=== PATIENT | male | born 1935 | race Caucasian/White ===

== ENCOUNTER 2016-05-04 14:35 | Inpatient (IN) ==
[2016-05-04] MEDS ORDERED: 0.9 % Sodium Chloride 1,000 ML IVC ONE ×2 (15:24→15:27)
[2016-05-04] MEDS ORDERED: Ipratropium/Albuterol Neb 3 ML IH ONE (15:27)
--- NOTE | 2016-05-04 15:31 | Emergency Department Note ---
Disposition Clinical Impression: Elevated troponin, Bronchospasm Dyspnea Qualifiers: Dyspnea type: shortness of breath Qualified Code(s): R06.02 - Shortness of breath Acute renal failure Qualifiers: Acute renal failure type: unspecified Qualified Code(s): N17.9 - Acute kidney failure, unspecified Hypotension Qualifiers: Hypotension type: unspecified hypotension type Qualified Code(s): I95.9 - Hypotension, unspecified Disposition: Admitted As Inpatient Condition: Fair Referrals: Cecelia Hernandez MD [Primary Care Provider] - Forms: ED Satisfaction Letter Time of Disposition: 16:51 SOB HPI - General Chief Complaint: ED Shortness of Breath/Dyspnea Stated Complaint: RAMYA, low BP, Sent by Dr. Collazo Time Seen by Provider: 05/04/16 15:04 Source: patient Limitations: no limitations Nursing Notes Reviewed: Yes Vital Signs Reviewed: Yes - History of Present Illness Patient is an 80-year-old male who presents to [facility] ED with a chief complaint of difficulty breathing and low blood pressure. 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 Collazo with concern for this. Patient states he was not feeling well yesterday and thought he may have spiked a fever. This was not measured. He then also felt difficulty breathing, and last night. Mom states he was a little wheezy at dinner. Denies any history of COPD or asthma. 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 Denies any nausea, vomiting, fever or chills. No cough or runny nose. Patient does not have any chest pain at this time. He has an AICD pacemaker from cardiomyopathy but denies any history of heart problems otherwise. Pt Subjective Complaint: shortness of breath Onset (ago): day(s) Severity: moderate Consistency/Duration: gradually worsening Improves with: nothing Worsens with: lying flat Associated symptoms: Reports: fever, wheezing. Denies: chest pain Treatment prior to arrival: none Cough present: No Sputum production: No - Related Data Home oxygen amount: none Home Medications Medication Instructions Recorded Confirmed Aspirin 81 mg PO DAILY 01/03/16 01/03/16 Gabapentin 600 mg PO TID 01/03/16 01/03/16 Lisinopril [Zestril] 10 mg PO DAILY 01/03/16 01/03/16 Niacin [Niacor] 500 mg PO DAILY 01/03/16 01/03/16 Paroxetine [Paxil] 20 mg PO DAILY 01/03/16 01/03/16 PredniSONE 5 mg PO BID 01/03/16 01/03/16 Simvastatin [Zocor] 20 mg PO DAILY 01/03/16 01/03/16 Tamsulosin [Flomax] 0.4 mg PO DAILY 01/03/16 01/03/16 Triamterene/HCTZ 37.5/25mg 1 cap PO DAILY 01/03/16 01/03/16 [Dyazide] Allergies Allergy/AdvReac Type Severity Reaction Status Date / Time No Known Allergies Allergy Verified 01/03/16 06:55 All systems ED: reviewed and negative except as stated. Past Medical History - Past Medical History Attestation: Yes The following information was validated with the patient. Source: patient Medical history: Reports: hyperlipidemia, hypertension Surgical history: Reports: appendectomy Psychiatric history: Reports: depression - Social History Smoking Status: Former smoker Smokeless Tobacco Status: No Alcohol use: Reports: none Drug use: Reports: none Physical Exam - General Limitations: no limitations General appearance: alert, in no apparent distress - Head Head exam: atraumatic, normocephalic, normal inspection - Eye Eye exam: Present: normal appearance - ENT ENT exam: normal exam, normal oropharynx, mucous membranes moist - Neck Neck exam: Present: normal inspection, full ROM, trachea midline - Chest Chest inspection: Present: normal inspection, symmetric chest wall rise - Respiratory Respiratory exam: Present: wheezes (diffusely) - Cardiovascular Cardiovascular exam: Present: regular rate, normal rhythm - Abdominal Exam Abdominal exam: Present: soft, Non-Tender. Absent: tenderness, distention, guarding, rebound, rigidity - Extremities Exam Extremities exam: Present: normal inspection, full ROM. Absent: tenderness, pedal edema - Back Exam Back exam: Present: normal inspection, full ROM. Absent: tenderness - Neurological Exam Neurological exam: Present: alert, oriented X3 - Psychiatric Psychiatric exam: Present: normal affect, normal mood - Skin Skin exam: Present: warm, dry, intact, normal color Course Course Narrative: Patient seen and examined. Dyspnea and hypotension. He does have diffuse wheezing throughout. No history of lung disease. Cardiopulmonary workup initiated. Concern for possible pneumonia and sepsis. He is very hypotensive at 60/40. We will give 2 L fluid bolus and reevaluate. - Reevaluation(s) Reevaluation #1: Patient feeling better after a triple DuoNeb treatment. Patient's blood pressure is improved at 112/80. Lab work shows worsening renal function as well as elevated troponin of 0.04. I spoke with hospitalist Uma Gonzáles who has accepted patient for admission. Time: 16:39 Vital Signs Temperature 98.7 F 05/04/16 14:53 Pulse Rate 88 05/04/16 14:53 Respiratory Rate 16 05/04/16 14:53 Blood Pressure 64/42 05/04/16 14:53 O2 Sat by Pulse Oximetry 98 05/04/16 14:53 Temperature 98.7 F 05/04/16 14:53 Pulse Rate 88 05/04/16 14:53 Respiratory Rate 20 05/04/16 16:07 Blood Pressure 64/42 05/04/16 14:53 O2 Sat by Pulse Oximetry 95 05/04/16 16:07 Oxygen Delivery Oxygen Delivery Room Air Shortness of Breath/Dyspnea - Medical Records Medical records reviewed: Yes I reviewed the patient's medical records. - Lab Data Lab results reviewed: Yes I reviewed the patient's lab results. Result diagrams: 05/04/16 15:50 05/04/16 15:50 Lab Results 05/04/16 05/04/16 05/04/16 Range/Units 15:49 15:50 15:50 WBC 10.9 (4.3-11.1) K/mcL RBC 3.80 L (4.19-5.50) M/mcL Hgb 11.6 L (12.9-16.9) g/dL Hct 36.4 L (37.5-50.1) % MCV 95.8 (83.0-100.0) fL MCH 30.5 (28.0-33.3) pg MCHC 31.9 (31.6-35.5) g/dL RDW 14.3 (11.5-14.5) % Plt Count 200 (140-400) K/mcL MPV 9.9 (9.4-12.4) fL Immature Gran % 1.0 (0-4) % Seg Neutrophils % 79.6 % Lymphocytes % 10.4 % Monocytes % 8.9 % Eosinophils % 0.0 % Basophils % 0.1 % Neutrophils # 8.7 (1.6-8.9) K/mcL Lymphocytes # 1.1 (0.6-4.6) K/mcL Monocytes # 1.0 (0.0-1.3) K/mcL Eosinophils # 0.0 (0.0-0.6) K/mcL Basophils # 0.0 (0.0-0.2) K/mcL Immature Plt Fraction 2.9 (1.1-6.1) % Sodium 140 (136-145) mEq/L Potassium 3.8 (3.5-4.5) mEq/L Chloride 98 (98-109) mEq/L Carbon Dioxide 28 (19-29) mEq/L BUN 35 H (8-26) mg/dL Creatinine 3.40 H (0.72-1.25) mg/dL Est GFR ( Amer) 21 L (> 60) Est GFR (Non-Af Amer) 17 L (> 60) BUN/Creatinine Ratio 10 (6-26) Glucose 73 (70-99) mg/dL Calculated Osmolality 297 (280-300) Lactic Acid 1.7 (0.5-2.2) mmol/L Calcium 9.2 (8.6-10.8) mg/dL Troponin I (0-0.03) ng/mL B-Natriuretic Peptide (0-100) pg/mL 05/04/16 05/04/16 Range/Units 15:50 15:50 WBC (4.3-11.1) K/mcL RBC (4.19-5.50) M/mcL Hgb (12.9-16.9) g/dL Hct (37.5-50.1) % MCV (83.0-100.0) fL MCH (28.0-33.3) pg MCHC (31.6-35.5) g/dL RDW (11.5-14.5) % Plt Count (140-400) K/mcL MPV (9.4-12.4) fL Immature Gran % (0-4) % Seg Neutrophils % % Lymphocytes % % Monocytes % % Eosinophils % % Basophils % % Neutrophils # (1.6-8.9) K/mcL Lymphocytes # (0.6-4.6) K/mcL Monocytes # (0.0-1.3) K/mcL Eosinophils # (0.0-0.6) K/mcL Basophils # (0.0-0.2) K/mcL Immature Plt Fraction (1.1-6.1) % Sodium (136-145) mEq/L Potassium (3.5-4.5) mEq/L Chloride (98-109) mEq/L Carbon Dioxide (19-29) mEq/L BUN (8-26) mg/dL Creatinine (0.72-1.25) mg/dL Est GFR ( Amer) (> 60) Est GFR (Non-Af Amer) (> 60) BUN/Creatinine Ratio (6-26) Glucose (70-99) mg/dL Calculated Osmolality (280-300) Lactic Acid (0.5-2.2) mmol/L Calcium (8.6-10.8) mg/dL Troponin I 0.04 H* (0-0.03) ng/mL B-Natriuretic Peptide 117 H (0-100) pg/mL - Radiology Data Radiology results reviewed: Yes I reviewed the patient's radiology results. Chest X-Ray 05/04/16 14:58 IMPRESSION: Low lung volumes with mild dependent bibasilar atelectasis. D/ / Eyad Cee MD / Eyad Cee MD Interpreting Provider: Eyad Cee MD - EKG Data EKG attestation: Yes I reviewed and interpreted this EKG. EKG results narrative: EKG done at 1502 shows normal sinus rhythm with a rate of [address] elevation or depression. Right bundle-branch block present. Inverted T-wave in leads V1 through V3, lead III. And inverted T waves in the precordial leads do appear new compared to prior EKG done 01/03/2016 Attestation Statement - Attestation Attestation: I examined this patient and my medical decision-making was reviewed with the TMD TEACHER/PA/Advanced Practice Nurse/Resident Physician. I agree with the documented findings, disposition and treatment plan as described except to the extent set forth below. This is an 80-year-old male who presents with cough, congestion, and increased shortness of air. Patient does follow-up with nephrology and is not currently on dialysis at this point. Patient does have wheezing and rhonchi on exam. Patient's blood pressure was low on initial evaluation. Patient did have a full septic workup initiated. Patient on chest x-ray did not show any obvious acute infiltrate so we will cover patient on Levaquin for possible early pneumonia. Patient is getting fluids and will be admitted.
[2016-05-04 15:59] LABS: Basophils % 0.1 %; Hematocrit 36.4 % (37.5-50.1); Hemoglobin 11.6 g/dL (12.9-16.9); Immature Platelets 2.9 % (1.1-6.1); Lymphocytes # 1.1 K/mcL (0.6-4.6); Lymphocytes % 10.4 %; Mean Corpuscular HGB Conc 31.9 g/dL (31.6-35.5); Mean Corpuscular Hemoglobin 30.5 pg (28.0-33.3); Mean Corpuscular Volume 95.8 fL (83.0-100.0); Mean Platelet Volume 9.9 fL (9.4-12.4); Monocytes % 8.9 %; Neutrophils # 8.7 K/mcL (1.6-8.9); Platelet Count 200 K/mcL (140-400); Red Cell Distribution Width 14.3 % (11.5-14.5); Segmented Neutrophils % 79.6 %
[2016-05-04 16:12] LABS: Calcium 9.2 mg/dL (8.6-10.8); Potassium 3.8 mEq/L (3.5-4.5)
[2016-05-04] MEDS ORDERED: Levofloxacin 500 MG/100 ML 500 MG/100 ML BAG IVPB ONE (16:20)
[2016-05-04 16:51] LABS: Albumin 3.7 g/dL (3.5-5.0); Bilirubin,Direct 0.1 mg/dL (0.0-0.5); Bilirubin,Indirect 0.3 mg/dL (0.0-1.2); Bilirubin,Total 0.4 mg/dL (0.2-1.2); Globulin 3.6 g/dL (2.4-3.5); Magnesium 1.9 mg/dL (1.6-2.6); Phosphorous 3.5 mg/dL (2.3-4.7); Total Protein 7.3 g/dL (6.0-8.3)
[2016-05-04 19:06] LABS: Bilirubin,Urine Small (Negative); Blood,Urine Negative (Negative); Clarity,Urine Cloudy (Clear); Color,Urine Yellow (Yellow); Glucose,Urine (UA) Normal (Normal); Ketones,Urine Trace mg/dL (Negative); Leukocyte Esterase,Urine Negative (Negative); Nitrite,Urine Negative (Negative); PH,Urine 5.5 pH Units (5.0-8.0); Protein,Urine 30 mg/dL (Neg-Trace); Specific Gravity,Urine 1.023 (1.010-1.025); Urobilinogen,Urine Normal (Normal)
[2016-05-04 19:08] LABS: Bacteria,Urine None Seen per hpf (None-Few); RBC,Urine 0-3 per hpf (0-3); Squamous Epithelial Cell,Urine Many per lpf (None-Few)
[2016-05-04 19:16] LABS: Hyaline Casts,Urine Few per lpf (None-Few)
[2016-05-04] MEDS ORDERED: Naloxone 0.4 MG/ML INJ IVP PRN (21:31)
--- NOTE | 2016-05-04 22:08 | Internal Med History&Physical ---
Date of Encounter: 05/04/16 Time of Encounter: 21:00 Assessment and Plan (1) Influenza A Current visit: Yes Status: Acute Treat with tamiflu and isolation precautions (2) Bronchitis Current visit: Yes Status: Acute Possibly exacerbated by influenza infection. Treat with levofloxacin, bronchodilators and Mucinex. (3) Elevated troponin Current visit: Yes Status: Acute (4) Acute on chronic renal failure Current visit: Yes Status: Acute Possibly secondary to poor oral intake/infection. Patient is on IV fluids. Monitor renal function. (5) Hypotension Current visit: Yes Status: Acute Possibly secondary to poor oral intake/infection. Treat with IV fluids. Monitor BP. Hold antihypertensives Qualifiers: Hypotension type: unspecified hypotension type Qualified Code(s): I95.9 - Hypotension, unspecified Internal Medicine - H&P: HPI Chief complaint: Hypotension Admitted From: Emergency Dept Plans for Post Hospital Care: Home History of present illness: Mr. Odell is a 80 year old male with Past medical history significant for hypertension, CKD and hyperlipidemia was evaluated in the travel agency manager Dr Collazo s office and was noted to be hypotensive with SBP in the 60s. He was sent to the emergency department for further evaluation. Patient reported that shortness of breath with cough and no significant sputum production. He had test fever at home yesterday. He was some muscle pains. He denies chest pain. He denies abdominal pain, dysuria, hematuria, diarrhea. He was evaluated in the emergency department - was noted to be hypotensive. He was given intravenous fluid bolus with improvement of the BP. He is admitted to the hospitalist service for further management. His influenza screen was positive Past Med Surg Social Fam HX - Past Medical History Medical history: hyperlipidemia, hypertension, renal disease Psychiatric history: depression - Past Surgical History Surgical History: appendectomy - Social History Smoking Status: Former smoker Smokeless Tobacco Status: No Alcohol use: none Drug use: none - Family History Father Living Status: Hx Family Cardiac Disorders: Yes Mother Living Status: Cause of : [place] Hx Family Cardiac Disorders: Yes Hx Family Endocrine Disorder: Yes (DM II) Internal Medicine - H&P: Meds Aspirin 81 mg PO DAILY 01/03/16 [History] Gabapentin 600 mg PO TID 01/03/16 [History] Lisinopril [Zestril] 10 mg PO DAILY 01/03/16 [History] Niacin [Niacor] 500 mg PO HS 01/03/16 [History] Paroxetine [Paxil] 20 mg PO DAILY 01/03/16 [History] Simvastatin [Zocor] 20 mg PO HS 01/03/16 [History] Tamsulosin [Flomax] 0.4 mg PO DAILY 01/03/16 [History] Triamterene/HCTZ 37.5/25mg [Dyazide] 1 cap PO DAILY 01/03/16 [History] Allergies No Known Allergies Allergy (Verified 01/03/16 06:55) All Systems PM: A 10-system review of systems was performed and is negative for pertinent findings except as documented above in the HPI. - Constitutional Vitals: Temp Pulse Resp BP Pulse Ox 98.7 F 97 18 101/56 96 05/04/16 19:18 05/04/16 19:18 05/04/16 19:18 05/04/16 19:18 05/04/16 19:18 Exam: General: Not in acute distress at the time of my evaluation HEENT: Oral mucosa is moist. No conjunctival palor or scleral icterus Neck: No obvious neck swellings Lungs: B/L wheeze present Cardiac: Regular rate and rhythm. No significant murmurs Abdomen: Soft, non tender. Bowel sounds present Genitourinary: No mckeon catheter Neurological: Alert and oriented. No gross localizing deficits Psych: Not aggressive or agitated Extremities: no gross deformities Skin: No generalized rash Internal Med - H&P Results - Labs CBC & Chem 7: 05/05/16 06:57 05/05/16 06:57 Labs: Urine 05/04/16 Range/Units 18:53 Urine Color Yellow (Yellow) Urine Clarity Cloudy A (Clear) Urine pH 5.5 (5.0-8.0) pH Units Ur Specific Stewart 1.023 (1.010-1.025) Urine Protein 30 H (Neg-Trace) mg/dL Urine Glucose (UA) Normal (Normal) mg/dL - EKG Data -: EKG Interpreted by Myself EKG shows normal: sinus rhythm - EKG Data EKG comments: RBBB 05/05/16 08:19 - Impressions ITS Impressions Chest X-Ray 05/04/16 14:58 IMPRESSION: Low lung volumes with mild dependent bibasilar atelectasis. D/ / Eyad Cee MD / Eyad Cee MD Interpreting Provider: yEad Cee MD
[2016-05-04] MEDS: 0.9 % Sodium Chloride 1,000 ML IVC SCH (22:19)
[2016-05-04] MEDS: *HR* Heparin 5,000 UNIT/ML VIAL SQ SCH (22:19)
[2016-05-04] MEDS: Oseltamivir Phosphate 30 MG CAPSULE PO SCH (22:19)
[2016-05-04] MEDS ORDERED: Ipratropium/Albuterol Neb 3 ML IH PRN (22:40)
[2016-05-04] MEDS: Ipratropium/Albuterol Neb 3 ML IH SCH (23:19)
[2016-05-05] MEDS ORDERED: 0.9 % Sodium Chloride 250 ML IVC ONE (00:10)
[2016-05-05] MEDS: Ipratropium/Albuterol Neb 3 ML IH SCH ×4 (04:23→23:01)
[2016-05-05] MEDS: *HR* Heparin 5,000 UNIT/ML VIAL SQ SCH ×3 (05:57→22:29)
[2016-05-05 07:30] LABS: Eosinophils % 0.2 %; Hematocrit 31.9 % (37.5-50.1); Immature Granulocytes % 0.5 % (0-4); Lymphocytes # 1.5 K/mcL (0.6-4.6); Lymphocytes % 23.1 %; Mean Corpuscular Hemoglobin 30.1 pg (28.0-33.3); Mean Platelet Volume 9.8 fL (9.4-12.4); Monocytes # 0.6 K/mcL (0.0-1.3); Monocytes % 8.8 %; Neutrophils # 4.4 K/mcL (1.6-8.9); Platelet Count 152 K/mcL (140-400); Red Blood Count 3.29 M/mcL (4.19-5.50); Red Cell Distribution Width 14.6 % (11.5-14.5); Segmented Neutrophils % 67.4 %
[2016-05-05 07:37] LABS: Hemoglobin 9.9 g/dL (12.9-16.9)
[2016-05-05 07:41] LABS: Calcium 7.9 mg/dL (8.6-10.8); Potassium 4.4 mEq/L (3.5-4.5)
[2016-05-05] MEDS ORDERED: Levofloxacin 500 MG/100 ML 500 MG/100 ML BAG IVPB ONE (09:00)
[2016-05-05] MEDS: Aspirin 81 MG TAB.CHEW PO SCH (09:21)
[2016-05-05] MEDS: Lactobacillus 1 EACH CAP.SPRINK PO SCH ×2 (09:21→22:29)
[2016-05-05] MEDS: Oseltamivir Phosphate 30 MG CAPSULE PO SCH (09:21)
[2016-05-05] MEDS: Gabapentin 300 MG CAPSULE PO SCH ×3 (09:27→22:29)
[2016-05-05] MEDS: 0.9 % Sodium Chloride 1,000 ML IVC SCH ×2 (11:56→23:12)
--- NOTE | 2016-05-05 12:07 | Nephrology Consult Note ---
<Jennifer Peter - Last Filed: 05/05/16 12:10> Date of Encounter: 05/05/16 Time of Encounter: 12:01 Assessment and Plan (1) Acute renal failure Status: Acute Kidney function improving with hydration. Continue IV fluids and encourage po fluids Strict I/Os Qualifiers: Acute renal failure type: unspecified Qualified Code(s): N17.9 - Acute kidney failure, unspecified (2) Influenza A Status: Acute per primary team (3) Chronic kidney disease, stage 3 Status: Chronic Avoid nephrotoxins if possible History of Present Illness - Reason for Consult Acute Kidney Injury, Chronic Kidney Disease - Chief Complaint influenza, MAURILIO on CKD stage 3 - History of Present Illness Mr. Odell is an 80 year old male with past medical history significant for hypertension, CKD stage 3 and hyperlipidemia who had an appointment with Dr Irwin in the office yesterday and was noted to be hypotensive with SBP in the 60s. He was sent to the emergency department for further evaluation. Patient reported shortness of breath with cough and no significant sputum production. His influenza screen was positive. His baseline GFR is 30-33 and Scr baseline is 2. On admission Scr increased to 3.4 and GFR dropped to 17. Today Scr and GFR are 2.88 and 21. Nephrology has been consulted to mangage patient's MAURILIO on CKD. Past Med Surg Social Fam HX - Past Medical History Medical history: hyperlipidemia, hypertension, renal disease Psychiatric history: depression - Past Surgical History Surgical History: appendectomy - Social History Smoking Status: Former smoker Smokeless Tobacco Status: No Alcohol use: none Drug use: none - Family History Father Living Status: Hx Family Cardiac Disorders: Yes Mother Living Status: Cause of : [place] Hx Family Cardiac Disorders: Yes Hx Family Endocrine Disorder: Yes (DM II) Medications and Allergies Aspirin 81 mg PO DAILY 01/03/16 [History] Gabapentin 600 mg PO TID 01/03/16 [History] Lisinopril [Zestril] 10 mg PO DAILY 01/03/16 [History] Niacin [Niacor] 500 mg PO HS 01/03/16 [History] Paroxetine [Paxil] 20 mg PO DAILY 01/03/16 [History] Simvastatin [Zocor] 20 mg PO HS 01/03/16 [History] Tamsulosin [Flomax] 0.4 mg PO DAILY 01/03/16 [History] Triamterene/HCTZ 37.5/25mg [Dyazide] 1 cap PO DAILY 01/03/16 [History] Albuterol Sulfate [Albuterol Inhaler] 1 puff IH Q4HR PRN #1 inhaler 05/06/16 [Rx ] Oseltamivir Phosphate [Tamiflu] 30 mg PO DAILY #2 capsule 05/06/16 [Rx] Allergies No Known Allergies Allergy (Verified 01/03/16 06:55) Review of Systems All Systems: reviewed and no additional remarkable complaints except as stated Constitutional: chills, fatigue, fever(s), malaise Cardiovascular: dyspnea, dyspnea on exertion, no chest pain, no edema Respiratory: cough, dyspnea, wheezing Gastrointestinal: no nausea, no vomiting Neurological: no behavioral changes, no confusion Psychiatric: no anxiety Exam - Vital Signs Vital signs: Initial Vital Signs Temp Pulse Resp BP Pulse Ox 98.7 F 88 16 64/42 98 05/04/16 14:53 05/04/16 14:53 05/04/16 14:53 05/04/16 14:53 05/04/16 14:53 Vital Signs - Last 8 Hours Temp Pulse Resp BP Pulse Ox 05/05/16 11:25 98.0 F 86 20 144/69 97 05/05/16 08:00 98.4 F 86 17 130/59 98 05/05/16 04:23 98.4 F 83 17 100/59 96 Intake and Output 05/04/16 05/05/16 05/05/16 23:59 07:59 15:59 Intake Total 1100 / 2100 250 / 250 1000 / 1000 Output Total 0 / 0 Balance 1100 / 2100 250 / 250 1000 / 1000 Intake: IV Fluids 1100 / 1100 250 / 250 1000 / 1000 0.9 % Sodium Chloride 1, 1000 / 1000 1000 / 1000 000 ML @ 75 mls/hr IVC . [id number] TALIB Rx#: [id number] 0.9 % Sodium Chloride 250 250 / 250 ML @ 937.5 mls/hr IVC . Q16M ONE Rx#:[id number] Levaquin 500mg/100mL 500 100 / 100 mg In 100 ml @ 100 mls/hr IVPB ONCE ONE Rx#: [id number] Oral 0 / 0 Output: Urine 0 / 0 - General Appearance General appearance: well-developed, well-nourished EENT: ATNC, mucous membranes moist, hearing intact, vision intact Neck: supple Respiratory: wheezing (improved from yesterday) Cardiology: no edema, normal S1, normal S2 Gastrointestinal: no tenderness, no guarding Integumentary: warm and dry Neurologic: alert and oriented x3 Psychiatric: mood/affect appropriate, cooperative Results - Lab Results 05/05/16 06:57 05/05/16 06:57 Most recent lab results Calcium 7.9 mg/dL (8.6-10.8) L 05/05/16 06:57 Phosphorus 3.5 mg/dL (2.3-4.7) 05/04/16 15:50 Magnesium 1.9 mg/dL (1.6-2.6) 05/04/16 15:50 Consult Discharge Plan - Plan Instructions: Albuterol (By breathing), Oseltamivir (By mouth), Chronic Kidney Disease (DC), Chronic Hypertension (DC) Referrals: Cecelia Hernandez MD [Primary Care Provider] - 05/12/16 1:30 pm () Prescriptions: Albuterol Sulfate [Albuterol Inhaler] 1 puff IH Q4HR PRN #1 inhaler PRN Reason: Shortness Of Breath Oseltamivir Phosphate [Tamiflu] 30 mg PO DAILY #2 capsule <Blank Irwin - Last Filed: 05/11/16 21:13> Date of Encounter: 05/05/16 Exam - Vital Signs Vital signs: Initial Vital Signs Temp Pulse Resp BP Pulse Ox 98.7 F 88 16 64/42 98 05/04/16 14:53 05/04/16 14:53 05/04/16 14:53 05/04/16 14:53 05/04/16 14:53 Results - Lab Results 05/06/16 06:20 05/06/16 06:20 Most recent lab results Calcium 8.7 mg/dL (8.6-10.8) 05/06/16 06:20 Phosphorus 3.5 mg/dL (2.3-4.7) 05/04/16 15:50 Magnesium 1.9 mg/dL (1.6-2.6) 05/04/16 15:50 - Attending Attestation I examined this patient and my medical decision-making was reviewed with the SENIOR APPLICATIONS DEVELOPER/PA/Advanced Practice Nurse/Resident Physician. I agree with the documented findings, disposition and treatment plan as described except to the extent set forth below. 80 y o male patient who was sent from my office yesterday to the ED for evaluation after he was noted very weak and hypotensive reportsing "sickness" for several days. SCr noted worse than baseline but already improving as of this morning with IVF, will continue.
--- NOTE | 2016-05-05 15:48 | Internal Med Progress Note ---
Date of Encounter: 05/05/16 Time of Encounter: 15:46 - Assessment and plan (1) Elevated troponin Current Visit: Yes Status: Acute Assessment and plan: possible demand ischemia from hypotension and flu. (2) Influenza A Current Visit: Yes Status: Acute Assessment and plan: started tamiflu yesterday. much improvement today. will continue IVF today, BP has improved. no pneumonia on the CXR, no indication for the antibiotics, will stop. possible DC tomm (3) Chronic kidney disease, stage 3 Current Visit: No Status: Chronic Assessment and plan: Improvement in the kidney function today. Mild worsening of the kidney function initially probably secondary to hypotension. Renal has been consulted, appreciate recommendations, continue IV fluids for now. Repeat Chem-7 tomorrow. - Time Spent With Patient 25 - 35 minutes - Subjective Interval history: Patient seen at the bedside, admitted for dehydration, generalized weakness, tested positive for influenza. Started on IV fluids and Tamiflu yesterday. He reports that he feels clinically much better. Denies any nausea vomiting diarrhea. Denies any chest pain or cough. - Constitutional Vitals: Temp Pulse Resp BP Pulse Ox 98.0 F 86 20 144/69 97 05/05/16 11:25 05/05/16 11:25 05/05/16 11:25 05/05/16 11:25 05/05/16 11:25 General appearance: Present: A&O X 3, no acute distress Exam: General: Not in acute distress at the time of my evaluation HEENT: Oral mucosa is moist. No conjunctival palor or scleral icterus Neck: No obvious neck swellings Lungs: B/L MILD WHEEZING, no creptns Cardiac: Regular rate and rhythm. No significant murmurs Abdomen: Soft, non tender. Bowel sounds present Genitourinary: No mckeon catheter Neurological: Alert and oriented. No gross localizing deficits Psych: Not aggressive or agitated Extremities: no gross deformities Skin: No generalized rash Internal Medicine: Result - Labs CBC & Chem 7: 05/05/16 06:57 05/05/16 06:57 Labs: Short CBC 05/05/16 Range/Units 06:57 WBC 6.6 (4.3-11.1) K/mcL Hgb 9.9 L D (12.9-16.9) g/dL Hct 31.9 L (37.5-50.1) % Plt Count 152 (140-400) K/mcL Neutrophils # 4.4 (1.6-8.9) K/mcL BMP 05/05/16 06:57 Sodium 139 Potassium 4.4 Chloride 105 Carbon Dioxide 24 BUN 36 H Creatinine 2.88 H Glucose 92 Calcium 7.9 L Cardiac Enzymes 05/05/16 Range/Units 06:57 Troponin I 0.03 (0-0.03) ng/mL Consult Discharge Plan - Plan Referrals: Cecelia Hernandez MD [Primary Care Provider] - 05/12/16 1:30 pm ()
[2016-05-06] MEDS: Ipratropium/Albuterol Neb 3 ML IH SCH ×2 (04:33→10:50)
[2016-05-06 06:45] LABS: Basophils % 0.2 %; Eosinophils # 0.1 K/mcL (0.0-0.6); Eosinophils % 1.1 %; Hemoglobin 10.5 g/dL (12.9-16.9); Immature Granulocytes % 0.2 % (0-4); Lymphocytes # 1.9 K/mcL (0.6-4.6); Mean Corpuscular HGB Conc 31.8 g/dL (31.6-35.5); Mean Corpuscular Hemoglobin 30.6 pg (28.0-33.3); Mean Corpuscular Volume 96.2 fL (83.0-100.0); Mean Platelet Volume 9.9 fL (9.4-12.4); Monocytes # 0.6 K/mcL (0.0-1.3); Monocytes % 9.8 %; Neutrophils # 3.1 K/mcL (1.6-8.9); Platelet Count 166 K/mcL (140-400); Red Blood Count 3.43 M/mcL (4.19-5.50); Red Cell Distribution Width 14.4 % (11.5-14.5); Segmented Neutrophils % 54.7 %
[2016-05-06 06:56] LABS: Calcium 8.7 mg/dL (8.6-10.8); Potassium 4.2 mEq/L (3.5-4.5)
[2016-05-06] MEDS: *HR* Heparin 5,000 UNIT/ML VIAL SQ SCH (07:41)
--- NOTE | 2016-05-06 07:55 | Electrocardiograph Report ---
[address] [place], [place] [address] Test Date: 2016-05-04 Pat Name: Randal Odell Department: 102 Room: 2A Gender: M Customer Success Representative: Alyce : 1935 Requested By: Tod Hackett Order Number: [id number] Reading MD: Jhon Carrillo MD Measurements Intervals [place] Rate: 87 P: 2 CO: 135 QRS: 31 QRSD: 132 T: 6 QT: 342 QTc: 387 Interpretive Statements SINUS RHYTHM RIGHT BUNDLE BRANCH BLOCK Electronically Signed On 05-06-2016 7:53:06 EDT by Jhon Carrillo MD
[2016-05-06 08:11] VITALS: BP 163/77
[2016-05-06 08:22] LABS: Platelet Estimate Normal (Normal)
[2016-05-06] MEDS: Oseltamivir Phosphate 30 MG CAPSULE PO SCH (09:30)
[2016-05-06] MEDS: Aspirin 81 MG TAB.CHEW PO SCH (09:30)
[2016-05-06] MEDS: Lactobacillus 1 EACH CAP.SPRINK PO SCH (09:30)
[2016-05-06] MEDS: Gabapentin 300 MG CAPSULE PO SCH (09:31)
--- NOTE | 2016-05-06 09:59 | Discharge Summary ---
Date of Encounter: 05/06/16 Time of Encounter: 09:57 - Discharge Diagnosis (1) Elevated troponin Priority: Primary Status: Acute (2) Influenza A Priority: Primary Status: Acute (3) Chronic kidney disease, stage 3 Priority: Secondary Status: Chronic - Discharge Medications Prescriptions: Albuterol Sulfate [Albuterol Inhaler] 1 puff IH Q4HR PRN #1 inhaler PRN Reason: Shortness Of Breath Oseltamivir Phosphate [Tamiflu] 30 mg PO DAILY #2 capsule Home Medications: Aspirin 81 mg PO DAILY 01/03/16 [History] Gabapentin 600 mg PO TID 01/03/16 [History] Lisinopril [Zestril] 10 mg PO DAILY 01/03/16 [History] Niacin [Niacor] 500 mg PO HS 01/03/16 [History] Paroxetine [Paxil] 20 mg PO DAILY 01/03/16 [History] Simvastatin [Zocor] 20 mg PO HS 01/03/16 [History] Tamsulosin [Flomax] 0.4 mg PO DAILY 01/03/16 [History] Triamterene/HCTZ 37.5/25mg [Dyazide] 1 cap PO DAILY 01/03/16 [History] Albuterol Sulfate [Albuterol Inhaler] 1 puff IH Q4HR PRN #1 inhaler 05/06/16 [Rx ] Oseltamivir Phosphate [Tamiflu] 30 mg PO DAILY #2 capsule 05/06/16 [Rx] Allergies/Adverse Reactions: Allergies No Known Allergies Allergy (Verified 01/03/16 06:55) Date of admission: 05/04/16 23:02 Primary care physician: Cecelia Galvez Consults: 05/05/16 08:23 Consult to Nephrology [CONS] Routine Consulting Provider: Kidney Jeniffer/MICHELLE/MELLO/MAYA Reason for Consult: Acute on chronic renal failure Call Completed: No Discharging clinician: Omayra Wallace Anticipated date of discharge: 05/06/16 - Patient Status Disposition: Home, Self-Care Condition: Fair Functional capacity at discharge: independent ambulation Overall status at discharge: patient is back to baseline - Discharge Instructions Instructions: Albuterol (By breathing), Oseltamivir (By mouth), Chronic Kidney Disease (DC), Chronic Hypertension (DC) Follow Up With: Cecelia Hernandez MD [Primary Care Provider] - 05/12/16 1:30 pm () - Diet and Activity Activity: resume usual activities as tolerated Diet: advance to your usual diet Interval History: Mr. Odell is a 80 year old male with Past medical history significant for hypertension, CKD and hyperlipidemia was evaluated in the presales engineer Dr Collazo s office and was noted to be hypotensive with SBP in the 60s. He was sent to the emergency department for further evaluation. Patient reported that shortness of breath with cough and no significant sputum production. He was evaluated in the emergency department - was noted to be hypotensive. He was given intravenous fluid bolus with improvement of the BP. His influenza screen was positive. Mild elevation of troponin was noted with no EKG changes, possible demand ischemia from hypotension and flu. He was treated with Tamiflu adn IVF with supportive treatment with much improvement clinically, no pneumonia in the chest x-ray with no indication for antibiotics. He had mild MAURILIO probably from the hypotension as well which improved with IV fluids. HE is being dc today in stable condition, he is hemodynamiclaly stable at the time of dc. Hospital course: Mr. Odell is a 80 year old male Time spent discussing smoking cessation with patient: more than 10 minutes - Time Spent with Patient Total time spent providing and/or coordinating discharge services: Greater than 30 minutes - Constitutional Vitals: Temp Pulse Resp BP Pulse Ox 98.7 F 81 20 163/77 98 05/06/16 08:09 05/06/16 08:09 05/06/16 08:09 05/06/16 08:09 05/06/16 08:09 General appearance: Present: A&O X 3, no acute distress Exam: HEENT: Oral mucosa is moist. No conjunctival palor or scleral icterus Neck: No obvious neck swellings Lungs: B/Lclear Cardiac: Regular rate and rhythm. No significant murmurs Abdomen: Soft, non tender. Bowel sounds present Genitourinary: No mckeon catheter Neurological: Alert and oriented. No gross localizing deficits Psych: Not aggressive or agitated Extremities: no gross deformities Skin: No generalized rash
[2016-05-07] MEDS ORDERED: Levofloxacin 500 MG/100 ML 500 MG/100 ML BAG IVPB SCH (09:00)
[2016-05-07] MEDS ORDERED: Levofloxacin 250 MG/50 ML 250 MG/50 ML BAG IVPB SCH (09:00)
== END 2016-05-06 12:04 | disposition home or self-care (01) | DRG 194 ==
LOC: 2ANU 14:35 → EMEROO 14:35 → 2ANU 18:31 → SUATTDRO 23:02
PROVIDERS: ADMIT Nurse Practitioner Family; ATTEND Internal Medicine Endocrinology, Diabetes & Metabolism

== ENCOUNTER 2016-06-23 09:15 | Inpatient (IN) ==
[2016-06-23] MEDS ORDERED: Famotidine 20 MG/2 ML VIAL IVP ONE (09:36)
[2016-06-23] MEDS ORDERED: Acetaminophen IV 1,000 MG/100 ML INFUS..BTL IVPB ONE (09:37)
[2016-06-23] MEDS ORDERED: Gabapentin 300 MG CAPSULE PO ONE (09:37)
[2016-06-23] MEDS ORDERED: Lidocaine -MPF 1% 2 ML VIAL ID ONE (09:43)
[2016-06-23] MEDS ORDERED: CeFAZolin Pre 2,000 MG/100 ML 2,000 MG/100 ML BAG IVPB ONE (09:43)
--- NOTE | 2016-06-23 09:46 | History & Physical Report ---
Date of Encounter: 06/23/16 Time of Encounter: 09:45 24 Hour HP Update - Instructions Instructions: If the History and Physical is less than 30 days old and was completed prior to A.M. admission and or procedure and has NOT been updated on calendar day of procedure please complete this update prior to performing procedure. - Update Patient reports changes in Medical Condition: No Changes in examination, assessment, or condition: No Changes in Medication: No Preop tests/diagnostics Reviewed: Yes Pre-Op MRSA Screen: Negative Surgery Remains Indicated: Yes Consent for Planned Operative Procedure(s) Verified: Yes - Pre-Operative Checklist Preoperative Checklist Indicated: No Prophylactic Antibiotic Ordered: Yes Home Medications Include Beta Cory: No Beta Cory Taken Today (Day of Surgery): No Beta Cory Taken Yesterday (Day Prior to Surgery): No Is VTE Prophylaxis Indicated?: Yes
--- NOTE | 2016-06-23 09:49 | Anesthesia Evaluation PreOp ---
Date of Encounter: 06/23/16 Time of Encounter: 09:45 - Past History Planned Operation: PLIF L5-S1 Cardiac History: HTN, Hyperlipidemia Pulmonary History: Denies Any Significant HX CLINICAL TRIALS SPECIALIST History: Other (Radiculopathy Rt LE, Spondylolisthesis L5-S1) Other Medical History: Denies Any Significant HX Anesthesia History: No Prior Anesthetic Complications Alcohol Use: none Drug use: none Medications and Allergies Aspirin 81 mg PO DAILY 01/03/16 [History] Gabapentin 600 mg PO TID 01/03/16 [History] Lisinopril [Zestril] 10 mg PO DAILY 01/03/16 [History] Niacin [Niacor] 500 mg PO HS 01/03/16 [History] Paroxetine [Paxil] 20 mg PO DAILY 01/03/16 [History] Simvastatin [Zocor] 20 mg PO HS 01/03/16 [History] Tamsulosin [Flomax] 0.4 mg PO DAILY 01/03/16 [History] Triamterene/HCTZ 37.5/25mg [Dyazide] 1 cap PO DAILY 01/03/16 [History] Albuterol Sulfate [Albuterol Inhaler] 1 puff IH Q4HR PRN #1 inhaler 05/06/16 [Rx ] Oseltamivir Phosphate [Tamiflu] 30 mg PO DAILY #2 capsule 05/06/16 [Rx] Allergies No Known Allergies Allergy (Verified 01/03/16 06:55) - Meds/Allergy Pre-op Review Medications Reviewed: Yes Allergies Reviewed: Yes Beta Blockers on Current Med List: No Anesthesia Results - Labs Laboratory Tests 06/18/16 06/18/16 06/18/16 14:34 14:34 14:34 Hgb 10.8 L Hct 33.7 L Plt Count 275 PT 10.9 INR 1.0 APTT 26.9 Sodium 137 Potassium 4.4 BUN 32 H Creatinine 2.02 H - Imaging EKG: report reviewed (SR Rt BBB) Additional studies: ECHO 2016 LVEF 65%, mild diastolic dysfunction Anesthesia Exam O2 Sat Height 1.73 m Height 1.73 m Weight 87.543 kg Weight 87.543 kg O2 Sat by Pulse Oximetry 99 Vital Signs Temp Pulse Resp BP Pulse Ox 98.0 F 75 18 135/65 99 06/23/16 09:49 06/23/16 09:49 06/23/16 09:49 06/23/16 09:49 06/23/16 09:49 Height: 5'8 Weight: 193 lbs NPO (# of Hours): MN Pain Scale: 0 - HEENT Pupil (Motor): Pupils equal, EOMI Mallampati: III Teeth: Normal Oral Opening: Less than or equal to 3 - CLINICAL TRIALS SPECIALIST LOC: Oriented CLINICAL TRIALS SPECIALIST Motor: Normal RUE, Normal LUE, Normal LLE, Normal Face, Deficit RLE CLINICAL TRIALS SPECIALIST Sensory: Normal: RUE, LUE, LLE, Face, Deficit: RLE (paresthesia) - Cardiac Rhythm: Regular Murmur: None JVD: No Carotid Bruit: No - Pulmonary Breath Sounds: bilateral Clear Respiratory Effort: Symmetrical Anesthesia Assess/Plan ASA Score: 3 (HTN Hypercholesterolemia) Modified Maxine Scale for Level of Consciousness: Cooperative, oriented, and tranquil Anesthetic Plan: General Monitoring Plan: Standard Monitors Recovery Plan: PACU (Discussed GA, agrees to proceed)
[2016-06-23] MEDS: Ringers Solution, Lactated 1,000 ML IVC SCH ×2 (10:09→13:16)
[2016-06-23] MEDS ORDERED: *HR* Promethazine 25 MG/ML VIAL IVP PRN (10:43)
[2016-06-23] MEDS ORDERED: *HR* HYDROmorphone (PF) 1 MG/ML SYRINGE IVP PRN (10:43)
[2016-06-23] MEDS ORDERED: Ondansetron 4 MG/2 ML VIAL IVP ONE (10:43)
[2016-06-23] MEDS ORDERED: *HR* Remifentanil 1 MG VIAL IVP ONE ×2 (13:01)
[2016-06-23] MEDS ORDERED: EPHEDrine 50 MG/ML VIAL ONE (13:01)
--- NOTE | 2016-06-23 13:06 | Orthopedic Operative Note ---
Date of procedure: 06/23/16 Pre-op diagnosis: Spondylolisthesis, lumbar stenosis, lumbar radiculopathy Post-op diagnosis: same Operation/Findings: Posterior lumbar interbody fusion L5-S1: The patient successfully underwent general endotracheal anesthesia. The patient was given antibiotics prior to the start of the procedure. Compression boots and stockings were used for deep vein thrombosis prophylaxis. A Hubbard catheter was placed. Leads for neuro monitoring were placed on the upper and lower extremities. This included the cranium. The neuro monitoring personnel confirmed there were satisfactory readings prior to the start of the procedure. The patient was turned prone on the Vipul table. The back was prepped and draped in the usual sterile fashion. An incision was was marked and centered over the involved L5-S1 levels in the mid line. The incision was deepened through the lumbar fascia. Bovie cautery and Zuleta elevators were used to reflect the paraspinal musculature at the lateral extent of the transverse processes of the involved L4 -5 and S1 levels. Gris clamps were placed over the L5 spinous process. An intraoperative lateral fluoroscopy graft was obtained. A conversation was held between the surgeon and radiologist and both confirmed we had the correct L5-S1 operative level. We then placed pedicle screws in standard fashion with the aid of fluoroscopy and anatomic landmarks. Briefly a starter awl was used. A gearshift was subsequently used to enter the commercial helicopter pilot hole via a transpedicular route into the vertebral body. The commercial helicopter pilot hole was tapped with an undersized instrument, and subsequently four 6.5 x 40 mm pedicle screws were placed bilaterally at the indicated L5 and S1 levels. The screws were tested with the aid of the neurologic monitoring staff via pedicle screw stimulation. All reading suggested there was no significant cortical wall breech. The screws were also evaluated fluoro- graphically and appeared to be in satisfactory position. We then turned our attention to the decompression portion of the procedure. We removed the supraspinous and interspinous ligaments and subsequently the insertion of the ligamentum flavum on the undersurface of the proximal L5 lamina was dislodged with a curette. We then removed the ligamentum flavum as well as undercut the L5-S1 facets at this level to decompress the lateral recesses. We also performed a L5 laminectomy. After the decompression, which was over and above that which was required to place the interbody graft, the foramen and traversing roots at this level were found to be free and patent. We also took part of the medial facet in order to aid in the decompression. We then protected the neural elements including the thecal sac and traversing nerve root on the right with a dural retractor. We made an annulotomy into the L5-S1 disc space and then removed disc material using Pituitary instruments. We trialed various size grafts after the endplates were prepared for graft insertion. A 8 x 26 enter body graft fit well within the L5-S1 disc space. We obtained some bone from the right posterior superior iliac spine through us a separate incision and combined with this with the bone which we had saved from the L5 laminectomy portion of the procedure. This autograft bone was first placed in the anterior portion of the L5-S1 disc space and additional bone was placed within the interbody graft spacer. We then placed the interbody graft spacer obliquely across the L5-S1 disc space towards the midline while protecting the neural elements with a root retractor. When the graft was found to be in satisfactory position the warehouse coordinator was removed. We then copiously irrigated the wound. We then decorticated the transverse processes as well as the facet joints of the involved levels to aid in the posterolateral fusion. We placed autograft bone in the lateral gutters over these regions. We then placed rods within the screw heads of the involved levels and first locked the distal screws and then subsequently locked the proximal screws so as to improve and reduce the spondylolisthesis previously seen. We then closed the wound in layers with 1 Vicryl for the fascia, 2-0 Vicryl. Subcutaneous tissue, and Dermabond was used for skin closure. Sterile dressings were placed over the wound. The patient was turned supine on a hospital bed and extubated. All sponge instruments and needle counts were correct at the end of the procedure. The patient tolerated the procedure well without complications. Anesthesia: GETA Surgeon: Gerry Benavidez Jr Estimated blood loss (cc): 200 Condition: stable Disposition: PACU
[2016-06-23] MEDS ORDERED: *HR* HYDROmorphone 2 MG/ML SYRINGE ONE (13:34)
[2016-06-23] MEDS ORDERED: Ringers Solution, Lactated 1,000 ML IVC SCH (14:12)
[2016-06-23] MEDS ORDERED: Ondansetron 4 MG/2 ML VIAL IVP PRN (14:12)
[2016-06-23] MEDS ORDERED: Naloxone 0.4 MG/ML INJ IVP PRN (14:12)
[2016-06-23] MEDS ORDERED: hydrOXYzine pamoate 25 MG CAPSULE PO PRN (14:12)
[2016-06-23] MEDS ORDERED: *HR* Morphine 2 MG/ML SYRINGE IVP PRN (14:12)
--- NOTE | 2016-06-23 14:16 | Anesthesia Evaluation Post Op ---
Date of Encounter: 06/23/16 Time of Encounter: 14:15 - Vital Signs Vital Signs: Vital Signs/O2 Sat/Glucose, Most Current Temp Pulse Resp BP Pulse Ox 06/23/16 13:56 89 16 106/63 97 06/23/16 13:46 97.9 F 84 16 108/59 99 06/23/16 13:36 87 16 104/61 95 06/23/16 13:26 91 16 128/63 100 06/23/16 13:16 97.9 F 100 16 151/69 100 - Lungs Lungs: Clear Ascult./Percussion - Airway Airway: Non-obstructed - Cardiovascular Regular Rate - Mental Status Mental Status: Alert & Oriented, Answers Appropriately - Pain Pain Scale: 0 - Nausea Vomiting Nausea Vomiting: Not Present - Hydration Hydration: Ice chips - Discharge PostOp Status: Transfer Patient to floor
[2016-06-23] MEDS: ceFAZolin 2,000 MG in D5% in Water 100 ML IVPB SCH ×2 (16:36→23:40)
[2016-06-23] MEDS: Niacin (24 HR) 500 MG TAB.ER.24H PO SCH (20:28)
[2016-06-24 06:40] LABS: Potassium 5.2 mEq/L (3.5-4.5)
[2016-06-24] MEDS: Aspirin 81 MG TAB.CHEW PO SCH (08:38)
[2016-06-24] MEDS: hydroCHLOROthiazide 25 MG TABLET PO SCH (08:39)
[2016-06-24] MEDS: *HR* OxyCODONE Immed Rel 5 MG TABLET PO PRN ×2 (15:05→21:02)
[2016-06-24] MEDS: Niacin (24 HR) 500 MG TAB.ER.24H PO SCH (21:02)
[2016-06-25] MEDS: *HR* OxyCODONE Immed Rel 5 MG TABLET PO PRN ×4 (03:02→18:39)
--- NOTE | 2016-06-25 05:10 | Spine Progress Note ---
Date of Encounter: 06/24/16 Time of Encounter: 13:35 Subjective Principal diagnosis: spondylolisthesis, lumbar stenosis Interval history: The patient complains of some back pain. Afebrile, vital signs stable. Dressing clean, dry, and intract. Neurovascularly intact withregard to his bilateral lower extremities. Stable. Mobilize, analgesics. discharge planning. Objective Vital signs: Vital Signs Temp Pulse Resp BP Pulse Ox 06/24/16 17:36 98.5 F 96 20 146/74 96 06/24/16 15:00 97.9 F 91 20 110/59 93 06/24/16 11:45 78 18 111/66 96 06/24/16 10:46 98.2 F 78 18 111/66 96 06/24/16 08:41 94 06/24/16 06:28 97.9 F 79 20 137/78 94 Intake and Output 06/24/16 06/24/16 06/25/16 15:59 23:59 07:59 Intake Total 820 / 820 240 / 240 Balance 820 / 820 240 / 240 Intake: IV Fluids 100 / 100 Oral 720 / 720 240 / 240 Other: Meal Lunch Dinner Percent of Meal Consumed 100% 25% # Voids 3 1 - Labs CBC & BMP: 06/24/16 05:57 Labs: Abnormal lab results Potassium 5.2 mEq/L (3.5-4.5) H 06/24/16 05:57 BUN 29 mg/dL (8-26) H 06/24/16 05:57 Creatinine 1.85 mg/dL (0.72-1.25) H 06/24/16 05:57 Est GFR ( Amer) 43 (> 60) L 06/24/16 05:57 Est GFR (Non-Af Amer) 35 (> 60) L 06/24/16 05:57 Glucose 115 mg/dL (70-99) H 06/24/16 05:57 Consult Discharge Plan - Plan Referrals: Cecelia Hernandez MD [Primary Care Provider] -
[2016-06-25] MEDS: hydroCHLOROthiazide 25 MG TABLET PO SCH (08:24)
[2016-06-25] MEDS: Aspirin 81 MG TAB.CHEW PO SCH (08:24)
[2016-06-25 15:44] LABS: ABG Base Excess 3.7 mEq/L (-2.0 to 3.0); ABG HCO3 28.5 mEQ/L (21-27); ABG Oxygen Saturation 95 % (95-98); ABG PCO2 43 mmHg (35-45); ABG PH 7.43 pH Units (7.32-7.45); ABG PO2 74 mmHg (85-104); ABG TCO2 29.8 mEq/L (20-26)
[2016-06-25 15:48] LABS: Basophils % 0.1 %; Eosinophils % 0.4 %; Hemoglobin 9.9 g/dL (12.9-16.9); Immature Granulocytes % 0.3 % (0-4); Lymphocytes # 1.4 K/mcL (0.6-4.6); Lymphocytes % 15.7 %; Mean Corpuscular HGB Conc 31.9 g/dL (31.6-35.5); Mean Corpuscular Hemoglobin 29.9 pg (28.0-33.3); Mean Corpuscular Volume 93.7 fL (83.0-100.0); Mean Platelet Volume 9.6 fL (9.4-12.4); Monocytes # 1.5 K/mcL (0.0-1.3); Monocytes % 15.8 %; Neutrophils # 6.2 K/mcL (1.6-8.9); Platelet Count 216 K/mcL (140-400); Red Blood Count 3.31 M/mcL (4.19-5.50); Red Cell Distribution Width 14.3 % (11.5-14.5); Segmented Neutrophils % 67.7 %
[2016-06-25 15:50] LABS: Blood Gas Liter Flow 3 L/MIN
[2016-06-25 16:08] LABS: Magnesium 2.1 mg/dL (1.6-2.6); Potassium 4.2 mEq/L (3.5-4.5)
[2016-06-25] MEDS: Niacin (24 HR) 500 MG TAB.ER.24H PO SCH (21:02)
[2016-06-26] MEDS: hydroCHLOROthiazide 25 MG TABLET PO SCH (08:19)
[2016-06-26] MEDS: *HR* OxyCODONE Immed Rel 5 MG TABLET PO PRN (08:19)
[2016-06-26] MEDS: Aspirin 81 MG TAB.CHEW PO SCH (08:19)
[2016-06-26 10:46] VITALS: BP 134/75
--- NOTE | 2016-06-26 11:30 | Orthopedics Progress Note ---
Date of Encounter: 06/26/16 Time of Encounter: 11:28 Subjective Principal diagnosis: spondylolisthesis, lumbar stenosis Interval history: S: Doing well. No complaints O: Afeb, [employer] ankles and feet well. Feet are grossly senate and well perfused Able to ambulate Dressing is clean and dry. A: Post op PLIF P: Resume post op care. Discharge today. Follow up with Dr. Benavidez. Objective Vital signs: Vital Signs Temp Pulse Resp BP Pulse Ox 06/26/16 10:43 98.2 F 85 21 134/75 95 06/26/16 06:54 98.2 F 92 18 154/75 98 06/25/16 23:28 98.2 F 88 19 120/75 99 06/25/16 20:20 98.3 F 90 19 115/67 100 06/25/16 15:36 98.5 F 93 18 111/67 99 06/25/16 15:23 100 06/25/16 14:26 16 91 Intake and Output 06/25/16 06/26/16 06/26/16 23:59 07:59 15:59 Intake Total 360 / 360 Output Total 200 / 200 Balance -200 / -200 360 / 360 Intake: Oral 360 / 360 Output: Urine 200 / 200 Other: Meal Breakfast Stool Size Small # Voids 1 1 # Bowel Movements 1 - Labs CBC & BMP: 06/25/16 15:34 06/25/16 15:34 Labs: Abnormal lab results RBC 3.31 M/mcL (4.19-5.50) L 06/25/16 15:34 Hgb 9.9 g/dL (12.9-16.9) L 06/25/16 15:34 Hct 31.0 % (37.5-50.1) L 06/25/16 15:34 Monocytes # 1.5 K/mcL (0.0-1.3) H 06/25/16 15:34 ABG pO2 74 mmHg (85-104) L 06/25/16 15:35 ABG HCO3 28.5 mEQ/L (21-27) H 06/25/16 15:35 ABG Total CO2 29.8 mEq/L (20-26) H 06/25/16 15:35 ABG Base Excess 3.7 mEq/L (-2.0 to 3.0) H 06/25/16 15:35 Sodium 135 mEq/L (136-145) L 06/25/16 15:34 BUN 29 mg/dL (8-26) H 06/25/16 15:34 Creatinine 1.89 mg/dL (0.72-1.25) H 06/25/16 15:34 Est GFR ( Amer) 42 (> 60) L 06/25/16 15:34 Est GFR (Non-Af Amer) 34 (> 60) L 06/25/16 15:34 Glucose 120 mg/dL (70-99) H 06/25/16 15:34 - VTE Documentation of Mechanical Device: Intermittent pneumatic compression device Consult Discharge Plan - Plan Referrals: Cecelia Hernandez MD [Primary Care Provider] -
== END 2016-06-26 12:30 | DRG 460 ==
LOC: SAMDAY 09:15 → 3NENU 14:16
PROVIDERS: ADMIT Orthopaedic Surgery Orthopaedic Surgery of the Spine; ATTEND Orthopaedic Surgery Orthopaedic Surgery of the Spine

== ENCOUNTER 2017-03-01 13:31 | Inpatient (IN) ==
[2017-03-01 14:30] LABS: Bilirubin,Urine Negative (Negative); Blood,Urine Negative (Negative); Clarity,Urine Clear (Clear); Color,Urine Yellow (Yellow); Glucose,Urine (UA) Normal (Normal); Ketones,Urine Negative (Negative); Leukocyte Esterase,Urine Negative (Negative); Nitrite,Urine Negative (Negative); Protein,Urine Trace mg/dL (Neg-Trace); Urobilinogen,Urine Normal (Normal)
[2017-03-01 14:33] LABS: Bacteria,Urine None Seen per hpf (None-Few); Hyaline Casts,Urine None Seen per lpf (None-Few); RBC,Urine 0-3 per hpf (0-3); Squamous Epithelial Cell,Urine Many per lpf (None-Few); WBC,Urine 0-3 per hpf (0-3)
[2017-03-01 14:55] LABS: Basophils % 0.5 %; Eosinophils # 0.3 K/mcL (0.0-0.6); Eosinophils % 4.8 %; Hematocrit 36.6 % (37.5-50.1); Hemoglobin 11.8 g/dL (12.9-16.9); Immature Granulocytes % 0.2 % (0-4); Lymphocytes # 1.4 K/mcL (0.6-4.6); Lymphocytes % 24.5 %; Mean Corpuscular HGB Conc 32.2 g/dL (31.6-35.5); Mean Corpuscular Hemoglobin 30.3 pg (28.0-33.3); Mean Corpuscular Volume 93.8 fL (83.0-100.0); Mean Platelet Volume 9.5 fL (9.4-12.4); Monocytes # 0.7 K/mcL (0.0-1.3); Monocytes % 11.8 %; Neutrophils # 3.3 K/mcL (1.6-8.9); Platelet Count 230 K/mcL (140-400); Red Cell Distribution Width 19.7 % (11.5-14.5); Segmented Neutrophils % 58.2 %
[2017-03-01 15:12] LABS: Albumin 4.2 g/dL (3.5-5.7); Bilirubin,Direct 0.1 mg/dL (0.0-0.2); Bilirubin,Indirect 0.2 mg/dL (0.0-1.2); Bilirubin,Total 0.3 mg/dL (0.3-1.0); Calcium 9.1 mg/dL (8.6-10.3); Potassium 4.7 mEq/L (3.5-5.1)
[2017-03-01 15:18] LABS: Albumin/Globulin Ratio 1.4 (1.1-2.2); Globulin 2.9 g/dL (2.4-3.5); Total Protein 7.1 g/dL (6.4-8.9)
--- NOTE | 2017-03-01 18:14 | Emergency Department Note ---
START Narrative - START START: I examined this patient and my medical decision-making was reviewed with the Resident Physician. I agree with the documented findings, disposition and treatment plan as described except to the extent set forth below. 81-year-old male presents emergency room for abdominal pain. Patient was diagnosed with diverticulitis 4 days ago. He has failed outpatient treatment with Augmentin. Still having increasing pain. Labs are stable. Patient will be admitted for IV antibiotics with Levaquin and Flagyl. We will hold on repeat imaging at this time. Plan to admit to the hospitalist. Patient states is been compliant with his medications. Pain is under control at this time.
[2017-03-01] MEDS ORDERED: MetroNIDAZOLE 500 MG/100 ML 500 MG/100 ML BAG IVPB ONE (18:19)
[2017-03-01] MEDS ORDERED: *HR* Morphine 2 MG/ML SYRINGE IVP ONE (18:45)
[2017-03-01] MEDS ORDERED: Ondansetron 4 MG/2 ML VIAL IVP ONE (18:45)
--- NOTE | 2017-03-01 18:49 | Emergency Department Note ---
Disposition Clinical Impression: Diverticulitis Disposition: Admitted As Inpatient Condition: Good Referrals: Cecelia Hernandez MD [Primary Care Provider] - Abdominal Pain HPI - General Chief Complaint: ED Abdominal Pain Stated Complaint: abdominal pain Time Seen by Provider: 03/01/17 17:04 Source: patient Mode of arrival: ambulatory Limitations: no limitations Nursing Notes Reviewed: Yes Vital Signs Reviewed: Yes - History of Present Illness HPI Narrative: Patient presents for evaluation of left lower quadrant abdominal pain. The patient's pain has been persistent despite outpatient workup. Patient had blood work as well as CT scan performed on February 25. CT scan shows lesion concerning for diverticulitis. Patient was placed on Augmentin. Patient's been taking antibiotics without significant relief. Patient has had what he describes as several loose bowel movements despite antibiotics. Continued worsening pain over the last 2 days. Patient has a scheduled colonoscopy for later this week however will be postponed secondary to his findings. Patient's last colonoscopy was they believe a proximally 7-8 years ago and had no significant abnormalities. Pain Scale: 6 - Related Data Home Medications Medication Instructions Recorded Confirmed Aspirin 81 mg PO DAILY 01/03/16 01/13/17 Gabapentin 600 mg PO TID 01/03/16 01/13/17 Lisinopril [Zestril] 10 mg PO DAILY 01/03/16 01/13/17 Niacin [Niacor] 500 mg PO HS 01/03/16 01/13/17 Paroxetine [Paxil] 20 mg PO DAILY 01/03/16 01/13/17 Simvastatin [Zocor] 20 mg PO HS 01/03/16 01/13/17 Tamsulosin [Flomax] 0.4 mg PO DAILY 01/03/16 01/13/17 hydroCHLOROthiazide 25 mg PO DAILY 06/23/16 01/13/17 [Hydrochlorothiazide] Budesonide/Formoterol 80/4.5 2 puff IH BIDR 01/05/17 01/13/17 [Symbicort 80/4.5] Cholecalciferol (Vitamin D3) 2,000 unit PO DAILY 01/05/17 01/13/17 [Vitamin D] Primidone [Mysoline] 50 mg PO BID 01/05/17 01/13/17 Previous Rx's Medication Instructions Recorded Albuterol Sulfate [Albuterol 1 puff IH Q4HR PRN #1 inhaler 05/06/16 Inhaler] Ferrous Sulfate [Iron] 325 mg PO DAILY #10 tablet 12/29/16 Allergies Allergy/AdvReac Type Severity Reaction Status Date / Time No Known Allergies Allergy Verified 01/13/17 13:44 Review of Systems: CONSTITUTIONAL: No weight loss, fever, chills, weakness or fatigue. HEENT: Eyes: No visual changes. Ears, Nose, Throat: No hearing loss, difficulty talking or unable to swallow. SKIN: No rash or itching. CARDIOVASCULAR: No chest pain, chest pressure or chest discomfort. No palpitations or edema. RESPIRATORY: No shortness of breath, cough or sputum. GASTROINTESTINAL: Abdominal pain and Loose stools -no bright red blood or melena GENITOURINARY: No burning on urination or hematuria. NEUROLOGICAL: No headache, dizziness, syncope, paralysis, ataxia, numbness or tingling in the extremities. No change in bowel or bladder control. MUSCULOSKELETAL: No muscle pain, back pain, joint pain or stiffness. Abdominal Pain PMH - Past Medical History Medical history: Reports: COPD, hyperlipidemia, hypertension, renal disease Male Surgical History: Reports: orthopedic, other, other Psychiatric history: Reports: depression - Social History Smoking status: Never smoker Alcohol use: Reports: none Drug use: Reports: none Physical Exam General: Well appearing, nontoxic, no acute distress Head: Normocephalic Atraumatic Eyes: PERRL, EOMI ENT: Airway patent, no stridor Neck: supple, no meningismus Chest: Lungs clear to auscultation bilateral Cardiac: Regular rate and rhythm, no murmurs, rubs or gallops Abdomen: Mild tenderness over the suprapubic and left lower quadrant region. No rebound or guarding or CVA tenderness. Musculoskeletal: Calves symmetric, nontender, no palpable cord Skin: No rash, normal skin tone Neuro: Alert and Oriented to person, place, and time; No focal deficit, CN 2-12 symmetric and intact - General Limitations: no limitations General appearance: alert, in no apparent distress Course - Reevaluation(s) Reevaluation #1: Patient CT scan has been evaluated. The patient's lesion that is marked is consistent with being more midline within the sigmoid colon. The lesion Corresponds with the pain. Patient has been placed on antibiotics with continued worsening pain. Patient's antibiotics will be changed to Cipro and Flagyl IV. The patient has had worsening pain but does not have an acute abdomen or abdomen that needs repeat imaging at this time. Patient will be treated with IV antibiotics and further monitored. - Consultations Consultation #1: Discussed with hospitalist. Patient accepted for admission. Vital Signs Temperature 97.4 F L 03/01/17 13:44 Pulse Rate 80 03/01/17 13:44 Respiratory Rate 18 03/01/17 13:44 Blood Pressure 126/71 03/01/17 13:44 O2 Sat by Pulse Oximetry 99 03/01/17 13:44 Temperature 97.4 F L 03/01/17 13:44 Pulse Rate 80 03/01/17 13:44 Respiratory Rate 18 03/01/17 13:44 Blood Pressure 126/71 03/01/17 13:44 O2 Sat by Pulse Oximetry 99 03/01/17 13:44 Oxygen Delivery Oxygen Delivery Room Air Abdominal Pain - Lab Data Result diagrams: 03/01/17 14:44 03/01/17 14:44 Lab Results 03/01/17 03/01/17 03/01/17 Range/Units 14:15 14:44 14:44 WBC 5.7 (4.3-11.1) K/mcL RBC 3.90 L (4.19-5.50) M/mcL Hgb 11.8 L (12.9-16.9) g/dL Hct 36.6 L (37.5-50.1) % MCV 93.8 (83.0-100.0) fL MCH 30.3 (28.0-33.3) pg MCHC 32.2 (31.6-35.5) g/dL RDW 19.7 H (11.5-14.5) % Plt Count 230 (140-400) K/mcL MPV 9.5 (9.4-12.4) fL Immature Gran % 0.2 (0-4) % Seg Neutrophils % 58.2 % Lymphocytes % 24.5 % Monocytes % 11.8 % Eosinophils % 4.8 % Basophils % 0.5 % Neutrophils # 3.3 (1.6-8.9) K/mcL Lymphocytes # 1.4 (0.6-4.6) K/mcL Monocytes # 0.7 (0.0-1.3) K/mcL Eosinophils # 0.3 (0.0-0.6) K/mcL Basophils # 0.0 (0.0-0.2) K/mcL Sodium 137 (136-145) mEq/L Potassium 4.7 (3.5-5.1) mEq/L Chloride 102 (98-107) mEq/L Carbon Dioxide 28 (23-29) mEq/L BUN 21 (8-23) mg/dL Creatinine 1.75 H (0.70-1.30) mg/dL Est GFR ( Amer) 45 L (> 60) Est GFR (Non-Af Amer) 37 L (> 60) BUN/Creatinine Ratio 12 (6-26) Glucose 97 (70-105) mg/dL Calculated Osmolality 287 (280-300) Calcium 9.1 (8.6-10.3) mg/dL Total Bilirubin 0.3 (0.3-1.0) mg/dL Direct Bilirubin 0.1 (0.0-0.2) mg/dL Indirect Bilirubin 0.2 (0.0-1.2) mg/dL AST 16 (13-39) Units/L ALT 16 (7-52) Units/L Alkaline Phosphatase 56 (34-104) Units/L Serum Total Protein 7.1 (6.4-8.9) g/dL Albumin 4.2 (3.5-5.7) g/dL Globulin 2.9 (2.4-3.5) g/dL Albumin/Globulin Ratio 1.4 (1.1-2.2) Amylase 22 L (29-103) Units/L Lipase 12 (11-82) Units/L Urine Color Yellow (Yellow) Urine Clarity Clear (Clear) Urine pH 6.0 (5.0-8.0) pH Units Ur Specific Cutler 1.020 (1.010-1.025) Urine Protein Trace (Neg-Trace) mg/dL Urine Glucose (UA) Normal (Normal) mg/dL Urine Ketones Negative (Negative) mg/dL Urine Blood Negative (Negative) Urine Nitrite Negative (Negative) Urine Bilirubin Negative (Negative) Urine Urobilinogen Normal (Normal) mg/dL Ur Leukocyte Esterase Negative (Negative) Urine Microscopic RBC 0-3 (0-3) per hpf Urine Microscopic WBC 0-3 (0-3) per hpf Ur Squamous Epith Cells Many H (None-Few) per lpf Urine Bacteria None Seen (None-Few) per hpf Hyaline Casts None Seen (None-Few) per lpf Ur Culture Indicated? NO (NO)
[2017-03-02] MEDS ORDERED: D5% in 0.45% NACL 1,000 ML IVC SCH (01:30)
[2017-03-02] MEDS ORDERED: *HR* Morphine 2 MG/ML SYRINGE IVP PRN (01:30)
[2017-03-02] MEDS ORDERED: Ondansetron 4 MG/2 ML VIAL IVP PRN (01:30)
[2017-03-02] MEDS ORDERED: Naloxone 0.4 MG/ML INJ IVP PRN (01:30)
--- NOTE | 2017-03-02 02:21 | Internal Med History&Physical ---
Date of Encounter: 03/02/17 Time of Encounter: 00:45 Assessment and Plan (1) Diverticulitis Current visit: Yes Status: Acute 1. Patient failed outpatient treatment. 2. Will keep npo. 3. IVF hydration. 4. Will treat with IV Flagyl and IV Cipro. 5. Pain control with IV Morphine as needed. 6. Anti-emetics as needed. 7. Consult surgery if fails to improve and/or worsens. (2) Essential hypertension Current visit: No Status: Chronic 1. Monitor BP and continue home meds as appropriate. 2. Adjust meds per BP readings. May need IV meds if unable to tolerate PO route. (3) Chronic kidney disease, stage 3 Current visit: No Status: Chronic 1. Monitor renal function and consult nephrology if necessary. 2. Patient at baseline renal function presently. 3. Avoid nephrotoxic drugs if possible. (4) DVT prophylaxis Current visit: Yes Status: Acute 1. Heparin SQ. Internal Medicine - H&P: HPI Chief complaint: abdominal pain Admitted From: Emergency Dept Plans for Post Hospital Care: Home History of present illness: Mr. Odell is a 81 year old male who presents to the ER with a two-week history of abdominal pain and cramping. An outpatient CT scan was performed recently and he was treated with oral antibiotics for diverticulitis. However, after several days of antibiotics, he failed to improve and continued to worsen. He was doubling over in pain and came to the ER. Workup in the ER confirmed diverticulitis and clinical exam. He was not rescanned as he had a CT scan a few days ago. Upon my admission of the patient, he complains of bilateral lower quadrant pain -- worse on the left. He has had subjective fevers and chills, but no night sweats. He's had nausea, vomiting, and some loose stool. He denies any bloody stools. He denies any recent ill contacts. He denies any undercooked meats or raw fish in his diet. Past Med Surg Social Fam HX - Past Medical History Attestation: Yes The following information was validated with the patient. Source: patient, old records reviewed Medical history: COPD, hyperlipidemia, hypertension, renal disease Psychiatric history: depression - Past Surgical History Surgical History: appendectomy - Social History Smoking Status: Never smoker Smokeless Tobacco Status: No Alcohol use: none Drug use: none Current living situation: Home Activity Level: Independent ambulation - Family History Father Living Status: Hx Family Cardiac Disorders: Yes Mother Living Status: Hx Family Cardiac Disorders: Yes Hx Family Endocrine Disorder: Yes (DM II) Internal Medicine - H&P: Meds Aspirin 81 mg PO DAILY 01/03/16 [History] Gabapentin 600 mg PO TID 01/03/16 [History] Lisinopril [Zestril] 10 mg PO DAILY 01/03/16 [History] Niacin [Niacor] 500 mg PO HS 01/03/16 [History] Paroxetine [Paxil] 20 mg PO DAILY 01/03/16 [History] Simvastatin [Zocor] 20 mg PO HS 01/03/16 [History] Tamsulosin [Flomax] 0.4 mg PO DAILY 01/03/16 [History] hydroCHLOROthiazide [Hydrochlorothiazide] 25 mg PO DAILY 06/23/16 [History] Ferrous Sulfate [Iron] 325 mg PO DAILY #10 tablet 12/29/16 [Rx] Budesonide/Formoterol 80/4.5 [Symbicort 80/4.5] 2 puff IH BIDR 01/05/17 [ History] Cholecalciferol (Vitamin D3) [Vitamin D] 2,000 unit PO DAILY 01/05/17 [History] Primidone [Mysoline] 50 mg PO BID 01/05/17 [History] Albuterol Sulfate [Albuterol Inhaler] 2 puff IH Q4HR PRN 03/01/17 [History] Amoxicillin/Clavulanate [Augmentin] 875 mg PO TID 03/01/17 [History] 3 Allergy/AdvReac Type Severity Reaction Status Date / Time No Known Allergies Allergy Verified 01/13/17 13:44 - Constitutional Constitutional: chills, fever(s), no night sweats - EENT Eyes: no blurry vision, no change in vision Ears: no ear pain, no tinnitus Nose, mouth and throat: no nasal congestion, no sinus pressure, no sore throat - Cardiovascular Cardiovascular ROS IM: no chest pain, no dyspnea, no dyspnea on exertion, no palpitations - Respiratory Respiratory: no cough, no dyspnea, no chest congestion, no excessive phlegm production, no change in phlegm color - Gastrointestinal Gastrointestinal: abdominal pain, diarrhea, loose stools, nausea, vomiting, no hematemesis, no hematochezia, no melena - Genitourinary Genitourinary ROS male: no dysuria, no flank pain, no hematuria - Musculoskeletal Musculoskeletal ROS IM: no muscle cramps, no muscle weakness - Integumentary Integumentary IM: no rash, no jaundice - Neurological Neurological ROS: no dizziness, no focal weakness, no frequent falls, no headache(s) - Psychiatric Psychiatric: no anxiety, no depression - Endocrine Endocrine IM: no polydipsia, no polyuria - Allergic/Immunologic Allergic/Immunologic: no wheezing, no GI upset with certain foods - Constitutional Vitals: Temp Pulse Resp BP Pulse Ox 97.5 F L 66 17 118/69 93 03/01/17 23:15 03/01/17 23:15 03/01/17 23:15 03/01/17 23:15 03/01/17 23:15 General appearance: Present: cooperative, mild distress, A&O X 3, pleasant, answers questions appropriately - Head Head exam: Present: normal inspection - Eye Eye exam: Present: EOMI, PERRL. Absent: scleral icterus Pupils: Present: normal accommodation - ENT ENT exam: Present: mucous membranes dry, normal exam - Neck Neck exam general surgery: Present: full ROM, supple. Absent: tenderness, nuchal rigidity - Respiratory Respiratory exam: Present: CTAB. Absent: rales, rhonchi, wheezes - Cardiovascular Cardiovascular exam: Present: RRR, +S1, +S2. Absent: systolic murmur - GI/Abdominal GI/Abdominal exam: Present: tenderness (both lower quadrants, left > right). Absent: guarding, hepatomegaly, mass, rebound, splenomegaly - Extremities Exam Extremities exam: Present: normal capillary refill, warm, radial pulses palpable and symmetrical. Absent: calf tenderness, tenderness - Back Exam Back exam: Absent: CVA tenderness (L), CVA tenderness (R) - Neurological Exam Neurological exam: Present: alert, oriented X3, no focal deficits, strengths equal and symetr throughout - Psychiatric Psychiatric exam: Present: normal affect, normal mood - Skin Skin exam: Present: dry, warm. Absent: rash Internal Med - H&P Results - Labs CBC & Chem 7: 03/01/17 14:44 03/01/17 14:44 - Diagnostic Studies CT scan - abdomen Status: image reviewed by me (CT scan dated 02-25-17: sigmoid diverticulitis)
[2017-03-02 05:25] LABS: Basophils % 0.6 %; Eosinophils # 0.4 K/mcL (0.0-0.6); Eosinophils % 8.4 %; Hematocrit 31.8 % (37.5-50.1); Immature Granulocytes % 0.2 % (0-4); Lymphocytes # 1.7 K/mcL (0.6-4.6); Lymphocytes % 34.2 %; Mean Corpuscular HGB Conc 31.4 g/dL (31.6-35.5); Mean Corpuscular Hemoglobin 29.9 pg (28.0-33.3); Mean Corpuscular Volume 95.2 fL (83.0-100.0); Mean Platelet Volume 10.5 fL (9.4-12.4); Monocytes # 0.5 K/mcL (0.0-1.3); Monocytes % 9.8 %; Neutrophils # 2.3 K/mcL (1.6-8.9); Platelet Count 220 K/mcL (140-400); Red Blood Count 3.34 M/mcL (4.19-5.50); Red Cell Distribution Width 19.8 % (11.5-14.5); Segmented Neutrophils % 46.8 %
[2017-03-02 05:29] LABS: INR 1.1; Prothrombin Time 12.2 Seconds (9.4-12.1)
[2017-03-02 05:31] LABS: Activated Partial Thrombo Time 25.8 Seconds (26.0-36.0)
[2017-03-02 05:49] LABS: Albumin 3.5 g/dL (3.5-5.7); Albumin/Globulin Ratio 1.5 (1.1-2.2); Bilirubin,Total 0.2 mg/dL (0.3-1.0); Calcium 8.6 mg/dL (8.6-10.3); Globulin 2.4 g/dL (2.4-3.5); Potassium 4.4 mEq/L (3.5-5.1); Total Protein 5.9 g/dL (6.4-8.9)
[2017-03-02] MEDS: *HR* Heparin 5,000 UNIT/ML VIAL SQ SCH ×2 (05:49→18:35)
[2017-03-02] MEDS: MetroNIDAZOLE 500 MG/100 ML 500 MG/100 ML BAG IVPB SCH ×2 (08:17→15:50)
[2017-03-02] MEDS: Gabapentin 300 MG CAPSULE PO SCH ×3 (08:18→21:17)
[2017-03-02] MEDS: Aspirin 81 MG TAB.CHEW PO SCH (08:18)
[2017-03-02] MEDS: Budesonide/Formoterol 80/4.5 MDI IH SCH ×2 (10:52→20:11)
--- NOTE | 2017-03-02 12:10 | Internal Med Progress Note ---
Date of Encounter: 03/02/17 Time of Encounter: 12:03 - Assessment and plan (1) Diverticulitis Current Visit: Yes Status: Acute Assessment and plan: Reviewed CT of abd from 02/25/17 Does show diverticulitis, as well some inflammation in the rectum too cont IV abx for now repeat CT of Abd and Pelvis in AM will start him on clear liquid diet today IV hydration IV analgesic PRN (2) Iron deficiency anemia Current Visit: No Status: Chronic Assessment and plan: stable Hb cont close monitoring Qualifiers: Qualified Code(s): D50.9 - Iron deficiency anemia, unspecified (3) Essential hypertension Current Visit: No Status: Chronic Assessment and plan: resumed home meds (4) Chronic kidney disease, stage 3 Current Visit: No Status: Chronic Assessment and plan: stable Cr renally dose abx and other home meds - Subjective Interval history: Mr. Odell is a 81 year old male who presents to the ER with a two-week history of abdominal pain and cramping. An outpatient CT scan was performed recently and he was treated with oral antibiotics for diverticulitis. However, after several days of antibiotics, he failed to improve and continued to worsen. He was doubling over in pain and came to the ER. Pt was admitted in the hospital and started him on IV empirical abx. His abd pain little better today. No more diarrhea. - Constitutional Vitals: Temp Pulse Resp BP Pulse Ox 97.2 F L 59 16 156/92 99 03/02/17 10:40 03/02/17 10:40 03/02/17 10:53 03/02/17 10:40 03/02/17 10:53 General appearance: Present: cooperative, A&O X 3, pleasant, answers questions appropriately - Head Head exam: Present: atraumatic, normal inspection - Neck Neck exam general surgery: Present: supple - Respiratory Respiratory exam: Present: decreased breath sounds. Absent: rales, respiratory distress, rhonchi, wheezes - Cardiovascular Cardiovascular exam: Present: RRR, +S1, +S2. Absent: tachycardia - GI/Abdominal GI/Abdominal exam: Present: normal bowel sounds, soft, tenderness (mild discomfort in Lower abdomen). Absent: rebound, rigid - Extremities Exam Extremities exam: Absent: calf tenderness, pedal edema, tenderness - Back Exam Back exam: Absent: CVA tenderness (L), CVA tenderness (R) - Neurological Exam Neurological exam: Present: alert, oriented X3 - Psychiatric Psychiatric exam: Present: normal affect, normal mood Internal Medicine: Result - Labs CBC & Chem 7: 03/02/17 03:53 03/02/17 03:53 Labs: Short CBC 03/02/17 Range/Units 03:53 WBC 4.9 (4.3-11.1) K/mcL Hgb 10.0 L D (12.9-16.9) g/dL Hct 31.8 L (37.5-50.1) % Plt Count 220 (140-400) K/mcL Neutrophils # 2.3 (1.6-8.9) K/mcL BMP 03/02/17 03:53 Sodium 136 Potassium 4.4 Chloride 103 Carbon Dioxide 28 BUN 19 Creatinine 1.73 H Glucose 126 H Calcium 8.6 Liver Function 03/02/17 Range/Units 03:53 Total Bilirubin 0.2 L (0.3-1.0) mg/dL AST 13 (13-39) Units/L ALT 13 (7-52) Units/L Alkaline Phosphatase 46 (34-104) Units/L Albumin 3.5 (3.5-5.7) g/dL - ABG Interpretation ABG results: PT/INR, D-dimer PT 12.2 Seconds (9.4-12.1) H 03/02/17 03:53 Consult Discharge Plan - Plan Referrals: Cecelia Hernandez MD [Primary Care Provider] -
[2017-03-02] MEDS: D5% in 0.45% NACL 1,000 ML IVC SCH (12:34)
[2017-03-02] MEDS: Primidone 50 MG TABLET PO SCH (21:17)
[2017-03-02] MEDS: Niacin (24 HR) 500 MG TAB.ER.24H PO SCH (22:11)
[2017-03-03] MEDS: MetroNIDAZOLE 500 MG/100 ML 500 MG/100 ML BAG IVPB SCH ×4 (01:17→23:57)
[2017-03-03] MEDS: *HR* Heparin 5,000 UNIT/ML VIAL SQ SCH ×2 (06:48→18:12)
[2017-03-03] MEDS: D5% in 0.45% NACL 1,000 ML IVC SCH (06:48)
[2017-03-03] MEDS: Budesonide/Formoterol 80/4.5 MDI IH SCH ×2 (07:34→22:01)
[2017-03-03] MEDS: Primidone 50 MG TABLET PO SCH ×2 (08:32→20:32)
[2017-03-03] MEDS: Aspirin 81 MG TAB.CHEW PO SCH (08:33)
[2017-03-03] MEDS: Cholecalciferol (D-3) 1,000 UNIT TABLET PO SCH (08:33)
[2017-03-03] MEDS: Gabapentin 300 MG CAPSULE PO SCH ×3 (08:33→20:32)
[2017-03-03] MEDS ORDERED: hydroCHLOROthiazide 25 MG TABLET PO SCH (09:00)
--- NOTE | 2017-03-03 14:18 | Internal Med Progress Note ---
Date of Encounter: 03/03/17 Time of Encounter: 11:00 - Assessment and plan (1) Diverticulitis Current Visit: Yes Status: Acute Assessment and plan: Reviewed CT of abd from 02/25/17 Does show diverticulitis, as well some inflammation in the rectum too Repeated CT of Abd today showed sigmoid diverticulitis Consulted surgery Dr. Gambino for further eval.. However clinically he looks better, normal WBC, Afebrile and tolerating PO intake cont IV abx for now d/c IVF IV analgesic PRN (2) Iron deficiency anemia Current Visit: No Status: Chronic Assessment and plan: stable Hb cont close monitoring Qualifiers: Qualified Code(s): D50.9 - Iron deficiency anemia, unspecified (3) Essential hypertension Current Visit: No Status: Chronic Assessment and plan: resumed home meds (4) Chronic kidney disease, stage 3 Current Visit: No Status: Chronic Assessment and plan: stable Cr renally dose abx and other home meds - Subjective Interval history: Mr. Odell is a 81 year old male who presents to the ER with a two-week history of abdominal pain and cramping. An outpatient CT scan was performed recently and he was treated with oral antibiotics for diverticulitis. However, after several days of antibiotics, he failed to improve and continued to worsen. He was doubling over in pain and came to the ER. Pt was admitted in the hospital and started him on IV empirical abx. His abd pain much better today. No more diarrhea. Tolerating full liquid diet well. - Constitutional Vitals: Temp Pulse Resp BP Pulse Ox 97.6 F 57 14 139/77 97 03/03/17 11:17 03/03/17 11:17 03/03/17 11:17 03/03/17 11:17 03/03/17 11:17 General appearance: Present: cooperative, A&O X 3, pleasant, answers questions appropriately - Head Head exam: Present: atraumatic, normal inspection - Neck Neck exam general surgery: Present: supple - Respiratory Respiratory exam: Present: decreased breath sounds. Absent: rales, respiratory distress, rhonchi, wheezes - Cardiovascular Cardiovascular exam: Present: RRR, +S1, +S2. Absent: tachycardia - GI/Abdominal GI/Abdominal exam: Present: normal bowel sounds, soft. Absent: rebound, rigid, tenderness - Extremities Exam Extremities exam: Absent: calf tenderness, pedal edema, tenderness - Back Exam Back exam: Absent: CVA tenderness (L), CVA tenderness (R) - Neurological Exam Neurological exam: Present: alert, oriented X3 - Psychiatric Psychiatric exam: Present: normal affect, normal mood Internal Medicine: Result - Labs CBC & Chem 7: 03/02/17 03:53 03/02/17 03:53 - ABG Interpretation ABG results: PT/INR, D-dimer PT 12.2 Seconds (9.4-12.1) H 03/02/17 03:53 - Impressions Impressions Abdomen/Pelvis CT 03/03/17 09:00 IMPRESSION: 1. Redemonstration of focal area of changes most compatible with diverticulitis in the proximal sigmoid colon. 2. Bilateral fat containing inguinal hernias right greater than left. D/ / Quinn Contreras MD / Quinn Contreras MD Interpreting Provider: Quinn Contreras MD Consult Discharge Plan - Plan Referrals: Cecelia Hernandez MD [Primary Care Provider] -
[2017-03-03] MEDS: Niacin (24 HR) 500 MG TAB.ER.24H PO SCH (20:32)
[2017-03-04] MEDS: *HR* Heparin 5,000 UNIT/ML VIAL SQ SCH (06:16)
[2017-03-04] MEDS: Budesonide/Formoterol 80/4.5 MDI IH SCH (07:47)
[2017-03-04] MEDS: MetroNIDAZOLE 500 MG/100 ML 500 MG/100 ML BAG IVPB SCH (08:02)
[2017-03-04] MEDS: Primidone 50 MG TABLET PO SCH (08:06)
[2017-03-04] MEDS: Gabapentin 300 MG CAPSULE PO SCH (08:06)
[2017-03-04] MEDS: Aspirin 81 MG TAB.CHEW PO SCH (08:07)
[2017-03-04] MEDS: Cholecalciferol (D-3) 1,000 UNIT TABLET PO SCH (08:07)
--- NOTE | 2017-03-04 09:53 | Discharge Summary ---
Date of Encounter: 03/04/17 Time of Encounter: 09:50 - Discharge Diagnosis (1) Diverticulitis Priority: Primary Status: Acute (2) Iron deficiency anemia Priority: Secondary Status: Chronic Qualifiers: Qualified Code(s): D50.9 - Iron deficiency anemia, unspecified (3) Essential hypertension Priority: Secondary Status: Chronic (4) Chronic kidney disease, stage 3 Priority: Secondary Status: Chronic - Discharge Medications Prescriptions: Ciprofloxacin HCl [Cipro] 250 mg PO BID #20 tab metroNIDAZOLE [Flagyl] 500 mg PO TID #30 tablet Home Medications: Aspirin 81 mg PO DAILY 01/03/16 [History] Gabapentin 600 mg PO TID 01/03/16 [History] Lisinopril [Zestril] 10 mg PO DAILY 01/03/16 [History] Niacin [Niacor] 500 mg PO HS 01/03/16 [History] Paroxetine [Paxil] 20 mg PO DAILY 01/03/16 [History] Simvastatin [Zocor] 20 mg PO HS 01/03/16 [History] Tamsulosin [Flomax] 0.4 mg PO DAILY 01/03/16 [History] Ferrous Sulfate [Iron] 325 mg PO DAILY #10 tablet 12/29/16 [Rx] Budesonide/Formoterol 80/4.5 [Symbicort 80/4.5] 2 puff IH BIDR 01/05/17 [ History] Cholecalciferol (Vitamin D3) [Vitamin D3] 2,000 unit PO DAILY 01/05/17 [History] Primidone [Mysoline] 50 mg PO BID 01/05/17 [History] Albuterol Sulfate [Albuterol Inhaler] 2 puff IH Q4HR PRN 03/01/17 [History] Ciprofloxacin HCl [Cipro] 250 mg PO BID #20 tab 03/04/17 [Rx] metroNIDAZOLE [Flagyl] 500 mg PO TID #30 tablet 03/04/17 [Rx] Allergies/Adverse Reactions: 3 Allergy/AdvReac Type Severity Reaction Status Date / Time No Known Allergies Allergy Verified 01/13/17 13:44 Procedures/tests Complete & Pending: Procedures Performed prior 72 hours Category Date Time Status CT abd pelvis wo no iv no oral [CT] Routine Cat Scan 03/03/17 09:00 Completed Date of admission: 03/02/17 01:30 Primary care physician: Cecelia Galvez Consults: 03/04/17 09:32 Consult to Surgery [CONS] Routine Consulting Provider: Archie Gambino Reason for Consult: Acute diverticulitis Call Completed: Yes - Patient Status Disposition: Home, Self-Care Condition: Good Overall status at discharge: patient is back to baseline - Discharge Instructions Follow Up With: Archie Gambino MD [Non-Partnered Physician] - 03/12/17 2:20 pm Cecelia Hernandez MD [Primary Care Provider] - 03/12/17 11:30 am - Diet and Activity Activity: increase activity as tolerated Diet: low salt diet Hospital course: Mr. Odell is a 81 year old male who presents to the ER with a two-week history of abdominal pain and cramping. An outpatient CT scan was performed recently and he was treated with oral antibiotics for diverticulitis. However, after several days of antibiotics, he failed to improve and continued to worsen. He was doubling over in pain and came to the ER. Pt was admitted in the hospital and started him on IV empirical abx Cipro and Flagyl. He was placed NPO initially and continued symptomatic and supportive care. His abdominal pain improved on the follwoing day and he started tolerating PO intake well. His f/u CT of A/P Showed sigmoid diverticulitis. So decided to continued total 14 days of abx course. If he develops recurrent abdominal pain need to f/u with surgeon. So talked to Dr. Gambino who is going to follow up on him. - Time Spent with Patient Total time spent providing and/or coordinating discharge services: - Constitutional Vitals: Temp Pulse Resp BP Pulse Ox 97.3 F L 63 16 129/66 97 03/04/17 07:00 03/04/17 07:00 03/04/17 07:47 03/04/17 07:00 03/04/17 07:47 General appearance: Present: cooperative, A&O X 3, pleasant, answers questions appropriately - Head Head exam: Present: atraumatic, normal inspection - Respiratory Respiratory exam: Present: decreased breath sounds. Absent: rales, respiratory distress, rhonchi, wheezes - Cardiovascular Cardiovascular exam: Present: RRR, +S1, +S2. Absent: tachycardia - GI/Abdominal GI/Abdominal exam: Present: normal bowel sounds, soft. Absent: rebound, rigid, tenderness - Extremities Exam Extremities exam: Absent: calf tenderness, pedal edema, tenderness - Back Exam Back exam: Absent: CVA tenderness (L), CVA tenderness (R)
[2017-03-04 10:59] VITALS: BP 132/76
== END 2017-03-04 14:28 | disposition home or self-care (01) | DRG 392 ==
LOC: EMEROO 13:31 → 3ANU 13:31 → SUATTDRO 03-02 01:30
PROVIDERS: ADMIT Internal Medicine; ATTEND Family Medicine

== ENCOUNTER 2017-04-02 14:18 | Observation (INO) ==
[2017-04-02] MEDS ORDERED: Nitroglycerin 0.4 MG TAB.SUBL SL ONE (14:29)
--- NOTE | 2017-04-02 14:29 | Emergency Department Note ---
Disposition Clinical Impression: Chest pain Qualifiers: Chest pain type: unspecified Qualified Code(s): R07.9 - Chest pain, unspecified Disposition: Admitted As Inpatient Condition: Good Chest Pain HPI - General Chief Complaint: ED Chest Pain Stated Complaint: chest pain Time Seen by Provider: 04/02/17 14:19 Source: EMS Limitations: no limitations Vital Signs Reviewed: Yes Nursing Notes Reviewed: Yes - History of Present Illness HPI Narrative: Patient presents for evaluation of chest pain. Patient's chest pain started earlier in the day. Patient buried his brother yesterday. . The patient states that he feels a pressure and a fullness in his chest but she is concerned with similar to previous pneumonia. The patient describes exertional component. Severity scale (1-10): 0 - Related Data Home Medications Medication Instructions Recorded Confirmed Aspirin 81 mg PO DAILY 01/03/16 03/10/17 Gabapentin 600 mg PO TID 01/03/16 03/10/17 Lisinopril [Zestril] 10 mg PO DAILY 01/03/16 03/10/17 Niacin [Niacor] 500 mg PO HS 01/03/16 03/10/17 Paroxetine [Paxil] 20 mg PO DAILY 01/03/16 03/10/17 Simvastatin [Zocor] 20 mg PO HS 01/03/16 03/10/17 Tamsulosin [Flomax] 0.4 mg PO DAILY 01/03/16 03/10/17 Budesonide/Formoterol 80/4.5 2 puff IH BIDR 01/05/17 03/10/17 [Symbicort 80/4.5] Cholecalciferol (Vitamin D3) 2,000 unit PO DAILY 01/05/17 03/10/17 [Vitamin D3] Primidone [Mysoline] 50 mg PO BID 01/05/17 03/10/17 Albuterol Sulfate [Albuterol 2 puff IH Q4HR PRN 03/01/17 03/10/17 Inhaler] hydroCHLOROthiazide 25 mg PO DAILY 04/02/17 04/02/17 [Hydrochlorothiazide] Previous Rx's Medication Instructions Recorded Ferrous Sulfate [Iron] 325 mg PO DAILY #10 tablet 12/29/16 Allergies Allergy/AdvReac Type Severity Reaction Status Date / Time No Known Allergies Allergy Verified 04/02/17 14:27 Review of Systems: CONSTITUTIONAL: No weight loss, fever, chills, weakness or fatigue. HEENT: Eyes: No visual changes. Ears, Nose, Throat: No hearing loss, difficulty talking or unable to swallow. SKIN: No rash or itching. CARDIOVASCULAR: Chest pain. RESPIRATORY: No shortness of breath, cough or sputum. GASTROINTESTINAL: No anorexia, nausea, vomiting or diarrhea. No abdominal pain or blood. GENITOURINARY: No burning on urination or hematuria. NEUROLOGICAL: No headache, dizziness, syncope, paralysis, ataxia, numbness or tingling in the extremities. No change in bowel or bladder control. MUSCULOSKELETAL: No muscle pain, back pain, joint pain or stiffness. Chest Pain PMH - Past Medical History Medical history: Reports: COPD, hyperlipidemia, hypertension, renal disease Surgical history: Reports: appendectomy Psychiatric history: Reports: depression - Social History Smoking Status: Never smoker Alcohol use: Reports: none Drug use: Reports: none Physical Exam General: Well appearing, nontoxic, no acute distress Head: Normocephalic Atraumatic Eyes: PERRL, EOMI ENT: Airway patent, no stridor Neck: supple, no meningismus Chest: Lungs clear to auscultation bilateral Cardiac: Regular rate and rhythm, no murmurs, rubs or gallops Abdomen: soft, nontender, nondistended; no guarding, rebound, or tenderness to percussion Musculoskeletal: Calves symmetric, nontender, no palpable cord Skin: No rash, normal skin tone Neuro: Alert and Oriented to person, place, and time; No focal deficit, CN 2-12 symmetric and intact - General General appearance: alert, in no apparent distress Course - Reevaluation(s) Reevaluation #1: Symptoms not relieved with nitroglycerin. Patient describes heaviness in his chest. Patient has not had recent cardiac workup. Patient will be brought in for further evaluation. - Consultations Consultation #1: Discussed with the hospitalist. Patient accepted for admission. Vital Signs Temperature 97.7 F 04/02/17 14:19 Pulse Rate 76 04/02/17 14:19 Respiratory Rate 16 04/02/17 14:19 Blood Pressure 177/79 04/02/17 14:19 O2 Sat by Pulse Oximetry 93 04/02/17 14:19 Temperature 97.7 F 04/02/17 14:19 Pulse Rate 67 04/02/17 16:00 Respiratory Rate 14 04/02/17 16:23 Blood Pressure 120/68 04/02/17 16:23 O2 Sat by Pulse Oximetry 98 04/02/17 16:00 Oxygen Delivery Oxygen Delivery Room Air Chest Pain - Lab Data Result diagrams: 04/02/17 14:53 04/02/17 14:53 Lab Results 04/02/17 04/02/17 04/02/17 Range/Units 14:53 14:53 14:53 WBC 6.3 (4.3-11.1) K/mcL RBC 3.67 L (4.19-5.50) M/mcL Hgb 11.3 L (12.9-16.9) g/dL Hct 34.7 L (37.5-50.1) % MCV 94.6 (83.0-100.0) fL MCH 30.8 (28.0-33.3) pg MCHC 32.6 (31.6-35.5) g/dL RDW 16.5 H (11.5-14.5) % Plt Count 208 (140-400) K/mcL MPV 9.6 (9.4-12.4) fL Immature Gran % 0.2 (0-4) % Seg Neutrophils % 62.8 % Lymphocytes % 25.6 % Monocytes % 8.8 % Eosinophils % 2.1 % Basophils % 0.5 % Neutrophils # 4.0 (1.6-8.9) K/mcL Lymphocytes # 1.6 (0.6-4.6) K/mcL Monocytes # 0.6 (0.0-1.3) K/mcL Eosinophils # 0.1 (0.0-0.6) K/mcL Basophils # 0.0 (0.0-0.2) K/mcL Nucleated RBCs/100 WBC 0.3 H (0) /100 WBC PT 10.8 (9.4-12.1) Seconds INR 1.0 Sodium 136 (136-145) mEq/L Potassium 4.8 (3.5-5.1) mEq/L Chloride 101 (98-107) mEq/L Carbon Dioxide 29 (23-29) mEq/L BUN 26 H (8-23) mg/dL Creatinine 1.58 H (0.70-1.30) mg/dL Est GFR ( Amer) 51 L (> 60) Est GFR (Non-Af Amer) 42 L (> 60) BUN/Creatinine Ratio 16 (6-26) Glucose 93 (70-105) mg/dL Calculated Osmolality 286 (280-300) Calcium 9.3 (8.6-10.3) mg/dL Troponin I (< 0.04) ng/mL 04/02/17 Range/Units 14:53 WBC (4.3-11.1) K/mcL RBC (4.19-5.50) M/mcL Hgb (12.9-16.9) g/dL Hct (37.5-50.1) % MCV (83.0-100.0) fL MCH (28.0-33.3) pg MCHC (31.6-35.5) g/dL RDW (11.5-14.5) % Plt Count (140-400) K/mcL MPV (9.4-12.4) fL Immature Gran % (0-4) % Seg Neutrophils % % Lymphocytes % % Monocytes % % Eosinophils % % Basophils % % Neutrophils # (1.6-8.9) K/mcL Lymphocytes # (0.6-4.6) K/mcL Monocytes # (0.0-1.3) K/mcL Eosinophils # (0.0-0.6) K/mcL Basophils # (0.0-0.2) K/mcL Nucleated RBCs/100 WBC (0) /100 WBC PT (9.4-12.1) Seconds INR Sodium (136-145) mEq/L Potassium (3.5-5.1) mEq/L Chloride (98-107) mEq/L Carbon Dioxide (23-29) mEq/L BUN (8-23) mg/dL Creatinine (0.70-1.30) mg/dL Est GFR ( Amer) (> 60) Est GFR (Non-Af Amer) (> 60) BUN/Creatinine Ratio (6-26) Glucose (70-105) mg/dL Calculated Osmolality (280-300) Calcium (8.6-10.3) mg/dL Troponin I < 0.03 (< 0.04) ng/mL - EKG Data EKG attestation: Yes I reviewed and interpreted this EKG. EKG results narrative: EKG shows sinus rhythm with right bundle branch block and no ST elevations or depressions. Heart Score - Score History: Moderately Suspicious EKG: Normal Age: Greater than 65 Risk Factors: 1-2 risk factors Troponin: Less than normal limit HEART Score Total: 4
[2017-04-02] MEDS: Nitroglycerin 0.4 MG TAB.SUBL SL PRN ×2 (14:30→14:48)
[2017-04-02 15:07] LABS: Basophils % 0.5 %; Eosinophils # 0.1 K/mcL (0.0-0.6); Eosinophils % 2.1 %; Hematocrit 34.7 % (37.5-50.1); Hemoglobin 11.3 g/dL (12.9-16.9); Immature Granulocytes % 0.2 % (0-4); Lymphocytes # 1.6 K/mcL (0.6-4.6); Lymphocytes % 25.6 %; Mean Corpuscular HGB Conc 32.6 g/dL (31.6-35.5); Mean Corpuscular Hemoglobin 30.8 pg (28.0-33.3); Mean Corpuscular Volume 94.6 fL (83.0-100.0); Mean Platelet Volume 9.6 fL (9.4-12.4); Monocytes # 0.6 K/mcL (0.0-1.3); Monocytes % 8.8 %; Nucleated Red Blood Cells 0.3 /100 WBC (0); Platelet Count 208 K/mcL (140-400); Red Blood Count 3.67 M/mcL (4.19-5.50); Red Cell Distribution Width 16.5 % (11.5-14.5); Segmented Neutrophils % 62.8 %
[2017-04-02 15:12] LABS: Prothrombin Time 10.8 Seconds (9.4-12.1)
[2017-04-02 15:13] LABS: Calcium 9.3 mg/dL (8.6-10.3); Potassium 4.8 mEq/L (3.5-5.1)
--- NOTE | 2017-04-02 16:22 | Internal Med History&Physical ---
Date of Encounter: 04/03/17 Time of Encounter: 16:19 Assessment and Plan (1) Chest pain Current visit: Yes Status: Acute Admit to hospitalist. Continue aspirin. Sublingual nitroglycerin when necessary. Trend cardiac enzymes. Check hemoglobin A1c and lipid panel. Stress test in the morning. Place on telemetry. Qualifiers: Chest pain type: unspecified Qualified Code(s): R07.9 - Chest pain, unspecified (2) Chronic kidney disease, stage 3 Current visit: No Status: Chronic Stable around baseline. We will continue to monitor. (3) Essential hypertension Current visit: No Status: Chronic Pressure elevated on admission but with sublingual nitroglycerin. Resume oral antihypertensives (4) Hyperlipidemia Current visit: No Status: Chronic Patient is on statin and niacin Qualifiers: Hyperlipidemia type: unspecified Qualified Code(s): E78.5 - Hyperlipidemia , unspecified (5) Iron deficiency anemia Current visit: No Status: Chronic Resume iron supplement.. Qualifiers: Iron deficiency anemia type: unspecified iron deficiency Qualified Code(s) : D50.9 - Iron deficiency anemia, unspecified (6) DVT prophylaxis Current visit: No Status: Acute Heparin subcutaneous Internal Medicine - H&P: HPI Chief complaint: chest pain Admitted From: Emergency Dept Plans for Post Hospital Care: Home History of present illness: Mr. Odell is a 81 year old male with history of CKD3, HLD, HTN, COPD, iron deficiency anemia, presents with chest pain since the morning. EKG with no ST- T wave chances. Showed RBBB which is old. First set of trops negative. On initial presentation blood pressure was elevated systolically in the 170s which improved with nitroglycerin. Patient's chest pain started this morning. He has been going through stressors including his brother's who was buried yesterday. He feels pressure and fullness in the chest with no radiation. He does describe exertional dyspnea. No diaphoresis. Denies headache, blurry vision, fever, chills, nausea, vomiting, abdominal pain, urinary symptoms, neurological symptoms, or leg swelling. Past Med Surg Social Fam HX - Past Medical History Medical history: COPD, hyperlipidemia, hypertension, renal disease Psychiatric history: depression - Past Surgical History Surgical History: appendectomy - Social History Smoking Status: Never smoker Smokeless Tobacco Status: No Alcohol use: none Drug use: none - Family History Father Living Status: Hx Family Cardiac Disorders: Yes Mother Living Status: Hx Family Cardiac Disorders: Yes Hx Family Endocrine Disorder: Yes (DM II) Internal Medicine - H&P: Meds Aspirin 81 mg PO DAILY 01/03/16 [History] Gabapentin 600 mg PO TID 01/03/16 [History] Lisinopril [Zestril] 10 mg PO DAILY 01/03/16 [History] Niacin [Niacor] 500 mg PO HS 01/03/16 [History] Paroxetine [Paxil] 20 mg PO DAILY 01/03/16 [History] Simvastatin [Zocor] 20 mg PO HS 01/03/16 [History] Tamsulosin [Flomax] 0.4 mg PO DAILY 01/03/16 [History] Ferrous Sulfate [Iron] 325 mg PO DAILY #10 tablet 12/29/16 [Rx] Budesonide/Formoterol 80/4.5 [Symbicort 80/4.5] 2 puff IH BIDR 01/05/17 [ History] Cholecalciferol (Vitamin D3) [Vitamin D3] 2,000 unit PO DAILY 01/05/17 [History] Primidone [Mysoline] 50 mg PO BID 01/05/17 [History] Albuterol Sulfate [Albuterol Inhaler] 2 puff IH Q4HR PRN 03/01/17 [History] hydroCHLOROthiazide [Hydrochlorothiazide] 25 mg PO DAILY 04/02/17 [History] 3 Allergy/AdvReac Type Severity Reaction Status Date / Time No Known Allergies Allergy Verified 04/02/17 14:27 All Systems PM: A 10-system review of systems was performed and is negative for pertinent findings except as documented above in the HPI. Review of systems: All systems reviewed are negative except for as mentioned above - Constitutional Vitals: Temp Pulse Resp BP Pulse Ox 97.7 F 67 14 119/102 98 04/02/17 14:19 04/02/17 16:00 04/02/17 16:00 04/02/17 16:00 04/02/17 16:00 Exam: GEN: NAD HEENT: AT, NC, No cyanosis, oral mucosa is moist, No JVD Lymphatics: No lymphadenoapthy Eyes: Extrocular muscles intact, anicteric CVS:RRR. S1, S2, No m/r/g RESP: CTAB ABD: Soft, NT, ND, +BS EXT: No edema, No rashes, 2+ DP NEURO: Nonfocal, CN II-XII intact, No focal motor or sensory deficits Psych: Cooperative, Not anxious or depressed Internal Med - H&P Results - Labs CBC & Chem 7: 04/03/17 03:43 04/03/17 03:43 Labs: Short CBC 04/02/17 Range/Units 14:53 WBC 6.3 (4.3-11.1) K/mcL Hgb 11.3 L (12.9-16.9) g/dL Hct 34.7 L (37.5-50.1) % Plt Count 208 (140-400) K/mcL Neutrophils # 4.0 (1.6-8.9) K/mcL BMP 04/02/17 14:53 Sodium 136 Potassium 4.8 Chloride 101 Carbon Dioxide 29 BUN 26 H Creatinine 1.58 H Glucose 93 Calcium 9.3 Cardiac Enzymes 04/02/17 Range/Units 14:53 Troponin I < 0.03 (< 0.04) ng/mL - Impressions ITS Impressions Chest X-Ray 04/02/17 14:19 IMPRESSION: Cardiomegaly. Calcific atherosclerotic disease aorta. Focal scar versus nodule lateral lower right lung. CT chest correlation may be useful. D/ / Mykel Montes / Mykel Montes Interpreting Provider: Mykel Montes
[2017-04-02] MEDS ORDERED: Naloxone 0.4 MG/ML INJ IVP PRN (16:33)
[2017-04-02] MEDS ORDERED: Acetaminophen 325 MG TABLET PO PRN (16:33)
[2017-04-02] MEDS ORDERED: Nitroglycerin 0.4 MG TAB.SUBL SL PRN (16:33)
[2017-04-02] MEDS: Budesonide/Formoterol 80/4.5 MDI IH SCH (20:21)
[2017-04-02] MEDS: Gabapentin 300 MG CAPSULE PO SCH (20:59)
[2017-04-02] MEDS: Primidone 50 MG TABLET PO SCH (21:00)
[2017-04-02] MEDS: Niacin (24 HR) 500 MG TAB.ER.24H PO SCH (21:00)
[2017-04-02] MEDS: *HR* Heparin 5,000 UNIT/ML VIAL SQ SCH (21:01)
[2017-04-03 05:00] LABS: Basophils % 0.6 %; Eosinophils # 0.3 K/mcL (0.0-0.6); Eosinophils % 5.7 %; Hematocrit 32.8 % (37.5-50.1); Hemoglobin 10.5 g/dL (12.9-16.9); Immature Granulocytes % 0.2 % (0-4); Lymphocytes # 1.5 K/mcL (0.6-4.6); Lymphocytes % 31.7 %; Mean Corpuscular Hemoglobin 30.8 pg (28.0-33.3); Mean Corpuscular Volume 96.2 fL (83.0-100.0); Mean Platelet Volume 10.2 fL (9.4-12.4); Monocytes # 0.5 K/mcL (0.0-1.3); Monocytes % 10.3 %; Neutrophils # 2.5 K/mcL (1.6-8.9); Nucleated Red Blood Cells 1.5 /100 WBC (0); Platelet Count 192 K/mcL (140-400); Red Blood Count 3.41 M/mcL (4.19-5.50); Red Cell Distribution Width 16.7 % (11.5-14.5); Segmented Neutrophils % 51.5 %
[2017-04-03 05:16] LABS: Hemoglobin A1C 5.6 %
[2017-04-03 05:25] LABS: Calcium 8.9 mg/dL (8.6-10.3); Chol/HDL Ratio 4.1 (0-4.9); Magnesium 2.2 mg/dL (1.6-2.6); Potassium 4.6 mEq/L (3.5-5.1)
[2017-04-03] MEDS: *HR* Heparin 5,000 UNIT/ML VIAL SQ SCH ×3 (05:29→21:17)
[2017-04-03] MEDS ORDERED: Regadenoson 0.4 MG/5 ML SYRINGE IVP ONE (07:08)
[2017-04-03] MEDS: Budesonide/Formoterol 80/4.5 MDI IH SCH ×2 (08:12→21:40)
[2017-04-03] MEDS: Gabapentin 300 MG CAPSULE PO SCH ×3 (12:24→19:53)
[2017-04-03] MEDS: Aspirin 81 MG TAB.CHEW PO SCH (12:24)
[2017-04-03] MEDS: hydroCHLOROthiazide 25 MG TABLET PO SCH (12:25)
[2017-04-03] MEDS: Primidone 50 MG TABLET PO SCH ×2 (12:25→19:53)
[2017-04-03] MEDS: Cholecalciferol (D-3) 1,000 UNIT TABLET PO SCH (12:26)
--- NOTE | 2017-04-03 14:34 | Internal Med Progress Note ---
Date of Encounter: 04/03/17 Time of Encounter: 14:29 - Assessment and plan (1) Chest pain Current Visit: Yes Status: Acute Assessment and plan: presented with chest pressure that occurred after brothers . No known CAD. CXR with cardiomegaly. Serial troponins negative. EKG without acute ST changes. Stress test negative for ischemia. Echo pending. Cont ASA, statin Qualifiers: Chest pain type: unspecified Qualified Code(s): R07.9 - Chest pain, unspecified (2) Chronic kidney disease, stage 3 Current Visit: No Status: Chronic Assessment and plan: per hx. Renal function appears to be at baseline. Avoid nephrotoxic agents. Intermittently monitor renal function. (3) Essential hypertension Current Visit: No Status: Chronic Assessment and plan: per hx. BP uncontrolled; possibly contributing to chest pressure. Continue home ADRIAN, HCTZ. Add low-dose amlodipine. Monitor BP and titrate PRN (4) Iron deficiency anemia Current Visit: No Status: Chronic Assessment and plan: per hx. Hgb 10.5 which appears at baseline. Intermittently monitor CBC. Resume home settlements Qualifiers: Iron deficiency anemia type: unspecified iron deficiency Qualified Code(s) : D50.9 - Iron deficiency anemia, unspecified (5) DVT prophylaxis Current Visit: No Status: Acute Assessment and plan: heparin - Subjective Interval history: Seen and examined at bedside. Patient is new to me. Information obtained from chart review and patient report. Says he feels better now, back to baseline. No chest pain or shortness of breath. He tells me he had chest pressure yesterday after leaving the home and he suspects stress/anxiety was contributing. He also thinks that was concerning to his high blood pressure as well. - Constitutional Vitals: Temp Pulse Resp BP Pulse Ox 97.5 F L 62 18 162/80 97 04/03/17 12:04/03/17 12:09 04/03/17 12:04/03/17 12:04/03/17 12:09 General appearance: Present: A&O X 3, no acute distress - Head Head exam: Present: atraumatic, normocephalic - Eye Eye exam: Present: PERRL, conjuntiva pink, sclera anicteric Pupils: Present: PERRL - Neck Neck exam general surgery: Present: supple, trachea midline. Absent: lymphadenopathy - Respiratory Respiratory exam: Present: CTAB. Absent: accessory muscle use, rales, rhonchi, wheezes - Cardiovascular Cardiovascular exam: Present: RRR, +S1, +S2. Absent: diastolic murmur, gallop, rubs, systolic murmur - GI/Abdominal GI/Abdominal exam: Present: normal bowel sounds, soft, no peritoneal signs. Absent: distended, tenderness - Extremities Exam Extremities exam: Present: warm, radial pulses palpable and symmetrical. Absent : calf tenderness, cyanotic, pedal edema - Neurological Exam Neurological exam: Present: CN II-XII intact, oriented X3, no focal deficits. Absent: pronater drift, facial droop, speech deficit - Skin Skin exam: Present: dry, intact Internal Medicine: Result - Labs CBC & Chem 7: 04/03/17 03:43 04/03/17 03:43 Labs: Short CBC 04/03/17 Range/Units 03:43 WBC 4.8 (4.3-11.1) K/mcL Hgb 10.5 L (12.9-16.9) g/dL Hct 32.8 L (37.5-50.1) % Plt Count 192 (140-400) K/mcL Neutrophils # 2.5 (1.6-8.9) K/mcL BMP 04/03/17 03:43 Sodium 136 Potassium 4.6 Chloride 103 Carbon Dioxide 27 BUN 26 H Creatinine 1.82 H Glucose 107 H Calcium 8.9 Cardiac Enzymes 04/02/17 04/03/17 Range/Units 20:45 03:43 Troponin I < 0.03 < 0.03 (< 0.04) ng/mL - ABG Interpretation ABG results: PT/INR, D-dimer PT 10.8 Seconds (9.4-12.1) 04/02/17 14:53 Consult Discharge Plan - Plan Referrals: Cecelia Hernandez MD [Primary Care Provider] -
[2017-04-03] MEDS: Niacin (24 HR) 500 MG TAB.ER.24H PO SCH (19:53)
[2017-04-04] MEDS: *HR* Heparin 5,000 UNIT/ML VIAL SQ SCH (05:08)
[2017-04-04] MEDS: Gabapentin 300 MG CAPSULE PO SCH (08:02)
[2017-04-04] MEDS: Primidone 50 MG TABLET PO SCH (08:02)
[2017-04-04] MEDS: Aspirin 81 MG TAB.CHEW PO SCH (08:02)
[2017-04-04] MEDS: Cholecalciferol (D-3) 1,000 UNIT TABLET PO SCH (08:02)
[2017-04-04] MEDS: hydroCHLOROthiazide 25 MG TABLET PO SCH (08:02)
[2017-04-04] MEDS: Budesonide/Formoterol 80/4.5 MDI IH SCH (08:29)
[2017-04-04 12:02] VITALS: BP 133/70
--- NOTE | 2017-04-04 12:56 | Discharge Summary ---
- NOTES TO OUTPATIENT PROVIDER Notes to Outpatient Provider: Recommend follow-up within 1-2 weeks for BP recheck Orders not resulted at time of discharge: Pending orders 04/03/17 08:00 NM [facility] perf SPECT multi [NM] Routine Date of Encounter: 04/04/17 Time of Encounter: 12:54 - Discharge Diagnosis (1) Chest pain Priority: Primary Status: Resolved Comments: presented with chest pressure that occurred after brothers . No known CAD. CXR with cardiomegaly. Serial troponins negative. EKG without acute ST changes. TTE with EF 65%, mild diastolic dysfunction. Stress test negative for ischemia. Chest pain resolved without intervention. Cont ASA, statin Qualifiers: Chest pain type: unspecified Qualified Code(s): R07.9 - Chest pain, unspecified (2) Chronic kidney disease, stage 3 Priority: Secondary Status: Chronic Comments: per hx. Renal function appears to be at baseline. Cont home ADRIAN as renal function stable while taking. Avoid nephrotoxic agents as possible. Recommend repeat CMP with PCP within 1-2 weeks (3) Essential hypertension Priority: Primary Status: Acute Comments: per hx. BP uncontrolled on arrival; suspect secondary to anxiety and stress. Uncontrolled BP possibly contributing to chest pressure. BP controlled once home medications resumed. Continue home ADRIAN, HCTZ, amlodipine. Recommend follow-up with PCP within one week for BP recheck. (4) Iron deficiency anemia Priority: Primary Status: Chronic Comments: per hx. evaluated by hematology 02/2017 noted possible occult GI bleed. Has received IV iron in the past. Hgb stable at 10.2. No active bleeding. Continue home iron supplement. Has C-scope scheduled 04/08/2017. Qualifiers: Iron deficiency anemia type: unspecified iron deficiency Qualified Code(s) : D50.9 - Iron deficiency anemia, unspecified (5) COPD (chronic obstructive pulmonary disease) Priority: Secondary Status: Chronic Comments: per hx. CXR without infiltrate/consolidation. Evidence of exacerbation. Continue home inhalers. Qualifiers: COPD type: emphysema Emphysema type: centrilobular Qualified Code(s): J43.2 - Centrilobular emphysema Hospital course: Mr. Odell is a 81 year old male with past medical history hypertension and COPD who presented to [facility] on 04/02/2017 with complaints of chest pressure. ACS was ruled out with negative serial troponins , EKG without acute ST changes, unremarkable echo and negative stress test. Suspect chest pressure secondary to anxiety stress as episode occurred after leaving brother's . Additionally uncontrolled BP could have been contributing as well. He was discharged home in stable condition with outpatient follow-up. Discharge discussed with: patient - Time Spent with Patient Total time spent providing and/or coordinating discharge services: Less than 30 minutes - Discharge Medications Home Medications: Aspirin 81 mg PO DAILY 01/03/16 [History] Gabapentin 600 mg PO TID 01/03/16 [History] Lisinopril [Zestril] 10 mg PO DAILY 01/03/16 [History] Niacin [Niacor] 500 mg PO HS 01/03/16 [History] Paroxetine [Paxil] 20 mg PO DAILY 01/03/16 [History] Simvastatin [Zocor] 20 mg PO HS 01/03/16 [History] Tamsulosin [Flomax] 0.4 mg PO DAILY 01/03/16 [History] Ferrous Sulfate [Iron] 325 mg PO DAILY #10 tablet 12/29/16 [Rx] Budesonide/Formoterol 80/4.5 [Symbicort 80/4.5] 2 puff IH BIDR 01/05/17 [ History] Cholecalciferol (Vitamin D3) [Vitamin D3] 2,000 unit PO DAILY 01/05/17 [History] Primidone [Mysoline] 50 mg PO BID 01/05/17 [History] Albuterol Sulfate [Albuterol Inhaler] 2 puff IH Q4HR PRN 03/01/17 [History] hydroCHLOROthiazide [Hydrochlorothiazide] 25 mg PO DAILY 04/02/17 [History] Allergies/Adverse Reactions: 3 Allergy/AdvReac Type Severity Reaction Status Date / Time No Known Allergies Allergy Verified 04/02/17 14:27 Date of admission: 04/02/17 16:21 Primary care physician: Cecelia [facility] Discharging clinician: Jennifer Martinez Anticipated date of discharge: 04/04/17 - Constitutional Vitals: Temp Pulse Resp BP Pulse Ox 97.4 F L 73 16 133/70 98 04/04/17 12:01 04/04/17 12:01 04/04/17 12:01 04/04/17 12:01 04/04/17 12:01 General appearance: Present: A&O X 3, no acute distress - Head Head exam: Present: atraumatic, normocephalic - Eye Eye exam: Present: PERRL, conjuntiva pink, sclera anicteric Pupils: Present: PERRL - Neck Neck exam general surgery: Present: supple, trachea midline. Absent: lymphadenopathy - Respiratory Respiratory exam: Present: CTAB. Absent: accessory muscle use, rales, rhonchi, wheezes - Cardiovascular Cardiovascular exam: Present: RRR, +S1, +S2. Absent: diastolic murmur, gallop, rubs, systolic murmur - GI/Abdominal GI/Abdominal exam: Present: normal bowel sounds, soft, no peritoneal signs. Absent: distended, tenderness - Extremities Exam Extremities exam: Present: warm, radial pulses palpable and symmetrical. Absent : calf tenderness, cyanotic, pedal edema - Neurological Exam Neurological exam: Present: CN II-XII intact, oriented X3, no focal deficits. Absent: pronater drift, facial droop, speech deficit - Skin Skin exam: Present: dry, intact - Patient Status Disposition: Home, Self-Care Condition: Good Functional capacity at discharge: independent ambulation Overall status at discharge: patient is back to baseline - Discharge Instructions Instructions: Chest Pain (DC), Chronic Hypertension (DC) Follow Up With: Cecelia Hernandez MD [Primary Care Provider] - (Please follow-up with PCP in 7-10 days.) - Diet and Activity Activity: increase activity as tolerated Diet: advance to your usual diet
--- NOTE | 2017-04-05 06:29 | Electrocardiograph Report ---
[employer] Test Date: 2017-04-02 Pat Name: Randal Odell Department: 103 Room: 3B43 Gender: M Director Of Online Education: [facility] : 1935 Requested By: Mehrdad [place] Order Number: [id number] Reading MD: Rodrigo Galo DO Measurements Intervals [place] Rate: 68 P: 58 MO: 174 QRS: 35 QRSD: 142 T: 18 QT: 400 QTc: 417 Interpretive Statements SINUS RHYTHM RIGHT BUNDLE BRANCH BLOCK [120+ ms QRS DURATION, UPRIGHT V1, 40+ ms S IN I/aVL/V4/V5/V6] Electronically Signed On 04-05-2017 6:28:04 EST by Rodrigo Galo DO
== END 2017-04-04 15:05 | disposition home or self-care (01) ==
LOC: 3BNU 14:18 → EMEROO 14:18 → 3BNU 16:38
PROVIDERS: ADMIT Internal Medicine; ATTEND Registered Nurse

== ENCOUNTER 2018-01-16 09:25 | Observation (INO) ==
--- NOTE | 2018-01-16 09:45 | Emergency Department Note ---
Disposition Clinical Impression: Shortness of breath Chest pain Qualifiers: Chest pain type: unspecified Qualified Code(s): R07.9 - Chest pain, unspecified Disposition: Admitted As Inpatient Condition: Good Referrals: Cecelia Hernandez MD [Primary Care Provider] - Forms: ED Satisfaction Letter Chest Pain HPI - General Chief Complaint: ED Chest Pain Stated Complaint: RAMYA Time Seen by Provider: 01/16/18 09:32 Source: patient Mode of arrival: EMS Limitations: no limitations Vital Signs Reviewed: Yes Nursing Notes Reviewed: Yes - History of Present Illness HPI Narrative: 82-year-old male history of hyperlipidemia, non-oxygen dependent COPD who presents to the ER via EMS with a complaint of chest pain. Patient states he was awoken by symptoms that began this morning at 6:30 AM. Reports a heaviness in the center of his chest without radiation. He has also experienced shortness of breath. Denies any nausea or vomiting, diaphoresis. No history of CAD, DVT or PE. The patient was given 4 81 mg aspirins by EMS in route. No recent illnesses. No other complaints. Pt complaint: chest pain Onset (ago): hour(s) Time: 06:30 Duration: constant Onset: during rest Pain Location: substernal Severity: moderate Severity scale (1-10): 6 Quality: heaviness Pain Radiation: none Improves with: nothing Worsens with: nothing Associated symptoms: Reports: dyspnea Treatments prior to arrival chest pain: aspirin - Related Data Home Medications Medication Instructions Recorded Confirmed Paroxetine [Paxil] 20 mg PO DAILY 01/03/16 01/16/18 Simvastatin [Zocor] 20 mg PO HS 01/03/16 01/16/18 Budesonide/Formoterol 80/4.5 2 puff IH BIDR 01/05/17 01/16/18 [Symbicort 80/4.5] Cholecalciferol (Vitamin D3) 2,000 unit PO DAILY 01/05/17 01/16/18 [Vitamin D3] Primidone [Mysoline] 50 mg PO BID 01/05/17 01/16/18 Albuterol Sulfate [Albuterol 2 puff IH Q4HR PRN 03/01/17 01/16/18 Inhaler] Omeprazole [PriLOSEC] 40 mg PO DAILY 12/14/17 01/16/18 Gabapentin [Neurontin] 600 mg PO HS 01/16/18 01/16/18 Lisinopril [Zestril] 10 mg PO DAILY 01/16/18 01/16/18 Niacin [Plain Niacin] 500 mg PO HS 01/16/18 01/16/18 Tamsulosin [Flomax] 0.4 mg PO DAILY 01/16/18 01/16/18 hydroCHLOROthiazide 25 mg PO DAILY 01/16/18 01/16/18 [Hydrochlorothiazide] Allergies Allergy/AdvReac Type Severity Reaction Status Date / Time No Known Allergies Allergy Verified 01/16/18 10:13 All systems ED: reviewed and negative except as stated. Constitutional: Denies: fever Cardiovascular: Reports: chest pain Respiratory: Reports: dyspnea. Denies: cough Gastrointestinal: Denies: abdominal pain, nausea, vomiting Chest Pain PMH - Past Medical History Medical history: Reports: cancer, COPD, hyperlipidemia, hypertension, renal disease Surgical history: Reports: appendectomy Psychiatric history: Reports: depression - Social History Smoking Status: Never smoker Alcohol use: Reports: none Drug use: Reports: none Physical Exam - General Limitations: no limitations General appearance: alert, in no apparent distress - Head Head exam: atraumatic, normocephalic, normal inspection - Eye Eye exam: Present: normal appearance - ENT ENT exam: normal exam - Neck Neck exam: Present: normal inspection - Chest Chest inspection: Present: normal inspection, symmetric chest wall rise - Respiratory Respiratory exam: Present: normal lung sounds bilaterally - Cardiovascular Cardiovascular exam: Present: regular rate, normal rhythm, normal heart sounds - Abdominal Exam Abdominal exam: Present: soft, Non-Tender. Absent: tenderness, distention, rigidity - Extremities Exam Extremities exam: Present: normal inspection, full ROM - Expanded Upper Extremity Exam Shoulder exam: Present: normal inspection, full ROM Arm exam: Present: normal inspection, full ROM Elbow exam: Present: normal inspection, full ROM Forearm/Wrist exam: Present: normal inspection, full ROM Hand exam: Present: normal inspection, full ROM - Expanded Lower Extremity Exam Hip/Pelvis exam: Present: normal inspection, full ROM Upper leg exam: Present: normal inspection, full ROM Knee exam: Present: normal inspection, full ROM Lower leg exam: Present: normal inspection, full ROM Ankle exam: Present: normal inspection, full ROM Foot/toe exam: Present: normal inspection, full ROM - Skin Skin exam: Present: warm, dry Course Course Narrative: Patient seen and examined. Vital signs reviewed. Plan for EKG, chest x-ray, labs, nitroglycerin trial here. He received aspirin prior to arrival. - Reevaluation(s) Reevaluation #1: Patient became briefly hypotensive with a systolic blood pressure of a pproximately 80 after nitroglycerin. This quickly resolved and he was given a 500 mL boluses of normal saline. His pain did improve significantly with nitroglycerin so we will trial again with IV fluids in progress. Vital Signs Temperature 98 F 01/16/18 09:31 Pulse Rate 71 01/16/18 09:31 Respiratory Rate 15 01/16/18 09:31 Blood Pressure 136/84 01/16/18 09:31 O2 Sat by Pulse Oximetry 100 01/16/18 09:31 Temperature 98 F 01/16/18 09:31 Pulse Rate 60 01/16/18 11:21 Respiratory Rate 15 01/16/18 11:06 Blood Pressure 101/65 01/16/18 11:21 O2 Sat by Pulse Oximetry 100 01/16/18 11:06 Oxygen Delivery Oxygen Delivery Room Air Chest Pain - MDM Narrative Medical decision making narrative: 82-year-old male presents to the ER with a complaint of chest pain and shortness of breath. No history of CAD. Pain improvement nitroglycerin. His EKG is a r ight bundle-branch block without changes from prior, chest x-ray is unremarkable as well as a normal first troponin. The patient is admitted to the hospitalist service for chest pain rule out. - Lab Data Lab results reviewed: Yes I reviewed the patient's lab results. Result diagrams: 01/16/18 09:43 01/16/18 09:43 Lab Results 01/16/18 01/16/18 01/16/18 Range/Units 09:43 09:43 09:43 WBC 4.3 (4.3-11.1) K/mcL RBC 4.39 (4.19-5.50) M/mcL Hgb 13.7 (12.9-16.9) g/dL Hct 40.8 (37.5-50.1) % MCV 92.9 (83.0-100.0) fL MCH 31.2 (28.0-33.3) pg MCHC 33.6 (31.6-35.5) g/dL RDW 12.9 (11.5-14.5) % Plt Count 220 (140-400) K/mcL MPV 10.2 (9.4-12.4) fL Immature Gran % 0.2 (0-4) % Seg Neutrophils % 56.5 % Lymphocytes % 29.9 % Monocytes % 9.5 % Eosinophils % 3.2 % Basophils % 0.7 % Neutrophils # 2.4 (1.6-8.9) K/mcL Lymphocytes # 1.3 (0.6-4.6) K/mcL Monocytes # 0.4 (0.0-1.3) K/mcL Eosinophils # 0.1 (0.0-0.6) K/mcL Basophils # 0.0 (0.0-0.2) K/mcL PT 11.2 (9.4-12.1) Seconds INR 1.0 APTT 30.1 (26.0-36.0) Seconds Sodium (136-145) mEq/L Potassium (3.5-5.1) mEq/L Chloride (98-107) mEq/L Carbon Dioxide (23-29) mEq/L BUN (8-23) mg/dL Creatinine (0.70-1.30) mg/dL Est GFR ( Amer) (> 60) Est GFR (Non-Af Amer) (> 60) BUN/Creatinine Ratio (6-26) Glucose (70-105) mg/dL Calculated Osmolality (280-300) Calcium (8.6-10.3) mg/dL Troponin I (< 0.04) ng/mL B-Natriuretic Peptide 26 (Less than 100) pg/mL 01/16/18 Range/Units 09:43 WBC (4.3-11.1) K/mcL RBC (4.19-5.50) M/mcL Hgb (12.9-16.9) g/dL Hct (37.5-50.1) % MCV (83.0-100.0) fL MCH (28.0-33.3) pg MCHC (31.6-35.5) g/dL RDW (11.5-14.5) % Plt Count (140-400) K/mcL MPV (9.4-12.4) fL Immature Gran % (0-4) % Seg Neutrophils % % Lymphocytes % % Monocytes % % Eosinophils % % Basophils % % Neutrophils # (1.6-8.9) K/mcL Lymphocytes # (0.6-4.6) K/mcL Monocytes # (0.0-1.3) K/mcL Eosinophils # (0.0-0.6) K/mcL Basophils # (0.0-0.2) K/mcL PT (9.4-12.1) Seconds INR APTT (26.0-36.0) Seconds Sodium 136 (136-145) mEq/L Potassium 4.9 (3.5-5.1) mEq/L Chloride 102 (98-107) mEq/L Carbon Dioxide 26 (23-29) mEq/L BUN 29 H (8-23) mg/dL Creatinine 1.70 H (0.70-1.30) mg/dL Est GFR ( Amer) 47 L (> 60) Est GFR (Non-Af Amer) 39 L (> 60) BUN/Creatinine Ratio 17 (6-26) Glucose 112 H (70-105) mg/dL Calculated Osmolality 289 (280-300) Calcium 9.4 (8.6-10.3) mg/dL Troponin I < 0.03 (< 0.04) ng/mL B-Natriuretic Peptide (Less than 100) pg/mL - Radiology Data Radiology results reviewed: Yes I reviewed the patient's radiology results. Chest X-Ray 01/16/18 09:34 IMPRESSION: Stable chest. No acute cardiopulmonary abnormality. D/ / Greg Slater MD / Greg Slater MD Interpreting Provider: Greg Slater MD - EKG Data EKG attestation: Yes I reviewed and interpreted this EKG. EKG results narrative: EKG demonstrates sinus rhythm with a right bundle branch block with rate of 70 bpm. Normal axis. Prolonged QRS ration of 138. He has nonspecific ST-T wave changes with depressions in leads 1 and aVL. These are unchanged from his prior EKG on 04/06/17. No gross ST elevations. Heart Score - Score History: Moderately Suspicious EKG: Normal Age: Greater than 65 Risk Factors: 1-2 risk factors Troponin: Less than normal limit HEART Score Total: 4 S.Maite - Moe Situation: Demographics, MOA Background: Presenting Complaint, Relevant PMH, Meds, & Allergies Assessment: Course and respsone to treatment, Exam Concerns, Patient/Family Expectation, Pertinant Lab Results Recommendation: Barrier(s) to disposition, Recommendation based on pending studies, treatments, or consults [email or web address] Report Given to: Dr. Harry Rosa Repor Time: 11:39
[2018-01-16] MEDS: Nitroglycerin 0.4 MG TAB.SUBL SL PRN ×2 (09:50→11:06)
[2018-01-16 09:53] LABS: Basophils % 0.7 %; Eosinophils # 0.1 K/mcL (0.0-0.6); Eosinophils % 3.2 %; Hematocrit 40.8 % (37.5-50.1); Hemoglobin 13.7 g/dL (12.9-16.9); Immature Granulocytes % 0.2 % (0-4); Lymphocytes # 1.3 K/mcL (0.6-4.6); Lymphocytes % 29.9 %; Mean Corpuscular HGB Conc 33.6 g/dL (31.6-35.5); Mean Corpuscular Hemoglobin 31.2 pg (28.0-33.3); Mean Corpuscular Volume 92.9 fL (83.0-100.0); Mean Platelet Volume 10.2 fL (9.4-12.4); Monocytes # 0.4 K/mcL (0.0-1.3); Monocytes % 9.5 %; Neutrophils # 2.4 K/mcL (1.6-8.9); Platelet Count 220 K/mcL (140-400); Red Blood Count 4.39 M/mcL (4.19-5.50); Red Cell Distribution Width 12.9 % (11.5-14.5); Segmented Neutrophils % 56.5 %
[2018-01-16 10:01] LABS: Prothrombin Time 11.2 Seconds (9.4-12.1)
[2018-01-16 10:03] LABS: Activated Partial Thrombo Time 30.1 Seconds (26.0-36.0)
[2018-01-16 10:18] LABS: Troponin I < 0.03 ng/mL (< 0.04)
[2018-01-16] MEDS ORDERED: 0.9 % Sodium Chloride 500 ML IVC ONE (10:19)
[2018-01-16 11:08] LABS: BUN/Creatinine Ratio 17 (6-26); Blood Urea Nitrogen 29 mg/dL (8-23); Calcium 9.4 mg/dL (8.6-10.3); Carbon Dioxide 26 mEq/L (23-29); Chloride 102 mEq/L (98-107); Glucose 112 mg/dL (70-105); Osmolality,Calculated 289 (280-300); Potassium 4.9 mEq/L (3.5-5.1); Sodium 136 mEq/L (136-145); eGFR For Non-African Americans 39 (> 60)
--- NOTE | 2018-01-16 11:13 | Emergency Department Note ---
Disposition Clinical Impression: Shortness of breath Chest pain Qualifiers: Chest pain type: unspecified Qualified Code(s): R07.9 - Chest pain, unspecified Disposition: Admitted As Inpatient Condition: Good Referrals: Cecelia Hernandez MD [Primary Care Provider] - Forms: ED Satisfaction Letter General Adult HPI - General Chief complaint: ED Chest Pain Stated complaint: RAMYA Time Seen by Provider: 01/16/18 09:32 Source: patient Mode of arrival: EMS Limitations: no limitations - History of Present Illness Pain Scale: 4 - Related Data Home Medications Medication Instructions Recorded Confirmed Paroxetine [Paxil] 20 mg PO DAILY 01/03/16 01/16/18 Simvastatin [Zocor] 20 mg PO HS 01/03/16 01/16/18 Budesonide/Formoterol 80/4.5 2 puff IH BIDR 01/05/17 01/16/18 [Symbicort 80/4.5] Cholecalciferol (Vitamin D3) 2,000 unit PO DAILY 01/05/17 01/16/18 [Vitamin D3] Primidone [Mysoline] 50 mg PO BID 01/05/17 01/16/18 Albuterol Sulfate [Albuterol 2 puff IH Q4HR PRN 03/01/17 01/16/18 Inhaler] Omeprazole [PriLOSEC] 40 mg PO DAILY 12/14/17 01/16/18 Gabapentin [Neurontin] 600 mg PO HS 01/16/18 01/16/18 Lisinopril [Zestril] 10 mg PO DAILY 01/16/18 01/16/18 Niacin [Plain Niacin] 500 mg PO HS 01/16/18 01/16/18 Tamsulosin [Flomax] 0.4 mg PO DAILY 01/16/18 01/16/18 hydroCHLOROthiazide 25 mg PO DAILY 01/16/18 01/16/18 [Hydrochlorothiazide] Allergies Allergy/AdvReac Type Severity Reaction Status Date / Time No Known Allergies Allergy Verified 01/16/18 10:13 Constitutional: Denies: fever Cardiovascular: Reports: chest pain Respiratory: Reports: dyspnea. Denies: cough Gastrointestinal: Denies: abdominal pain, nausea, vomiting Past Medical History - Past Medical History Medical history: Reports: cancer, COPD, hyperlipidemia, hypertension, renal disease Surgical history: Reports: appendectomy Psychiatric history: Reports: depression - Social History Smoking Status: Never smoker Smokeless Tobacco Status: No Alcohol use: Reports: none Drug use: Reports: none Physical Exam - General Limitations: no limitations General appearance: alert, in no apparent distress Course Vital Signs Temperature 98 F 01/16/18 09:31 Pulse Rate 71 01/16/18 09:31 Respiratory Rate 15 01/16/18 09:31 Blood Pressure 136/84 01/16/18 09:31 O2 Sat by Pulse Oximetry 100 01/16/18 09:31 Temperature 98 F 01/16/18 09:31 Pulse Rate 61 01/16/18 11:06 Respiratory Rate 15 01/16/18 11:06 Blood Pressure 132/66 01/16/18 11:06 O2 Sat by Pulse Oximetry 100 01/16/18 11:06 Oxygen Delivery Oxygen Delivery Room Air Medical Decision Making - Lab Data Result diagrams: 01/16/18 09:43 01/16/18 09:43 Lab Results 01/16/18 01/16/18 01/16/18 Range/Units 09:43 09:43 09:43 WBC 4.3 (4.3-11.1) K/mcL RBC 4.39 (4.19-5.50) M/mcL Hgb 13.7 (12.9-16.9) g/dL Hct 40.8 (37.5-50.1) % MCV 92.9 (83.0-100.0) fL MCH 31.2 (28.0-33.3) pg MCHC 33.6 (31.6-35.5) g/dL RDW 12.9 (11.5-14.5) % Plt Count 220 (140-400) K/mcL MPV 10.2 (9.4-12.4) fL Immature Gran % 0.2 (0-4) % Seg Neutrophils % 56.5 % Lymphocytes % 29.9 % Monocytes % 9.5 % Eosinophils % 3.2 % Basophils % 0.7 % Neutrophils # 2.4 (1.6-8.9) K/mcL Lymphocytes # 1.3 (0.6-4.6) K/mcL Monocytes # 0.4 (0.0-1.3) K/mcL Eosinophils # 0.1 (0.0-0.6) K/mcL Basophils # 0.0 (0.0-0.2) K/mcL PT 11.2 (9.4-12.1) Seconds INR 1.0 APTT 30.1 (26.0-36.0) Seconds Sodium (136-145) mEq/L Potassium (3.5-5.1) mEq/L Chloride (98-107) mEq/L Carbon Dioxide (23-29) mEq/L BUN (8-23) mg/dL Creatinine (0.70-1.30) mg/dL Est GFR ( Amer) (> 60) Est GFR (Non-Af Amer) (> 60) BUN/Creatinine Ratio (6-26) Glucose (70-105) mg/dL Calculated Osmolality (280-300) Calcium (8.6-10.3) mg/dL Troponin I (< 0.04) ng/mL B-Natriuretic Peptide 26 (Less than 100) pg/mL 01/16/18 Range/Units 09:43 WBC (4.3-11.1) K/mcL RBC (4.19-5.50) M/mcL Hgb (12.9-16.9) g/dL Hct (37.5-50.1) % MCV (83.0-100.0) fL MCH (28.0-33.3) pg MCHC (31.6-35.5) g/dL RDW (11.5-14.5) % Plt Count (140-400) K/mcL MPV (9.4-12.4) fL Immature Gran % (0-4) % Seg Neutrophils % % Lymphocytes % % Monocytes % % Eosinophils % % Basophils % % Neutrophils # (1.6-8.9) K/mcL Lymphocytes # (0.6-4.6) K/mcL Monocytes # (0.0-1.3) K/mcL Eosinophils # (0.0-0.6) K/mcL Basophils # (0.0-0.2) K/mcL PT (9.4-12.1) Seconds INR APTT (26.0-36.0) Seconds Sodium 136 (136-145) mEq/L Potassium 4.9 (3.5-5.1) mEq/L Chloride 102 (98-107) mEq/L Carbon Dioxide 26 (23-29) mEq/L BUN 29 H (8-23) mg/dL Creatinine 1.70 H (0.70-1.30) mg/dL Est GFR ( Amer) 47 L (> 60) Est GFR (Non-Af Amer) 39 L (> 60) BUN/Creatinine Ratio 17 (6-26) Glucose 112 H (70-105) mg/dL Calculated Osmolality 289 (280-300) Calcium 9.4 (8.6-10.3) mg/dL Troponin I < 0.03 (< 0.04) ng/mL B-Natriuretic Peptide (Less than 100) pg/mL Attestation Statement - Attestation Attestation: I examined this patient and my medical decision-making was reviewed with the Resident Physician. I agree with the documented findings, disposition and treatment plan as described except to the extent set forth below. 82-year-old male presents emergency room for chest pain shortness of breath. Patient received 1 nitroglycerin here which blotted his blood pressure into the 80 systolic but did believe a lot of this chest pressure and discomfort. He went from a 7 out of 10 down to a 3. He is currently rating a 4 out of 10. He is smiling and in no distress. First troponin is negative. Chest x-ray was stable. EKG did not show any significant changes as compared to his previous EKG. Patient will be admitted for ACS evaluation and observation due to his age and risk factors.
[2018-01-16] MEDS ORDERED: *HR* OxyCODONE/APAP 5/325 TABLET PO ONE (11:21)
[2018-01-16] MEDS ORDERED: Ipratropium/Albuterol Neb 3 ML IH ONE (11:23)
[2018-01-16] MEDS ORDERED: Acetaminophen 325 MG TABLET PO PRN (13:06)
[2018-01-16] MEDS ORDERED: Naloxone 0.4 MG/ML INJ IVP PRN (13:06)
[2018-01-16] MEDS ORDERED: Ipratropium/Albuterol Neb 3 ML IH PRN (13:08)
[2018-01-16] MEDS: predniSONE 20 MG TABLET PO SCH (14:37)
--- NOTE | 2018-01-16 14:51 | Internal Med History&Physical ---
Date of Encounter: 01/16/18 Time of Encounter: 12:00 Internal Medicine - H&P: HPI Chief complaint: Chest heaviness Admitted From: Home Plans for Post Hospital Care: Home History of present illness: Mr. Odell is a 82 year old male presented to ER for chest heaviness and shortness of breath. Past medical history is significant for COPD, hypertension, CKD Patient has shortness of breath started from this morning about 6:30 AM, with chest heaviness. The chest heaviness located on mid chest, no radiation. Patient denies nausea, vomiting, or diaphoresis. Patient denies cough or fever. Patient has similar problem before which respond to albuterol inhaler. Patient was admitted last time in March for the similar reason. On last admission, echo and stress test has been done, all negative. In the emergency room, chest x-ray and EKG unremarkable. Patient was given sublingual nitroglycerin, which caused significant BP drop. He was also treated with DuoNeb nebulizer. Patient feels better after treatment. Patient was admitted to rule out ACS. Past Med Surg Social Fam HX - Past Medical History Medical history: cancer, COPD, hyperlipidemia, hypertension, renal disease Additional medical history: Diverticulitis. PROSTATE CA Psychiatric history: depression - Past Surgical History Surgical History: appendectomy Additional surgical history: back surgery - Social History Smoking Status: Never smoker Smokeless Tobacco Status: No Alcohol use: none Drug use: none - Family History Father Living Status: Hx Family Cardiac Disorders: Yes Mother Living Status: Hx Family Cardiac Disorders: Yes Hx Family Endocrine Disorder: Yes (DM II) Internal Medicine - H&P: Meds RX: Paroxetine [Paxil] 20 mg PO DAILY 01/03/16 [History] RX: Simvastatin [Zocor] 20 mg PO HS 01/03/16 [History] RX: Budesonide/Formoterol 80/4.5 [Symbicort 80/4.5] 2 puff IH BIDR 01/05/17 [History] RX: Cholecalciferol (Vitamin D3) [Vitamin D3] 2,000 unit PO DAILY 01/05/17 [History] RX: Primidone [Mysoline] 50 mg PO BID 01/05/17 [History] RX: Albuterol Sulfate [Albuterol Inhaler] 2 puff IH Q4HR PRN 03/01/17 [History] Omeprazole [PriLOSEC] 40 mg PO DAILY 12/14/17 [History] Gabapentin [Neurontin] 600 mg PO HS 01/16/18 [History] Niacin [Plain Niacin] 500 mg PO HS 01/16/18 [History] RX: Lisinopril [Zestril] 10 mg PO DAILY 01/16/18 [History] RX: Tamsulosin [Flomax] 0.4 mg PO DAILY 01/16/18 [History] hydroCHLOROthiazide [Hydrochlorothiazide] 25 mg PO DAILY 01/16/18 [History] Allergy/AdvReac Type Severity Reaction Status Date / Time No Known Allergies Allergy Verified 01/16/18 10:13 All Systems PM: A 10-system review of systems was performed and is negative for pertinent findings except as documented above in the HPI. - Constitutional Vitals: Temp Pulse Resp BP Pulse Ox 97.5 F L 74 18 137/75 93 01/16/18 13:29 01/16/18 13:29 01/16/18 13:29 01/16/18 13:29 01/16/18 13:29 Exam: Pt is AAO x 3, in NAD HEENT: NC/AT, PERRL Neck: Supple, no JVD, no LAD Lungs: Coarse breath sound b/l. Heart: S1S2, RRR Abd: Soft, nontender, BS present Ext: ROM wnl, no pedal edema Neuro: No focal deficit Internal Med - H&P Results - Labs CBC & Chem 7: 01/16/18 09:43 01/16/18 09:43 Labs: Short CBC 01/16/18 Range/Units 09:43 WBC 4.3 (4.3-11.1) K/mcL Hgb 13.7 (12.9-16.9) g/dL Hct 40.8 (37.5-50.1) % Plt Count 220 (140-400) K/mcL Neutrophils # 2.4 (1.6-8.9) K/mcL BMP 01/16/18 09:43 Sodium 136 Potassium 4.9 Chloride 102 Carbon Dioxide 26 BUN 29 H Creatinine 1.70 H Glucose 112 H Calcium 9.4 Cardiac Enzymes 01/16/18 Range/Units 09:43 Troponin I < 0.03 (< 0.04) ng/mL - Impressions ITS Impressions Chest X-Ray 12/09/18 09:34 IMPRESSION: Stable chest. No acute cardiopulmonary abnormality. D/ / Greg Slater MD / Greg Slater MD Interpreting Provider: Greg Slater MD - Assessment and plan (1) Chest heaviness Current Visit: Yes Status: Acute Assessment and plan: Patient has chest heaviness without radiation/nausea/diaphoresis. Respond to DuoNeb. Possibly due to COPD exacerbation. However, need to rule out ACS. - Place patient on continuous cardiac monitoring - Track 3 sets of troponin - Avoid the nitroglycerin as patient developed hypotension on nitroglycerin - Patient has recent stress test and echo done in March, unremarkable result. May consider repeat echo if symptoms persist after treatment. (2) Acute exacerbation of chronic obstructive pulmonary disease (COPD) Current Visit: No Status: Acute Assessment and plan: Patient has a history of COPD. Worsen shortness of breath and chest heaviness, respond to DuoNeb treatment. When I saw patient in ER, he has no wheezing but coarse sounds. - Place patient on po steroid, DuoNeb scheduled and when necessary. - Symptomatic and supportive treatment. (3) DVT prophylaxis Current Visit: No Status: Acute Assessment and plan: Subcutaneous heparin (4) Chronic kidney disease, stage 3 Current Visit: No Status: Chronic Assessment and plan: Creatinine 1.7, which is about at patient's baseline. Continue monitor renal function closely. Avoid nephrotoxic medications (5) Hypertension Current Visit: No Status: Chronic Assessment and plan: Continue home medications. Patient is very sensitive to nitroglycerin, careful if nitroglycerin is needed. Qualifiers: Hypertension type: essential hypertension Qualified Code(s): I10 - Adalberto sanchez (primary) hypertension - Time Spent With Patient Total time spent is greater than 50% in coordination of care (as documented) at patient's floor/unit and/or counseling patient: 40 minutes Greater than 35 minutes
[2018-01-16] MEDS: Ipratropium/Albuterol Neb 3 ML IH SCH ×3 (15:40→23:34)
[2018-01-16] MEDS: *HR* Heparin 5,000 UNIT/ML VIAL SQ SCH (17:47)
[2018-01-16] MEDS: Budesonide/Formoterol 80/4.5 MDI IH SCH (20:33)
[2018-01-16] MEDS ORDERED: Gabapentin 300 MG CAPSULE PO SCH (21:00)
[2018-01-16] MEDS ORDERED: Niacin (24 HR) 500 MG TAB.ER.24H PO SCH (21:00)
[2018-01-17] MEDS: Ipratropium/Albuterol Neb 3 ML IH SCH ×3 (04:02→11:29)
[2018-01-17 04:06] LABS: Calcium 8.9 mg/dL (8.6-10.3); Hematocrit 36.6 % (37.5-50.1); Hemoglobin 12.2 g/dL (12.9-16.9); Immature Platelets 4.6 % (1.1-6.1); Lymphocytes # 0.5 K/mcL (0.6-4.6); Lymphocytes % 10.5 %; Magnesium 2.2 mg/dL (1.6-2.6); Mean Corpuscular HGB Conc 33.3 g/dL (31.6-35.5); Mean Corpuscular Hemoglobin 31.3 pg (28.0-33.3); Mean Corpuscular Volume 93.8 fL (83.0-100.0); Monocytes # 0.3 K/mcL (0.0-1.3); Monocytes % 6.7 %; Neutrophils # 4.1 K/mcL (1.6-8.9); Platelet Count 205 K/mcL (140-400); Potassium 4.7 mEq/L (3.5-5.1); Red Cell Distribution Width 13.1 % (11.5-14.5); Segmented Neutrophils % 81.8 %
[2018-01-17] MEDS: *HR* Heparin 5,000 UNIT/ML VIAL SQ SCH (06:01)
[2018-01-17] MEDS: Budesonide/Formoterol 80/4.5 MDI IH SCH (07:36)
[2018-01-17] MEDS ORDERED: hydroCHLOROthiazide 25 MG TABLET PO SCH (09:00)
[2018-01-17] MEDS ORDERED: Cholecalciferol (D-3) 1,000 UNIT TABLET PO SCH (09:00)
[2018-01-17 10:45] VITALS: BP 149/70
[2018-01-17] MEDS: predniSONE 20 MG TABLET PO SCH (10:56)
--- NOTE | 2018-01-17 10:58 | Discharge Summary ---
- NOTES TO OUTPATIENT PROVIDER Notes to Outpatient Provider: Please follow up with PCP in one week. Please stop taking hydrochlorothiazide ( HCTZ ), since it may not working for you due to your CKD -3. Insted of HCTZ please start taking Lasix 20mg every other day. Date of Encounter: 01/17/18 Time of Encounter: 10:56 - Discharge Diagnosis (1) Acute exacerbation of chronic obstructive pulmonary disease (COPD) Priority: Primary Status: Acute (2) Chest heaviness Priority: Primary Status: Acute (3) Chronic kidney disease, stage 3 Priority: Secondary Status: Chronic (4) Hypertension Priority: Secondary Status: Chronic Qualifiers: Hypertension type: essential hypertension Qualified Code(s): I10 - Essential (primary) hypertension (5) DVT prophylaxis Priority: Secondary Status: Acute Hospital course: Mr. Odell is a 82 year old male Past medical history is significant for COPD, hypertension, CKD -stage 3 and HLD pt presented to ER for chest heaviness and shortness of breath. Patient stated he did increase his heating at home which contributed to worsening shortness of breath and some chest heaviness. Patient was admitted in the hospital and placed him on lunchroom monitor. His serial troponin x 3 are negative. Reviewed his EKG showed normal sinus rhythm and chronic right bundle branch block He had a negative stress test done in March 2017. His current chest heaviness and shortness of breath seems to be secondary to mild COPD exacerbation. Patient was started on oral steroids and frequent bronchodilator therapy. Patient stated he is feeling a lot better today so will discharge him home in a stable condition today. - Time Spent with Patient Total time spent providing and/or coordinating discharge services: - Discharge Medications Prescriptions: Aspirin Enteric Coated [Aspirin EC] 81 mg PO DAILY #30 tablet. Furosemide [Lasix] 20 mg PO 3XW #10 tablet predniSONE [PredniSONE] 40 mg PO DAILY #3 tablet Home Medications: Paroxetine [Paxil] 20 mg PO DAILY 01/03/16 [History] Simvastatin [Zocor] 20 mg PO HS 01/03/16 [History] Budesonide/Formoterol 80/4.5 [Symbicort 80/4.5] 2 puff IH BIDR 01/05/17 [History] Cholecalciferol (Vitamin D3) [Vitamin D3] 2,000 unit PO DAILY 01/05/17 [History] Primidone [Mysoline] 50 mg PO BID 01/05/17 [History] Albuterol Sulfate [Albuterol Inhaler] 2 puff IH Q4HR PRN 03/01/17 [History] Omeprazole [PriLOSEC] 40 mg PO DAILY 12/14/17 [History] Gabapentin [Neurontin] 600 mg PO HS 01/16/18 [History] Lisinopril [Zestril] 10 mg PO DAILY 01/16/18 [History] Niacin [Plain Niacin] 500 mg PO HS 01/16/18 [History] Tamsulosin [Flomax] 0.4 mg PO DAILY 01/16/18 [History] Aspirin Enteric Coated [Aspirin EC] 81 mg PO DAILY #30 tablet. 01/17/18 [Rx] Furosemide [Lasix] 20 mg PO 3XW #10 tablet 01/17/18 [Rx] predniSONE [PredniSONE] 40 mg PO DAILY #3 tablet 01/17/18 [Rx] Allergies/Adverse Reactions: Allergy/AdvReac Type Severity Reaction Status Date / Time No Known Allergies Allergy Verified 01/16/18 10:13 Date of admission: 01/16/18 11:54 Primary care physician: Cecelia Hernandez MD Consults: 01/17/18 09:03 Consult to Nurse Navigator [CONS] Routine Comment: COPD - Constitutional Vitals: Temp Pulse Resp BP Pulse Ox 97.7 F 88 16 149/70 97 01/17/18 10:44 01/17/18 10:44 01/17/18 10:44 01/17/18 10:44 01/17/18 10:44 General appearance: Present: cooperative, A&O X 3, answers questions appropriately Exam: Gen: Alert, awake, Oriented to time,place and person Chest: Diminished breath sounds B/L, Mild wheezing, No crackles, No rales Heart: S1S2+ RRR No murmurs Abd: Soft, NT, BS +, No organomegaly Ext: No edema, pulses are palpable, No calf tenderness Neuro : Benign findings Skin: No rash. - Patient Status Disposition: Home, Self-Care Condition: Good Overall status at discharge: patient is back to baseline - Discharge Instructions Follow Up With: Cecelia Hernandez MD [Primary Care Provider] - 01/21/18 11:45 am - Diet and Activity Activity: increase activity as tolerated Diet: low salt diet
--- NOTE | 2018-01-18 16:58 | Electrocardiograph Report ---
[address] [place], [place] [address] Test Date: 2018-01-16 Pat Name: Randal Odell Department: EXAM3 Room: 3B54 Gender: M Icu Staff Nurse: : [id number] Requested By: Fran Menchaca Order Number: [id number] Reading MD: Daphne Louie Measurements Intervals [place] Rate: 70 P: 45 [place]: 145 QRS: 45 QRSD: 138 T: 53 QT: 395 QTc: 427 Interpretive Statements Sinus rhythm Right bundle branch block Electronically Signed On 01-18-2018 16:56:44 EST by Daphne Louie
== END 2018-01-17 15:38 | disposition home or self-care (01) ==
LOC: 3BNU 09:25 → EMEROOARM 09:25 → SUATTDRO 11:54 → 3BNU 12:40
PROVIDERS: ADMIT Internal Medicine; ATTEND Family Medicine

== ENCOUNTER 2018-02-28 14:28 | Inpatient (IN) ==
[2018-02-28] MEDS ORDERED: Ipratropium/Albuterol Neb 3 ML IH ONE (14:41)
[2018-02-28] MEDS ORDERED: methylPREDNISolone 125 MG/2 ML VIAL IVP ONE (14:41)
[2018-02-28] MEDS ORDERED: 0.9 % Sodium Chloride 1,000 ML IVC ONE (14:54)
--- NOTE | 2018-02-28 14:54 | Emergency Department Note ---
Addendum entered and electronically signed by Dinora Cano 02/28/18 19:40: 1942 Notified of positive DVT study for R leg in inpatient test while patient still in ED. Patient is currently being treated with heparin . I requested prelim note and also notify admitting physician. Addendum entered and electronically signed by Dinora Cano 02/28/18 18:04: Case discussed with Dr Ramos of Hospitalist team approximately 1700 and accepted for admission to level of care Original Note: Disposition Clinical Impression: Pulmonary emboli Qualifiers: Pulmonary embolism type: other Chronicity: acute Acute cor pulmonale presence: without acute cor pulmonale Qualified Code(s): I26.99 - Other pulmonary embolism without acute cor pulmonale Disposition: Admitted As Inpatient Condition: Fair General Adult HPI - General Chief complaint: ED Shortness of Breath/Dyspnea Stated complaint: RAMYA Time Seen by Provider: 02/28/18 14:37 Source: patient Mode of arrival: EMS Limitations: no limitations Nursing Notes Reviewed: Yes Vital Signs Reviewed: Yes - History of Present Illness HPI Narrative: 82 y/o male hx COPD presents for shortness of breath with pulse oxygen of 86% at home. He was seated at rest when sudden onset shortness of breath atroun 11 am that did not improve with douneb treatment. He denies increase cough or wheezing but had similar episode last night that resolved on its own. Shortly after this morning episode he received bad new but states symptoms started before. He denies chest pain or palpations. He was recently admitted to [facility] on 01-08-18 for COPD exacerbation and also discharged on lasix which his PCP continued with 20mg three times weekly. He denies pedal edema. Last stress test was negative and echo with EF 65 with mild diastolic dysfunction in March 2017 Family history of PR in mother with first at age 80. Onset (ago): hour(s) Pain Scale: 0 - Related Data Home Medications Medication Instructions Recorded Confirmed RX: Paroxetine [Paxil] 20 mg PO DAILY 01/03/16 01/16/18 RX: Simvastatin [Zocor] 20 mg PO HS 01/03/16 01/16/18 RX: Budesonide/Formoterol 80/4.5 2 puff IH BIDR 01/05/17 01/16/18 [Symbicort 80/4.5] RX: Cholecalciferol (Vitamin D3) 2,000 unit PO DAILY 01/05/17 01/16/18 [Vitamin D3] RX: Primidone [Mysoline] 50 mg PO BID 01/05/17 01/16/18 RX: Albuterol Sulfate [Albuterol 2 puff IH Q4HR PRN 03/01/17 01/16/18 Inhaler] RX: Omeprazole [PriLOSEC] 40 mg PO DAILY 12/14/17 01/16/18 RX: Gabapentin [Neurontin] 600 mg PO HS 01/16/18 01/16/18 RX: Lisinopril [Zestril] 10 mg PO DAILY 01/16/18 01/16/18 RX: Niacin [Plain Niacin] 500 mg PO HS 01/16/18 01/16/18 RX: Tamsulosin [Flomax] 0.4 mg PO DAILY 01/16/18 01/16/18 Previous Rx's Medication Instructions Recorded Aspirin Enteric Coated [Aspirin EC] 81 mg PO DAILY #30 tablet. 01/17/18 Furosemide [Lasix] 20 mg PO 3XW #10 tablet 01/17/18 RX: predniSONE [PredniSONE] 40 mg PO DAILY #3 tablet 01/17/18 Allergies Allergy/AdvReac Type Severity Reaction Status Date / Time No Known Allergies Allergy Verified 01/16/18 10:13 Constitutional: Denies: chills, weakness Eyes: Denies: vision change ENT ED: Denies: congestion Cardiovascular: Denies: chest pain, palpitations Respiratory: Reports: dyspnea. Denies: cough, wheezes, sputum production Gastrointestinal: Denies: abdominal pain, nausea, vomiting, diarrhea Genitourinary: Denies: urgency, dysuria, frequency Musculoskeletal: Denies: back pain, neck pain Neurological: Denies: headache, weakness Psychiatric: Denies: anxiety, depression Endocrine: Denies: fatigue Past Medical History - Past Medical History Medical history: Reports: cancer, COPD, hyperlipidemia, hypertension, renal disease Surgical history: Reports: appendectomy Psychiatric history: Reports: depression - Social History Smoking Status: Never smoker Smokeless Tobacco Status: No Alcohol use: Reports: none Drug use: Reports: none Physical Exam - General General appearance: alert - Head Head exam: atraumatic, normocephalic, normal inspection - Eye Eye exam: Present: normal appearance, EOMI - Neck Neck exam: Present: normal inspection, full ROM - Chest Chest inspection: Present: normal inspection, symmetric chest wall rise. Absent: tenderness - Respiratory Respiratory exam: Present: normal lung sounds bilaterally, respiratory distress (mild) - Cardiovascular Cardiovascular exam: Present: regular rate, normal rhythm, normal heart sounds - Abdominal Exam Abdominal exam: Present: soft, Non-Tender, normal bowel sounds - Extremities Exam Extremities exam: Present: normal inspection, full ROM. Absent: pedal edema - Neurological Exam Neurological exam: Present: alert, oriented X3 - Psychiatric Psychiatric exam: Present: anxious (tearful) - Skin Skin exam: Present: warm, dry, intact Course Course Narrative: 82 y/o male hx COPD & CKD with sudden onset shortness of breath and tachycardia not improved with duo neb at home. History is atypical for COPD and CHF exacerbation. Despite lack of chest pain sudden onset concerning for ACS or PE - EKG sinus tachycardia - we will get rapid flu, troponin, BMP, CBC and CMP. Patient has few risk factors for PE and considering CKD... - Reevaluation(s) Reevaluation #1: Patient now admits to chest pain sharp midsternal worse with deep breath started his morning. But he doesn't believe it is his heart. Influenza swab negative. Time: 15:25 Reevaluation #2: Elevated troponin at 0.07 with out EKG changes. Scr 1.5 with GFR 45% better than his baseline CKD. Thus we will proceed with CTA chest as patient is already receiving IVF Time: 15:59 Reevaluation #3: CTA shows submassive PE with signs of right heart strain - start heparin treatment with bolus. Patient now admits to chest pressure Time: 17:04 - Consultations Consultation #1: Dr Negrete discussed case with Dr Montoya in Critical Care who agreed with plan for treatment with heparin and advise that as he is stable ICU level care is not indicated at this time and patient may be admitted to 2N. Pulm was not officially consulted. Patient vitals stable with 95% on 2L, mild tachypnea at 19. BP 144/80 and tachycardia in 90s. Vital Signs Temperature 98.1 F 02/28/18 14:33 Pulse Rate 97 02/28/18 14:33 Respiratory Rate 19 02/28/18 14:33 Blood Pressure 149/71 02/28/18 14:33 O2 Sat by Pulse Oximetry 100 02/28/18 14:33 Temperature 97.7 F 02/28/18 20:58 Pulse Rate 92 02/28/18 20:58 Respiratory Rate 20 02/28/18 20:58 Blood Pressure 165/79 02/28/18 20:58 O2 Sat by Pulse Oximetry 96 02/28/18 20:58 Oxygen Delivery Oxygen Delivery Nasal Cannula Medical Decision Making - Medical Records Medical records reviewed: Yes I reviewed the patient's medical records. - Lab Data Lab results reviewed: Yes I reviewed the patient's lab results. Result diagrams: 02/28/18 14:55 02/28/18 14:55 Lab Results 02/28/18 02/28/18 02/28/18 Range/Units 14:55 14:55 14:55 WBC 6.7 (4.3-11.1) K/mcL RBC 4.15 L (4.19-5.50) M/mcL Hgb 13.2 (12.9-16.9) g/dL Hct 39.5 (37.5-50.1) % MCV 95.2 (83.0-100.0) fL MCH 31.8 (28.0-33.3) pg MCHC 33.4 (31.6-35.5) g/dL RDW 13.5 (11.5-14.5) % Plt Count 200 (140-400) K/mcL MPV 10.4 (9.4-12.4) fL Immature Gran % 0.3 (0-4) % Seg Neutrophils % 71.4 % Lymphocytes % 17.7 % Monocytes % 9.4 % Eosinophils % 0.9 % Basophils % 0.3 % Neutrophils # 4.8 (1.6-8.9) K/mcL Lymphocytes # 1.2 (0.6-4.6) K/mcL Monocytes # 0.6 (0.0-1.3) K/mcL Eosinophils # 0.1 (0.0-0.6) K/mcL Basophils # 0.0 (0.0-0.2) K/mcL PT (9.4-12.1) Seconds INR Heparin Anti-Xa, Unfract (0.30-0.70) IU/mL Sodium 137 (136-145) mEq/L Potassium 4.1 (3.5-5.1) mEq/L Chloride 103 (98-107) mEq/L Carbon Dioxide 27 (23-29) mEq/L BUN 17 (8-23) mg/dL Creatinine 1.50 H (0.70-1.30) mg/dL Est GFR ( Amer) 54 L (> 60) Est GFR (Non-Af Amer) 45 L (> 60) BUN/Creatinine Ratio 11 (6-26) Glucose 167 H (70-105) mg/dL Calculated Osmolality 289 (280-300) Lactic Acid (0.5-2.2) mmol/L Calcium 9.1 (8.6-10.3) mg/dL Troponin I 0.07 H* (< 0.04) ng/mL B-Natriuretic Peptide 76 (Less than 100) pg/mL 02/28/18 02/28/18 Range/Units 15:11 17:11 WBC (4.3-11.1) K/mcL RBC (4.19-5.50) M/mcL Hgb (12.9-16.9) g/dL Hct (37.5-50.1) % MCV (83.0-100.0) fL MCH (28.0-33.3) pg MCHC (31.6-35.5) g/dL RDW (11.5-14.5) % Plt Count (140-400) K/mcL MPV (9.4-12.4) fL Immature Gran % (0-4) % Seg Neutrophils % % Lymphocytes % % Monocytes % % Eosinophils % % Basophils % % Neutrophils # (1.6-8.9) K/mcL Lymphocytes # (0.6-4.6) K/mcL Monocytes # (0.0-1.3) K/mcL Eosinophils # (0.0-0.6) K/mcL Basophils # (0.0-0.2) K/mcL PT 11.5 (9.4-12.1) Seconds INR 1.0 Heparin Anti-Xa, Unfract 0.00 L (0.30-0.70) IU/mL Sodium (136-145) mEq/L Potassium (3.5-5.1) mEq/L Chloride (98-107) mEq/L Carbon Dioxide (23-29) mEq/L BUN (8-23) mg/dL Creatinine (0.70-1.30) mg/dL Est GFR ( Amer) (> 60) Est GFR (Non-Af Amer) (> 60) BUN/Creatinine Ratio (6-26) Glucose (70-105) mg/dL Calculated Osmolality (280-300) Lactic Acid 1.7 (0.5-2.2) mmol/L Calcium (8.6-10.3) mg/dL Troponin I (< 0.04) ng/mL B-Natriuretic Peptide (Less than 100) pg/mL - Radiology Data Radiology results reviewed: Yes I reviewed the patient's radiology results. Chest X-Ray 02/28/18 14:41 IMPRESSION: No acute abnormality. D/ / Sam Madsen MD / Sam Madsen MD Interpreting Provider: Sam Madsen MD Chest CTA 02/28/18 15:48 IMPRESSION: 1. Bilateral segmental and subsegmental pulmonary artery emboli with features concerning for developing right heart strain. 2. Hiatal hernia. Findings were discussed with Dr. Simba Roberts at 4:50 p.m. on 02/28/2018. D/ /28/2018 16:52:36 Ganesh Stock MD / margie Interpreting Provider: Ganesh Stock MD - EKG Data EKG #1 EKG shows normal: sinus rhythm, ST-T waves Rate: tachycardia [place]/QRS: RBBB Q waves: v3 (increased from 129-18) When compared to previous EKG there are: no significant changes Interpretation: nonspecific ST-T wave changes Attestation Statement - Attestation Attestation: Resident Attestation: I examined this patient and my medical decision making was reviewed with the Resident Physician. I agree with the documented findings, disposition and treatment plan as described except to the extent set forth below. We independently had [id number] contact with the patient. Patient presented for evaluation of shortness breath. Patient states shortness breath started today. Patient tried breathing treatment home with mild relief. Patient does have a history of COPD not on home oxygen. Patient will undergo further evaluation for dyspnea. No acute distress, regular rate and rhythm, mild wheezing bilaterally, abdomen soft nontender palpation. Patient without significant improvement in overall symptoms are etiology. EMS did report initial pulse ox of 82%. The patient will undergo CTA for further evaluation. Does have history of CK D but GFR is 45. Risks versus benefits are in favor of scan. Radiology called to discuss the case. Patient has multiple PEs with evidence of right heart strain. Discussed with critical care physician. Patient does not need thrombolytics at this time. Heparin and continue to monitor. Discussed with the hospitalist. Patient accepted for admission. Patient was placed on heparin. Patient admitted for further evaluation and treatment.
[2018-02-28 15:18] LABS: Basophils % 0.3 %; Eosinophils # 0.1 K/mcL (0.0-0.6); Eosinophils % 0.9 %; Hematocrit 39.5 % (37.5-50.1); Hemoglobin 13.2 g/dL (12.9-16.9); Immature Granulocytes % 0.3 % (0-4); Lymphocytes # 1.2 K/mcL (0.6-4.6); Lymphocytes % 17.7 %; Mean Corpuscular HGB Conc 33.4 g/dL (31.6-35.5); Mean Corpuscular Hemoglobin 31.8 pg (28.0-33.3); Mean Corpuscular Volume 95.2 fL (83.0-100.0); Mean Platelet Volume 10.4 fL (9.4-12.4); Monocytes # 0.6 K/mcL (0.0-1.3); Monocytes % 9.4 %; Neutrophils # 4.8 K/mcL (1.6-8.9); Platelet Count 200 K/mcL (140-400); Red Blood Count 4.15 M/mcL (4.19-5.50); Red Cell Distribution Width 13.5 % (11.5-14.5); Segmented Neutrophils % 71.4 %
[2018-02-28 15:36] LABS: Calcium 9.1 mg/dL (8.6-10.3); Potassium 4.1 mEq/L (3.5-5.1)
[2018-02-28 15:42] LABS: Troponin I 0.07 ng/mL (< 0.04)
[2018-02-28] MEDS ORDERED: Isovue-370 500 ML BOTTLE IVP ONE (15:48)
[2018-02-28] MEDS ORDERED: *HR* Heparin 5,000 UNIT/ML VIAL IVP PRN ×2 (16:55)
[2018-02-28] MEDS ORDERED: *HR* Heparin 5,000 UNIT/ML VIAL IVP ONE (16:55)
[2018-02-28 17:30] LABS: Prothrombin Time 11.5 Seconds (9.4-12.1)
[2018-02-28] MEDS: Heparin 25,000 UNIT/500 ML D5W 25,000 UNIT/500 ML BAG IVC SCH (18:05)
--- NOTE | 2018-02-28 18:18 | Internal Med History&Physical ---
Date of Encounter: 02/28/18 Time of Encounter: 18:17 Internal Medicine - H&P: HPI Chief complaint: shortness of breath Admitted From: Home Plans for Post Hospital Care: Home History of present illness: Mr. Odell is a 82 year old male CKD3, HLD, HTN, COPD, came in with complain of progressive shortness of breath or past 2-3 days. He denies associated chest pain. Denies any cough or wheezing or expectoration. Denies any palpitation. Patient was recently admitted for COPD exacerbation and mentioned that his symptoms are similar. Patient has history of prostate cancer for which he received radiation therapy. He had colonoscopy done last year which was unremarkable however had EGD done which showed gastric ulcers. Patient had workup done in ER. Patient received steroid and breathing treatment while workup being done. Lab work showed stable chronic kidney disease, mildly elevated troponin of 0.07. Patient had CT A which showed bilateral segmental and subsegmental pulmonary artery embolus with features concerning for right heart strain. Patient EKG shows sinus rhythm with tachycardia and right bundle branch block. No ischemic changes were noted. He had discussion with Critical care physician and patient was deemed to be stable to be admitted to stepdown unit. On interview above-mentioned history was confirmed. Patient was hemodynamically stable during interview with blood pressure of 147/88 and saturating 95% on 2 L. Past Med Surg Social Fam HX - Past Medical History Medical history: cancer, COPD, hyperlipidemia, hypertension, renal disease Additional medical history: Diverticulitis. PROSTATE CA Psychiatric history: depression - Past Surgical History Surgical History: appendectomy Additional surgical history: back surgery - Social History Smoking Status: Never smoker Smokeless Tobacco Status: No Alcohol use: none Drug use: none - Family History Father Living Status: Hx Family Cardiac Disorders: Yes Mother Living Status: Hx Family Cardiac Disorders: Yes Hx Family Endocrine Disorder: Yes (DM II) Internal Medicine - H&P: Meds Paroxetine [Paxil] 20 mg PO DAILY 01/03/16 [History] Simvastatin [Zocor] 20 mg PO HS 01/03/16 [History] Budesonide/Formoterol 80/4.5 [Symbicort 80/4.5] 2 puff IH BIDR 01/05/17 [History] Cholecalciferol (Vitamin D3) [Vitamin D3] 2,000 unit PO DAILY 01/05/17 [History] Primidone [Mysoline] 50 mg PO BID 01/05/17 [History] Albuterol Sulfate [Albuterol Inhaler] 2 puff IH Q4HR PRN 03/01/17 [History] Omeprazole [PriLOSEC] 40 mg PO DAILY 12/14/17 [History] Gabapentin [Neurontin] 600 mg PO HS 01/16/18 [History] Lisinopril [Zestril] 10 mg PO DAILY 01/16/18 [History] Niacin [Plain Niacin] 500 mg PO HS 01/16/18 [History] Tamsulosin [Flomax] 0.4 mg PO DAILY 01/16/18 [History] Aspirin Enteric Coated [Aspirin EC] 81 mg PO DAILY #30 tablet. 01/17/18 [Rx] Furosemide [Lasix] 20 mg PO 3XW #10 tablet 01/17/18 [Rx] predniSONE [PredniSONE] 40 mg PO DAILY #3 tablet 01/17/18 [Rx] Allergy/AdvReac Type Severity Reaction Status Date / Time No Known Allergies Allergy Verified 01/16/18 10:13 All Systems PM: A 10-system review of systems was performed and is negative for pertinent f indings except as documented above in the HPI. - Constitutional Vitals: Temp Pulse Resp BP Pulse Ox 98.1 F 99 17 147/88 95 02/28/18 14:33 02/28/18 16:58 02/28/18 16:58 02/28/18 16:58 02/28/18 16:58 Exam: Constitutional: Vitals as noted. Conversant. No Apparent Distress. No obvious deformities. Eyes : Sclera white, conjunctiva clear, no lid lag, PEARLA. ENT : Slighly decreased hearing. Oropharyngeal exam unremarkable. Moist mucus membranes. No JVD, no cervical lymphadenopathy. no thyromegaly or mass. Respiratory : Clear to auscultation bilaterally. No accessory muscle use, rales, rhonchi or wheezes Cardiovascular : RRR, +S1, +S2. no murmur, gallop, rubs. No chest wall tenderness GI/Abdominal : Soft, Non-tender, Non-distended, normal bowel sounds, soft, no peritoneal signs. no orgenomegaly or mass appreciated. no hernia. Musculoskeletal: no deformity noted. no edema or cyanosis. warm extremities, pulses palpable and symmetrical in UE/LE. no calf tenderness. Neurological: AO X3, CN II-XII grossly intact, grossly normal motor and sensory exam. Skin: No skin rash, lesions or ulcers noted. Pych: Good insight and judgement. Intact memory. AOx3. Internal Med - H&P Results - Labs CBC & Chem 7: 02/28/18 14:55 02/28/18 14:55 Labs: Short CBC 02/28/18 Range/Units 14:55 WBC 6.7 (4.3-11.1) K/mcL Hgb 13.2 (12.9-16.9) g/dL Hct 39.5 (37.5-50.1) % Plt Count 200 (140-400) K/mcL Neutrophils # 4.8 (1.6-8.9) K/mcL BMP 02/28/18 14:55 Sodium 137 Potassium 4.1 Chloride 103 Carbon Dioxide 27 BUN 17 Creatinine 1.50 H Glucose 167 H Calcium 9.1 Cardiac Enzymes 02/28/18 Range/Units 14:55 Troponin I 0.07 H* (< 0.04) ng/mL - EKG Data -: EKG Interpreted by Myself EKG shows normal: sinus rhythm Rate: tachycardia - Impressions ITS Impressions Chest X-Ray 02/28/18 14:41 IMPRESSION: No acute abnormality. D/ / Sam Madsen MD / Sam Madsen MD Interpreting Provider: Sam Madsen MD Chest CTA 02/28/18 15:48 IMPRESSION: 1. Bilateral segmental and subsegmental pulmonary artery emboli with features concerning for developing right heart strain. 2. Hiatal hernia. Findings were discussed with Dr. Simba Roberts at 4:50 p.m. on 02/28/2018. 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 Will continue. - Developed with background history of pancreatic cancer. We will likely need indefinite anticoagulation. We will consider hematology consult. - Hold home Lasix as patient preload dependent. Continue lisinopril for afterload reduction. Qualifiers: Pulmonary embolism type: other Chronicity: acute Acute cor pulmonale presence: without acute cor pulmonale Qualified Code(s): I26.99 - Other pulmonary embolism without acute cor pulmonale (2) Elevated troponin Current Visit: No Status: Acute Assessment and plan: - Currently without chest pain. EKG nonischemic - Likely related to PE - We will trend troponin (3) COPD (chronic obstructive pulmonary disease) Current Visit: No Status: Chronic Assessment and plan: - Does not appear to be in exacerbation -Continue home Symbicort and albuterol when necessary Qualifiers: COPD type: emphysema Emphysema type: centrilobular Qualified Code(s): J43.2 - Centrilobular emphysema (4) Chronic kidney disease, stage 3 Current Visit: No Status: Chronic (5) Acute respiratory failure with hypoxia Current Visit: Yes Status: Acute Assessment and plan: - Related to PE - Treatment as above (6) Ataxia Current Visit: No Status: Acute Assessment and plan: - Continue home primidone (7) Hypertension Current Visit: No Status: Chronic Assessment and plan: - Continue lisinopril. Qualifiers: Hypertension type: essential hypertension Qualified Code(s): I10 - Essential (primary) hypertension - Time Spent With Patient Total time spent is greater than 50% in coordination of care (as documented) at patient's floor/unit and/or counseling patient:
[2018-02-28] MEDS: Gabapentin 300 MG CAPSULE PO SCH (22:00)
[2018-02-28] MEDS: Primidone 50 MG TABLET PO SCH (22:00)
[2018-02-28] MEDS: Budesonide/Formoterol 80/4.5 MDI IH SCH (22:25)
[2018-03-01 06:57] LABS: BUN/Creatinine Ratio 13 (6-26); Blood Urea Nitrogen 17 mg/dL (8-23); Calcium 8.8 mg/dL (8.6-10.3); Carbon Dioxide 24 mEq/L (23-29); Chloride 104 mEq/L (98-107); Glucose 147 mg/dL (70-105); Osmolality,Calculated 286 (280-300); Potassium 4.5 mEq/L (3.5-5.1); Sodium 136 mEq/L (136-145); eGFR For Non-African Americans 54 (> 60)
[2018-03-01 07:00] LABS: Troponin I 0.08 ng/mL (< 0.04)
[2018-03-01] MEDS: Budesonide/Formoterol 80/4.5 MDI IH SCH ×2 (07:38→22:08)
[2018-03-01] MEDS: Aspirin Enteric Coated 81 MG Tablet PO SCH (08:05)
[2018-03-01] MEDS: Cholecalciferol (D-3) 1,000 UNIT TABLET PO SCH (08:05)
[2018-03-01] MEDS: Primidone 50 MG TABLET PO SCH ×2 (08:05→20:30)
--- NOTE | 2018-03-01 09:35 | Internal Med Progress Note ---
Hospitalist Progress Note - Encounter Date of Encounter: 03/01/18 Time of Encounter: 09:23 - Subjective Interval History: Patient seen and examined this morning. No acute overnight events. Breathing improved. Denies any chest pain. Denies any urinary or bladder complains fever or chills. - Exam Vitals: Temp Pulse Resp BP Pulse Ox 97.3 F L 62 16 162/91 100 03/01/18 07:01 03/01/18 07:01 03/01/18 07:38 03/01/18 07:12 03/01/18 07:38 Exam: Constitutional: Vitals as noted. Conversant. No Apparent Distress. Respiratory : Clear to auscultation bilaterally. No accessory muscle use, rales, rhonchi or wheezes Cardiovascular : RRR, +S1, +S2. no murmur, gallop, rubs. No chest wall tenderness GI/Abdominal : Soft, Non-tender, Non-distended, normal bowel sounds, soft, no peritoneal signs. Musculoskeletal: no deformity noted. no edema or cyanosis. warm extremities, pulses palpable and symmetrical in UE/LE. no calf tenderness. Neurological: AO X3, CN II-XII grossly intact, grossly normal motor and sensory exam. - Assessment and Plan (1) Pulmonary emboli Current Visit: Yes Status: Acute (2) Elevated troponin Current Visit: No Status: Acute (3) COPD (chronic obstructive pulmonary disease) Current Visit: No Status: Chronic (4) Chronic kidney disease, stage 3 Current Visit: No Status: Chronic (5) Acute respiratory failure with hypoxia Current Visit: Yes Status: Acute (6) Ataxia Current Visit: No Status: Acute (7) Hypertension Current Visit: No Status: Chronic - Summary of Assessment and Plan Summary of Assessment and Plan: Pulmonary emboli - CTA with bilateral segmental and subsegmental PE with patient concerning of right heart strain - Hemodynamically stable. Clinically better. f/u echocardiogram - Also found to have RT acute DVT - c/w hall monitor. - c/w heparin drip. - history of prostate cancer. We will likely need indefinite anticoagulation. - hematology consulted for anticoagulation recommendation - Hold home Lasix as patient preload dependent. Continue lisinopril for afterload reduction. Start gently hydration. Elevated troponin - without chest pain. EKG nonischemic - Likely related to PE - troponin downtrending - f/u ECHO COPD - Does not appear to be in exacerbation - Continue home Symbicort and albuterol when necessary Chronic kidney disease, stage 3 - improved today with holding lasix Acute respiratory failure with hypoxia - Related to PE - Treatment as above Ataxia - Continue home primidone Hypertension - Continue lisinopril. - Slighly elevated today. Monitor for now. Confirm home medications. - Time Spent with Patient Total time spent is greater than 50% in coordination of care (as documented) at patient's floor/unit and/or counseling patient: Internal Medicine: Result - Labs CBC & Chem 7: 02/28/18 14:55 03/01/18 06:08 Labs: Short CBC 02/28/18 Range/Units 14:55 WBC 6.7 (4.3-11.1) K/mcL Hgb 13.2 (12.9-16.9) g/dL Hct 39.5 (37.5-50.1) % Plt Count 200 (140-400) K/mcL Neutrophils # 4.8 (1.6-8.9) K/mcL BMP 02/28/18 03/01/18 14:55 06:08 Sodium 137 136 Potassium 4.1 4.5 Chloride 103 104 Carbon Dioxide 27 24 BUN 17 17 Creatinine 1.50 H 1.28 Glucose 167 H 147 H Calcium 9.1 8.8 Cardiac Enzymes 02/28/18 02/28/18 03/01/18 Range/Units 14:55 18:32 06:08 Troponin I 0.07 H* 0.12 H* 0.08 H* (< 0.04) ng/mL - ABG Interpretation ABG results: PT/INR, D-dimer PT 11.5 Seconds (9.4-12.1) 02/28/18 17:11 - Impressions Impressions Chest X-Ray 02/28/18 14:41 IMPRESSION: No acute abnormality. D/ / Sam Madsen MD / Sam Madsen MD Interpreting Provider: Sam Madsen MD Chest CTA 02/28/18 15:48 IMPRESSION: 1. Bilateral segmental and subsegmental pulmonary artery emboli with features concerning for developing right heart strain. 2. Hiatal hernia. Findings were discussed with Dr. Simba Roberts at 4:50 p.m. on 02/28/2018. 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
[2018-03-01] MEDS ORDERED: Ringers Solution, Lactated 1,000 ML IVC SCH (09:45)
--- NOTE | 2018-03-01 13:27 | Oncology Inp Consult Note ---
<Gris Riggs L - Last Filed: 03/01/18 17:54> Date of Encounter: 03/01/18 Time of Encounter: 12:30 Assessment and Plan (1) Iron deficiency anemia Status: Chronic Assessment and plan: Follows Dr. Holliday for recurrent iron deficiency anemia secondary to upper gastrointestinal hemorrhage. He is status post colonoscopy July 2017 as well as EGD in September 2017. EGD revealed multiple superficial bleeding gastric ulcers. S/P Injectafer with stabilization of his hgb and improvement in iron levels No iron infusion needed at last appointment He is planned for follow up with Dr. Holliday in March Denies and s/s bleeding, Hgb 13.2 today Now with anticoagulation he is at high risk for bleeding, will need to monitor hgb and s/s bleeding closely, d/w patient today Qualifiers: Iron deficiency anemia type: unspecified iron deficiency Qualified Code(s): D50.9 - Iron deficiency anemia, unspecified (2) Pulmonary emboli Status: Acute Assessment and plan: CT revealed bilateral segmental and subsegmental pulmonary artery embolus with features concerning for right heart strain. EKG shows sinus rhythm with tachycardia and right bundle branch block, no ischemic changes. Bilateral lower extremity venous Doppler reveals acute thrombosis in the right superficial femoral vein and peroneal vein, superficial thrombosis in the right lesser saphenous vein, left lower extremity reveals normal superficial and deep exam Mildly elevated troponin 0.07. Currently on 2L O2 per nasal cannula, this is new for patient Plan: Currently on heparin gtt Patient has a history of CKD and would be a candidate for Eliquis with renal dosing, however, copay is nearly $400/month Recommend Coumadin and referral to coumadin clinic Check PSA Qualifiers: Pulmonary embolism type: other Chronicity: acute Acute cor pulmonale presence: without acute cor pulmonale Qualified Code(s): I26.99 - Other pulmonary embolism without acute cor pulmonale (3) Chronic kidney disease (CKD) Status: Acute Assessment and plan: History of CKD Stage III Renal function has currently improved, however trending labs reveals very labile Creatinine/CrCl Qualifiers: Chronic kidney disease stage: unspecified stage Qualified Code(s): N18.9 - Chronic kidney disease, unspecified - Data of Consult Patient: known to practice within the last 3 years Consult date: 03/01/18 Requesting Physician: Erna Davidson MD Primary Care Provider: Cecelia Hernandez MD - Consult Narrative Reason for consult: PE, DVT, MARIAM History of present illness: Mr. Odell is an 82 year old male with past medical history significant for CKD3, HLD, HTN, COPD. initially presented with report of progressive shortness of breath over the past several days. CT revealed bilateral segmental and subsegmental pulmonary artery embolus with features concerning for right heart strain. EKG shows sinus rhythm with tachycardia and right bundle branch block, no ischemic changes. Mildly elevated troponin 0.07. Bilateral lower extremity venous Doppler reveals acute thrombosis in the right superficial femoral vein and peroneal vein, superficial thrombosis in the right lesser saphenous vein, left lower extremity reveals normal superficial and deep exam. He was placed on heparin drip and transferred to inpatient. Hematology consulted for further anticoagulation recommendations. Patient is known to Dr. Holliday with history of iron deficiency anemia. Iron deficiency anemia probably secondary to upper gastric has a bleeding. He is status post colonoscopy 07/23/2017 and EGD 09/28/2017 with multiple superficial oozing gastric ulcers involving the gastric biopsy. Started on prilosec. 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 He received injectafer for 4 doses. Since that time he has had stabilization of his hemoglobin. Patient lives at home alone despite his age remains quite independent. 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 He still drives and performs all ADLs independently. She reports worsening shortness of breath that he actually noticed in the beginning of January for she presented to the ER for that time. Is felt that his truss of breath was secondary to COPD exacerbation and however only mildly improved despite over the past month despite treatment for COPD exacerbation. She does have a history of prostate cancer that was treated with brachytherapy in 2004, follows Dr. Noel. Recent PSA in October 2017 was normal 0.01. He denies any bone pain, urinary complaint, increased fatigue, appetite changes or weight loss. He denies any recent hospitalizations other than his one night stay in January. Denies any recent long distance travel or travel greater than 2 hours at a time. Nonsmoker. Reports no personal or family history of blood clots. Past Med Surg Social Fam HX - Past Medical History Medical history: cancer, COPD, hyperlipidemia, hypertension, renal disease Additional medical history: Diverticulitis. PROSTATE CA Psychiatric history: depression - Past Surgical History Surgical History: appendectomy Additional surgical history: back surgery - Social History Smoking Status: Never smoker Smokeless Tobacco Status: No Alcohol use: none Drug use: none - Family History Father Living Status: Hx Family Cardiac Disorders: Yes Mother Living Status: Hx Family Cardiac Disorders: Yes Hx Family Endocrine Disorder: Yes (DM II) Medications and Allergies RX: Paroxetine [Paxil] 20 mg PO DAILY 01/03/16 [History] RX: Simvastatin [Zocor] 20 mg PO HS 01/03/16 [History] RX: Budesonide/Formoterol 80/4.5 [Symbicort 80/4.5] 2 puff IH BIDR 01/05/17 [History] RX: Cholecalciferol (Vitamin D3) [Vitamin D3] 2,000 unit PO DAILY 01/05/17 [History] RX: Primidone [Mysoline] 50 mg PO BID 01/05/17 [History] RX: Albuterol Sulfate [Albuterol Inhaler] 2 puff IH Q4HR PRN 03/01/17 [History] RX: Omeprazole [PriLOSEC] 40 mg PO DAILY 12/14/17 [History] RX: Gabapentin [Neurontin] 600 mg PO HS 01/16/18 [History] RX: Lisinopril [Zestril] 10 mg PO DAILY 01/16/18 [History] RX: Niacin [Plain Niacin] 500 mg PO HS 01/16/18 [History] RX: Tamsulosin [Flomax] 0.4 mg PO DAILY 01/16/18 [History] Aspirin Enteric Coated [Aspirin EC] 81 mg PO DAILY #30 tablet.dr 01/17/18 [Rx] Furosemide [Lasix] 20 mg PO 3XW #10 tablet 01/17/18 [Rx] RX: predniSONE [PredniSONE] 40 mg PO DAILY #3 tablet 01/17/18 [Rx] Allergy/AdvReac Type Severity Reaction Status Date / Time No Known Allergies Allergy Verified 01/16/18 10:13 Constitutional: Absent: anorexia, chills, fatigue, fever(s), night sweats, weakness, weight loss Eyes: Absent: change in vision Nose, mouth and throat: Absent: dysphagia, odynophagia Cardiovascular: Absent: chest pain, palpitations Respiratory: Absent: cough, dyspnea, hemoptysis Gastrointestinal: Absent: abdominal pain, hematemesis, hematochezia, melena, nausea, odynophagia, vomiting Genitourinary: Absent: dysuria, hematuria Musculoskeletal: Absent: muscle weakness Integumentary: Absent: rash, wounds Neurological: Absent: focal weakness, frequent falls Endocrine: Absent: fatigue, flushing Hematologic/Lymphatic: Absent: easy bleeding, lymphadenopathy Oncology - Exam - Constitutional General appearance: cooperative, no acute distress, no febrile - Head Head exam: Present: atraumatic - ENT ENT exam: Present: mucous membranes moist, normal oropharynx - Respiratory Respiratory exam: Present: CTAB. Absent: respiratory distress - Cardiovascular Cardiovascular exam: Present: RRR, +S1, +S2 - GI/Abdominal GI/Abdominal exam: Present: normal bowel sounds, soft. Absent: guarding, rebound, tenderness - Extremities Exam Extremities exam: Present: normal inspection. Absent: calf tenderness - Neurological Exam Neurological exam: Present: alert, oriented X3, no focal deficits, strengths equal and symetr throughout - Psychiatric Psychiatric exam: Present: normal affect, normal mood - Skin Skin exam: Present: dry, intact, normal color, warm Consult Discharge Plan - Plan Referrals: Cecelia Hernandez MD [Primary Care Provider] - Inpatient Charges Provider: Dr. Gagan Flaherty <KrystinaDmitry - Last Filed: 03/02/18 08:24> Date of Encounter: 03/02/18 - Data of Consult Requesting Physician: Erna Davidson MD Primary Care Provider: Cecelia Hernandez MD - Attending Attestation Out patient oral anticoagulation with coumadin, follow up in coumadin clinic. A lternatives discussed. Patient is agreeable to taking coumadin, risk of bleeding from ulcers. He is agreeable to monitoring Hgb/Hct closely as outpatient. I examined this patient and my medical decision-making was reviewed with the Advanced Practice Nurse, Gris Riggs. I agree with the documented findings, disposition and treatment plan as described except to the extent set forth below. Inpatient Charges Provider: Dr. Gagan Flaherty Consult - Inpatient: [id number]
[2018-03-01] MEDS ORDERED: 0.9 % Sodium Chloride 1,000 ML IVC SCH (13:45)
--- NOTE | 2018-03-01 17:31 | Electrocardiograph Report ---
[address] [place], [place] [address] Test Date: 2018-02-28 Pat Name: Randal Odell Department: EXAM4 Room: 2NE18 Gender: M Deputy Chief Counsel: : 1935 Requested By: Riley Roberts Order Number: [id number] Reading MD: Cecelia Bobo Measurements Intervals [place] Rate: 91 P: 52 ND: 161 QRS: 47 QRSD: 141 T: 46 QT: 368 QTc: 453 Interpretive Statements Sinus rhythm Right bundle branch block Electronically Signed On 03-01-2018 17:29:35 EST by Cecelia Bobo
[2018-03-01] MEDS ORDERED: *HR* Warfarin 2.5 MG TABLET PO SCH (18:00)
[2018-03-01] MEDS ORDERED: *HR* Warfarin 2.5 MG TABLET PO ONE (18:00)
[2018-03-01] MEDS ORDERED: Warfarin perPT PO PRN (18:00)
[2018-03-01] MEDS: Gabapentin 300 MG CAPSULE PO SCH (20:31)
[2018-03-01] MEDS: Heparin 25,000 UNIT/500 ML D5W 25,000 UNIT/500 ML BAG IVC SCH (20:38)
[2018-03-02 05:22] LABS: Prothrombin Time 10.9 Seconds (9.4-12.1)
[2018-03-02] MEDS: Budesonide/Formoterol 80/4.5 MDI IH SCH ×2 (08:03→21:58)
[2018-03-02] MEDS: Aspirin Enteric Coated 81 MG Tablet PO SCH (09:32)
[2018-03-02] MEDS: Cholecalciferol (D-3) 1,000 UNIT TABLET PO SCH (09:32)
[2018-03-02] MEDS: Primidone 50 MG TABLET PO SCH ×2 (09:32→21:08)
--- NOTE | 2018-03-02 10:55 | Internal Med Progress Note ---
Hospitalist Progress Note - Encounter Date of Encounter: 03/02/18 Time of Encounter: 08:23 - Subjective Interval History: Patient seen and examined this morning. No acute overnight events. No new complaints. Breathing improved. Denies any chest pain, urinary or bladder complains fever or chills. - Exam Vitals: Temp Pulse Resp BP Pulse Ox 97.8 F 67 14 153/81 96 03/02/18 06:56 03/02/18 06:56 03/02/18 06:56 03/02/18 06:56 03/02/18 06:56 Exam: Constitutional: Vitals as noted. Conversant. No Apparent Distress. Respiratory : Clear to auscultation bilaterally. No accessory muscle use, rales, rhonchi or wheezes Cardiovascular : RRR, +S1, +S2. no murmur, gallop, rubs. No chest wall tenderness GI/Abdominal : Soft, Non-tender, Non-distended, normal bowel sounds, soft, no peritoneal signs. Musculoskeletal: no deformity noted. no edema or cyanosis. warm extremities, pulses palpable and symmetrical in UE/LE. no calf tenderness. Neurological: AO X3, CN II-XII grossly intact, grossly normal motor and sensory exam. - Assessment and Plan (1) Pulmonary emboli Current Visit: Yes Status: Acute (2) Elevated troponin Current Visit: No Status: Acute (3) COPD (chronic obstructive pulmonary disease) Current Visit: No Status: Chronic (4) Chronic kidney disease, stage 3 Current Visit: No Status: Chronic (5) Acute respiratory failure with hypoxia Current Visit: No Status: Acute (6) Ataxia Current Visit: No Status: Acute (7) Hypertension Current Visit: No Status: Chronic - Summary of Assessment and Plan Summary of Assessment and Plan: Pulmonary emboli - CTA with bilateral segmental and subsegmental PE with patient concerning of r ight heart strain. - Hemodynamically stable. Clinically better. - echocardiogram with EF of 60%, mild diastolic dysfunction. Mod pulm htn, mod tr - also with RT acute DVT - c/w front desk monitor. - c/w heparin drip while being bridged with coumadin. - history of prostate cancer. f/u PSA - hematology following Elevated troponin - without chest pain. EKG nonischemic - Likely related to PE - troponin downtrending - ECHO as above COPD - Does not appear to be in exacerbation - Continue home Symbicort and albuterol when necessary MAURILIO on Chronic kidney disease, stage 3 - improved today with holding lasix and ivf - hold lasix - resolved - monitor renal function Acute respiratory failure with hypoxia - Related to PE - Treatment as above Ataxia - Continue home primidone Hypertension - Continue lisinopril. - BP better today. - Time Spent with Patient Total time spent is greater than 50% in coordination of care (as documented) at patient's floor/unit and/or counseling patient: Internal Medicine: Result - Labs CBC & Chem 7: 02/28/18 14:55 03/01/18 06:08 - ABG Interpretation ABG results: PT/INR, D-dimer PT 10.9 Seconds (9.4-12.1) 03/02/18 04:55 - Impressions Impressions Chest CTA 02/28/18 15:48 IMPRESSION: 1. Bilateral segmental and subsegmental pulmonary artery emboli with features concerning for developing right heart strain. 2. Hiatal hernia. Findings were discussed with Dr. Simba Roberts at 4:50 p.m. on 02/28/2018. D/ / 02/28/2018 16:52:36 [facility] Stock [facility] Provider: Ganesh Stock MD Echocardiogram 03/01/18 18:19 Impressions: LVEF 60%. Mild left ventricular diastolic dysfunction. Normal right ventricular structure and function. Mild mitral regurgitation. Moderate tricuspid regurgitation. Mild-moderate pulmonic regurgitation. Moderate pulmonary hypertension by TR gradient. IVC not well visualized to estimate RVSP. Left Ventricular Wall Motion: Rest Echo Findings All wall segments showed normal motion. Findings: Study Quality * Technically adequate exam. ECG Findings * Normal sinus rhythm. Left Ventricle * LVEF 60%. * Normal LV chamber size, wall thickness and function. * Mild left ventricular diastolic dysfunction. Right Ventricle * Normal right ventricular structure and function. Left Atrium * Moderately dilated left atrium. Right Atrium * Moderately dilated right atrium. Aortic Valve * No aortic regurgitation. * Trileaflet aortic valve. * No aortic stenosis. Mitral Valve * Normal mitral valve structure. * No mitral stenosis. * Mild mitral regurgitation. Tricuspid Valve * Normal tricuspid valve structure. * Moderate tricuspid regurgitation. Pulmonic Valve * Pulmonic valve is not well visualized. * No pulmonic stenosis. * Mild-moderate pulmonic regurgitation. Pulmonary Artery * Pulmonary artery not well visualized. Aorta * Normally sized aortic root. Pericardium * There is no pericardial effusion present. Interatrial Septum * No evidence of PFO by color Doppler. IVC * The IVC is not well evaluated. 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
--- NOTE | 2018-03-02 15:00 | Oncology Inp Progress Note ---
<Gris Riggs L - Last Filed: 03/02/18 16:52> Date of Encounter: 03/02/18 Time of Encounter: 13:00 (1) Iron deficiency anemia Current Visit: No Status: Chronic Assessment and plan: Follows Dr. Holliday for recurrent iron deficiency anemia secondary to upper gastrointestinal hemorrhage. He is status post colonoscopy July 2017 as well as EGD in September 2017. EGD revealed multiple superficial bleeding gastric ulcers. S/P Injectafer with stabilization of his hgb and improvement in iron levels No iron infusion needed at last appointment Denies any s/s bleeding Plan: He is planned for follow up with Dr. Holliday in March, copy of appointment was given to patient today Labs with follow up including CBC, CMP, Iron Profile and Ferritin Now with anticoagulation he is at high risk for bleeding, will need to monitor hgb and s/s bleeding closely, d/w patient today Qualifiers: Iron deficiency anemia type: unspecified iron deficiency Qualified Code(s): D50.9 - Iron deficiency anemia, unspecified (2) Pulmonary emboli Current Visit: Yes Status: Acute Assessment and plan: CT revealed bilateral segmental and subsegmental pulmonary artery embolus with features concerning for right heart strain. EKG shows sinus rhythm with tachycardia and right bundle branch block, no ischemic changes. Bilateral lower extremity venous Doppler reveals acute thrombosis in the right superficial femoral vein and peroneal vein, superficial thrombosis in the right lesser saphenous vein, left lower extremity reveals normal superficial and deep exam Mildly elevated troponin 0.07. Successfully weaned off oxygen Echo-LVEF 60%, normal right ventricular structure and function Etiology of blood clots unclear but age may be a risk factor. He was admitted in [facility] for about one day in January. He denies any prolonged travel, recent procedures or trauma. No other personal or family history of blood clots. He does have a history of prostate cancer treated in 2008. CTA did not note any concerning findings suggestive of malignancy. PSA 0.01 Plan: Currently on heparin gtt with bridge to coumadin, INR 1.0 today Patient has a history of CKD and would be a candidate for Eliquis with renal do sing, however, copay is over $400/month Appreciate assistance of primary team, hematology will otherwise plan to sign off at this time, he will follow up with Dr. Holliday as scheduled in March, pledick kwong feel free to contact with any other questions or concerns Qualifiers: Pulmonary embolism type: other Chronicity: acute Acute cor pulmonale presence: without acute cor pulmonale Qualified Code(s): I26.99 - Other pulmonary embolism without acute cor pulmonale (3) Chronic kidney disease (CKD) Current Visit: No Status: Acute Assessment and plan: History of CKD Stage III Renal function has currently improved, however trending labs reveals very labile Creatinine/CrCl Qualifiers: Chronic kidney disease stage: unspecified stage Qualified Code(s): N18.9 - Chronic kidney disease, unspecified Oncology: Subj Interval history: Resting comfortably. NO acute events noted overnight. Denies s/s bleeding. SOB is improving although he continues to get SOB with getting OOB. He is weaned off oxygen and on room air. He denies pain, chest pain, SOB at rest or hemoptysis. - Constitutional General appearance: cooperative, no acute distress, no febrile - Head Head exam: Present: atraumatic - ENT ENT exam: Present: mucous membranes moist, normal oropharynx - Respiratory Respiratory exam: Present: CTAB. Absent: respiratory distress - Cardiovascular Cardiovascular exam: Present: RRR, +S1, +S2 - GI/Abdominal GI/Abdominal exam: Present: normal bowel sounds, soft. Absent: guarding, rebound, tenderness - Extremities Exam Extremities exam: Present: normal inspection. Absent: calf tenderness - Neurological Exam Neurological exam: Present: alert, oriented X3, no focal deficits, strengths equal and symetr throughout - Psychiatric Psychiatric exam: Present: normal affect, normal mood - Skin Skin exam: Present: dry, intact, normal color, warm Oncology: Obj Data - Labs CBC & Chem 7: 02/28/18 14:55 03/01/18 06:08 Consult Discharge Plan - Plan Referrals: Josh Holliday MD [Partnered Physician] - 03/14/18 10:15 am Cecelia Hernandez MD [Primary Care Provider] - Inpatient Charges Provider: Dr. Gagan Flaherty <Dmitry Flaherty - Last Filed: 03/03/18 10:16> Date of Encounter: 03/03/18 Oncology: Subj Interval history: I examined this patient and my medical decision-making was reviewed with the Advanced Practice Nurse, Gris Riggs. I agree with the documented findings, disposition and treatment plan as described except to the extent set forth below. Oncology: Obj Data - Labs CBC & Chem 7: 03/03/18 07:47 03/03/18 07:47 Inpatient Charges Provider: Dr. Gagan Flaherty Follow up - Inpatient: [id number]
[2018-03-02] MEDS ORDERED: *HR* Warfarin 5 MG TABLET PO ONE (18:00)
[2018-03-02] MEDS: Gabapentin 300 MG CAPSULE PO SCH (21:08)
[2018-03-03] MEDS: Budesonide/Formoterol 80/4.5 MDI IH SCH (08:05)
[2018-03-03 08:36] LABS: Hematocrit 41.4 % (37.5-50.1); Hemoglobin 13.4 g/dL (12.9-16.9)
[2018-03-03 08:44] LABS: Prothrombin Time 10.7 Seconds (9.4-12.1)
[2018-03-03] MEDS: Primidone 50 MG TABLET PO SCH (08:45)
[2018-03-03] MEDS: Aspirin Enteric Coated 81 MG Tablet PO SCH (08:45)
[2018-03-03] MEDS: Cholecalciferol (D-3) 1,000 UNIT TABLET PO SCH (08:45)
[2018-03-03 08:57] LABS: Calcium 9.3 mg/dL (8.6-10.3); Potassium 4.3 mEq/L (3.5-5.1)
[2018-03-03] MEDS ORDERED: *HR* Enoxaparin 150 MG/ML SYRINGE SQ SCH (15:00)
--- NOTE | 2018-03-03 15:07 | Internal Med Progress Note ---
Hospitalist Progress Note - Encounter Date of Encounter: 03/03/18 Time of Encounter: 11:55 - Subjective Interval History: Patient seen and examined this morning. No new complaints. Breathing improved. Denies any chest pain, urinary or bladder complains fever or chills. - Exam Vitals: Temp Pulse Resp BP Pulse Ox 98.2 F 79 16 148/89 99 03/03/18 11:24 03/03/18 11:24 03/03/18 11:24 03/03/18 11:24 03/03/18 11:24 Exam: Constitutional: Vitals as noted. Conversant. No Apparent Distress. Respiratory : Clear to auscultation bilaterally. No accessory muscle use, rales, rhonchi or wheezes Cardiovascular : RRR, +S1, +S2. no murmur, gallop, rubs. No chest wall tenderness GI/Abdominal : Soft, Non-tender, Non-distended, normal bowel sounds, soft, no peritoneal signs. Musculoskeletal: no deformity noted. no edema or cyanosis. warm extremities, pulses palpable and symmetrical in UE/LE. no calf tenderness. Neurological: AO X3, CN II-XII grossly intact, grossly normal motor and sensory exam. - Assessment and Plan (1) Pulmonary emboli Current Visit: Yes Status: Acute (2) Elevated troponin Current Visit: No Status: Acute (3) COPD (chronic obstructive pulmonary disease) Current Visit: No Status: Chronic (4) Chronic kidney disease, stage 3 Current Visit: No Status: Chronic (5) Acute respiratory failure with hypoxia Current Visit: No Status: Acute (6) Ataxia Current Visit: No Status: Acute (7) Hypertension Current Visit: No Status: Chronic - Summary of Assessment and Plan Summary of Assessment and Plan: Pulmonary emboli - CTA with bilateral segmental and subsegmental PE with patient concerning of right heart strain. - Hemodynamically stable. Clinically better. - echocardiogram with EF of 60%, mild diastolic dysfunction. Mod pulm htn, mod tr - also with RT acute DVT - switch heparin drip to lovenox with coumadin. If patient feels comfortable giving lovenox will discharge with lovenox bridging at home to follow up on at coumadin clinic. - H&H stable - history of prostate cancer. - hematology following. Elevated troponin - without chest pain. EKG nonischemic - Likely related to PE - troponin downtrending - ECHO as above COPD - Does not appear to be in exacerbation - Continue home Symbicort and albuterol when necessary MAURILIO on Chronic kidney disease, stage 3 - back up to his baseline on admission. - resume home lasix as BP elevated - monitor renal function Acute respiratory failure with hypoxia - Related to PE - Treatment as above Ataxia - Continue home primidone Hypertension - Continue lisinopril. - resume home lasix - Time Spent with Patient Total time spent is greater than 50% in coordination of care (as documented) at patient's floor/unit and/or counseling patient: Internal Medicine: Result - Labs CBC & Chem 7: 03/03/18 07:47 03/03/18 07:47 Labs: Short CBC 03/03/18 Range/Units 07:47 Hgb 13.4 (12.9-16.9) g/dL Hct 41.4 (37.5-50.1) % BMP 03/03/18 07:47 Sodium 139 Potassium 4.3 Chloride 103 Carbon Dioxide 27 BUN 21 Creatinine 1.43 H Glucose 116 H Calcium 9.3 - ABG Interpretation ABG results: PT/INR, D-dimer PT 10.7 Seconds (9.4-12.1) 03/03/18 07:47 Consult Discharge Plan - Plan Referrals: Josh Holliday MD [Partnered Physician] - 03/14/18 10:15 am Cecelia Hernandez MD [Primary Care Provider] - Prescriptions: Enoxaparin [Lovenox] 90 mg SQ Q12HR #10 syr Enoxaparin [Lovenox] 130 mg SQ DAILY #5 syr Warfarin [Coumadin] 2.5 mg PO HS #30 tablet (1) Pulmonary emboli Qualifiers: Pulmonary embolism type: other Chronicity: acute Acute cor pulmonale presence: without acute cor pulmonale Qualified Code(s): I26.99 - Other pulmonary embolism without acute cor pulmonale (3) COPD (chronic obstructive pulmonary disease) Qualifiers: COPD type: emphysema Emphysema type: centrilobular Qualified Code(s): J43.2 - Centrilobular emphysema (7) Hypertension Qualifiers: Hypertension type: essential hypertension Qualified Code(s): I10 - Essential (primary) hypertension
[2018-03-03 15:12] VITALS: BP 163/87
[2018-03-03] MEDS ORDERED: Furosemide 20 MG TABLET PO SCH (15:15)
[2018-03-03] MEDS ORDERED: *HR* Warfarin 5 MG TABLET PO ONE (16:00)
--- NOTE | 2018-03-03 16:28 | Discharge Summary ---
- NOTES TO OUTPATIENT PROVIDER Notes to Outpatient Provider: Patient needs follow-up BMP testing to monitor renal function as well as INR check at Coumadin clinic as patient is being bridged with Lovenox. Orders not resulted at time of discharge: Pending orders 03/03/18 07:47 Prostate Specific Antigen Scrn AM 0400 03/03/18 19:00 Heparin anti-factor XA UFH [COAG] Timed 03/04/18 04:00 Prothrombin Time INR [COAG] AM 0400 03/05/18 04:00 Prothrombin Time INR [COAG] AM 0400 03/06/18 04:00 Prothrombin Time INR [COAG] AM 0400 Date of Encounter: 03/03/18 Time of Encounter: 16:18 - Discharge Diagnosis (1) Pulmonary emboli Priority: Primary Status: Acute Qualifiers: Pulmonary embolism type: other Chronicity: acute Acute cor pulmonale presence: without acute cor pulmonale Qualified Code(s): I26.99 - Other pulmonary embolism without acute cor pulmonale (2) Elevated troponin Priority: Primary Status: Acute (3) COPD (chronic obstructive pulmonary disease) Priority: Secondary Status: Chronic Qualifiers: COPD type: emphysema Emphysema type: centrilobular Qualified Code(s): J43.2 - Centrilobular emphysema (4) Chronic kidney disease, stage 3 Priority: Secondary Status: Chronic (5) Acute respiratory failure with hypoxia Priority: Primary Status: Acute (6) Ataxia Priority: Secondary Status: Acute (7) Hypertension Priority: Secondary Status: Chronic Qualifiers: Hypertension type: essential hypertension Qualified Code(s): I10 - Essential (primary) hypertension Hospital course: Mr. Odell is a 82 year old male with past medical history of CKD, HLD HTN COPD came in with progressive shortness of breath for 2-3 days was found to have bilateral segmental and subsegmental pulmonary embolism with some right heart strain and troponin leak. Patient did not have chest pain or ischemic EKG changes and troponin elevation was flat and was likely from PE. Patient was hemodynamically stable and did not require any thrombolysis. He was started on heparin drip and was evaluated by hematology. Patient's echocardiogram showed EF of 60% and mild diastolic dysfunction and moderate pulmonary pulmonary hypertension. Patient found to have acute DVT on right superficial femoral and peroneal veins as well as a right lesser saphenous veins. Patient's hemoglobin remained stable on anticoagulation. Pricing was checked on anticoagulants and patient could not afford Eliquis. Patient agreed to be started on Coumadin with bridging. After discussing with patient anticoagulation was switched to Lovenox and patient felt comfortable giving it himself at home while on Coumadin. Patient does have CKD and his creatinine remained stable more or less. Patient will be continued on Lovenox until INR is therapeutic. On discharge INR is 1. Patient has Coumadin clinic appointment set up on Wednesday and was given a prescription for Lovenox and warfarin. Patient felt comfortable giving himself Lovenox and follow-up with Coumadin clinic. Discharge discussed with: patient, family, nurse - Time Spent with Patient Total time spent providing and/or coordinating discharge services: Greater than 30 minutes - Discharge Medications Prescriptions: Enoxaparin [Lovenox] 130 mg SQ DAILY #5 syr Warfarin [Coumadin] 2.5 mg PO HS #30 tablet Home Medications: Paroxetine [Paxil] 20 mg PO DAILY 01/03/16 [History] Simvastatin [Zocor] 20 mg PO HS 01/03/16 [History] Budesonide/Formoterol 80/4.5 [Symbicort 80/4.5] 2 puff IH BIDR 01/05/17 [History] Cholecalciferol (Vitamin D3) [Vitamin D3] 2,000 unit PO DAILY 01/05/17 [History] Primidone [Mysoline] 50 mg PO BID 01/05/17 [History] Albuterol Sulfate [Albuterol Inhaler] 2 puff IH Q4HR PRN 03/01/17 [History] Omeprazole [PriLOSEC] 40 mg PO DAILY 12/14/17 [History] Lisinopril [Zestril] 10 mg PO DAILY 01/16/18 [History] Tamsulosin [Flomax] 0.4 mg PO DAILY 01/16/18 [History] Furosemide [Lasix] 20 mg PO MOWEFR 03/02/18 [History] Enoxaparin [Lovenox] 130 mg SQ DAILY #5 syr 03/03/18 [Rx] Warfarin [Coumadin] 2.5 mg PO HS #30 tablet 03/03/18 [Rx] Allergies/Adverse Reactions: Allergy/AdvReac Type Severity Reaction Status Date / Time No Known Allergies Allergy Verified 01/16/18 10:13 Date of admission: 02/28/18 18:48 Primary care physician: Cecelia Hernandez MD Consults: 03/01/18 09:21 Consult to Oncology [CONS] Routine Consulting Provider: [facility] [place] Reason for Consult: anticoagulation recommendation Call Completed: Yes Discharging clinician: Erna Davidson - Constitutional Vitals: Temp Pulse Resp BP Pulse Ox 98.2 F 84 16 163/87 95 03/03/18 11:24 03/03/18 15:09 03/03/18 15:09 03/03/18 15:09 03/03/18 15:09 Exam: Constitutional: Vitals as noted. Conversant. No Apparent Distress. Respiratory : Clear to auscultation bilaterally. No accessory muscle use, rales, rhonchi or wheezes Cardiovascular : RRR, +S1, +S2. no murmur, gallop, rubs. No chest wall tenderness GI/Abdominal : Soft, Non-tender, Non-distended, normal bowel sounds, soft, no peritoneal signs. Musculoskeletal: no deformity noted. no edema or cyanosis. warm extremities, pulses palpable and symmetrical in UE/LE. no calf tenderness. Neurological: AO X3, CN II-XII grossly intact, grossly normal motor and sensory exam. - Patient Status Disposition: Home, Self-Care Condition: Fair - Discharge Instructions Instructions: Warfarin (By mouth), Enoxaparin (Injection), Pulmonary Embolism (DC), Pulmonary Embolism (GEN), Deep Venous Thrombosis (DC), Deep Venous Thrombosis (GEN) Follow Up With: Johs Holliday MD [Partnered Physician] - 03/14/18 10:15 am Cecelia Hernandez MD [Primary Care Provider] - 03/11/18 11:45 am Additional Instructions: Appointment at Coumadin Clinic 03/08/18 at 3:00 PM
[2018-03-04] MEDS ORDERED: *HR* Warfarin 2.5 MG TABLET PO SCH (18:00)
== END 2018-03-03 18:13 | disposition home or self-care (01) | DRG 175 ==
LOC: EMEROOARM 14:28 → SUATTDRO 18:48 → 2NENU 18:48
PROVIDERS: ADMIT Hospitalist; ATTEND Internal Medicine

== ENCOUNTER 2018-03-13 18:19 | Observation (INO) ==
[2018-03-13] MEDS ORDERED: Aspirin 81 MG TAB.CHEW PO ONE (18:28)
[2018-03-13 19:10] LABS: Basophils % 0.6 %; Eosinophils # 0.2 K/mcL (0.0-0.6); Eosinophils % 2.4 %; Hematocrit 40.2 % (37.5-50.1); Hemoglobin 13.5 g/dL (12.9-16.9); Immature Granulocytes % 0.3 % (0-4); Lymphocytes # 2.5 K/mcL (0.6-4.6); Lymphocytes % 35.4 %; Mean Corpuscular HGB Conc 33.6 g/dL (31.6-35.5); Mean Corpuscular Hemoglobin 32.2 pg (28.0-33.3); Mean Corpuscular Volume 95.9 fL (83.0-100.0); Mean Platelet Volume 10.2 fL (9.4-12.4); Monocytes # 0.8 K/mcL (0.0-1.3); Monocytes % 11.5 %; Neutrophils # 3.6 K/mcL (1.6-8.9); Platelet Count 293 K/mcL (140-400); Red Blood Count 4.19 M/mcL (4.19-5.50); Red Cell Distribution Width 13.7 % (11.5-14.5); Segmented Neutrophils % 49.8 %
[2018-03-13] MEDS: Nitroglycerin 0.4 MG TAB.SUBL SL ONE ×2 (19:13→19:18)
[2018-03-13 19:19] LABS: INR 1.1; Prothrombin Time 12.1 Seconds (9.4-12.1)
[2018-03-13 19:22] LABS: Activated Partial Thrombo Time 39.9 Seconds (26.0-36.0)
--- NOTE | 2018-03-13 19:24 | Emergency Department Note ---
Disposition Clinical Impression: Shortness of breath, Chest heaviness Disposition: Admitted As Inpatient Condition: Fair Forms: ED Satisfaction Letter Time of Disposition: 22:08 Chest Pain HPI - General Chief Complaint: ED Chest Pain Stated Complaint: Heavy Chest/DVTS Time Seen by Provider: 03/13/18 18:27 Source: patient Mode of arrival: ambulatory Limitations: no limitations Vital Signs Reviewed: Yes Nursing Notes Reviewed: Yes - History of Present Illness HPI Narrative: Patient presents emergency room with complaint of chest heaviness and tightness. Patient had diagnosis of pulmonary emboli 2 weeks ago. He is currently bridging from Lovenox to Coumadin. Patient's INR has not responded to the medication at this point. Patient is continuing the Lovenox shots. Patient denies any other symptoms. He does not have any specific cardiac history. He is also diagnosed with 2 DVTs in the right lower extremity. No other issues or complaints at this time. Is mainly concerned about the chest pain. Pt complaint: chest pain Onset (ago): day(s) Duration: constant Pain Location: substernal Severity: moderate Severity scale (1-10): 8 Quality: tightness Pain Radiation: none Improves with: nothing Worsens with: nothing Treatments prior to arrival chest pain: none - Related Data Home Medications Medication Instructions Recorded Confirmed Paroxetine [Paxil] 20 mg PO DAILY 01/03/16 03/02/18 Simvastatin [Zocor] 20 mg PO HS 01/03/16 03/02/18 Budesonide/Formoterol 80/4.5 2 puff IH BIDR 01/05/17 03/02/18 [Symbicort 80/4.5] Cholecalciferol (Vitamin D3) 2,000 unit PO DAILY 01/05/17 03/02/18 [Vitamin D3] Primidone [Mysoline] 50 mg PO BID 01/05/17 03/02/18 Albuterol Sulfate [Albuterol 2 puff IH Q4HR PRN 03/01/17 03/02/18 Inhaler] Omeprazole [PriLOSEC] 40 mg PO DAILY 12/14/17 03/02/18 Lisinopril [Zestril] 10 mg PO DAILY 01/16/18 03/02/18 Tamsulosin [Flomax] 0.4 mg PO DAILY 01/16/18 03/02/18 Furosemide [Lasix] 20 mg PO MOWEFR 03/02/18 03/02/18 Previous Rx's Medication Instructions Recorded Enoxaparin [Lovenox] 130 mg SQ DAILY #5 syr 03/03/18 Warfarin [Coumadin] 2.5 mg PO HS #30 tablet 03/03/18 Allergies Allergy/AdvReac Type Severity Reaction Status Date / Time No Known Allergies Allergy Verified 01/16/18 10:13 All systems ED: reviewed and negative except as stated. Review of Systems: As Per HPI Constitutional: Denies: fever, chills, weakness Eyes: Denies: eye pain, eye discharge, vision change ENT ED: Denies: ear pain, throat pain, dental pain Cardiovascular: Reports: chest pain. Denies: palpitations, dyspnea on exertion, orthopnea, edema Respiratory: Denies: cough, dyspnea, wheezes Gastrointestinal: Denies: abdominal pain, nausea, vomiting, diarrhea Genitourinary: Denies: urgency, dysuria, frequency Musculoskeletal: Denies: back pain, neck pain Integumentary: Denies: rash Neurological: Denies: headache Psychiatric: Denies: anxiety, depression Chest Pain PMH - Past Medical History Medical history: Reports: cancer, COPD, DVT, hyperlipidemia, hypertension, pulmonary embolus, renal disease Surgical history: Reports: appendectomy Psychiatric history: Reports: depression - Social History Smoking Status: Never smoker Alcohol use: Reports: none Drug use: Reports: none Physical Exam - General Limitations: no limitations General appearance: alert, in no apparent distress - Head Head exam: atraumatic, normocephalic, normal inspection - Eye Eye exam: Present: normal appearance, PERRL, EOMI - ENT ENT exam: normal exam, normal oropharynx, mucous membranes moist - Neck Neck exam: Present: normal inspection, full ROM, trachea midline - Chest Chest inspection: Present: normal inspection, symmetric chest wall rise - Respiratory Respiratory exam: Present: normal lung sounds bilaterally. Absent: respiratory distress, wheezes - Cardiovascular Cardiovascular exam: Present: regular rate, normal rhythm, normal heart sounds - Abdominal Exam Abdominal exam: Present: soft, Non-Tender, normal bowel sounds. Absent: tenderness, distention, guarding, rebound, rigidity, Bennett's sign, Rovsing's sign, tenderness at McBurney's Point - Extremities Exam Extremities exam: Present: normal inspection, full ROM, normal capillary refill. Absent: tenderness - Back Exam Back exam: Present: normal inspection - Neurological Exam Neurological exam: Present: alert, oriented X3, CN II-XII intact, normal gait - Skin Skin exam: Present: warm, dry, intact, normal color Course Course Narrative: Patient seen and examined the time of arrival. See history of present illness. 82-year-old male presents emergency room for evaluation of chest tightness and pain. Patient was diagnosis of bilateral pulmonary emboli 2 weeks ago. He is currently bridging from Lovenox to Coumadin. Denies any new falls or trauma. He is describing the symptoms here today is similar to when he was initially diagnosed with shortness of breath and pulmonary emboli. No other acute issues. Currently denying nausea vomiting or diarrhea. No fevers no chills. Head is atraumatic. Lungs are clear. Heart is regular. Abdomen is soft. Extremities are normal with no redness warmth or asymmetry noted at this time. He was diagnosed with DVT at the same time as a pulmonary emboli. Patient will have labs including CBC chemistry troponin and BNP and coagulation studies ordered at this time. Chest x-ray along with breathing treatments will be given. Disposition pending full workup and evaluation. Patient has known COPD along with coronary artery related disease. Patient will have symptomatic control established at this time a breathing treatments as well as nitroglycerin aspirin and morphine if need be. Suspicion is this is most likely secondary to pulmonary related issue as opposed to cardiac related pathology. Patient is otherwise clinically stable. Family informed of plan no other acute issues - Reevaluation(s) Reevaluation #1: Patient has had several rounds of breathing treatments as well as nitroglycerin or morphine here with the only relief being appreciated with the breathing treatments at this time. Chest x-ray is stable. CT angiography of the chest and CT imaging of the abdomen before this time to rule out any other potential pathology. He does not have any visible signs of redness swelling or irritation to the leg. He has no numbness tingling or paresthesias. Pulses are intact in the lower extremity at this time. He has symmetrical DP and PT pulses. Patient is otherwise comfortable. He is appropriately therapeutically treated with Lovenox at this time. They were bridging to Coumadin. Imaging modalities will be resulted and disposition be determined. Patient is otherwise resting comfortably in the bed. Labs are completely unremarkable with chronic renal insufficiency with no acute elevations in his BNP or troponin. EKG is reviewed and are stable. Imaging modalities to be completed and disposition be determined. Time: 20:35 Reevaluation #2: CT angiography the chest shows was complete resolution of the pulmonary emboli with no new issues at this time. Stable nodules were noted. Patient is otherwise resting comfortably in the bed. After the second breathing treatment the patient physical symptoms are better but still present. They are almost gone. Patient has no acute cardiac findings at this time his had a negative echo within the last several days. Unknown etiology to the presentation here today with a concern is noted that this is ACS versus a symptomatic progression from his pulmonary emboli. Right lower extremity does not show any acute issues with CT the abdomen. No signs of bony abnormality or fracture. Patient has no reproducible paresthesias or tingling. He just has a tingling sensation from his knee down. No other acute issues noted at this time. Again pulses are intact and the patient has symmetrical appearing lower extremities with good sensation and warmth noted. Patient was discussed with the hospitalist Dr. Hays reviewed the case. Recommended starting the patient on maintenance fluids will give a single dose of oral prednisone here in the emergency department. Otherwise patient does not require antibiotics because he does not have any acute signs of pulmonary congestion or infection. Patient will be admitted for symptomatically controlled evaluation of concern for cardiac related etiology. Patient otherwise clinically stable at this time. Will be monitoring in the emergency department to the admission process is completed Time: 22:08 Vital Signs Temperature 97.6 F 03/13/18 18:23 Pulse Rate 77 03/13/18 18:23 Respiratory Rate 15 03/13/18 18:23 Blood Pressure 190/80 03/13/18 18:23 O2 Sat by Pulse Oximetry 97 03/13/18 18:23 Temperature 97.6 F 03/13/18 18:23 Pulse Rate 81 03/13/18 19:21 Respiratory Rate 18 03/13/18 21:09 Blood Pressure 112/76 03/13/18 19:21 O2 Sat by Pulse Oximetry 97 03/13/18 21:09 Oxygen Delivery Oxygen Delivery Room Air Chest Pain - MDM Narrative Medical decision making narrative: Shortness of breath, chest tightness - Medical Records Medical records reviewed: Yes I reviewed the patient's medical records. - Lab Data Lab results reviewed: Yes I reviewed the patient's lab results. Result diagrams: 03/13/18 18:52 03/13/18 18:52 Lab Results 03/13/18 03/13/18 03/13/18 Range/Units 18:52 18:52 18:52 WBC 7.1 (4.3-11.1) K/mcL RBC 4.19 (4.19-5.50) M/mcL Hgb 13.5 (12.9-16.9) g/dL Hct 40.2 (37.5-50.1) % MCV 95.9 (83.0-100.0) fL MCH 32.2 (28.0-33.3) pg MCHC 33.6 (31.6-35.5) g/dL RDW 13.7 (11.5-14.5) % Plt Count 293 (140-400) K/mcL MPV 10.2 (9.4-12.4) fL Immature Gran % 0.3 (0-4) % Seg Neutrophils % 49.8 % Lymphocytes % 35.4 % Monocytes % 11.5 % Eosinophils % 2.4 % Basophils % 0.6 % Neutrophils # 3.6 (1.6-8.9) K/mcL Lymphocytes # 2.5 (0.6-4.6) K/mcL Monocytes # 0.8 (0.0-1.3) K/mcL Eosinophils # 0.2 (0.0-0.6) K/mcL Basophils # 0.0 (0.0-0.2) K/mcL PT 12.1 (9.4-12.1) Seconds INR 1.1 APTT 39.9 H (26.0-36.0) Seconds Sodium (136-145) mEq/L Potassium (3.5-5.1) mEq/L Chloride (98-107) mEq/L Carbon Dioxide (23-29) mEq/L BUN (8-23) mg/dL Creatinine (0.70-1.30) mg/dL Est GFR ( Amer) (> 60) Est GFR (Non-Af Amer) (> 60) BUN/Creatinine Ratio (6-26) Glucose (70-105) mg/dL Calculated Osmolality (280-300) Calcium (8.6-10.3) mg/dL Troponin I (< 0.04) ng/mL B-Natriuretic Peptide 30 (Less than 100) pg/mL 03/13/18 Range/Units 18:52 WBC (4.3-11.1) K/mcL RBC (4.19-5.50) M/mcL Hgb (12.9-16.9) g/dL Hct (37.5-50.1) % MCV (83.0-100.0) fL MCH (28.0-33.3) pg MCHC (31.6-35.5) g/dL RDW (11.5-14.5) % Plt Count (140-400) K/mcL MPV (9.4-12.4) fL Immature Gran % (0-4) % Seg Neutrophils % % Lymphocytes % % Monocytes % % Eosinophils % % Basophils % % Neutrophils # (1.6-8.9) K/mcL Lymphocytes # (0.6-4.6) K/mcL Monocytes # (0.0-1.3) K/mcL Eosinophils # (0.0-0.6) K/mcL Basophils # (0.0-0.2) K/mcL PT (9.4-12.1) Seconds INR APTT (26.0-36.0) Seconds Sodium 136 (136-145) mEq/L Potassium 4.7 (3.5-5.1) mEq/L Chloride 102 (98-107) mEq/L Carbon Dioxide 25 (23-29) mEq/L BUN 18 (8-23) mg/dL Creatinine 1.59 H (0.70-1.30) mg/dL Est GFR ( Amer) 51 L (> 60) Est GFR (Non-Af Amer) 42 L (> 60) BUN/Creatinine Ratio 11 (6-26) Glucose 81 (70-105) mg/dL Calculated Osmolality 283 (280-300) Calcium 9.0 (8.6-10.3) mg/dL Troponin I < 0.03 (< 0.04) ng/mL B-Natriuretic Peptide (Less than 100) pg/mL - Radiology Data Radiology results reviewed: Yes I reviewed the patient's radiology results. - EKG Data EKG attestation: Yes I reviewed and interpreted this EKG. EKG results narrative: EKG shows sinus rhythm. Heart rate is 75. ID interval 156. QRS duration 136. QTC of 465. [place] appears to be normal. No acute signs of ST segment elevation or abnormality. ST segment depression noted and V2 which is chronic from EKG and 02/28/18 Heart Score - Score History: Slightly Suspicious EKG: Non Specific repolarisation Disturbance Age: Greater than 65 Risk Factors: 1-2 risk factors Troponin: Less than normal limit HEART Score Total: 4
[2018-03-13] MEDS ORDERED: *HR* Morphine 2 MG/ML SYRINGE IVP ONE (19:25)
[2018-03-13 19:30] LABS: BUN/Creatinine Ratio 11 (6-26); Blood Urea Nitrogen 18 mg/dL (8-23); Carbon Dioxide 25 mEq/L (23-29); Chloride 102 mEq/L (98-107); Glucose 81 mg/dL (70-105); Osmolality,Calculated 283 (280-300); Potassium 4.7 mEq/L (3.5-5.1); Sodium 136 mEq/L (136-145); eGFR For Non-African Americans 42 (> 60)
[2018-03-13 19:31] LABS: Troponin I < 0.03 ng/mL (< 0.04)
[2018-03-13] MEDS ORDERED: Ipratropium/Albuterol Neb 3 ML IH ONE ×2 (19:34→20:43)
[2018-03-13] MEDS ORDERED: Isovue-370 500 ML BOTTLE IVP ONE (20:43)
[2018-03-13] MEDS ORDERED: predniSONE 20 MG TABLET PO ONE (22:02)
[2018-03-13] MEDS: 0.9 % Sodium Chloride 1,000 ML IVC SCH (22:28)
[2018-03-13] MEDS ORDERED: *HR* Morphine 2 MG/ML SYRINGE IVP PRN (22:41)
[2018-03-13] MEDS ORDERED: Nitroglycerin 0.4 MG TAB.SUBL SL PRN (22:41)
--- NOTE | 2018-03-13 23:20 | Internal Med History&Physical ---
Date of Encounter: 03/13/18 Time of Encounter: 23:20 Internal Medicine - H&P: HPI Chief complaint: Chest Pain History of present illness: Mr. Odell is a 82 year old male with a past medical history of CAD 3, hyperlipidemia, hypertension, COPD and recent hospitalization for bilateral pulmonary embolism and DVT with features concerning for right heart strain currently on Lovenox who presents to the ED with complaints of chest heaviness and tightness. Patient reports he woke this morning and noted heaviness in the chest located midsternum associated with some shortness of breath. Patient got up and went about his day and eventually symptoms subsided. Symptoms returned around 2 PM. Again, described as heaviness, nonradiating, nonpleuritic with no identifiable aggravating or alleviating factors. Patient reports his current presentation is similar to that when he came into the hospital last time. Patient has been on Lovenox with bridging to Coumadin, however his INR has not responded to the medication at this point and is continuing to take his Lovenox shots. He was recently seen at Coumadin clinic where he was instructed to change his dosage regimen, however, he has yet to show any response in his INR. Patient also reports some numbness and tingling on the medial aspect of his right calf. Patient was concerned that his DVT may be expanding. Numbness currently has resolved. Denies any swelling or erythema. No weakness. No previous cardiac history. Patient does have history of COPD not on oxygen but has no significant prior smoking history, stating that he smoked only one year of his life. Patient was seen by pulmonology and given the diagnosis and reportedly his lung disease is attributable to [place]. Family history of heart disease in his mother. Patient had a nuclear stress test in 2018 which was negative for any ischemic changes. His most recent echo on March 01 showed a normal EF with mild left ventricular diastolic dysfunction and moderate pulmonary hypertension. Repeat CTA today showed significant im provement in appearance of the pulmonary arteries compared to the prior exam on the with residual amount of PE in the left lower lobe. Initial troponin was unremarkable. EKG unchanged from prior showing persistent right bundle branch block. Patient was given nitroglycerin and morphine in the ED without much improvement. Symptoms seem to improve after breathing treatment. Patient currently chest pain-free. Past Med Surg Social Fam HX - Past Medical History Medical history: cancer, COPD, DVT, hyperlipidemia, hypertension, pulmonary embolus, renal disease Additional medical history: Diverticulitis. PROSTATE CA Psychiatric history: depression - Past Surgical History Surgical History: appendectomy Additional surgical history: back surgery - Social History Smoking Status: Never smoker Smokeless Tobacco Status: No Alcohol use: none Drug use: none - Family History Father Living Status: Hx Family Cardiac Disorders: Yes Mother Living Status: Hx Family Cardiac Disorders: Yes Hx Family Endocrine Disorder: Yes (DM II) Internal Medicine - H&P: Meds Paroxetine [Paxil] 20 mg PO DAILY 01/03/16 [History] Simvastatin [Zocor] 20 mg PO HS 01/03/16 [History] Budesonide/Formoterol 80/4.5 [Symbicort 80/4.5] 2 puff IH BIDR 01/05/17 [History] Cholecalciferol (Vitamin D3) [Vitamin D3] 2,000 unit PO DAILY 01/05/17 [History] Primidone [Mysoline] 50 mg PO BID 01/05/17 [History] Albuterol Sulfate [Albuterol Inhaler] 2 puff IH Q4HR PRN 03/01/17 [History] Omeprazole [PriLOSEC] 40 mg PO DAILY 12/14/17 [History] Lisinopril [Zestril] 10 mg PO DAILY 01/16/18 [History] Tamsulosin [Flomax] 0.4 mg PO DAILY 01/16/18 [History] Furosemide [Lasix] 20 mg PO MOWEFR 03/02/18 [History] Enoxaparin [Lovenox] 130 mg SQ DAILY #5 syr 03/03/18 [Rx] Warfarin [Coumadin] 2.5 mg PO HS #30 tablet 03/03/18 [Rx] LORazepam [Ativan] 0.5 mg PO BID PRN 5 Days #10 tablet 03/14/18 [Rx] Warfarin [Coumadin] 5 mg PO 1800 03/14/18 [History] Allergy/AdvReac Type Severity Reaction Status Date / Time No Known Allergies Allergy Verified 01/16/18 10:13 All Systems PM: A 10-system review of systems was performed and is negative for pertinent find ings except as documented above in the HPI. - Constitutional Constitutional: no chills, no fever(s), no night sweats - EENT Eyes: no change in vision, no discharge, no pain, no photophobia Ears: no ear discharge, no ear pain, no tinnitus Nose, mouth and throat: no dysphagia, no nasal discharge, no neck pain, no sore throat - Cardiovascular Cardiovascular ROS IM: no chest pain, no diaphoresis, no dyspnea, no lightheadedness, no palpitations, no syncope - Respiratory Respiratory: no cough, no dyspnea, no wheezing, no excessive phlegm production - Gastrointestinal Gastrointestinal: no abdominal pain, no diarrhea, no hematemesis, no hematochezia, no melena, no nausea, no vomiting - Musculoskeletal Musculoskeletal ROS IM: no numbness, no tingling - Integumentary Integumentary IM: no rash, no unusual bruising - Neurological Neurological ROS: no confusion, no convulsions, no focal weakness, no numbness, no tingling, no tremor(s) - Hematologic/Lymphatic Hematologic/Lymphatic: no easy bruising - Constitutional Vitals: Temp Pulse Resp BP Pulse Ox 97.6 F 81 18 151/94 97 03/13/18 18:23 03/13/18 19:21 03/13/18 22:39 03/13/18 22:39 03/13/18 21:09 Exam: General: Alert and oriented 3 sitting up in bed very pleasant Skin:Normal color, no rash, no lesions. HEENT:EOM, pupils equal, round and reactive. Cardiovascular:Normal S1 & S2, no rubs, murmurs or gallops. No JVD. Pulse regular. Lungs:Normal breath sounds, no wheezes or crackles. Abdomen:Soft, non-tender, no rigidity. Extremities:No deformity, no edema or tenderness, no joint swelling or clubbing. Neurological:Normal cognition and motor skills. Pulses:Carotid and radial pulses normal +2. Rest of the physical exam is non contributory Internal Med - H&P Results - Labs CBC & Chem 7: 03/14/18 07:15 03/14/18 07:15 Labs: Short CBC 03/13/18 Range/Units 18:52 WBC 7.1 (4.3-11.1) K/mcL Hgb 13.5 (12.9-16.9) g/dL Hct 40.2 (37.5-50.1) % Plt Count 293 (140-400) K/mcL Neutrophils # 3.6 (1.6-8.9) K/mcL BMP 03/13/18 18:52 Sodium 136 Potassium 4.7 Chloride 102 Carbon Dioxide 25 BUN 18 Creatinine 1.59 H Glucose 81 Calcium 9.0 Cardiac Enzymes 03/13/18 Range/Units 18:52 Troponin I < 0.03 (< 0.04) ng/mL - Impressions ITS Impressions Chest X-Ray 03/13/18 18:28 IMPRESSION: No acute airspace disease identified. D/ / Jarret Park / Jarret Park Interpreting Provider: Jarret Park Abdomen/Pelvis CT 03/13/18 20:19 IMPRESSION: Significantly improved appearance of the pulmonary arteries compared to the prior exam 02/28/2018, with a tiny amount of residual PE in the left lower lobe. Right middle lobe pulmonary micronodule. Moderately large hiatal hernia. Additional incidental findings as detailed above. RECOMMENDATIONS: Fleischner Society guidelines for follow-up and management of incidentally detected pulmonary nodules: Single Solid Nodule: Nodule size less than 6 mm In a low-risk patient, no routine follow-up. In a high-risk patient, optional CT at 12 months. Nodule size equals 6-8 mm In a low-risk patient, CT at 6-12 months, then consider CT at 18-24 months. In a high-risk patient, CT at 6-12 months, then CT at 18-24 months. Nodule size greater than 8 mm In a low-risk patient, consider CT at 3 months, PET/CT, or tissue sampling. In a high-risk patient, consider CT at 3 months, PET/CT, or tissue sampling. Multiple Solid Nodules: Nodule size less than 6 mm In a low-risk patient, no routine follow-up. In a high-risk patient, optional CT at 12 months. Nodule size equals 6-8 mm In a low-risk patient, CT at 3-6 months, then consider CT at 18-24 months. In a high-risk patient, CT at 3-6 months, then CT at 18-24 months. Nodule size greater than 8 mm In a low-risk patient, CT at 3-6 months, then consider CT at 18-24 months. In a high-risk patient, CT at 3-6 months, then CT at 18-24 months. - Low risk patients include individuals with minimal or absent history of smoking and other known risk factors. - High risk patients include individuals with a history or smoking or known risk factors. Radiology 2017 http://pubs.rsna.org/doi/full/10.1148/radiol.[email or web address] D/ / Omer Nova MD / Omer Nova MD Interpreting Provider: Omer Nova MD Chest CTA 03/13/18 20:43 IMPRESSION: Significantly improved appearance of the pulmonary arteries compared to the prior exam 02/28/2018, with a tiny amount of residual PE in the left lower lobe. Right middle lobe pulmonary micronodule. Moderately large hiatal hernia. Additional incidental findings as detailed above. RECOMMENDATIONS: Fleischner Society guidelines for follow-up and management of incidentally detected pulmonary nodules: Single Solid Nodule: Nodule size less than 6 mm In a low-risk patient, no routine follow-up. In a high-risk patient, optional CT at 12 months. Nodule size equals 6-8 mm In a low-risk patient, CT at 6-12 months, then consider CT at 18-24 months. In a high-risk patient, CT at 6-12 months, then CT at 18-24 months. Nodule size greater than 8 mm In a low-risk patient, consider CT at 3 months, PET/CT, or tissue sampling. In a high-risk patient, consider CT at 3 months, PET/CT, or tissue sampling. Multiple Solid Nodules: Nodule size less than 6 mm In a low-risk patient, no routine follow-up. In a high-risk patient, optional CT at 12 months. Nodule size equals 6-8 mm In a low-risk patient, CT at 3-6 months, then consider CT at 18-24 months. In a high-risk patient, CT at 3-6 months, then CT at 18-24 months. Nodule size greater than 8 mm In a low-risk patient, CT at 3-6 months, then consider CT at 18-24 months. In a high-risk patient, CT at 3-6 months, then CT at 18-24 months. - Low risk patients include individuals with minimal or absent history of smoking and other known risk factors. - High risk patients include individuals with a history or smoking or known risk factors. Radiology 2017 http://pubs.rsna.org/doi/full/10.1148/radiol.[email or web address] D/ / Omer Nova MD / Omer Nova MD Interpreting Provider: Omer Nova MD - Assessment and plan (1) Chest heaviness Status: Acute Assessment and plan: Chest heaviness that is midsternal, nonradiating, nonpleuritic, nonreproducible the setting of recent diagnosis of bilateral pulmonary embolism. Currently on Lovenox and Coumadin. On arrival patient was stable from a hemodynamic and respiratory standpoint. Initial troponin was negative. EKG showed persistent right bundle branch block as seen on previous EKG. CTA of the chest shows significant improvement in findings of previous PE. Patient does have risk fa ctors for coronary artery disease including age, hypertension, hyperlipidemia, CKG stage III and family history. Patient currently hemodynamically stable and chest pain-free. Of note, Symptoms did not improve with nitroglycerin or morphine, however responded to breathing treatments. -We will continue to trend troponin -Patient had a echocardiogram performed on 03/01/2018 which showed an EF of 60% with mild left ventricular diastolic dysfunction, normal right ventricular structure and function, moderate tricuspid regurgitation, moderate pulmonary hypertension. Given the patient's CTA shows improvement, we will hold off on obtaining a another echo at this time. Await cardiology recommendations -Would appreciate cardiology input in light of patient's recent pulmonary embolism. - (2) Shortness of breath Status: Acute Assessment and plan: Patient reported mild shortness of breath in association with his chest heaviness. This seems to have resolved after breathing treatment. Patient's lungs sound clear and his O2 sats were never below 90% on arrival. Chest x-ray showed no acute airspace disease. He is currently 96% on room air. Low suspicion for COPD exacerbation -We will continue duo nebs when necessary -Continue with home inhalers (3) Chronic kidney disease (CKD) Status: Acute Assessment and plan: Chronic kidney disease stage III. Patient's creatinine appears to be near baseline. We will give some mild hydration for now. -Recheck metabolic panel in the morning. Qualifiers: Chronic kidney disease stage: unspecified stage Qualified Code(s): N18.9 - Chronic kidney disease, unspecified (4) COPD (chronic obstructive pulmonary disease) Status: Chronic Assessment and plan: No evidence of an acute exacerbation. The patient did respond to breathing treatments in the ED. He is satting 96% on room air currently. -Continue with home inhalers and DuoNeb's as needed. Qualifiers: COPD type: emphysema Emphysema type: centrilobular Qualified Code(s): J43.2 - Centrilobular emphysema (5) Hyperlipidemia Status: Chronic Assessment and plan: Continue with home statin Qualifiers: Hyperlipidemia type: pure hypercholesterolemia Qualified Code(s): E78.00 - Pure hypercholesterolemia, unspecified; E78.0 - Pure hypercholesterolemia (6) Hypertension Status: Chronic Assessment and plan: Blood pressure stable. Continue with home antihypertensives and monitor. Qualifiers: Hypertension type: essential hypertension Qualified Code(s): I10 - Essential (primary) hypertension (7) Subtherapeutic international normalized ratio (INR) Status: Acute Assessment and plan: Subtherapeutic INR despite recent adjustment in dosage. Patient currently on 2.5 mg of warfarin on Wednesday, and Wednesday. He takes 5 mg every other day. INR in the ED found to be 1.1. Patient states that the only foods that he has been avoiding is cranberries. -We will increase patient's dose to 5 mg daily and recheck INR. (8) Numbness and tingling of right lower extremity Status: Acute Assessment and plan: She reports numbness and tingling in the medial aspect of the right lower extremity where he reports a DVT was found. Currently asymptomatic. No evide nce of swelling or erythema. Given improvements on CTA, I do not feel the need to repeat a lower extremity duplex. We will monitor for now. (9) DVT prophylaxis Status: Acute Assessment and plan: Currently on Lovenox. - Time Spent With Patient Total time spent is greater than 50% in coordination of care (as documented) at patient's floor/unit and/or counseling patient:
[2018-03-14] MEDS ORDERED: Furosemide 20 MG TABLET PO SCH (01:00)
[2018-03-14] MEDS: 0.9 % Sodium Chloride 1,000 ML IVC SCH (04:40)
[2018-03-14 07:32] LABS: Basophils % 0.2 %; Hematocrit 37.9 % (37.5-50.1); Hemoglobin 12.5 g/dL (12.9-16.9); Immature Granulocytes % 0.4 % (0-4); Lymphocytes # 0.6 K/mcL (0.6-4.6); Mean Corpuscular Hemoglobin 31.6 pg (28.0-33.3); Mean Corpuscular Volume 95.7 fL (83.0-100.0); Mean Platelet Volume 9.9 fL (9.4-12.4); Monocytes # 0.1 K/mcL (0.0-1.3); Monocytes % 1.5 %; Neutrophils # 4.1 K/mcL (1.6-8.9); Platelet Count 255 K/mcL (140-400); Red Blood Count 3.96 M/mcL (4.19-5.50); Red Cell Distribution Width 13.8 % (11.5-14.5); Segmented Neutrophils % 85.9 %
[2018-03-14 07:54] LABS: Albumin/Globulin Ratio 1.7 (1.1-2.2); Bilirubin,Total 0.3 mg/dL (0.3-1.0); Calcium 8.7 mg/dL (8.6-10.3); Globulin 2.4 g/dL (2.4-3.5); Magnesium 2.1 mg/dL (1.6-2.6); Total Protein 6.4 g/dL (6.4-8.9)
[2018-03-14 08:01] LABS: INR 1.1; Prothrombin Time 12.2 Seconds (9.4-12.1)
[2018-03-14 08:04] LABS: Activated Partial Thrombo Time 34.8 Seconds (26.0-36.0)
[2018-03-14 08:32] LABS: Estimated Average Glucose 128 mg/dl; Hemoglobin A1C 6.1 %
[2018-03-14] MEDS ORDERED: *HR* Enoxaparin 150 MG/ML SYRINGE SQ SCH (09:00)
[2018-03-14] MEDS ORDERED: Primidone 50 MG TABLET PO SCH (09:00)
[2018-03-14] MEDS ORDERED: Cholecalciferol (D-3) 1,000 UNIT TABLET PO SCH (09:00)
[2018-03-14] MEDS ORDERED: Budesonide/Formoterol 80/4.5 MDI IH SCH (10:00)
--- NOTE | 2018-03-14 10:04 | Discharge Summary ---
- NOTES TO OUTPATIENT PROVIDER Notes to Outpatient Provider: Follow up with PCP in one week. Follow up at Coumadin clinic in AM for INR check and Coumadin dosing. Date of Encounter: 03/14/18 Time of Encounter: 09:54 - Discharge Diagnosis (1) Shortness of breath Priority: Primary Status: Acute (2) Chest heaviness Priority: Primary Status: Acute (3) Anxiety Priority: Secondary Status: Acute (4) Hyperlipidemia Priority: Secondary Status: Chronic Qualifiers: Hyperlipidemia type: pure hypercholesterolemia Qualified Code(s): E78.00 - Pure hypercholesterolemia, unspecified; E78.0 - Pure hypercholesterolemia (5) COPD (chronic obstructive pulmonary disease) Priority: Secondary Status: Chronic Qualifiers: COPD type: emphysema Emphysema type: centrilobular Qualified Code(s): J43.2 - Centrilobular emphysema (6) Chronic kidney disease (CKD) Priority: Secondary Status: Acute Qualifiers: Chronic kidney disease stage: unspecified stage Qualified Code(s): N18.9 - Chronic kidney disease, unspecified (7) Hypertension Priority: Secondary Status: Chronic Qualifiers: Hypertension type: essential hypertension Qualified Code(s): I10 - Essential (primary) hypertension (8) DVT prophylaxis Priority: Secondary Status: Acute (9) Subtherapeutic international normalized ratio (INR) Priority: Secondary Status: Acute (10) Numbness and tingling of right lower extremity Priority: Secondary Status: Acute Hospital course: Mr. Odell is a 82 year old male with a past medical history of CAD, CKD-3, hyperlipidemia, hypertension, COPD and recent hospitalization for bilateral pulmonary embolism and DVT with features concerning for right heart strain currently on Coumadin bridging with Lovenox pt presented to ER with complaints of chest heaviness and tightness. Patient reports he woke this morning and noted heaviness in the chest located midsternum associated with some shortness of breath. Patient got up and went about his day and eventually symptoms subsided. Symptoms returned around 2 PM. Again, described as heaviness, nonradiating, nonpleuritic with no identifiable aggravating or alleviating factors. Patient reports his current presentation is similar to that when he came into the hospital last time. He was admitted in the hospital and placed him on air sampling and monitoring. His serial troponin were negative. His EKG is unchange from previous and no acute ischemic changes noticed. His repeat CTA showed significant improvement in his PE. He denied any more CP. His INR is still sub t herapeutic @ 1.1, he follows at Coumadin clinic who changed his dose recently. Recommend to continue Lovenox inj and f/u at Coumadin clinic tomorrow. He does have mild anxiety so started him on Ativan 0.5mg PO BID as needed. - Time Spent with Patient Total time spent providing and/or coordinating discharge services: - Discharge Medications Prescriptions: LORazepam [Ativan] 0.5 mg PO BID PRN 5 Days #10 tablet PRN Reason: Anxiety Home Medications: Paroxetine [Paxil] 20 mg PO DAILY 01/03/16 [History] Simvastatin [Zocor] 20 mg PO HS 01/03/16 [History] Budesonide/Formoterol 80/4.5 [Symbicort 80/4.5] 2 puff IH BIDR 01/05/17 [History] Cholecalciferol (Vitamin D3) [Vitamin D3] 2,000 unit PO DAILY 01/05/17 [History] Primidone [Mysoline] 50 mg PO BID 01/05/17 [History] Albuterol Sulfate [Albuterol Inhaler] 2 puff IH Q4HR PRN 03/01/17 [History] Omeprazole [PriLOSEC] 40 mg PO DAILY 12/14/17 [History] Lisinopril [Zestril] 10 mg PO DAILY 01/16/18 [History] Tamsulosin [Flomax] 0.4 mg PO DAILY 01/16/18 [History] Furosemide [Lasix] 20 mg PO MOWEFR 03/02/18 [History] Enoxaparin [Lovenox] 130 mg SQ DAILY #5 syr 03/03/18 [Rx] Warfarin [Coumadin] 2.5 mg PO HS #30 tablet 03/03/18 [Rx] LORazepam [Ativan] 0.5 mg PO BID PRN 5 Days #10 tablet 03/14/18 [Rx] Warfarin [Coumadin] 5 mg PO 1800 03/14/18 [History] Allergies/Adverse Reactions: Allergy/AdvReac Type Severity Reaction Status Date / Time No Known Allergies Allergy Verified 01/16/18 10:13 Date of admission: 03/13/18 22:11 Primary care physician: PCP NONE Consults: 03/14/18 00:55 Consult to Cardiology [CONS] Routine Comment: Consulting Provider: Cardiology Jeniffer Reason for Consult: Chest heaviness. Recent history of bilateral PE currently on Lovenox and warfarin Call Completed: No - Constitutional Vitals: Temp Pulse Resp BP Pulse Ox 97.7 F 76 18 165/72 99 03/14/18 08:18 03/14/18 08:18 03/14/18 08:18 03/14/18 08:18 03/14/18 08:18 General appearance: Present: cooperative, A&O X 3, no acute distress, answers questions appropriately Exam: Gen: Alert, awake, Oriented to time,place and person Chest: Diminished breath sounds B/L, No wheezing, No crackles, No rales Heart: S1S2+ RRR No murmurs Abd: Soft, NT, BS +, No organomegaly Ext: No edema, pulses are palpable, No calf tenderness Neuro : Benign findings Skin: No rash. - Patient Status Disposition: Home Health Service Condition: Good Overall status at discharge: patient is back to baseline - Discharge Instructions Follow Up With: NONE,PCP [Primary Care Provider] - - Diet and Activity Activity: increase activity as tolerated Diet: low salt diet
--- NOTE | 2018-03-14 10:05 | Physician Discharge Referral ---
Home Health/Hosp Referral Info Transfer to: Home Health Provider in Charge Post Discharge: PCP - Diagnosis (1) Shortness of breath Status: Acute (2) Chest heaviness Status: Acute (3) Anxiety Status: Acute (4) Hyperlipidemia Status: Chronic (5) COPD (chronic obstructive pulmonary disease) Status: Chronic (6) Chronic kidney disease (CKD) Status: Acute (7) Hypertension Status: Chronic (8) DVT prophylaxis Status: Acute (9) Subtherapeutic international normalized ratio (INR) Status: Acute (10) Numbness and tingling of right lower extremity Status: Acute - Respiratory Orders Smoking Cessation: Smoking cessation has been advised. For more information, call the [place] Tobacco Quit Line at 0-589-WLWW-NOW. - Services Needed Following services are medically necessary services: Nursing - Transfer Medications Prescriptions: LORazepam [Ativan] 0.5 mg PO BID PRN 5 Days #10 tablet PRN Reason: Anxiety Home Medications: Paroxetine [Paxil] 20 mg PO DAILY 01/03/16 [History] Simvastatin [Zocor] 20 mg PO HS 01/03/16 [History] Budesonide/Formoterol 80/4.5 [Symbicort 80/4.5] 2 puff IH BIDR 01/05/17 [History] Cholecalciferol (Vitamin D3) [Vitamin D3] 2,000 unit PO DAILY 01/05/17 [History] Primidone [Mysoline] 50 mg PO BID 01/05/17 [History] Albuterol Sulfate [Albuterol Inhaler] 2 puff IH Q4HR PRN 03/01/17 [History] Omeprazole [PriLOSEC] 40 mg PO DAILY 12/14/17 [History] Lisinopril [Zestril] 10 mg PO DAILY 01/16/18 [History] Tamsulosin [Flomax] 0.4 mg PO DAILY 01/16/18 [History] Furosemide [Lasix] 20 mg PO MOWEFR 03/02/18 [History] Enoxaparin [Lovenox] 130 mg SQ DAILY #5 syr 03/03/18 [Rx] Warfarin [Coumadin] 2.5 mg PO HS #30 tablet 03/03/18 [Rx] LORazepam [Ativan] 0.5 mg PO BID PRN 5 Days #10 tablet 03/14/18 [Rx] Warfarin [Coumadin] 5 mg PO 1800 03/14/18 [History] Allergies/Adverse Reactions: Allergy/AdvReac Type Severity Reaction Status Date / Time No Known Allergies Allergy Verified 01/16/18 10:13 Certification: Further, I certify that my clinical findings support that this patient is homebound (i.e. absences from home require considerable and taxing effort and a re for medical reasons or mandaen services or infrequently or short duration when for other reasons) because: Homebound Reason: Patient requires assistance of a person or device to safely leave home Attestation: My signature below is to certify that this patient is under my care and that I, or nurse practitioner, or a physician's senior care assistant working with me, has a [id number] encounter with this patient.
[2018-03-14 11:34] VITALS: BP 169/81
[2018-03-14] MEDS ORDERED: Warfarin perPT PO PRN (18:00)
[2018-03-14] MEDS ORDERED: *HR* Warfarin 5 MG TABLET PO SCH (18:00)
--- NOTE | 2018-03-16 20:41 | Electrocardiograph Report ---
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
== END 2018-03-14 14:08 | disposition home health service (06) ==
LOC: 3BNU 18:19 → EMEROOARM 18:19 → SUATTDRO 22:11 → 3BNU 23:00
PROVIDERS: ADMIT Internal Medicine; ATTEND Family Medicine

== ENCOUNTER 2018-07-31 12:08 | Inpatient (IN) ==
[2018-07-31 12:45] LABS: Basophils % 0.1 %; Eosinophils % 0.6 %; Hematocrit 31.5 % (37.5-50.1); Hemoglobin 10.4 g/dL (12.9-16.9); Immature Granulocytes % 0.4 % (0-4); Lymphocytes # 1.2 K/mcL (0.6-4.6); Lymphocytes % 16.9 %; Mean Corpuscular Hemoglobin 32.5 pg (28.0-33.3); Mean Corpuscular Volume 98.4 fL (83.0-100.0); Mean Platelet Volume 10.2 fL (9.4-12.4); Monocytes # 0.5 K/mcL (0.0-1.3); Monocytes % 6.4 %; Neutrophils # 5.4 K/mcL (1.6-8.9); Platelet Count 336 K/mcL (140-400); Red Cell Distribution Width 14.1 % (11.5-14.5); Segmented Neutrophils % 75.6 %; White Blood Count 7.1 K/mcL (4.3-11.1)
[2018-07-31 12:53] LABS: INR 2.1; Prothrombin Time 24.1 Seconds (9.4-12.1)
[2018-07-31 13:06] LABS: BUN/Creatinine Ratio 15 (6-26); Blood Urea Nitrogen 22 mg/dL (8-23); Calcium 8.5 mg/dL (8.6-10.3); Carbon Dioxide 24 mEq/L (23-29); Chloride 103 mEq/L (98-107); Glucose 177 mg/dL (70-105); Osmolality,Calculated 290 (280-300); Potassium 4.2 mEq/L (3.5-5.1); Sodium 136 mEq/L (136-145); eGFR For African Americans 56 (> 60); eGFR For Non-African Americans 46 (> 60)
[2018-07-31 13:07] LABS: Troponin I < 0.03 ng/mL (< 0.04)
--- NOTE | 2018-07-31 13:08 | Emergency Department Note ---
Disposition Clinical Impression: Pneumonia Qualifiers: Pneumonia type: due to unspecified organism Laterality: left Lung location: lower lobe of lung Qualified Code(s): J18.1 - Lobar pneumonia, unspecified organism Disposition: Admitted As Inpatient Time of Disposition: 17:00 General Adult HPI - General Chief complaint: ED Weakness Stated complaint: weakness, right leg pain, groin swelling Time Seen by Provider: 07/31/18 12:11 Source: patient, EMS Limitations: no limitations - History of Present Illness HPI Narrative: Mr. Odell weight is 82-year-old male presented to the ED complaining of right lower leg pain which is causing weakness. He reports his gait is intact but the pain is limiting his physical activity. He is denying any weakness to his upper extremity. He denies any recent falls or trauma to that leg. He had a right hernia surgery one week ago. He also reports overall fatigue and weakness in his body. Reports he has not been eating and drinking well. Additionally reports not enjoying his usual tasks. He denies any suicidal ideation or homicidal ideation. Denies any calf tenderness or calf swelling. Does report pain in his right leg past 2 days he also had surgery on that leg 1 week ago. Denies fever, chills, shortness of breath, chest pain, nausea or emesis. Pain Scale: 6 - Related Data Home Medications Medication Instructions Recorded Confirmed Paroxetine [Paxil] 20 mg PO QAM PRN 01/03/16 07/31/18 Simvastatin [Zocor] 20 mg PO HS 01/03/16 07/31/18 Budesonide/Formoterol 80/4.5 2 puff IH BIDR 01/05/17 07/31/18 [Symbicort 80/4.5] Cholecalciferol (Vitamin D3) 2,000 unit PO QAM 01/05/17 07/31/18 [Vitamin D3] Primidone [Mysoline] 100 mg PO BID 01/05/17 07/31/18 Lisinopril [Zestril] 10 mg PO DAILY 01/16/18 07/31/18 Tamsulosin [Flomax] 0.4 mg PO QPM 01/16/18 07/31/18 Pantoprazole Sodium [Protonix] 40 mg PO QAM 07/20/18 07/31/18 Warfarin Sodium 10 mg PO SUMOTUTHFRSA 07/20/18 07/31/18 Acetaminophen [Tylenol] 1,000 mg PO Q6HR PRN 07/31/18 07/31/18 Warfarin [Coumadin] 12.5 mg PO WE 07/31/18 07/31/18 Allergies Allergy/AdvReac Type Severity Reaction Status Date / Time No Known Allergies Allergy Verified 07/20/18 08:23 Constitutional: Reports: weakness (Realized). Denies: fever, chills Eyes: Denies: eye pain, eye discharge ENT ED: Denies: ear pain, congestion, dysphagia Cardiovascular: Denies: chest pain, palpitations, dyspnea on exertion Respiratory: Denies: cough, dyspnea, wheezes Gastrointestinal: Reports: diarrhea (2 episodes per day). Denies: abdominal pain, nausea, vomiting Genitourinary: Denies: urgency, dysuria, frequency Musculoskeletal: Denies: back pain Integumentary: Denies: rash, abrasion, lesions Neurological: Reports: weakness (Generalized). Denies: headache, numbness, abnormal gait Psychiatric: Reports: other (Reports feeling depressed as he is unable to perform his usual activities). Denies: suicidal thoughts, homicidal thoughts Endocrine: Reports: fatigue Past Medical History - Past Medical History Medical history: Reports: cancer, COPD, DVT, hyperlipidemia, hypertension, pulmonary embolus, renal disease Surgical history: Reports: appendectomy Psychiatric history: Reports: depression - Social History Smoking Status: Never smoker Smokeless Tobacco Status: No Alcohol use: Reports: none Drug use: Reports: none Physical Exam - General Limitations: no limitations General appearance: alert, in no apparent distress - Head Head exam: atraumatic - Eye Eye exam: Present: normal appearance, EOMI. Absent: scleral icterus, conjunctival injection - ENT ENT exam: normal exam, normal oropharynx, mucous membranes moist - Neck Neck exam: Present: normal inspection, full ROM, trachea midline - Chest Chest inspection: Present: normal inspection, symmetric chest wall rise. Absent: tenderness - Respiratory Respiratory exam: Present: normal lung sounds bilaterally. Absent: respiratory distress, wheezes - Cardiovascular Cardiovascular exam: Present: regular rate, normal rhythm, +S1, +S2 - Abdominal Exam Abdominal exam: Present: soft, Non-Tender. Absent: distention, guarding - Extremities Exam Extremities exam: Present: normal inspection, full ROM. Absent: tenderness, pedal edema, calf tenderness - Neurological Exam Neurological exam: Present: alert, oriented X3 (Oriented to person place and time), CN II-XII intact (Vision intact, hearing intact. Strength 5 out of 5 upper and lower extremity. Facial muscles intact, extraocular movement intact.) - Psychiatric Psychiatric exam: Present: normal affect, normal mood - Skin Skin exam: Present: warm, dry, intact, other (Healing incision site in right inguinal region) Course Vital Signs Temperature 98.6 F 07/31/18 12:18 Pulse Rate 81 07/31/18 12:18 Respiratory Rate 18 07/31/18 12:18 Blood Pressure 142/64 07/31/18 12:18 O2 Sat by Pulse Oximetry 98 07/31/18 12:18 Temperature 98.6 F 07/31/18 12:18 Pulse Rate 76 07/31/18 17:29 Respiratory Rate 16 07/31/18 17:08 Blood Pressure 168/85 07/31/18 17:29 O2 Sat by Pulse Oximetry 99 07/31/18 17:29 Oxygen Delivery Oxygen Delivery Room Air Medical Decision Making - MDM Narrative Medical decision making narrative: Mr. Odell is a 82-year-old male presented to the ED complaining of generalized weakness. He reports right leg pain for the past 2 days denies any weakness in that leg. Does report his gait is intact. The weakness is generalized ongoing for the past couple days. He recently had surgery one week ago. He is also reporting feeling slightly depressed denies suicide ideation or homicidal ideation. 1319 Doppler was negative for any DVTs. Chest xray shows left lung base opacification concerning for pneumonia. One dose of Rocephin given. 1417 Due to concern for overall difficulty performing daily tasks and ADLs. Spoke with hospitalist will patient will be admitted for further treatment of pn eumonia and global weakness. - Lab Data Lab results reviewed: Yes I reviewed the patient's lab results. Result diagrams: 07/31/18 12:14 07/31/18 12:14 Lab Results 07/31/18 07/31/18 07/31/18 Range/Units 12:14 12:14 12:14 WBC 7.1 (4.3-11.1) K/mcL RBC 3.20 L (4.19-5.50) M/mcL Hgb 10.4 L D (12.9-16.9) g/dL Hct 31.5 L (37.5-50.1) % MCV 98.4 (83.0-100.0) fL MCH 32.5 (28.0-33.3) pg MCHC 33.0 (31.6-35.5) g/dL RDW 14.1 (11.5-14.5) % Plt Count 336 (140-400) K/mcL MPV 10.2 (9.4-12.4) fL Immature Gran % 0.4 (0-4) % Seg Neutrophils % 75.6 % Lymphocytes % 16.9 % Monocytes % 6.4 % Eosinophils % 0.6 % Basophils % 0.1 % Neutrophils # 5.4 (1.6-8.9) K/mcL Lymphocytes # 1.2 (0.6-4.6) K/mcL Monocytes # 0.5 (0.0-1.3) K/mcL Eosinophils # 0.0 (0.0-0.6) K/mcL Basophils # 0.0 (0.0-0.2) K/mcL PT 24.1 H (9.4-12.1) Seconds INR 2.1 Sodium 136 (136-145) mEq/L Potassium 4.2 (3.5-5.1) mEq/L Chloride 103 (98-107) mEq/L Carbon Dioxide 24 (23-29) mEq/L BUN 22 (8-23) mg/dL Creatinine 1.45 H (0.70-1.30) mg/dL Est GFR ( Amer) 56 L (> 60) Est GFR (Non-Af Amer) 46 L (> 60) BUN/Creatinine Ratio 15 (6-26) Glucose 177 H (70-105) mg/dL Calculated Osmolality 290 (280-300) Calcium 8.5 L (8.6-10.3) mg/dL Troponin I < 0.03 (< 0.04) ng/mL TSH 2.931 (0.340-5.600) mcIU/mL Urine Color (Yellow) Urine Clarity (Clear) Urine pH (5.0-8.0) pH Units Ur Specific [place] (1.010-1.025) Urine Protein (Neg-Trace) mg/dL Urine Glucose (UA) (Normal) mg/dL Urine Ketones (Negative) mg/dL Urine Blood (Negative) Urine Nitrite (Negative) Urine Bilirubin (Negative) Urine Urobilinogen (Normal) mg/dL Ur Leukocyte Esterase (Negative) Urine Microscopic RBC (0-3) per hpf Urine Microscopic WBC (0-3) per hpf Ur Squamous Epith Cells (None-Few) per lpf Urine Bacteria (None-Few) per hpf Hyaline Casts (None-Few) per lpf Ur Culture Indicated? (NO) 07/31/18 Range/Units 13:20 WBC (4.3-11.1) K/mcL RBC (4.19-5.50) M/mcL Hgb (12.9-16.9) g/dL Hct (37.5-50.1) % MCV (83.0-100.0) fL MCH (28.0-33.3) pg MCHC (31.6-35.5) g/dL RDW (11.5-14.5) % Plt Count (140-400) K/mcL MPV (9.4-12.4) fL Immature Gran % (0-4) % Seg Neutrophils % % Lymphocytes % % Monocytes % % Eosinophils % % Basophils % % Neutrophils # (1.6-8.9) K/mcL Lymphocytes # (0.6-4.6) K/mcL Monocytes # (0.0-1.3) K/mcL Eosinophils # (0.0-0.6) K/mcL Basophils # (0.0-0.2) K/mcL PT (9.4-12.1) Seconds INR Sodium (136-145) mEq/L Potassium (3.5-5.1) mEq/L Chloride (98-107) mEq/L Carbon Dioxide (23-29) mEq/L BUN (8-23) mg/dL Creatinine (0.70-1.30) mg/dL Est GFR ( Amer) (> 60) Est GFR (Non-Af Amer) (> 60) BUN/Creatinine Ratio (6-26) Glucose (70-105) mg/dL Calculated Osmolality (280-300) Calcium (8.6-10.3) mg/dL Troponin I (< 0.04) ng/mL TSH (0.340-5.600) mcIU/mL Urine Color Yellow (Yellow) Urine Clarity Clear (Clear) Urine pH 6.0 (5.0-8.0) pH Units Ur Specific [place] 1.010 (1.010-1.025) Urine Protein 100 H (Neg-Trace) mg/dL Urine Glucose (UA) Normal (Normal) mg/dL Urine Ketones Negative (Negative) mg/dL Urine Blood Negative (Negative) Urine Nitrite Negative (Negative) Urine Bilirubin Negative (Negative) Urine Urobilinogen Normal (Normal) mg/dL Ur Leukocyte Esterase Negative (Negative) Urine Microscopic RBC 0-3 (0-3) per hpf Urine Microscopic WBC 0-3 (0-3) per hpf Ur Squamous Epith Cells Many H (None-Few) per lpf Urine Bacteria None Seen (None-Few) per hpf Hyaline Casts None Seen (None-Few) per lpf Ur Culture Indicated? NO (NO) - Radiology Data Radiology results reviewed: Yes I reviewed the patient's radiology results. Attestation Statement - Attestation Attestation: I, Nakul Martino, examined this patient and my medical decision-making was reviewed with the VINYL DIPPER/PA/Advanced Practice Nurse/Resident Physician. I agree with the documented findings, disposition and treatment plan as described except to the extent set forth below. 82-year-old male presents emergency Department with concerns of weakness and fatigue and right lower extremity pain. Patient had a recent right inguinal hernia repair and has since had mild pain with ambulation however if he is remaining still he does not have pain in his leg. There is no calf tenderness. There is no calf swelling. Pulses are equal in bilateral lower extremity. Surgical site is intact without evidence of dehiscence or purulent discharge. There is some bruising around the surgical site but there is not active bl eeding. There is no palpable thrill within the area of swelling. Patient denies abdominal pain, nausea, vomiting, diarrhea. He is unlikely to happen obstruction. Family does not feel like he is doing well at home and that he is weak and fatigued and is unable to get his food or get to the bathroom without significant help. He is lost his appetite, denies fever, denies recent other trauma. On chest x-ray he has a possible pneumonia however he does not have a fever or leukocytosis. He will be treated as possible early pneumonia. He will be admitted to the hospitalist for further care and evaluation.
[2018-07-31 13:31] LABS: Bilirubin,Urine Negative (Negative); Blood,Urine Negative (Negative); Clarity,Urine Clear (Clear); Color,Urine Yellow (Yellow); Glucose,Urine (UA) Normal (Normal); Ketones,Urine Negative (Negative); Leukocyte Esterase,Urine Negative (Negative); Nitrite,Urine Negative (Negative); Protein,Urine 100 mg/dL (Neg-Trace); Urobilinogen,Urine Normal (Normal)
[2018-07-31 13:34] LABS: Bacteria,Urine None Seen per hpf (None-Few); Hyaline Casts,Urine None Seen per lpf (None-Few); RBC,Urine 0-3 per hpf (0-3); Squamous Epithelial Cell,Urine Many per lpf (None-Few); WBC,Urine 0-3 per hpf (0-3)
[2018-07-31] MEDS ORDERED: cefTRIAXone 1,000 MG in Water for inj. (sterile) 10 ML IVP ONE (14:17)
[2018-07-31 14:31] LABS: Thyroid Stimulating Hormone 2.931 mcIU/mL (0.340-5.600)
--- NOTE | 2018-07-31 17:15 | Internal Med History&Physical ---
Date of Encounter: 07/31/18 Time of Encounter: 17:13 Internal Medicine - H&P: HPI Chief complaint: generalized weakness History of present illness: Mr. Odell with best medical history of recent Repair right direct inguinal hernia with Bard Perfix Plug and Knitted polypropylene onlay mesh, presented to the ER with generalized weakness as well as right lower leg pain. The [id number] is concerned about the patient's ability to ambulate after surgery as well as decreased oral intake, the patient denies any calf tenderness or calf swellingis. the family is interested in starting physical therapy then arrange for rehabilitation placement as an outpatient. The patient denies chest pain, shortness of breath, orthopnea, Mason monofilament dyspnea, progressive worsening in lower extremity edema, nausea, vomiting, that area, abdominal pain or changes of urinary habit or bowel habits. chest x-ray was suggestive of possible pneumonia, the patient was admitted for further evaluation and management Past Med Surg Social Fam HX - Past Medical History Medical history: cancer, COPD, DVT, hyperlipidemia, hypertension, pulmonary embolus, renal disease Additional medical history: Diverticulitis. PROSTATE CA Psychiatric history: depression - Past Surgical History Surgical History: appendectomy Additional surgical history: back surgery - Social History Smoking Status: Never smoker Smokeless Tobacco Status: No Alcohol use: none Drug use: none - Family History Father Living Status: Hx Family Cardiac Disorders: Yes Brother Living Status: Mother Living Status: Hx Family Cardiac Disorders: Yes Hx Family Endocrine Disorder: Yes (DM II) Internal Medicine - H&P: Meds Paroxetine [Paxil] 20 mg PO QAM PRN 01/03/16 [History] Simvastatin [Zocor] 20 mg PO HS 01/03/16 [History] Budesonide/Formoterol 80/4.5 [Symbicort 80/4.5] 2 puff IH BIDR 01/05/17 [History] Cholecalciferol (Vitamin D3) [Vitamin D3] 2,000 unit PO QAM 01/05/17 [History] Primidone [Mysoline] 100 mg PO BID 01/05/17 [History] Lisinopril [Zestril] 10 mg PO DAILY 01/16/18 [History] Tamsulosin [Flomax] 0.4 mg PO QPM 01/16/18 [History] Pantoprazole Sodium [Protonix] 40 mg PO QAM 07/20/18 [History] Warfarin Sodium 10 mg PO SUMOTUTHFRSA 07/20/18 [History] Acetaminophen [Tylenol] 1,000 mg PO Q6HR PRN 07/31/18 [History] Warfarin [Coumadin] 12.5 mg PO WE 07/31/18 [History] Allergy/AdvReac Type Severity Reaction Status Date / Time No Known Allergies Allergy Verified 07/20/18 08:23 All Systems PM: A 10-system review of systems was performed and is negative for pertinent findings except as documented above in the HPI. - Constitutional Vitals: Temp Pulse Resp BP Pulse Ox 98.6 F 80 16 156/93 97 07/31/18 12:18 07/31/18 17:08 07/31/18 17:08 07/31/18 17:08 07/31/18 17:08 General appearance: Present: A&O X 3 - Head Head exam: Present: atraumatic, normocephalic - Neck Neck exam general surgery: Present: supple, trachea midline. Absent: lymphadenopathy - Respiratory Respiratory exam: Present: CTAB. Absent: accessory muscle use, rales, rhonchi, wheezes - Cardiovascular Cardiovascular exam: Present: RRR, +S1, +S2. Absent: diastolic murmur, gallop, rubs, systolic murmur - GI/Abdominal GI/Abdominal exam: Present: normal bowel sounds, soft, no peritoneal signs. Absent: distended, tenderness - Extremities Exam Extremities exam: Present: warm, radial pulses palpable and symmetrical. Absent: calf tenderness, cyanotic, pedal edema - Neurological Exam Neurological exam: Present: CN II-XII intact, oriented X3, no focal deficits. Absent: pronater drift, facial droop, speech deficit Internal Med - H&P Results - Labs CBC & Chem 7: 08/01/18 04:48 08/01/18 04:48 Labs: Short CBC 07/31/18 Range/Units 12:14 WBC 7.1 (4.3-11.1) K/mcL Hgb 10.4 L D (12.9-16.9) g/dL Hct 31.5 L (37.5-50.1) % Plt Count 336 (140-400) K/mcL Neutrophils # 5.4 (1.6-8.9) K/mcL BMP 06/23/19 12:14 Sodium 136 Potassium 4.2 Chloride 103 Carbon Dioxide 24 BUN 22 Creatinine 1.45 H Glucose 177 H Calcium 8.5 L Cardiac Enzymes 07/31/18 Range/Units 12:14 Troponin I < 0.03 (< 0.04) ng/mL Urine 07/31/18 Range/Units 13:20 Urine Color Yellow (Yellow) Urine Clarity Clear (Clear) Urine pH 6.0 (5.0-8.0) pH Units Ur Specific [place] 1.010 (1.010-1.025) Urine Protein 100 H (Neg-Trace) mg/dL Urine Glucose (UA) Normal (Normal) mg/dL - Impressions ITS Impressions Chest X-Ray 07/31/18 12:49 IMPRESSION: Airspace opacification left lung base could represent atelectasis or pneumonia D/ / Janusz Hernandez MD / Janusz Hernandez MD Interpreting Provider: Janusz Hernandez MD - Assessment and Plan (1) Hospital acquired PNA Current Visit: Yes Status: Acute Assessment and plan: Hospital acquired Pneumonia - Blood Cx - Urine Legionella antigen - Antibiotics - CBCD, CMP in AM (2) Hyperlipidemia Current Visit: No Status: Chronic Assessment and plan: we'll obtain fasting lipid profile in a.m. and continue statin. Qualifiers: (3) COPD (chronic obstructive pulmonary disease) Current Visit: No Status: Chronic Assessment and plan: we'll continue home inhalers. Qualifiers: (4) Chronic kidney disease (CKD) Current Visit: No Status: Acute Assessment and plan: Creatinine at baseline, we will continue to monitor renal function, avoid nephrotoxin drugs and doses medication as current EGFR. Qualifiers: (5) Pulmonary emboli Current Visit: No Status: Acute Assessment and plan: the patient and chronic anticoagulation with Coumadin, will continue Coumadin and consult pharmacy to adjust dosing as per PT/INR, Qualifiers: Pulmonary embolism type: other Chronicity: acute Acute cor pulmonale presence: without acute cor pulmonale Qualified Code(s): I26.99 - Other pulmonary embolism without acute cor pulmonale (6) Hypotension Current Visit: No Status: Acute Assessment and plan: we will continue medication and continue Timentin blood pressure white impatient and adjust regimen accordingly. Qualifiers: Hypotension type: unspecified hypotension type Qualified Code(s): I95.9 - Hypotension, unspecified (7) Physical deconditioning Current Visit: Yes Status: Acute Assessment and plan: we will consult physical therapy and occupational therapy for further evaluation and management and arrange for rehabilitation placement as an outpatient. - Time Spent With Patient Total time spent is greater than 50% in coordination of care (as documented) at patient's floor/unit and/or counseling patient:
[2018-07-31] MEDS ORDERED: Naloxone 0.4 MG/ML INJ IVP PRN (17:16)
[2018-07-31] MEDS ORDERED: Ondansetron 4 MG/2 ML VIAL IVP PRN (17:16)
[2018-07-31] MEDS ORDERED: Warfarin perPT PO PRN (19:33)
[2018-07-31] MEDS ORDERED: *HR* Warfarin 10 MG TABLET PO ONE (19:38)
[2018-07-31] MEDS: Primidone 50 MG TABLET PO SCH (19:55)
[2018-07-31 20:20] LABS: Bilirubin,Urine Negative (Negative); Blood,Urine Negative (Negative); Clarity,Urine Clear (Clear); Color,Urine Yellow (Yellow); Glucose,Urine (UA) Normal (Normal); Ketones,Urine Negative (Negative); Leukocyte Esterase,Urine Negative (Negative); Nitrite,Urine Negative (Negative); Protein,Urine 100 mg/dL (Neg-Trace); Urobilinogen,Urine Normal (Normal)
[2018-07-31 20:23] LABS: Bacteria,Urine None Seen per hpf (None-Few); Hyaline Casts,Urine None Seen per lpf (None-Few); RBC,Urine 0-3 per hpf (0-3); Squamous Epithelial Cell,Urine Moderate per lpf (None-Few); WBC,Urine 0-3 per hpf (0-3)
[2018-07-31] MEDS: Budesonide/Formoterol 80/4.5 MDI IH SCH (21:04)
[2018-08-01 05:26] LABS: Basophils % 0.3 %; Eosinophils # 0.2 K/mcL (0.0-0.6); Eosinophils % 2.6 %; Hematocrit 31.6 % (37.5-50.1); Hemoglobin 10.2 g/dL (12.9-16.9); Immature Granulocytes % 0.4 % (0-4); Lymphocytes # 1.8 K/mcL (0.6-4.6); Lymphocytes % 24.4 %; Mean Corpuscular HGB Conc 32.3 g/dL (31.6-35.5); Mean Corpuscular Hemoglobin 31.8 pg (28.0-33.3); Mean Corpuscular Volume 98.4 fL (83.0-100.0); Mean Platelet Volume 10.1 fL (9.4-12.4); Monocytes # 0.8 K/mcL (0.0-1.3); Monocytes % 10.8 %; Neutrophils # 4.5 K/mcL (1.6-8.9); Platelet Count 358 K/mcL (140-400); Red Blood Count 3.21 M/mcL (4.19-5.50); Red Cell Distribution Width 14.2 % (11.5-14.5); Segmented Neutrophils % 61.5 %; White Blood Count 7.2 K/mcL (4.3-11.1)
[2018-08-01 05:34] LABS: INR 2.1; Prothrombin Time 24.1 Seconds (9.4-12.1)
[2018-08-01 05:37] LABS: Activated Partial Thrombo Time 34.3 Seconds (26.0-36.0)
[2018-08-01 05:49] LABS: Albumin 3.7 g/dL (3.5-5.7); Albumin/Globulin Ratio 1.3 (1.1-2.2); Bilirubin,Total 0.5 mg/dL (0.3-1.0); Calcium 8.8 mg/dL (8.6-10.3); Chol/HDL Ratio 4.3 (0-4.9); Globulin 2.8 g/dL (2.4-3.5); Magnesium 2.1 mg/dL (1.6-2.6); Phosphorous 2.6 mg/dL (2.7-4.5); Potassium 4.6 mEq/L (3.5-5.1); Total Protein 6.5 g/dL (6.4-8.9)
[2018-08-01] MEDS: Budesonide/Formoterol 80/4.5 MDI IH SCH ×2 (07:28→20:00)
[2018-08-01] MEDS ORDERED: cefTRIAXone 1,000 MG in Water for inj. (sterile) 10 ML IVP SCH (09:00)
--- NOTE | 2018-08-01 10:16 | Internal Med Progress Note ---
Hospitalist Progress Note - Encounter Date of Encounter: 08/01/18 Time of Encounter: 08:30 - Subjective Interval History: H&P reviewed. Patient with history of recent R direct inguinal hernia repair on 07/20, DVT/PE on Coumadin, was admitted for R LE pain and difficulty in ambulation. His history appears to be consistent with claudication upon ambulation. Currently pain free at rest but does complain of expected post-op discomfort in R groin. No fever/chills, N/V, cough, sputum production, or SOB. - Exam Vitals: Temp Pulse Resp BP Pulse Ox 98.0 F 76 14 119/75 96 08/01/18 06:31 08/01/18 06:31 08/01/18 07:29 08/01/18 06:31 08/01/18 07:29 Exam: General: Alert and oriented, not in acute distress. Cardiovascular:Normal S1 & S2, No JVD. Pulse regular. Lungs: clear to auscultation, no wheezes/rales Abdomen:Soft, R groin incision appears unremarkable without erythema or purulent discharge Neurological:Normal cognition and motor skills. 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 Will discontinue antibiotics and monitor. (3) Physical deconditioning Current Visit: Yes Status: Acute Assessment and Plan: following recent surgery, does not utilize pain meds as much as he should PT/OT (4) COPD (chronic obstructive pulmonary disease) Current Visit: No Status: Chronic Assessment and Plan: not in exacerbation Resume home inhalers When necessary DuoNeb (5) Hyperlipidemia Current Visit: No Status: Chronic Assessment and Plan: Resume home meds (6) Chronic kidney disease (CKD) Current Visit: No Status: Chronic Assessment and Plan: Cr at baseline, avoid nephrotoxins (7) Pulmonary emboli Current Visit: No Status: Chronic Assessment and Plan: 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, INR therapeutic (8) S/P hernia repair Current Visit: Yes Status: Chronic Assessment and Plan: recent R direct inguinal hernia repair pain mx DVT Prophylaxis: Therapeutic INR - Time Spent with Patient Total time spent is greater than 50% in coordination of care (as documented) at patient's floor/unit and/or counseling patient: 25 - 35 minutes Plan of Care Discussed with: patient Internal Medicine: Result - Labs CBC & Chem 7: 08/01/18 04:48 08/01/18 04:48 Labs: Short CBC 07/31/18 08/01/18 Range/Units 12:14 04:48 WBC 7.1 7.2 (4.3-11.1) K/mcL Hgb 10.4 L D 10.2 L (12.9-16.9) g/dL Hct 31.5 L 31.6 L (37.5-50.1) % Plt Count 336 358 (140-400) K/mcL Neutrophils # 5.4 4.5 (1.6-8.9) K/mcL BMP 07/31/18 08/01/18 12:14 04:48 Sodium 136 136 Potassium 4.2 4.6 Chloride 103 100 Carbon Dioxide 24 27 BUN 22 22 Creatinine 1.45 H 1.44 H Glucose 177 H 111 H Calcium 8.5 L 8.8 Cardiac Enzymes 07/31/18 Range/Units 12:14 Troponin I < 0.03 (< 0.04) ng/mL Liver Function 08/01/18 Range/Units 04:48 Total Bilirubin 0.5 (0.3-1.0) mg/dL AST 25 (13-39) Units/L ALT 49 (7-52) Units/L Alkaline Phosphatase 64 (34-104) Units/L Albumin 3.7 (3.5-5.7) g/dL Urine 07/31/18 07/31/18 Range/Units 13:20 20:02 Urine Color Yellow Yellow (Yellow) Urine Clarity Clear Clear (Clear) Urine pH 6.0 6.0 (5.0-8.0) pH Units Ur Specific [place] 1.010 1.010 (1.010-1.025) Urine Protein 100 H 100 H (Neg-Trace) mg/dL Urine Glucose (UA) Normal Normal (Normal) mg/dL - ABG Interpretation ABG results: PT/INR, D-dimer PT 24.1 Seconds (9.4-12.1) H 08/01/18 04:48 - Impressions Impressions Chest X-Ray 07/31/18 12:49 IMPRESSION: Airspace opacification left lung base could represent atelectasis or pneumonia D/ / Janusz Hernandez MD / Janusz Hernandez MD Interpreting Provider: Janusz Hernandez MD Consult Discharge Plan - Plan (2) Pneumonia Qualifiers: Pneumonia type: due to unspecified organism Laterality: left Lung location: lower lobe of lung Qualified Code(s): J18.1 - Lobar pneumonia, unspecified organism (4) COPD (chronic obstructive pulmonary disease) Qualifiers: (5) Hyperlipidemia Qualifiers: (6) Chronic kidney disease (CKD) Qualifiers: Chronic kidney disease stage: stage 3 (moderate) Qualified Code(s): N18.3 - Chronic kidney disease, stage 3 (moderate) (7) Pulmonary emboli Qualifiers: Pulmonary embolism type: other Chronicity: chronic Acute cor pulmonale presence: without acute cor pulmonale Qualified Code(s): I27.82 - Chronic pulmonary embolism
[2018-08-01] MEDS ORDERED: *HR* OxyCODONE/APAP 5/325 TABLET PO PRN (10:19)
[2018-08-01] MEDS ORDERED: Ipratropium/Albuterol Neb 3 ML IH PRN (10:19)
[2018-08-01] MEDS: Cholecalciferol (D-3) 1,000 UNIT TABLET PO SCH (10:31)
[2018-08-01] MEDS: Primidone 50 MG TABLET PO SCH ×2 (10:31→20:32)
--- NOTE | 2018-08-01 10:44 | Electrocardiograph Report ---
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
[2018-08-01 12:45] LABS: Adenovirus Not Detected (Not Detect); Bordetella Pertussis Not Detected (Not Detect); Chlamydophila pneumoniae Not Detected (Not Detect); Coronavirus 229E Not Detected (Not Detect); Coronavirus HKU1 Not Detected (Not Detect); Coronavirus NL63 Not Detected (Not Detect); Coronavirus OC43 Not Detected (Not Detect); Human Metapneumovirus Not Detected (Not Detect); Human Rhinovirus/Enterovirus Not Detected (Not Detect); Influenza A Subtype 2009 H1 Not Detected (Not Detect); Influenza A Untypeable Not Detected (Not Detect); Influenza B Not Detected (Not Detect); Mycoplasma pneumoniae Not Detected (Not Detect); Parainfluenza Virus 1 Not Detected (Not Detect); Parainfluenza Virus 2 Not Detected (Not Detect); Parainfluenza Virus 3 Not Detected (Not Detect); Parainfluenza Virus 4 Not Detected (Not Detect); Respiratory Syncytial Virus Not Detected (Not Detect)
[2018-08-01] MEDS ORDERED: Warfarin perPT PO PRN (18:00)
[2018-08-01] MEDS ORDERED: *HR* Warfarin 10 MG TABLET PO ONE (18:00)
--- NOTE | 2018-08-01 20:26 | General Surgery Consult Note ---
Date of Encounter: 08/01/18 Time of Encounter: 20:14 History of Present Illness Consult date: 08/01/18 Requesting physician: Paul Noel History of present illness: 82 yo, patient of Dr Hernandez, admitted to [facility] after presenting to the ED with complaints generalized weakness and right lower leg pain. The patient is approximately 12 days status post open repair right direct inguinal hernia with mesh. The procedure was completed without difficulty however the patient is chronically anticoagulated and has experienced considerable swelling at the surgical site. The patient was seen in the office on 07/28/18. The hernia repair was intact the swelling was considerable but expected to resolve as the hematoma/seroma resorbed. The patient was instructed to apply heat with caution against thermal injury. Over the next few days patient experienced progressive weakness and anterior right lower leg pain. He denies any fevers, chills, na usea or vomiting but he has been anorexic since surgery. Past medical history is notable for diverticulosis/diverticulitis; iron deficiency anemia requiring and responsive to iron infusions, hypertension, hypercholesterolemia; CKD-3; emphysema; PE in 2018 for which chronic anticoagulation (warfarin) was prescribed. Surgical history: Back surgery in 2016; colonoscopy July 2017; EGD with biopsies September 2017; open repair right direct inguinal hernia with mesh, 07/20/18. Allergies: No known drug allergies Social history: The patient is , denies any tobacco, alcohol or illicit drug use. Physical examination the patient appeared to be in no acute distress. He was afebrile, 97.4, pulse was regular at 79 bpm, respiratory rate 14 and nonlabored, blood pressure 130/70. SPO2 on room air 98% Skin was warm without obvious jaundice Lungs were clear to auscultation. There is no obvious abdominal pain on deep inspiration Cardiac: Regular rate, no appreciable murmurs Abdomen: Soft, nontender with no detected intra-abdominal masses or fullness. No peritoneal signs or rebound. Right groin was markedly enlarged/swollen with ecchymoses evident at the edges of the swelling. Oblique incision right lower anterior abdominal wall was intact with skin edges well approximated. No erythema or cellulitis present. No drainage The penis was deformed and ecchymotic; the foreskin was thickened and ecchymotic as well. The ecchymosis was not evident at the time of his office exam 07/28/2018 though the groin swelling extending into the scrotum was present. The swelling appears stable from exam, 07/28/2018. Extremities: No obvious clubbing, cyanosis, or edema. Anterior thigh sensation appears to be intact. The patient is complaining of pain/soreness proximal anterior tibia. Doppler venogram obtained on presentation to the emergency department was negative for DVT. Labs show a stable white count 7.1 - 7.2. Hemoglobin also stable 10.4 - 10.2. Hematocrit 31.5 - 31.6. Differential is unremarkable PT stable 24.1, INR 2.1 Electrolytes and BUN have remained stable and within normal limits, creatinine elevated but stable at 1.45 -1.44, estimated GFR 46-47 Impression: 82-year-old approximately 12 days status post open repair right direct inguinal hernia with mesh. Postoperative swelling noted but appears stable. Patient chronically anticoagulated and has likely developed a hematoma at the surgical site. Semination demonstrated no significant fluctuance. As the hematoma begins to liquefy, needle aspiration of the fluid may be possible, however, that has yet to occur. Recommendations: No intervention necessary at the surgical site. Patient to continue outpatient surgical follow-up with me as previously directed Past Med Surg Social Fam HX - Past Medical History Medical history: cancer, COPD, DVT, hyperlipidemia, hypertension, pulmonary embolus, renal disease Additional medical history: Diverticulitis. PROSTATE CA Psychiatric history: depression - Past Surgical History Surgical History: appendectomy Additional surgical history: back surgery - Social History Smoking Status: Never smoker Smokeless Tobacco Status: No Alcohol use: none Drug use: none - Family History Father Living Status: Hx Family Cardiac Disorders: Yes Brother Living Status: Mother Living Status: Hx Family Cardiac Disorders: Yes Hx Family Endocrine Disorder: Yes (DM II) Medications and Allergies Paroxetine [Paxil] 20 mg PO QAM PRN 01/03/16 [History] Simvastatin [Zocor] 20 mg PO HS 01/03/16 [History] Budesonide/Formoterol 80/4.5 [Symbicort 80/4.5] 2 puff IH BIDR 01/05/17 [History] Cholecalciferol (Vitamin D3) [Vitamin D3] 2,000 unit PO QAM 01/05/17 [History] Primidone [Mysoline] 100 mg PO BID 01/05/17 [History] Lisinopril [Zestril] 10 mg PO DAILY 01/16/18 [History] Tamsulosin [Flomax] 0.4 mg PO QPM 01/16/18 [History] Pantoprazole Sodium [Protonix] 40 mg PO QAM 07/20/18 [History] Warfarin Sodium 10 mg PO SUMOTUTHFRSA 07/20/18 [History] Acetaminophen [Tylenol] 1,000 mg PO Q6HR PRN 07/31/18 [History] Warfarin [Coumadin] 12.5 mg PO WE 07/31/18 [History] Allergy/AdvReac Type Severity Reaction Status Date / Time No Known Allergies Allergy Verified 07/20/18 08:23 Review of Systems All systems PM: The remainder of the systems were reviewed and are negative General Surgery Exam Initial Vital Signs Temp Pulse Resp BP Pulse Ox 98.6 F 81 18 142/64 98 07/31/18 12:18 07/31/18 12:18 07/31/18 12:18 07/31/18 12:18 07/31/18 12:18 Exam Initial Vital Signs Temp Pulse Resp BP Pulse Ox 98.6 F 81 18 142/64 98 07/31/18 12:18 07/31/18 12:18 07/31/18 12:18 07/31/18 12:18 07/31/18 12:18 Results - Labs 08/01/18 04:48 08/01/18 04:48 Abnormal lab results RBC 3.21 M/mcL (4.19-5.50) L 08/01/18 04:48 Hgb 10.2 g/dL (12.9-16.9) L 08/01/18 04:48 Hct 31.6 % (37.5-50.1) L 08/01/18 04:48 PT 24.1 Seconds (9.4-12.1) H 08/01/18 04:48 1.44 mg/dL (0.70-1.30) H 08/01/18 04:48 Est GFR ( Amer) 57 (> 60) L 08/01/18 04:48 Est GFR (Non-Af Amer) 47 (> 60) L 08/01/18 04:48 Glucose 111 mg/dL (70-105) H 08/01/18 04:48 Calcium 8.5 mg/dL (8.6-10.3) L 07/31/18 12:14 Phosphorus 2.6 mg/dL (2.7-4.5) L 08/01/18 04:48 Triglycerides 188 mg/dL (< 150) H 08/01/18 04:48 VLDL Cholesterol, Calc 38 mg/dL (< 31) H 08/01/18 04:48 100 mg/dL (Neg-Trace) H 07/31/18 20:02 Ur Squamous Epith Cells Moderate per lpf (None-Few) H 07/31/18 20:02 Diabetes panel 08/01/18 Range/Units 04:48 Sodium 136 (136-145) mEq/L Potassium 4.6 (3.5-5.1) mEq/L Chloride 100 (98-107) mEq/L Carbon Dioxide 27 (23-29) mEq/L BUN 22 (8-23) mg/dL Creatinine 1.44 H (0.70-1.30) mg/dL Glucose 111 H (70-105) mg/dL Calcium 8.8 (8.6-10.3) mg/dL AST 25 (13-39) Units/L ALT 49 (7-52) Units/L Alkaline Phosphatase 64 (34-104) Units/L Albumin 3.7 (3.5-5.7) g/dL Triglycerides 188 H (< 150) mg/dL HDL Cholesterol 40 (40-59) mg/dL Calcium panel 08/01/18 Range/Units 04:48 Calcium 8.8 (8.6-10.3) mg/dL Phosphorus 2.6 L (2.7-4.5) mg/dL Albumin 3.7 (3.5-5.7) g/dL Pituitary panel 08/01/18 Range/Units 04:48 Sodium 136 (136-145) mEq/L Potassium 4.6 (3.5-5.1) mEq/L Chloride 100 (98-107) mEq/L Carbon Dioxide 27 (23-29) mEq/L BUN 22 (8-23) mg/dL Creatinine 1.44 H (0.70-1.30) mg/dL Glucose 111 H (70-105) mg/dL Calcium 8.8 (8.6-10.3) mg/dL Adrenal panel 08/01/18 Range/Units 04:48 Sodium 136 (136-145) mEq/L Potassium 4.6 (3.5-5.1) mEq/L Chloride 100 (98-107) mEq/L Carbon Dioxide 27 (23-29) mEq/L BUN 22 (8-23) mg/dL Creatinine 1.44 H (0.70-1.30) mg/dL Glucose 111 H (70-105) mg/dL Calcium 8.8 (8.6-10.3) mg/dL Total Bilirubin 0.5 (0.3-1.0) mg/dL AST 25 (13-39) Units/L ALT 49 (7-52) Units/L Alkaline Phosphatase 64 (34-104) Units/L Albumin 3.7 (3.5-5.7) g/dL All other labs normal. Consult Discharge Plan - Plan Referrals: Cecelia Hernandez MD [Primary Care Provider] -
[2018-08-02 07:13] LABS: Hemoglobin 10.1 g/dL (12.9-16.9); Mean Corpuscular HGB Conc 32.6 g/dL (31.6-35.5); Mean Corpuscular Hemoglobin 31.8 pg (28.0-33.3); Mean Corpuscular Volume 97.5 fL (83.0-100.0); Platelet Count 372 K/mcL (140-400); Red Blood Count 3.18 M/mcL (4.19-5.50); Red Cell Distribution Width 14.2 % (11.5-14.5); White Blood Count 6.6 K/mcL (4.3-11.1)
[2018-08-02 07:25] LABS: INR 2.3; Prothrombin Time 26.3 Seconds (9.4-12.1)
[2018-08-02 07:33] LABS: BUN/Creatinine Ratio 18 (6-26); Blood Urea Nitrogen 24 mg/dL (8-23); Carbon Dioxide 29 mEq/L (23-29); Chloride 101 mEq/L (98-107); Glucose 117 mg/dL (70-105); Osmolality,Calculated 291 (280-300); Potassium 4.5 mEq/L (3.5-5.1); Sodium 138 mEq/L (136-145); eGFR For African Americans > 60 (> 60); eGFR For Non-African Americans 50 (> 60)
[2018-08-02] MEDS: Budesonide/Formoterol 80/4.5 MDI IH SCH (08:22)
[2018-08-02] MEDS: Primidone 50 MG TABLET PO SCH (09:06)
[2018-08-02] MEDS: Cholecalciferol (D-3) 1,000 UNIT TABLET PO SCH (09:06)
--- NOTE | 2018-08-02 09:06 | Discharge Summary ---
- NOTES TO OUTPATIENT PROVIDER Notes to Outpatient Provider: Follow up with PCP and surgery. May need exercise testing as MIRELLA demonstrated non-compressible arteries. Final report pending. Follow up in anti-coagulation clinic with PT/INR in 5 days Orders not resulted at time of discharge: Pending orders 07/31/18 18:48 Culture,Sputum with Gram Stain [RM] Routine 08/03/18 04:00 PT/INR [Prothrombin Time INR] [COAG] AM 0400 08/04/18 04:00 PT/INR [Prothrombin Time INR] [COAG] AM 0400 08/05/18 04:00 PT/INR [Prothrombin Time INR] [COAG] AM 0400 08/06/18 04:00 PT/INR [Prothrombin Time INR] [COAG] AM 0400 Date of Encounter: 08/02/18 Time of Encounter: 07:45 - Discharge Diagnosis (1) Right leg pain Priority: Primary Status: Acute (2) Pneumonia Priority: Secondary Status: Inactive Qualifiers: Pneumonia type: due to unspecified organism Laterality: left Lung location: lower lobe of lung Qualified Code(s): J18.1 - Lobar pneumonia, unspecified organism (3) Physical deconditioning Priority: Secondary Status: Acute (4) COPD (chronic obstructive pulmonary disease) Priority: Secondary Status: Chronic Qualifiers: COPD type: unspecified COPD Qualified Code(s): J44.9 - Chronic obstructive pulmonary disease, unspecified (5) Hyperlipidemia Priority: Secondary Status: Chronic Qualifiers: Hyperlipidemia type: unspecified Qualified Code(s): E78.5 - Hyperlipidemia, unspecified (6) Chronic kidney disease (CKD) Priority: Secondary Status: Chronic Qualifiers: Chronic kidney disease stage: stage 3 (moderate) Qualified Code(s): N18.3 - Chronic kidney disease, stage 3 (moderate) (7) Pulmonary emboli Priority: Secondary Status: Chronic Qualifiers: Pulmonary embolism type: other Chronicity: chronic Acute cor pulmonale presence: without acute cor pulmonale Qualified Code(s): I27.82 - Chronic pulmonary embolism (8) S/P hernia repair Priority: Secondary Status: Chronic Hospital course: Mr. Odell is a 82 year old male with history of recent R direct inguinal hernia repair on 07/20, DVT/PE on Coumadin, was admitted for R LE pain on ambulation and mild R groin swelling. Doppler -ve for DVT, MIRELLA (final report pending) showed non-compressible arteries. Seen in consultation with surgery who did not feel that any intervention was necessary at this point. Patient was encouraged to use Tylenol for pain and use Percocet only for pain that is not relieved by Tylenol. He was also evaluated by PT/OT who recommended home health service. There was a question on left sided PNA but pt did not have any pulmonary symptoms, fever, or leukocytosis hence abx was discontinued. Discharge discussed with: patient, nurse, environmental consultant - Time Spent with Patient Total time spent providing and/or coordinating discharge services: 26 mins - Discharge Medications Prescriptions: Continued Paroxetine [Paxil] 20 mg PO QAM PRN PRN Reason: Anxiety Simvastatin [Zocor] 20 mg PO HS Budesonide/Formoterol 80/4.5 [Symbicort 80/4.5] 2 puff IH BIDR Cholecalciferol (Vitamin D3) [Vitamin D3] 2,000 unit PO QAM Primidone [Mysoline] 100 mg PO BID Tamsulosin [Flomax] 0.4 mg PO QPM Lisinopril [Zestril] 10 mg PO DAILY Warfarin Sodium 10 mg PO [facility] Pantoprazole Sodium [Protonix] 40 mg PO QAM Acetaminophen [Tylenol] 1,000 mg PO Q6HR PRN PRN Reason: Pain Warfarin [Coumadin] 12.5 mg PO WE Home Medications: Paroxetine [Paxil] 20 mg PO QAM PRN 01/03/16 [History] Simvastatin [Zocor] 20 mg PO HS 01/03/16 [History] Budesonide/Formoterol 80/4.5 [Symbicort 80/4.5] 2 puff IH BIDR 01/05/17 [History] Cholecalciferol (Vitamin D3) [Vitamin D3] 2,000 unit PO QAM 01/05/17 [History] Primidone [Mysoline] 100 mg PO BID 01/05/17 [History] Lisinopril [Zestril] 10 mg PO DAILY 01/16/18 [History] Tamsulosin [Flomax] 0.4 mg PO QPM 01/16/18 [History] Pantoprazole Sodium [Protonix] 40 mg PO QAM 07/20/18 [History] Warfarin Sodium 10 mg PO SUMOTUTHFRSA 07/20/18 [History] Acetaminophen [Tylenol] 1,000 mg PO Q6HR PRN 07/31/18 [History] Warfarin [Coumadin] 12.5 mg PO WE 07/31/18 [History] Allergies/Adverse Reactions: Allergy/AdvReac Type Severity Reaction Status Date / Time No Known Allergies Allergy Verified 07/20/18 08:23 Date of admission: 07/31/18 17:56 Primary care physician: Cecelia Hernandez MD Consults: 07/31/18 18:48 Consult to Nurse Navigator [CONS] Routine Comment: 07/31/18 19:30 Consult to Physical Therapy [CONS] Routine Comment: Evaluate, develop and implement POC Reason for Consult: Weekness Does patient have active BEDREST order?: No Is patient medically & hemodynamically stable?: Yes Patient assessed for mobility or mobilized this visit?: No 07/31/18 19:33 Consult to Occupational Therapy [CONS] Routine Comment: Evaluate, develop and implement POC Reason for Consult: weekness Does patient have active BEDREST order?: No Is patient medically & hemodynamically stable?: Yes Patient assessed for mobility or mobilized this visit?: No 08/01/18 16:52 Consult to Surgery [CONS] Routine Consulting Provider: Surgery Mirlande Gambino Reason for Consult: recent R direct hernia repair Call Completed: Yes - Constitutional Vitals: Temp Pulse Resp BP Pulse Ox 98.0 F 70 16 143/76 97 08/02/18 07:23 08/02/18 07:23 08/02/18 08:26 08/02/18 07:23 08/02/18 08:26 General appearance: Present: A&O X 3 Exam: General: Alert and oriented, not in acute distress. Cardiovascular:Normal S1 & S2, No JVD. Pulse regular. Lungs: clear to auscultation, no wheezes/rales Abdomen:Soft, R groin incision appears unremarkable without erythema or purulent discharge. Mild swelling with bruising noted Neurological:Normal cognition and motor skills. Non-focal Psych: Appropriate Pulses: Faint DP felt bilaterally but unable to appreciate PT - Patient Status Disposition: Home Health Service Condition: Fair - Discharge Instructions Instructions: Chronic Hypertension (DC), Chronic Obstructive Pulmonary Disease (DC) Follow Up With: Cecelia Hernandez MD [Primary Care Provider] - Archie Gambino MD [Non-Partnered Physician] - Forms: ED Satisfaction Letter - Diet and Activity Activity: as per physical therapy, resume usual activities as tolerated Diet: low salt diet
--- NOTE | 2018-08-02 09:16 | Physician Discharge Referral ---
Home Health/Hosp Referral Info Transfer to: Home Health Provider in Charge Post Discharge: PCP - Diagnosis (1) Right leg pain Priority: Primary Status: Acute (2) Pneumonia Priority: Secondary Status: Inactive (3) Physical deconditioning Priority: Secondary Status: Acute (4) COPD (chronic obstructive pulmonary disease) Priority: Secondary Status: Chronic (5) Hyperlipidemia Priority: Secondary Status: Chronic (6) Chronic kidney disease (CKD) Priority: Secondary Status: Chronic (7) Pulmonary emboli Priority: Secondary Status: Chronic (8) S/P hernia repair Priority: Secondary Status: Chronic - Respiratory Orders Smoking Cessation: Smoking cessation has been advised. For more information, call the [place] Tobacco Quit Line at 4-384-RTNV-NOW. - Services Needed Following services are medically necessary services: Nursing, Physical Therapy, Occupational Therapy - Transfer Medications Home Medications: Paroxetine [Paxil] 20 mg PO QAM PRN 01/03/16 [History] Simvastatin [Zocor] 20 mg PO HS 01/03/16 [History] Budesonide/Formoterol 80/4.5 [Symbicort 80/4.5] 2 puff IH BIDR 01/05/17 [History] Cholecalciferol (Vitamin D3) [Vitamin D3] 2,000 unit PO QAM 01/05/17 [History] Primidone [Mysoline] 100 mg PO BID 01/05/17 [History] Lisinopril [Zestril] 10 mg PO DAILY 01/16/18 [History] Tamsulosin [Flomax] 0.4 mg PO QPM 01/16/18 [History] Pantoprazole Sodium [Protonix] 40 mg PO QAM 07/20/18 [History] Warfarin Sodium 10 mg PO SUMOTUTHFRSA 07/20/18 [History] Acetaminophen [Tylenol] 1,000 mg PO Q6HR PRN 07/31/18 [History] Warfarin [Coumadin] 12.5 mg PO WE 07/31/18 [History] Allergies/Adverse Reactions: Allergy/AdvReac Type Severity Reaction Status Date / Time No Known Allergies Allergy Verified 07/20/18 08:23 Certification: Further, I certify that my clinical findings support that this patient is homebound (i.e. absences from home require considerable and taxing effort and are for medical reasons or scientologist services or infrequently or short duration when for other reasons) because: Homebound Reason: Patient requires assistance of a person or device to safely leave home Attestation: My signature below is to certify that this patient is under my care and that I, or nurse practitioner, or a physician's assistant operator working with me, has a [id number] encounter with this patient.
[2018-08-02 11:12] VITALS: BP 124/68
[2018-08-02] MEDS ORDERED: *HR* Warfarin 10 MG TABLET PO ONE (18:00)
== END 2018-08-02 13:56 | disposition home health service (06) | DRG 556 ==
LOC: 3ANU 12:08 → EMEROOARM 12:08 → 3ANU 17:36 → SUATTDRO 17:56
PROVIDERS: ADMIT Internal Medicine Nephrology; ATTEND Internal Medicine

== ENCOUNTER 2018-11-01 19:44 | Observation (INO) ==
--- NOTE | 2018-11-01 19:51 | Emergency Department Note ---
Disposition Clinical Impression: Chest pain Qualifiers: Chest pain type: unspecified Qualified Code(s): R07.9 - Chest pain, unspecified Disposition: Admitted As Inpatient Time of Disposition: 12:55 General Adult HPI - General Stated complaint: heaviness in chest/weakness Time Seen by Provider: 11/01/18 19:47 - Related Data Home Medications Medication Instructions Recorded Confirmed Paroxetine [Paxil] 20 mg PO QAM PRN 01/03/16 11/01/18 Simvastatin [Zocor] 20 mg PO HS 01/03/16 11/01/18 Budesonide/Formoterol 80/4.5 2 puff IH BIDR 01/05/17 11/01/18 [Symbicort 80/4.5] Cholecalciferol (Vitamin D3) 2,000 unit PO QAM 01/05/17 11/01/18 [Vitamin D3] Primidone [Mysoline] 100 mg PO BID 01/05/17 11/01/18 Lisinopril [Zestril] 10 mg PO DAILY 01/16/18 11/01/18 Tamsulosin [Flomax] 0.4 mg PO QPM 01/16/18 11/01/18 Pantoprazole Sodium [Protonix] 40 mg PO QAM 07/20/18 11/01/18 Warfarin Sodium 12.5 mg PO WESA 07/20/18 11/02/18 Warfarin [Coumadin] 10 mg PO SUMOTUTHFR 07/31/18 11/02/18 Allergies Allergy/AdvReac Type Severity Reaction Status Date / Time No Known Allergies Allergy Verified 07/20/18 08:23 Past Medical History - Past Medical History Medical history: Reports: cancer, COPD, DVT, hyperlipidemia, hypertension, pulmonary embolus, renal disease Surgical history: Reports: appendectomy Psychiatric history: Reports: depression - Social History Smoking Status: Never smoker Smokeless Tobacco Status: No Alcohol use: Reports: none Drug use: Reports: none Course Vital Signs Temperature 97.0 F L 11/01/18 19:50 Pulse Rate 77 11/01/18 19:50 Respiratory Rate 16 11/01/18 19:50 Blood Pressure 161/80 11/01/18 19:50 O2 Sat by Pulse Oximetry 100 11/01/18 19:50 Temperature 97.5 F L 11/02/18 12:15 Pulse Rate 67 11/02/18 12:15 Respiratory Rate 16 11/02/18 12:15 Blood Pressure 182/78 11/02/18 12:15 O2 Sat by Pulse Oximetry 99 11/02/18 12:15 Oxygen Delivery Oxygen Delivery Room Air Medical Decision Making - Lab Data Result diagrams: 11/02/18 01:48 11/02/18 01:48 Lab Results 11/01/18 11/01/18 11/01/18 Range/Units 19:55 19:55 19:55 WBC 6.0 (4.3-11.1) K/mcL RBC 4.11 L (4.19-5.50) M/mcL Hgb 13.2 (12.9-16.9) g/dL Hct 39.5 (37.5-50.1) % MCV 96.1 (83.0-100.0) fL MCH 32.1 (28.0-33.3) pg MCHC 33.4 (31.6-35.5) g/dL RDW 13.2 (11.5-14.5) % Plt Count 218 (140-400) K/mcL MPV 10.5 (9.4-12.4) fL Immature Gran % 0.2 (0-4) % Seg Neutrophils % 55.9 % Lymphocytes % 31.8 % Monocytes % 9.8 % Eosinophils % 2.0 % Basophils % 0.3 % Neutrophils # 3.4 (1.6-8.9) K/mcL Lymphocytes # 1.9 (0.6-4.6) K/mcL Monocytes # 0.6 (0.0-1.3) K/mcL Eosinophils # 0.1 (0.0-0.6) K/mcL Basophils # 0.0 (0.0-0.2) K/mcL PT 29.0 H (9.4-12.1) Seconds INR 2.5 Sodium 135 L (136-145) mEq/L Potassium 4.2 (3.5-5.1) mEq/L Chloride 102 (98-107) mEq/L Carbon Dioxide 22 L (23-29) mEq/L BUN 25 H (8-23) mg/dL Creatinine 1.53 H (0.70-1.30) mg/dL Est GFR ( Amer) 53 L (> 60) Est GFR (Non-Af Amer) 43 L (> 60) BUN/Creatinine Ratio 16 (6-26) Glucose 140 H (70-105) mg/dL Calculated Osmolality 287 (280-300) Calcium 8.9 (8.6-10.3) mg/dL Total Bilirubin 0.3 (0.3-1.0) mg/dL AST 20 (13-39) Units/L ALT 26 (7-52) Units/L Alkaline Phosphatase 60 (34-104) Units/L Troponin I < 0.03 (< 0.04) ng/mL B-Natriuretic Peptide (Less than 100) pg/mL Serum Total Protein 6.5 (6.4-8.9) g/dL Albumin 4.0 (3.5-5.7) g/dL Globulin 2.5 (2.4-3.5) g/dL Albumin/Globulin Ratio 1.6 (1.1-2.2) 11/01/18 Range/Units 19:55 WBC (4.3-11.1) K/mcL RBC (4.19-5.50) M/mcL Hgb (12.9-16.9) g/dL Hct (37.5-50.1) % MCV (83.0-100.0) fL MCH (28.0-33.3) pg MCHC (31.6-35.5) g/dL RDW (11.5-14.5) % Plt Count (140-400) K/mcL MPV (9.4-12.4) fL Immature Gran % (0-4) % Seg Neutrophils % % Lymphocytes % % Monocytes % % Eosinophils % % Basophils % % Neutrophils # (1.6-8.9) K/mcL Lymphocytes # (0.6-4.6) K/mcL Monocytes # (0.0-1.3) K/mcL Eosinophils # (0.0-0.6) K/mcL Basophils # (0.0-0.2) K/mcL PT (9.4-12.1) Seconds INR Sodium (136-145) mEq/L Potassium (3.5-5.1) mEq/L Chloride (98-107) mEq/L Carbon Dioxide (23-29) mEq/L BUN (8-23) mg/dL Creatinine (0.70-1.30) mg/dL Est GFR ( Amer) (> 60) Est GFR (Non-Af Amer) (> 60) BUN/Creatinine Ratio (6-26) Glucose (70-105) mg/dL Calculated Osmolality (280-300) Calcium (8.6-10.3) mg/dL Total Bilirubin (0.3-1.0) mg/dL AST (13-39) Units/L ALT (7-52) Units/L Alkaline Phosphatase (34-104) Units/L Troponin I (< 0.04) ng/mL B-Natriuretic Peptide 37 (Less than 100) pg/mL Serum Total Protein (6.4-8.9) g/dL Albumin (3.5-5.7) g/dL Globulin (2.4-3.5) g/dL Albumin/Globulin Ratio (1.1-2.2) Attestation Statement - Attestation Attestation: I reviewed the residents documentation and agree with the residents assessment and plan of care. I have personally had face to face time with the patient. (Brief History, Brief Exam, and MDM) I personally supervised and was present for the goodson/critical portions of the following procedures completed by the resident: (add procedures performed here). [id number] time provided Patient arrives by EMS complaining of chest discomfort and generalized weakness. He takes Coumadin for a PE diagnosed in February of this year but states his symptoms are subjectively different. He does not appear in any acute distress upon arrival. I tested supervising the resident physician's interpretation of the ECG.
[2018-11-01 20:10] LABS: Basophils % 0.3 %; Eosinophils # 0.1 K/mcL (0.0-0.6); Hematocrit 39.5 % (37.5-50.1); Hemoglobin 13.2 g/dL (12.9-16.9); Immature Granulocytes % 0.2 % (0-4); Lymphocytes # 1.9 K/mcL (0.6-4.6); Lymphocytes % 31.8 %; Mean Corpuscular HGB Conc 33.4 g/dL (31.6-35.5); Mean Corpuscular Hemoglobin 32.1 pg (28.0-33.3); Mean Corpuscular Volume 96.1 fL (83.0-100.0); Mean Platelet Volume 10.5 fL (9.4-12.4); Monocytes # 0.6 K/mcL (0.0-1.3); Monocytes % 9.8 %; Neutrophils # 3.4 K/mcL (1.6-8.9); Platelet Count 218 K/mcL (140-400); Red Blood Count 4.11 M/mcL (4.19-5.50); Red Cell Distribution Width 13.2 % (11.5-14.5); Segmented Neutrophils % 55.9 %
[2018-11-01 20:17] LABS: INR 2.5
--- NOTE | 2018-11-01 20:22 | Emergency Department Note ---
Disposition Clinical Impression: Chest pain Qualifiers: Chest pain type: unspecified Qualified Code(s): R07.9 - Chest pain, unspecified Disposition: Admitted As Inpatient Referrals: Cecelia Hernandez MD [Primary Care Provider] - Forms: ED Satisfaction Letter Time of Disposition: 21:18 Chest Pain HPI - General Chief Complaint: ED Chest Pain Stated Complaint: heaviness in chest/weakness Time Seen by Provider: 11/01/18 19:47 Source: EMS Vital Signs Reviewed: Yes Nursing Notes Reviewed: Yes - History of Present Illness HPI Narrative: 83-year-old male with history of COPD, CHF, pulmonary embolism on Coumadin who presents the emergency department with complaints of chest heaviness over the last 2 hours. 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 He has otherwise felt severely weak over the last 8 hours. He notes the symptoms are different from previously diagnosed PE. He denies any dyspnea on deep inhalation, peripheral edema, nausea, vomiting, diarrhea, abdominal pain or back pain. Severity scale (1-10): 8 - Related Data Home Medications Medication Instructions Recorded Confirmed Paroxetine [Paxil] 20 mg PO QAM PRN 01/03/16 07/31/18 Simvastatin [Zocor] 20 mg PO HS 01/03/16 07/31/18 Budesonide/Formoterol 80/4.5 2 puff IH BIDR 01/05/17 07/31/18 [Symbicort 80/4.5] Cholecalciferol (Vitamin D3) 2,000 unit PO QAM 01/05/17 07/31/18 [Vitamin D3] Primidone [Mysoline] 100 mg PO BID 01/05/17 07/31/18 Lisinopril [Zestril] 10 mg PO DAILY 01/16/18 07/31/18 Tamsulosin [Flomax] 0.4 mg PO QPM 01/16/18 07/31/18 Pantoprazole Sodium [Protonix] 40 mg PO QAM 07/20/18 07/31/18 Warfarin Sodium 10 mg PO SUMOTUTHFRSA 07/20/18 07/31/18 Warfarin [Coumadin] 12.5 mg PO WE 07/31/18 07/31/18 Allergies Allergy/AdvReac Type Severity Reaction Status Date / Time No Known Allergies Allergy Verified 07/20/18 08:23 Review of Systems: ROS per history of present illness, all other systems reviewed and negative or normal. All systems ED: reviewed and negative except as stated. Review of Systems: As Per HPI Chest Pain PMH - Past Medical History Medical history: Reports: cancer, COPD, DVT, hyperlipidemia, hypertension, pulmonary embolus, renal disease Surgical history: Reports: appendectomy Psychiatric history: Reports: depression - Social History Smoking Status: Never smoker Alcohol use: Reports: none Drug use: Reports: none Physical Exam General: Conversant. No apparent distress. Follow commands. Appears stated age. Neck: No JVD. Trachea midline. Neck supple. Eyes: PERRL. No scleral icterus. HENT: Normocephalic and atraumatic. Moist mucus membranes. Cardiovascular: Regular rate and rhythm. Normal S1 and S2. No murmurs appreciated. Normal capillary refill. Extremities well perfused with 2+ distal pulses bilaterally. No edema. Pulmonary: Normal and equal breath sounds bilaterally, anteriorly and posteriorly. No wheezes, rales, or rhonchi. Not in respiratory distress. Speaks in full sentences. Abdomen: Soft, nondistended, and tontender. No bruits or masses. No guarding. Neuro: Alert and oriented x3. No slurred speech. No focal deficits noted. Skin: No rashes noted on visualized skin. Musculoskeletal: No bony abnormalities visualized. Moves all extremities. Psych: Normal mood. Pleasant. Makes appropriate eye contact. - General General appearance: alert Course Vital Signs Temperature 97.0 F L 11/01/18 19:50 Pulse Rate 77 11/01/18 19:50 Respiratory Rate 16 11/01/18 19:50 Blood Pressure 161/80 11/01/18 19:50 O2 Sat by Pulse Oximetry 100 11/01/18 19:50 Temperature 97.0 F L 11/01/18 19:50 Pulse Rate 69 11/01/18 20:57 Respiratory Rate 16 11/01/18 20:57 Blood Pressure 134/74 11/01/18 20:57 O2 Sat by Pulse Oximetry 97 11/01/18 20:57 Oxygen Delivery Oxygen Delivery Room Air Chest Pain - MDM Narrative Medical decision making narrative: 83-year-old male with history of COPD and PE who presents the emergency department with complaints of heaviness in his chest and profound weakness. This all started 2 hours prior to arrival. The patient denies symptoms similar in the past with his pulmonary embolism. He has no audible wheezing or crackles. Laboratory evaluation shows CKD without acute kidney injury. No left or lab normality. Patient has troponin 1 less than 0.03. INR therapeutic. EKG shows no acute ST or T-wave abnormalities concerning for ischemia. The patient was given 325 mg aspirin and nitroglycerin with slight improvement in his symptoms. Given elevated heart score of 7 and chronicity of his symptoms do believe he warrants admission for further cardiac evaluation. Discussed case with on-call hospitalist Dr. Hays who agrees with plan for admission and accepts the patient to the inpatient service. Patient agrees with and understands course of treatment plan including plan for admission. All q uestions answered. - Medical Records Medical records reviewed: Yes I reviewed the patient's medical records. - Lab Data Lab results reviewed: Yes I reviewed the patient's lab results. Result diagrams: 11/01/18 19:55 11/01/18 19:55 Lab Results 11/01/18 11/01/18 11/01/18 Range/Units 19:55 19:55 19:55 WBC 6.0 (4.3-11.1) K/mcL RBC 4.11 L (4.19-5.50) M/mcL Hgb 13.2 (12.9-16.9) g/dL Hct 39.5 (37.5-50.1) % MCV 96.1 (83.0-100.0) fL MCH 32.1 (28.0-33.3) pg MCHC 33.4 (31.6-35.5) g/dL RDW 13.2 (11.5-14.5) % Plt Count 218 (140-400) K/mcL MPV 10.5 (9.4-12.4) fL Immature Gran % 0.2 (0-4) % Seg Neutrophils % 55.9 % Lymphocytes % 31.8 % Monocytes % 9.8 % Eosinophils % 2.0 % Basophils % 0.3 % Neutrophils # 3.4 (1.6-8.9) K/mcL Lymphocytes # 1.9 (0.6-4.6) K/mcL Monocytes # 0.6 (0.0-1.3) K/mcL Eosinophils # 0.1 (0.0-0.6) K/mcL Basophils # 0.0 (0.0-0.2) K/mcL PT 29.0 H (9.4-12.1) Seconds INR 2.5 Sodium 135 L (136-145) mEq/L Potassium 4.2 (3.5-5.1) mEq/L Chloride 102 (98-107) mEq/L Carbon Dioxide 22 L (23-29) mEq/L BUN 25 H (8-23) mg/dL Creatinine 1.53 H (0.70-1.30) mg/dL Est GFR ( Amer) 53 L (> 60) Est GFR (Non-Af Amer) 43 L (> 60) BUN/Creatinine Ratio 16 (6-26) Glucose 140 H (70-105) mg/dL Calculated Osmolality 287 (280-300) Calcium 8.9 (8.6-10.3) mg/dL Total Bilirubin 0.3 (0.3-1.0) mg/dL AST 20 (13-39) Units/L ALT 26 (7-52) Units/L Alkaline Phosphatase 60 (34-104) Units/L Troponin I < 0.03 (< 0.04) ng/mL B-Natriuretic Peptide (Less than 100) pg/mL Serum Total Protein 6.5 (6.4-8.9) g/dL Albumin 4.0 (3.5-5.7) g/dL Globulin 2.5 (2.4-3.5) g/dL Albumin/Globulin Ratio 1.6 (1.1-2.2) 11/01/18 Range/Units 19:55 WBC (4.3-11.1) K/mcL RBC (4.19-5.50) M/mcL Hgb (12.9-16.9) g/dL Hct (37.5-50.1) % MCV (83.0-100.0) fL MCH (28.0-33.3) pg MCHC (31.6-35.5) g/dL RDW (11.5-14.5) % Plt Count (140-400) K/mcL MPV (9.4-12.4) fL Immature Gran % (0-4) % Seg Neutrophils % % Lymphocytes % % Monocytes % % Eosinophils % % Basophils % % Neutrophils # (1.6-8.9) K/mcL Lymphocytes # (0.6-4.6) K/mcL Monocytes # (0.0-1.3) K/mcL Eosinophils # (0.0-0.6) K/mcL Basophils # (0.0-0.2) K/mcL PT (9.4-12.1) Seconds INR Sodium (136-145) mEq/L Potassium (3.5-5.1) mEq/L Chloride (98-107) mEq/L Carbon Dioxide (23-29) mEq/L BUN (8-23) mg/dL Creatinine (0.70-1.30) mg/dL Est GFR ( Amer) (> 60) Est GFR (Non-Af Amer) (> 60) BUN/Creatinine Ratio (6-26) Glucose (70-105) mg/dL Calculated Osmolality (280-300) Calcium (8.6-10.3) mg/dL Total Bilirubin (0.3-1.0) mg/dL AST (13-39) Units/L ALT (7-52) Units/L Alkaline Phosphatase (34-104) Units/L Troponin I (< 0.04) ng/mL B-Natriuretic Peptide 37 (Less than 100) pg/mL Serum Total Protein (6.4-8.9) g/dL Albumin (3.5-5.7) g/dL Globulin (2.4-3.5) g/dL Albumin/Globulin Ratio (1.1-2.2) - Radiology Data Radiology results reviewed: Yes I reviewed the patient's radiology results. - EKG Data EKG attestation: Yes I reviewed and interpreted this EKG. EKG results narrative: NSR rate of 77. RBBB. No acute ST or T wave abnormalities. When compared with prior from 09/18/18 there are no significant changes. Heart Score - Score History: Highly Suspicious EKG: Non Specific repolarisation Disturbance Age: Greater than 65 Risk Factors: Equal/Greater than 3 risk factor or history of atherosclerotic disease Troponin: Less than normal limit HEART Score Total: 7
[2018-11-01 20:46] LABS: Alanine Aminotransferase 26 Units/L (7-52); Albumin/Globulin Ratio 1.6 (1.1-2.2); Alkaline Phosphatase 60 Units/L (34-104); Aspartate Amino Transferase 20 Units/L (13-39); BUN/Creatinine Ratio 16 (6-26); Bilirubin,Total 0.3 mg/dL (0.3-1.0); Blood Urea Nitrogen 25 mg/dL (8-23); Calcium 8.9 mg/dL (8.6-10.3); Carbon Dioxide 22 mEq/L (23-29); Chloride 102 mEq/L (98-107); Globulin 2.5 g/dL (2.4-3.5); Glucose 140 mg/dL (70-105); Osmolality,Calculated 287 (280-300); Potassium 4.2 mEq/L (3.5-5.1); Sodium 135 mEq/L (136-145); Total Protein 6.5 g/dL (6.4-8.9); Troponin I < 0.03 ng/mL (< 0.04); eGFR For African Americans 53 (> 60); eGFR For Non-African Americans 43 (> 60)
[2018-11-01] MEDS ORDERED: Aspirin 81 MG TAB.CHEW PO STA (20:47)
[2018-11-01] MEDS ORDERED: Nitroglycerin 0.4 MG TAB.SUBL SL PRN (20:47)
[2018-11-01] MEDS ORDERED: Naloxone 0.4 MG/ML INJ IVP PRN (23:17)
[2018-11-01] MEDS ORDERED: Ondansetron 4 MG/2 ML VIAL IVP PRN (23:17)
[2018-11-01] MEDS ORDERED: Morphine Sulfate 2 MG/ML SYRINGE IVP PRN (23:21)
[2018-11-02 02:00] LABS: Hematocrit 38.7 % (37.5-50.1); Hemoglobin 12.8 g/dL (12.9-16.9); Mean Corpuscular HGB Conc 33.1 g/dL (31.6-35.5); Mean Corpuscular Hemoglobin 31.8 pg (28.0-33.3); Mean Platelet Volume 10.3 fL (9.4-12.4); Platelet Count 205 K/mcL (140-400); Red Blood Count 4.03 M/mcL (4.19-5.50); Red Cell Distribution Width 13.2 % (11.5-14.5); White Blood Count 5.1 K/mcL (4.3-11.1)
[2018-11-02 02:19] LABS: Chol/HDL Ratio 6.4 (0-4.9)
[2018-11-02 02:42] LABS: BUN/Creatinine Ratio 18 (6-26); Blood Urea Nitrogen 26 mg/dL (8-23); Calcium 8.6 mg/dL (8.6-10.3); Carbon Dioxide 23 mEq/L (23-29); Chloride 104 mEq/L (98-107); Glucose 117 mg/dL (70-105); Osmolality,Calculated 286 (280-300); Potassium 4.1 mEq/L (3.5-5.1); Sodium 135 mEq/L (136-145); Troponin I < 0.03 ng/mL (< 0.04); eGFR For African Americans 57 (> 60); eGFR For Non-African Americans 47 (> 60)
--- NOTE | 2018-11-02 04:12 | Internal Med History&Physical ---
Date of Encounter: 11/02/18 Time of Encounter: 03:54 Internal Medicine - H&P: HPI Chief complaint: Weakness/chest heaviness History of present illness: Mr. Odell is a 83 year old male with a past medical history of CKD3, COPD, hypertension, hyperlipidemia and history of bilateral PE/DVT on anticoagulation who presented to the ED with complaints of chest heaviness and weakness. Patient states symptoms began around noon today with reported heaviness across the chest that was nonradiating, nonpleuritic with no identifiable aggravating or alleviating factors. Patient is also reporting feeling weak at the time which progressively worsened throughout the day. He notes the symptoms are different from previously diagnosed PE. He denies any dyspnea on deep inhalation, peripheral edema, nausea, vomiting, diarrhea, abdominal pain or back pain. Patient called squad around 6 PM due to lack of improvement in symptoms. On arrival, patient was afebrile, hemodynamically stable. Laboratory evaluation aside from CKD without acute kidney injury was unremarkable. Patient has troponin 1 less than 0.03. INR therapeutic. EKG shows no acute ST or T-wave abnormalities concerning for ischemia. The patient was given 325 mg aspirin and nitroglycerin with slight improvement in his symptoms. Patient admitted for further cardiac evaluation. Past Med Surg Social Fam HX - Past Medical History Medical history: cancer, COPD, DVT, hyperlipidemia, hypertension, pulmonary embolus, renal disease Additional medical history: Diverticulitis, prostate cancer, PE in February Psychiatric history: depression - Past Surgical History Surgical History: appendectomy, herniorrhaphy Additional surgical history: back surgery (2017) - Social History Smoking Status: Never smoker Smokeless Tobacco Status: No Alcohol use: none Drug use: none - Family History Father Living Status: Hx Family Cardiac Disorders: Yes (IA) Hx Family Autoimmune Disorders: Yes (Arthritis) Brother Living Status: Mother Living Status: Cause of : [place] Hx Family Cardiac Disorders: Yes (IA) Hx Family Endocrine Disorder: Yes (DM II) Internal Medicine - H&P: Meds Paroxetine [Paxil] 20 mg PO QAM PRN 01/03/16 [History] Simvastatin [Zocor] 20 mg PO HS 01/03/16 [History] Budesonide/Formoterol 80/4.5 [Symbicort 80/4.5] 2 puff IH BIDR 01/05/17 [History] Cholecalciferol (Vitamin D3) [Vitamin D3] 2,000 unit PO QAM 01/05/17 [History] Primidone [Mysoline] 100 mg PO BID 01/05/17 [History] Lisinopril [Zestril] 10 mg PO DAILY 01/16/18 [History] Tamsulosin [Flomax] 0.4 mg PO QPM 01/16/18 [History] Pantoprazole Sodium [Protonix] 40 mg PO QAM 07/20/18 [History] Warfarin Sodium 12.5 mg PO WESA 07/20/18 [History] Warfarin [Coumadin] 10 mg PO SUMOTUTHFR 07/31/18 [History] Allergy/AdvReac Type Severity Reaction Status Date / Time No Known Allergies Allergy Verified 07/20/18 08:23 All Systems PM: A 10-system review of systems was performed and is negative for pertinent findings except as documented above in the HPI. - Constitutional Constitutional: no chills, no fever(s), no night sweats - EENT Eyes: no change in vision, no discharge, no pain, no photophobia Ears: no ear discharge, no ear pain, no tinnitus Nose, mouth and throat: no dysphagia, no nasal discharge, no neck pain, no sore throat - Cardiovascular Cardiovascular ROS IM: no chest pain, no diaphoresis, no dyspnea, no lightheadedness, no palpitations, no syncope - Respiratory Respiratory: no cough, no dyspnea, no wheezing, no excessive phlegm production - Gastrointestinal Gastrointestinal: no abdominal pain, no diarrhea, no hematemesis, no hematochezia, no melena, no nausea, no vomiting - Musculoskeletal Musculoskeletal ROS IM: no numbness, no tingling - Integumentary Integumentary IM: no rash, no unusual bruising - Neurological Neurological ROS: no confusion, no convulsions, no focal weakness, no numbness, no tingling, no tremor(s) - Hematologic/Lymphatic Hematologic/Lymphatic: no easy bruising - Constitutional Vitals: Temp Pulse Resp BP Pulse Ox 97.6 F 68 16 144/74 97 11/02/18 03:16 11/02/18 03:16 11/02/18 03:16 11/02/18 03:16 11/02/18 03:16 Exam: General: Alert and oriented Skin:Normal color, no rash, no lesions. HEENT:EOM, pupils equal, round and reactive. Cardiovascular:Normal S1 & S2, no rubs, murmurs or gallops. No JVD. Pulse regular. Lungs:Normal breath sounds, no wheezes or crackles. Abdomen:Soft, non-tender, no rigidity. Extremities:No deformity, no edema or tenderness, no joint swelling or clubbing. Neurological:Normal cognition and motor skills. Pulses:Carotid and radial pulses normal +2. Rest of the physical exam is non contributory Internal Med - H&P Results - Labs CBC & Chem 7: 11/02/18 01:48 11/02/18 01:48 Labs: Short CBC 11/01/18 11/02/18 Range/Units 19:55 01:48 WBC 6.0 5.1 (4.3-11.1) K/mcL Hgb 13.2 12.8 L (12.9-16.9) g/dL Hct 39.5 38.7 (37.5-50.1) % Plt Count 218 205 (140-400) K/mcL Neutrophils # 3.4 (1.6-8.9) K/mcL BMP 11/01/18 11/02/18 19:55 01:48 Sodium 135 L 135 L Potassium 4.2 4.1 Chloride 102 104 Carbon Dioxide 22 L 23 BUN 25 H 26 H Creatinine 1.53 H 1.43 H Glucose 140 H 117 H Calcium 8.9 8.6 Cardiac Enzymes 11/01/18 11/02/18 Range/Units 19:55 01:48 Troponin I < 0.03 < 0.03 (< 0.04) ng/mL Liver Function 11/01/18 Range/Units 19:55 Total Bilirubin 0.3 (0.3-1.0) mg/dL AST 20 (13-39) Units/L ALT 26 (7-52) Units/L Alkaline Phosphatase 60 (34-104) Units/L Albumin 4.0 (3.5-5.7) g/dL - Impressions ITS Impressions Chest X-Ray 11/01/18 20:40 IMPRESSION: No acute process. Hiatal hernia again noted. D/ / Janusz Hernandez MD / Janusz Hernandez MD Interpreting Provider: Janusz Hernandez MD - Assessment and Plan (1) Chest pain Current Visit: Yes Status: Acute Assessment and plan: 83-year-old male with no prior past medical history of CAD presenting with chest heaviness that is midsternal, nonradiating, nonpleuritic, nonreproducible resolving after receiving nitroglycerin here in the ED. Currently on Coumadin for history of bilateral PE diagnosed in February of this year. On arrival patient was stable from a hemodynamic and respiratory standpoint. Initial troponin was negative. EKG showed persistent right bundle branch block as seen on previous EKG. INR within therapeutic range. Nuclear stress testing in March of this year which was negative for ischemia or infarct. Patient reports having heart catheter performed here in the past which he states was unremarkable, however, no findings of LHC in our records. Currently chest pain- free. -Telemetry -Trend troponin -Sublingual nitroglycerin as needed -Echocardiogram -Stress testing if troponins remain negative Qualifiers: Chest pain type: unspecified Qualified Code(s): R07.9 - Chest pain, unspecified (2) COPD (chronic obstructive pulmonary disease) Current Visit: No Status: Chronic Assessment and plan: No evidence of an acute exacerbation. 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 -Continue home inhalers Qualifiers: COPD type: unspecified COPD Qualified Code(s): J44.9 - Chronic obstructive pulmonary disease, unspecified (3) Chronic kidney disease, stage 3 Current Visit: No Status: Chronic Assessment and plan: Chronic and at baseline. -We will monitor (4) Hyperlipidemia Current Visit: No Status: Chronic Assessment and plan: Continue home statin -We will check lipid panel Qualifiers: Hyperlipidemia type: unspecified Qualified Code(s): E78.5 - Hyperlipidemia, unspecified (5) Hypertension Current Visit: No Status: Chronic Assessment and plan: Blood pressure stable. -Resume home antihypertensives Qualifiers: Hypertension type: essential hypertension Qualified Code(s): I10 - Essential (primary) hypertension (6) History of pulmonary embolism Current Visit: Yes Status: Acute Assessment and plan: History of bilateral subsegmental PE diagnosed in February of this year. Currently on warfarin. INR within therapeutic range. -Continue warfarin - Time Spent With Patient Total time spent is greater than 50% in coordination of care (as documented) at patient's floor/unit and/or counseling patient:
[2018-11-02] MEDS ORDERED: Regadenoson 0.4 MG/5 ML SYRINGE IVP ONE (06:30)
[2018-11-02] MEDS: Budesonide/Formoterol 80/4.5 1 PUFF INH IH SCH ×2 (07:13→19:55)
[2018-11-02] MEDS: Cholecalciferol (D-3) 1,000 UNIT (25MCG) TABLET PO SCH (07:48)
[2018-11-02] MEDS: Primidone 50 MG TABLET PO SCH ×2 (07:48→20:43)
--- NOTE | 2018-11-02 09:47 | Event Note ---
Date of Encounter: 11/02/18 Time of Encounter: 09:47 Patient was seen and examined earlier this morning by hospitalist services after presenting with complaints of chest heaviness. Currently patient is chest [id number] are negative 3 awaiting cardiac echo as well as cardiac stress test.
[2018-11-02] MEDS ORDERED: *HR* Warfarin 5 MG TABLET PO SCH (18:00)
--- NOTE | 2018-11-02 21:35 | Electrocardiograph Report ---
[address] [place], [place] [address] Test Date: 2018-11-01 Pat Name: Randal Odell Department: [id number] Room: 3B45 Gender: M Chief Medical Director: : 1935 Requested By: Anthony Prado Order Number: [id number] Reading MD: Shani Solorzano Measurements Intervals [place] Rate: 77 P: 38 NE: 153 QRS: 38 QRSD: 146 T: 54 QT: 400 QTc: 453 Interpretive Statements Sinus rhythm Right bundle branch block Electronically Signed On 11-02-2018 21:34:28 EDT by Shani Solorzano
[2018-11-03] MEDS: Budesonide/Formoterol 80/4.5 1 PUFF INH IH SCH (07:34)
[2018-11-03] MEDS: Cholecalciferol (D-3) 1,000 UNIT (25MCG) TABLET PO SCH (08:39)
[2018-11-03] MEDS: Primidone 50 MG TABLET PO SCH (08:39)
[2018-11-03 09:42] LABS: Calcium 9.3 mg/dL (8.6-10.3); Potassium 4.3 mEq/L (3.5-5.1)
[2018-11-03 10:57] VITALS: BP 146/76
--- NOTE | 2018-11-03 11:59 | Discharge Summary ---
- NOTES TO OUTPATIENT PROVIDER Notes to Outpatient Provider: Patient underwent cardiac stress test was negative for any ischemia or infarct. monitor BP he did have some elevation during admission as well as anxiety Date of Encounter: 11/03/18 Time of Encounter: 11:52 - Discharge Diagnosis (1) Chest pain Priority: Primary Status: Acute Qualifiers: Chest pain type: unspecified Qualified Code(s): R07.9 - Chest pain, unspecified (2) COPD (chronic obstructive pulmonary disease) Priority: Secondary Status: Chronic Qualifiers: COPD type: unspecified COPD Qualified Code(s): J44.9 - Chronic obstructive pulmonary disease, unspecified (3) Chronic kidney disease, stage 3 Priority: Secondary Status: Chronic (4) Hyperlipidemia Priority: Secondary Status: Chronic Qualifiers: Hyperlipidemia type: unspecified Qualified Code(s): E78.5 - Hyperlipidemia, unspecified (5) Hypertension Priority: Secondary Status: Chronic Qualifiers: Hypertension type: essential hypertension Qualified Code(s): I10 - Essential (primary) hypertension (6) History of pulmonary embolism Priority: Secondary Status: Acute Hospital course: Mr. Odell is a 83 year old male past medical history of CK D3 COPD hypertension hyperlipidemia history of bilateral PE/DVT on anticoagulation presented to [facility] ED with complaints of chest heaviness and weakness. Patient states symptoms began around noon prior to presentation chest heaviness was radiating across chest wall pleuritic with no aggravating or relieving factors. It did not feeling weak throughout the day. She felt the symptoms were different from previously diagnosed PE he did not have any dyspnea on deep and elation or peripheral edema and nausea vomiting diarrhea or back pain. Lab work was unremarkable troponins were negative 3 INR was therapeutic EKG with no acute ST-T wave abnormalities. He did undergo a cardiac stress test which was negative for any ischemia or infarct. Cardiac echo with EF of 6065% normal LV chamber size wall thickness and function atypical septal motion consistent with bundle branch block mild left ventricular diastolic dysfunction normal right ventricular structure and function mild tricuspid regurgitation. During admiss ion patient did have episode of anxiety with an elevated blood pressure and some mild chest pressure which did improve after blood pressure controlled. Advised patient to monitor blood pressure and to follow-up with primary care provider. Currently he is hemodynamically stable at this time and does not have any chest pain is ready for discharge. - Time Spent with Patient Total time spent providing and/or coordinating discharge services: - Discharge Medications Prescriptions: Continued Paroxetine [Paxil] 20 mg PO QAM PRN PRN Reason: Anxiety Simvastatin [Zocor] 20 mg PO HS Budesonide/Formoterol 80/4.5 [Symbicort 80/4.5] 2 puff IH BIDR Cholecalciferol (Vitamin D3) [Vitamin D3] 2,000 unit PO QAM Primidone [Mysoline] 100 mg PO BID Tamsulosin [Flomax] 0.4 mg PO QPM Lisinopril [Zestril] 10 mg PO DAILY Warfarin Sodium 12.5 mg PO WESA Pantoprazole Sodium [Protonix] 40 mg PO QAM Warfarin [Coumadin] 10 mg PO SUMOTUTH Home Medications: Paroxetine [Paxil] 20 mg PO QAM PRN 01/03/16 [History] Simvastatin [Zocor] 20 mg PO HS 01/03/16 [History] Budesonide/Formoterol 80/4.5 [Symbicort 80/4.5] 2 puff IH BIDR 01/05/17 [History] Cholecalciferol (Vitamin D3) [Vitamin D3] 2,000 unit PO QAM 01/05/17 [History] Primidone [Mysoline] 100 mg PO BID 01/05/17 [History] Lisinopril [Zestril] 10 mg PO DAILY 01/16/18 [History] Tamsulosin [Flomax] 0.4 mg PO QPM 01/16/18 [History] Pantoprazole Sodium [Protonix] 40 mg PO QAM 07/20/18 [History] Warfarin Sodium 12.5 mg PO WESA 07/20/18 [History] Warfarin [Coumadin] 10 mg PO SUMOTUTHFR 07/31/18 [History] Allergies/Adverse Reactions: Allergy/AdvReac Type Severity Reaction Status Date / Time No Known Allergies Allergy Verified 07/20/18 08:23 Date of admission: 11/01/18 22:09 Primary care physician: Cecelia Hernandez MD Consults: 11/01/18 23:22 Consult to Nurse Navigator [CONS] Routine Comment: Discharging clinician: Joelle Maya Anticipated date of discharge: 11/03/18 - Constitutional Vitals: Temp Pulse Resp BP Pulse Ox 97.4 F L 69 16 146/76 99 11/03/18 10:56 11/03/18 10:56 11/03/18 10:56 11/03/18 10:56 11/03/18 10:56 Exam: General: Alert and oriented Skin:Normal color, no rash, no lesions. HEENT:EOM, pupils equal, round and reactive. Cardiovascular:Normal S1 & S2, no rubs, murmurs or gallops. No JVD. Pulse regular. Lungs:Normal breath sounds, no wheezes or crackles. Abdomen:Soft, non-tender, no rigidity. Extremities:No deformity, no edema or tenderness, no joint swelling or clubbing. Neurological:Normal cognition and motor skills. Pulses:Carotid and radial pulses normal +2. Rest of the physical exam is non contributory - Patient Status Disposition: Home, Self-Care Condition: Good Functional capacity at discharge: independent ambulation Overall status at discharge: patient is back to baseline - Discharge Instructions Follow Up With: Cecelia Hernandez MD [Primary Care Provider] - 11/08/18 11:45 am
[2018-11-03] MEDS ORDERED: FLU Vac QV 19-20 (6Month+)/PF 0.5 ML SYRINGE IM ONE (12:29)
[2018-11-03 12:52] LABS: INR 2.6; Prothrombin Time 29.4 Seconds (9.4-12.1)
[2018-11-03] MEDS ORDERED: *HR* Warfarin 5 MG TABLET PO SCH (18:00)
== END 2018-11-03 13:37 | disposition home or self-care (01) ==
LOC: 3BNU 19:44 → EMEROOARM 19:44 → 3BNU 22:21
PROVIDERS: ADMIT Internal Medicine; ATTEND Internal Medicine

== ENCOUNTER 2019-07-13 10:40 | Observation (INO) ==
[2019-07-13 11:15] LABS: INR 2.3; Prothrombin Time 25.6 Seconds (9.4-12.1)
[2019-07-13 11:17] LABS: Activated Partial Thrombo Time 38.9 Seconds (26.0-36.0)
[2019-07-13 11:22] LABS: Basophils % 0.7 %; Eosinophils # 0.1 K/mcL (0.0-0.6); Eosinophils % 1.9 %; Hematocrit 40.6 % (37.5-50.1); Hemoglobin 13.3 g/dL (12.9-16.9); Lymphocytes # 1.5 K/mcL (0.6-4.6); Lymphocytes % 34.8 %; Mean Corpuscular HGB Conc 32.8 g/dL (31.6-35.5); Mean Corpuscular Hemoglobin 32.2 pg (28.0-33.3); Mean Corpuscular Volume 98.3 fL (83.0-100.0); Mean Platelet Volume 10.3 fL (9.4-12.4); Monocytes # 0.3 K/mcL (0.0-1.3); Monocytes % 7.3 %; Neutrophils # 2.4 K/mcL (1.6-8.9); Platelet Count 198 K/mcL (140-400); Red Blood Count 4.13 M/mcL (4.19-5.50); Segmented Neutrophils % 55.3 %; White Blood Count 4.3 K/mcL (4.3-11.1)
[2019-07-13 11:31] LABS: BUN/Creatinine Ratio 13 (6-26); Blood Urea Nitrogen 19 mg/dL (8-23); Calcium 9.1 mg/dL (8.6-10.3); Carbon Dioxide 26 mEq/L (23-29); Chloride 101 mEq/L (98-107); Glucose 124 mg/dL (70-105); Osmolality,Calculated 284 (280-300); Potassium 4.7 mEq/L (3.5-5.1); Sodium 135 mEq/L (136-145); Troponin I < 0.03 ng/mL (< 0.04); eGFR For African Americans 56 (> 60); eGFR For Non-African Americans 46 (> 60)
[2019-07-13] MEDS ORDERED: Doxycycline 100 MG CAPSULE PO STA (11:32)
[2019-07-13 11:38] LABS: D-Dimer < 215 ng/mLFEU (0-500)
[2019-07-13] MEDS ORDERED: Aspirin 81 MG TAB.CHEW PO STA (11:40)
[2019-07-13] MEDS ORDERED: *HR* HYDROcodone/Acet 5/325 mg TABLET PO PRN (13:10)
[2019-07-13] MEDS ORDERED: Naloxone 0.4 MG/ML INJ IVP PRN (13:12)
[2019-07-13] MEDS ORDERED: lisinopriL 20 MG TABLET PO ONE (13:16)
[2019-07-13] MEDS ORDERED: Ipratropium/Albuterol Neb 3 ML IH PRN (13:57)
[2019-07-13] MEDS ORDERED: Ipratropium/Albuterol Neb 3 ML IH ONE (13:58)
[2019-07-13] MEDS ORDERED: predniSONE 20 MG TABLET PO ONE (17:16)
[2019-07-13 17:24] LABS: Magnesium 2.2 mg/dL (1.6-2.6); Phosphorous 2.1 mg/dL (2.7-4.5); Troponin I < 0.03 ng/mL (< 0.04)
[2019-07-13] MEDS ORDERED: *HR* Warfarin 1 MG TABLET PO SCH (18:00)
[2019-07-13] MEDS ORDERED: Warfarin perPT PO PRN (18:00)
[2019-07-13] MEDS ORDERED: *HR* Warfarin 10 MG TABLET PO ONE (18:00)
[2019-07-13] MEDS ORDERED: Gabapentin 300 MG CAPSULE PO SCH (21:00)
[2019-07-13] MEDS: Primidone 50 MG TABLET PO SCH (21:16)
[2019-07-13] MEDS: Budesonide/Formoterol 160/4.5 1 PUFF INH IH SCH (21:47)
[2019-07-14 02:43] LABS: Basophils % 0.2 %; Eosinophils % 0.2 %; Hemoglobin 13.6 g/dL (12.9-16.9); Immature Granulocytes % 0.4 % (0-4); Lymphocytes # 0.7 K/mcL (0.6-4.6); Lymphocytes % 12.8 %; Mean Corpuscular HGB Conc 33.2 g/dL (31.6-35.5); Mean Corpuscular Hemoglobin 32.6 pg (28.0-33.3); Mean Corpuscular Volume 98.3 fL (83.0-100.0); Mean Platelet Volume 10.6 fL (9.4-12.4); Monocytes # 0.1 K/mcL (0.0-1.3); Monocytes % 0.9 %; Neutrophils # 4.8 K/mcL (1.6-8.9); Platelet Count 207 K/mcL (140-400); Red Blood Count 4.17 M/mcL (4.19-5.50); Red Cell Distribution Width 12.8 % (11.5-14.5); Segmented Neutrophils % 85.5 %; White Blood Count 5.6 K/mcL (4.3-11.1)
[2019-07-14 02:49] LABS: INR 2.1; Prothrombin Time 23.9 Seconds (9.4-12.1)
[2019-07-14 03:04] LABS: Calcium 9.1 mg/dL (8.6-10.3); Chol/HDL Ratio 5.7 (0-4.9); Potassium 5.8 mEq/L (3.5-5.1)
[2019-07-14] MEDS ORDERED: Albuterol 2.5 MG/3 ML NEBULIZER IH ONE (07:45)
[2019-07-14] MEDS ORDERED: *HR* Dextrose 50 % in Water (Syg) 50 ML SYRINGE IVP ONE (07:46)
[2019-07-14] MEDS ORDERED: Insulin Human Regular 10 UNIT in 0.9 % Sodium Chloride 10 ML IV ONE (07:46)
[2019-07-14] MEDS: Budesonide/Formoterol 160/4.5 1 PUFF INH IH SCH (08:03)
[2019-07-14] MEDS: Primidone 50 MG TABLET PO SCH (08:34)
[2019-07-14] MEDS ORDERED: PARoxetine 20 MG TABLET PO SCH (09:00)
[2019-07-14] MEDS ORDERED: lisinopriL 10 MG TABLET PO SCH (09:00)
[2019-07-14] MEDS ORDERED: Cholecalciferol (D-3) 1,000 UNIT (25MCG) TABLET PO SCH (09:00)
[2019-07-14 11:09] VITALS: BP 127/70
[2019-07-14] MEDS ORDERED: *HR* Warfarin 10 MG TABLET PO ONE (18:00)
== END 2019-07-14 16:08 | disposition home or self-care (01) ==
LOC: 3BNU 10:40 → EMEROOARM 10:40 → 3BNU 13:56
PROVIDERS: ADMIT Student in an Organized Health Care Education/Training Program; ATTEND Student in an Organized Health Care Education/Training Program

== ENCOUNTER 2019-11-30 13:11 | Inpatient (IN) ==
[2019-11-30 13:52] LABS: Basophils % 0.6 %; Eosinophils # 0.1 K/mcL (0.0-0.6); Eosinophils % 1.4 %; Hematocrit 42.5 % (37.5-50.1); Hemoglobin 13.9 g/dL (12.9-16.9); Immature Granulocytes % 0.2 % (0-4); Lymphocytes # 1.7 K/mcL (0.6-4.6); Lymphocytes % 34.8 %; Mean Corpuscular HGB Conc 32.7 g/dL (31.6-35.5); Mean Corpuscular Hemoglobin 31.7 pg (28.0-33.3); Mean Corpuscular Volume 96.8 fL (83.0-100.0); Mean Platelet Volume 10.4 fL (9.4-12.4); Monocytes # 0.5 K/mcL (0.0-1.3); Monocytes % 9.2 %; Neutrophils # 2.7 K/mcL (1.6-8.9); Platelet Count 213 K/mcL (140-400); Red Blood Count 4.39 M/mcL (4.19-5.50); Red Cell Distribution Width 12.8 % (11.5-14.5); Segmented Neutrophils % 53.8 %
[2019-11-30 14:01] LABS: INR 2.5; Prothrombin Time 28.5 Seconds (9.4-12.1)
[2019-11-30 14:03] LABS: Activated Partial Thrombo Time 38.1 Seconds (26.0-36.0)
[2019-11-30 14:13] LABS: BUN/Creatinine Ratio 20 (6-26); Blood Urea Nitrogen 29 mg/dL (8-23); Calcium 9.5 mg/dL (8.6-10.3); Carbon Dioxide 26 mEq/L (23-29); Chloride 100 mEq/L (98-107); Glucose 128 mg/dL (70-105); Osmolality,Calculated 289 (280-300); Potassium 4.7 mEq/L (3.5-5.1); Sodium 136 mEq/L (136-145); Troponin I < 0.03 ng/mL (< 0.04); eGFR For African Americans 55 (> 60); eGFR For Non-African Americans 45 (> 60)
[2019-11-30] MEDS ORDERED: Aspirin 325 MG TABLET PO ONE (16:06)
[2019-11-30] MEDS ORDERED: Naloxone 0.4 MG/ML INJ IVP PRN (17:24)
[2019-11-30] MEDS ORDERED: Perflutren Lipid Microsphere 1.3 ML in 0.9 % Sodium Chloride 8.7 ML IVP PRN (17:26)
[2019-11-30] MEDS ORDERED: 0.9 % Sodium Chloride 500 ML IVC SCH ×2 (17:45→18:00)
[2019-11-30] MEDS ORDERED: Warfarin perPT PO PRN (18:00)
[2019-11-30] MEDS: Primidone 50 MG TABLET PO SCH (20:18)
[2019-11-30] MEDS ORDERED: *HR* Warfarin 10 MG TABLET PO ONE (21:00)
[2019-11-30] MEDS: Budesonide/Formoterol 80/4.5 1 PUFF INH IH SCH (22:10)
[2019-12-01 02:48] LABS: Hematocrit 38.5 % (37.5-50.1); Hemoglobin 12.9 g/dL (12.9-16.9); Mean Corpuscular HGB Conc 33.5 g/dL (31.6-35.5); Mean Corpuscular Hemoglobin 32.5 pg (28.0-33.3); Mean Platelet Volume 10.9 fL (9.4-12.4); Platelet Count 217 K/mcL (140-400); Red Blood Count 3.97 M/mcL (4.19-5.50); Red Cell Distribution Width 12.9 % (11.5-14.5); White Blood Count 5.4 K/mcL (4.3-11.1)
[2019-12-01 02:59] LABS: INR 2.1; Prothrombin Time 24.3 Seconds (9.4-12.1)
[2019-12-01 03:04] LABS: Calcium 8.9 mg/dL (8.6-10.3); Potassium 4.4 mEq/L (3.5-5.1)
[2019-12-01] MEDS ORDERED: Regadenoson 0.4 MG/5 ML SYRINGE IVP ONE (06:15)
[2019-12-01] MEDS ORDERED: lisinopriL 10 MG TABLET PO SCH (09:00)
[2019-12-01] MEDS: Primidone 50 MG TABLET PO SCH ×2 (09:48→21:30)
[2019-12-01] MEDS: PARoxetine 20 MG TABLET PO SCH (09:48)
[2019-12-01] MEDS: Budesonide/Formoterol 80/4.5 1 PUFF INH IH SCH ×2 (10:04→22:17)
[2019-12-01] MEDS ORDERED: *HR* Warfarin 10 MG TABLET PO SCH (18:00)
[2019-12-01] MEDS ORDERED: lisinopriL 5 MG TABLET PO ONE (20:46)
[2019-12-02 06:00] LABS: Hematocrit 40.3 % (37.5-50.1); Hemoglobin 13.2 g/dL (12.9-16.9); Mean Corpuscular HGB Conc 32.8 g/dL (31.6-35.5); Mean Corpuscular Hemoglobin 31.7 pg (28.0-33.3); Mean Corpuscular Volume 96.6 fL (83.0-100.0); Mean Platelet Volume 10.7 fL (9.4-12.4); Platelet Count 214 K/mcL (140-400); Red Blood Count 4.17 M/mcL (4.19-5.50)
[2019-12-02 06:11] LABS: Calcium 9.3 mg/dL (8.6-10.3); Potassium 4.4 mEq/L (3.5-5.1)
[2019-12-02 06:17] LABS: Prothrombin Time 23.1 Seconds (9.4-12.1)
[2019-12-02] MEDS: Budesonide/Formoterol 80/4.5 1 PUFF INH IH SCH ×2 (07:41→20:06)
[2019-12-02] MEDS ORDERED: 0.9 % Sodium Chloride 1,000 ML IVC SCH (07:45)
[2019-12-02] MEDS ORDERED: lisinopriL 20 MG TABLET PO SCH (09:00)
[2019-12-02] MEDS: Primidone 50 MG TABLET PO SCH ×2 (09:57→20:46)
[2019-12-02] MEDS: PARoxetine 20 MG TABLET PO SCH (09:57)
[2019-12-02] MEDS ORDERED: Acetaminophen 325 MG TABLET PO PRN (14:34)
[2019-12-02] MEDS: hydrALAZINE 25 MG TABLET PO SCH ×2 (15:33→20:46)
[2019-12-02] MEDS ORDERED: Warfarin 10 MG, Warfarin 2.5 MG PO ONE (18:00)
[2019-12-03 01:22] LABS: Basophils % 0.5 %; Eosinophils # 0.2 K/mcL (0.0-0.6); Eosinophils % 2.1 %; Hemoglobin 13.6 g/dL (12.9-16.9); Immature Granulocytes % 0.3 % (0-4); Lymphocytes # 2.5 K/mcL (0.6-4.6); Lymphocytes % 32.1 %; Mean Corpuscular HGB Conc 33.2 g/dL (31.6-35.5); Mean Corpuscular Hemoglobin 32.4 pg (28.0-33.3); Mean Corpuscular Volume 97.6 fL (83.0-100.0); Mean Platelet Volume 10.7 fL (9.4-12.4); Monocytes # 0.8 K/mcL (0.0-1.3); Monocytes % 10.1 %; Neutrophils # 4.2 K/mcL (1.6-8.9); Platelet Count 225 K/mcL (140-400); Red Cell Distribution Width 13.2 % (11.5-14.5); Segmented Neutrophils % 54.9 %; White Blood Count 7.7 K/mcL (4.3-11.1)
[2019-12-03 01:23] LABS: Prothrombin Time 22.4 Seconds (9.4-12.1)
[2019-12-03 01:37] LABS: Calcium 8.7 mg/dL (8.6-10.3); Potassium 4.3 mEq/L (3.5-5.1)
[2019-12-03] MEDS: Budesonide/Formoterol 80/4.5 1 PUFF INH IH SCH (07:58)
[2019-12-03] MEDS ORDERED: lisinopriL 10 MG TABLET PO SCH (09:00)
[2019-12-03] MEDS: Primidone 50 MG TABLET PO SCH (09:11)
[2019-12-03] MEDS: PARoxetine 20 MG TABLET PO SCH (09:11)
[2019-12-03] MEDS: hydrALAZINE 25 MG TABLET PO SCH (09:12)
[2019-12-03 11:21] VITALS: BP 128/64
[2019-12-03] MEDS ORDERED: Warfarin 10 MG, Warfarin 2.5 MG PO ONE (18:00)
== END 2019-12-03 15:06 | disposition home or self-care (01) | DRG 313 ==
LOC: EMEROOARM 13:11 → 3BNU 13:11
PROVIDERS: ADMIT Internal Medicine; ATTEND Internal Medicine

== ENCOUNTER 2020-03-27 12:22 | Inpatient (IN) ==
[2020-03-27] MEDS ORDERED: Aspirin 81 MG TAB.CHEW PO ONE (12:48)
[2020-03-27 13:02] LABS: Basophils # 0.1 K/mcL (0.0-0.2); Basophils % 1.1 %; Eosinophils # 0.1 K/mcL (0.0-0.6); Eosinophils % 2.2 %; Hematocrit 38.3 % (37.5-50.1); Hemoglobin 12.5 g/dL (12.9-16.9); Immature Granulocytes % 0.2 % (0-4); Lymphocytes # 1.5 K/mcL (0.6-4.6); Lymphocytes % 31.9 %; Mean Corpuscular HGB Conc 32.6 g/dL (31.6-35.5); Mean Corpuscular Hemoglobin 31.7 pg (28.0-33.3); Mean Corpuscular Volume 97.2 fL (83.0-100.0); Mean Platelet Volume 10.5 fL (9.4-12.4); Monocytes # 0.4 K/mcL (0.0-1.3); Monocytes % 7.9 %; Neutrophils # 2.6 K/mcL (1.6-8.9); Platelet Count 227 K/mcL (140-400); Red Blood Count 3.94 M/mcL (4.19-5.50); Segmented Neutrophils % 56.7 %; White Blood Count 4.6 K/mcL (4.3-11.1)
[2020-03-27] MEDS ORDERED: Ipratropium/Albuterol Neb 3 ML IH ONE (13:09)
[2020-03-27] MEDS: Nitroglycerin 0.4 MG TAB.SUBL SL SCH ×3 (13:16→13:34)
[2020-03-27 13:26] LABS: BUN/Creatinine Ratio 17 (6-26); Blood Urea Nitrogen 25 mg/dL (8-23); Calcium 8.8 mg/dL (8.6-10.3); Carbon Dioxide 26 mEq/L (23-29); Chloride 102 mEq/L (98-107); Glucose 174 mg/dL (70-105); Osmolality,Calculated 289 (280-300); Potassium 4.1 mEq/L (3.5-5.1); Sodium 135 mEq/L (136-145); Troponin I < 0.03 ng/mL (< 0.04); eGFR For African Americans 53 (> 60); eGFR For Non-African Americans 44 (> 60)
[2020-03-27] MEDS ORDERED: Ondansetron ODT 4 MG TAB.RAPDIS SL PRN (15:00)
[2020-03-27] MEDS ORDERED: Naloxone 0.4 MG/ML INJ IVP PRN (15:00)
[2020-03-27] MEDS ORDERED: Warfarin perPT PO PRN (18:00)
[2020-03-27 18:19] LABS: INR 1.6; Prothrombin Time 18.3 Seconds (9.4-12.1)
[2020-03-27] MEDS ORDERED: *HR* Warfarin 10 MG TABLET PO ONE (18:31)
[2020-03-27] MEDS: Primidone 50 MG TABLET PO SCH (19:50)
[2020-03-27] MEDS: Gabapentin 300 MG CAPSULE PO SCH (19:50)
[2020-03-27] MEDS: Carbidopa/Levodopa 25/100 TABLET PO SCH (19:50)
[2020-03-28 02:06] LABS: Hematocrit 34.2 % (37.5-50.1); Hemoglobin 11.2 g/dL (12.9-16.9); Mean Corpuscular HGB Conc 32.7 g/dL (31.6-35.5); Mean Corpuscular Hemoglobin 32.2 pg (28.0-33.3); Mean Corpuscular Volume 98.3 fL (83.0-100.0); Platelet Count 222 K/mcL (140-400); Red Blood Count 3.48 M/mcL (4.19-5.50); Red Cell Distribution Width 13.1 % (11.5-14.5); White Blood Count 4.8 K/mcL (4.3-11.1)
[2020-03-28 02:13] LABS: Albumin 3.5 g/dL (3.5-5.7); Albumin/Globulin Ratio 1.5 (1.1-2.2); Bilirubin,Total 0.3 mg/dL (0.3-1.0); Calcium 8.6 mg/dL (8.6-10.3); Globulin 2.4 g/dL (2.4-3.5); Potassium 4.4 mEq/L (3.5-5.1); Total Protein 5.9 g/dL (6.4-8.9)
[2020-03-28 02:52] LABS: INR 1.7; Prothrombin Time 18.9 Seconds (9.4-12.1)
[2020-03-28] MEDS ORDERED: hydrALAZINE 25 MG TABLET PO SCH (09:00)
[2020-03-28] MEDS: PARoxetine 20 MG TABLET PO SCH (09:05)
[2020-03-28] MEDS: Primidone 50 MG TABLET PO SCH ×2 (09:05→20:35)
[2020-03-28] MEDS: Carbidopa/Levodopa 25/100 TABLET PO SCH ×2 (09:05→20:35)
[2020-03-28] MEDS: lisinopriL 10 MG TABLET PO SCH (09:05)
[2020-03-28] MEDS ORDERED: *HR* Heparin 5,000 UNIT/ML VIAL IVP PRN ×2 (09:50)
[2020-03-28] MEDS ORDERED: *HR* Heparin 5,000 UNIT/ML VIAL IVP ONE (09:50)
[2020-03-28] MEDS: Heparin 25,000UNIT/250ML 1/2NS 25,000 UNIT/250 ML IV.SOLN IVC SCH (11:08)
[2020-03-28 11:11] LABS: Heparin anti-factor XA UFH < 0.04 IU/mL (0.30-0.70); INR 1.6; Prothrombin Time 17.9 Seconds (9.4-12.1)
[2020-03-28] MEDS: hydrALAZINE 25 MG TABLET PO SCH (16:41)
[2020-03-28] MEDS: hydrOXYzine pamoate 25 MG CAPSULE PO PRN (16:45)
[2020-03-28] MEDS ORDERED: Warfarin 10 MG, Warfarin 2.5 MG PO ONE (18:00)
[2020-03-28] MEDS: Gabapentin 300 MG CAPSULE PO SCH (20:35)
[2020-03-29 00:58] LABS: INR 1.7; Prothrombin Time 19.4 Seconds (9.4-12.1)
[2020-03-29 01:02] LABS: Hematocrit 34.3 % (37.5-50.1); Hemoglobin 11.3 g/dL (12.9-16.9); Mean Corpuscular HGB Conc 32.9 g/dL (31.6-35.5); Mean Corpuscular Hemoglobin 31.4 pg (28.0-33.3); Mean Corpuscular Volume 95.3 fL (83.0-100.0); Mean Platelet Volume 10.5 fL (9.4-12.4); Platelet Count 223 K/mcL (140-400); Red Cell Distribution Width 12.9 % (11.5-14.5); White Blood Count 5.1 K/mcL (4.3-11.1)
[2020-03-29 01:12] LABS: Albumin 3.6 g/dL (3.5-5.7); Albumin/Globulin Ratio 1.4 (1.1-2.2); Bilirubin,Total 0.3 mg/dL (0.3-1.0); Calcium 8.9 mg/dL (8.6-10.3); Globulin 2.5 g/dL (2.4-3.5); Potassium 4.2 mEq/L (3.5-5.1); Total Protein 6.1 g/dL (6.4-8.9)
[2020-03-29] MEDS: Primidone 50 MG TABLET PO SCH ×2 (08:18→20:57)
[2020-03-29] MEDS: Carbidopa/Levodopa 25/100 TABLET PO SCH ×2 (08:18→20:55)
[2020-03-29] MEDS: hydrALAZINE 25 MG TABLET PO SCH ×3 (08:18→17:37)
[2020-03-29] MEDS: lisinopriL 10 MG TABLET PO SCH (08:18)
[2020-03-29] MEDS: PARoxetine 20 MG TABLET PO SCH (08:19)
[2020-03-29] MEDS: Heparin 25,000UNIT/250ML 1/2NS 25,000 UNIT/250 ML IV.SOLN IVC SCH (13:37)
[2020-03-29] MEDS ORDERED: *HR* Warfarin 5 MG TABLET PO ONE (18:00)
[2020-03-29] MEDS: Gabapentin 300 MG CAPSULE PO SCH (20:55)
[2020-03-30 05:46] LABS: INR 1.8; Prothrombin Time 20.4 Seconds (9.4-12.1)
[2020-03-30 06:04] LABS: Albumin 3.9 g/dL (3.5-5.7); Albumin/Globulin Ratio 1.5 (1.1-2.2); Bilirubin,Total 0.3 mg/dL (0.3-1.0); Globulin 2.6 g/dL (2.4-3.5); Potassium 4.6 mEq/L (3.5-5.1); Total Protein 6.5 g/dL (6.4-8.9)
[2020-03-30 06:09] LABS: Mean Corpuscular HGB Conc 31.6 g/dL (31.6-35.5); Mean Corpuscular Volume 98.2 fL (83.0-100.0); Mean Platelet Volume 11.2 fL (9.4-12.4); Platelet Count 244 K/mcL (140-400); Red Blood Count 3.87 M/mcL (4.19-5.50); Red Cell Distribution Width 13.2 % (11.5-14.5); White Blood Count 5.4 K/mcL (4.3-11.1)
[2020-03-30] MEDS: lisinopriL 10 MG TABLET PO SCH (08:13)
[2020-03-30] MEDS: Carbidopa/Levodopa 25/100 TABLET PO SCH ×2 (08:13→21:45)
[2020-03-30] MEDS: hydrALAZINE 25 MG TABLET PO SCH ×3 (08:13→17:59)
[2020-03-30] MEDS: PARoxetine 20 MG TABLET PO SCH (08:13)
[2020-03-30] MEDS: Primidone 50 MG TABLET PO SCH ×2 (08:14→21:45)
[2020-03-30] MEDS: MOM Conc 10 ML UD.LIQ PO PRN (11:47)
[2020-03-30] MEDS: Heparin 25,000UNIT/250ML 1/2NS 25,000 UNIT/250 ML IV.SOLN IVC SCH (17:09)
[2020-03-30] MEDS ORDERED: *HR* Warfarin 10 MG TABLET PO ONE (18:00)
[2020-03-30] MEDS ORDERED: *HR* Warfarin 2.5 MG TABLET PO ONE (18:00)
[2020-03-30] MEDS: hydrOXYzine pamoate 25 MG CAPSULE PO PRN (18:09)
[2020-03-30] MEDS: Gabapentin 300 MG CAPSULE PO SCH (21:45)
[2020-03-31 02:05] LABS: Hematocrit 34.3 % (37.5-50.1); Hemoglobin 11.3 g/dL (12.9-16.9); Mean Corpuscular HGB Conc 32.9 g/dL (31.6-35.5); Mean Corpuscular Hemoglobin 31.7 pg (28.0-33.3); Mean Corpuscular Volume 96.3 fL (83.0-100.0); Mean Platelet Volume 10.6 fL (9.4-12.4); Platelet Count 218 K/mcL (140-400); Red Blood Count 3.56 M/mcL (4.19-5.50); Red Cell Distribution Width 13.1 % (11.5-14.5); White Blood Count 4.4 K/mcL (4.3-11.1)
[2020-03-31 02:09] LABS: INR 1.9; Prothrombin Time 21.4 Seconds (9.4-12.1)
[2020-03-31 02:25] LABS: Albumin 3.6 g/dL (3.5-5.7); Albumin/Globulin Ratio 1.5 (1.1-2.2); Bilirubin,Total 0.3 mg/dL (0.3-1.0); Calcium 8.6 mg/dL (8.6-10.3); Globulin 2.4 g/dL (2.4-3.5); Potassium 4.2 mEq/L (3.5-5.1)
[2020-03-31] MEDS: Primidone 50 MG TABLET PO SCH ×2 (09:13→21:49)
[2020-03-31] MEDS: hydrALAZINE 25 MG TABLET PO SCH ×3 (09:13→17:33)
[2020-03-31] MEDS: lisinopriL 10 MG TABLET PO SCH (09:13)
[2020-03-31] MEDS: Carbidopa/Levodopa 25/100 TABLET PO SCH ×2 (09:13→21:49)
[2020-03-31] MEDS: PARoxetine 20 MG TABLET PO SCH (09:14)
[2020-03-31 15:56] LABS: INR 1.8; Prothrombin Time 20.7 Seconds (9.4-12.1)
[2020-03-31] MEDS ORDERED: *HR* Warfarin 10 MG TABLET PO ONE (18:00)
[2020-03-31] MEDS: Heparin 25,000UNIT/250ML 1/2NS 25,000 UNIT/250 ML IV.SOLN IVC SCH (21:43)
[2020-03-31] MEDS: Gabapentin 300 MG CAPSULE PO SCH (21:49)
[2020-04-01 06:58] LABS: Hematocrit 37.8 % (37.5-50.1); Hemoglobin 12.1 g/dL (12.9-16.9); Mean Corpuscular Hemoglobin 31.3 pg (28.0-33.3); Mean Corpuscular Volume 97.9 fL (83.0-100.0); Mean Platelet Volume 10.8 fL (9.4-12.4); Platelet Count 220 K/mcL (140-400); Red Blood Count 3.86 M/mcL (4.19-5.50); Red Cell Distribution Width 13.2 % (11.5-14.5); White Blood Count 4.3 K/mcL (4.3-11.1)
[2020-04-01 07:03] LABS: INR 1.8; Prothrombin Time 20.9 Seconds (9.4-12.1)
[2020-04-01 07:26] LABS: Albumin 3.8 g/dL (3.5-5.7); Albumin/Globulin Ratio 1.5 (1.1-2.2); Bilirubin,Total 0.3 mg/dL (0.3-1.0); Calcium 8.7 mg/dL (8.6-10.3); Globulin 2.5 g/dL (2.4-3.5); Potassium 4.4 mEq/L (3.5-5.1); Total Protein 6.3 g/dL (6.4-8.9)
[2020-04-01] MEDS: Primidone 50 MG TABLET PO SCH ×2 (10:49→20:18)
[2020-04-01] MEDS: Carbidopa/Levodopa 25/100 TABLET PO SCH ×2 (10:50→20:18)
[2020-04-01] MEDS: lisinopriL 10 MG TABLET PO SCH (10:50)
[2020-04-01] MEDS: PARoxetine 20 MG TABLET PO SCH (10:50)
[2020-04-01] MEDS: hydrALAZINE 25 MG TABLET PO SCH ×3 (10:51→18:42)
[2020-04-01] MEDS ORDERED: *HR* Warfarin 5 MG TABLET PO ONE (18:00)
[2020-04-01] MEDS: Gabapentin 300 MG CAPSULE PO SCH (20:18)
[2020-04-02] MEDS: Heparin 25,000UNIT/250ML 1/2NS 25,000 UNIT/250 ML IV.SOLN IVC SCH (02:20)
[2020-04-02 02:21] LABS: INR 1.8; Prothrombin Time 20.9 Seconds (9.4-12.1)
[2020-04-02] MEDS: Carbidopa/Levodopa 25/100 TABLET PO SCH (09:51)
[2020-04-02] MEDS: lisinopriL 10 MG TABLET PO SCH (09:51)
[2020-04-02] MEDS: hydrALAZINE 25 MG TABLET PO SCH ×2 (09:52→11:30)
[2020-04-02] MEDS: Primidone 50 MG TABLET PO SCH (09:52)
[2020-04-02] MEDS: PARoxetine 20 MG TABLET PO SCH (09:53)
[2020-04-02] MEDS ORDERED: polyethylene glycoL 3350 17 GM POWD.PACK PO SCH (10:00)
[2020-04-02] MEDS: MOM Conc 10 ML UD.LIQ PO PRN (10:01)
[2020-04-02 11:31] VITALS: BP 118/57
[2020-04-02] MEDS ORDERED: *HR* Enoxaparin 80 MG/0.8 ML SYRINGE SQ ONE (14:00)
[2020-04-02] MEDS ORDERED: *HR* Warfarin 5 MG TABLET PO ONE (18:00)
== END 2020-04-02 16:45 | disposition home health service (06) | DRG 313 ==
LOC: EMEROOARM 12:22 → 3BNU 12:22 → SUATTDRO 03-28 15:48
PROVIDERS: ADMIT Internal Medicine; ATTEND Registered Nurse

== ENCOUNTER 2020-05-30 14:04 | Inpatient (IN) ==
[2020-05-30 15:08] LABS: Basophils % 0.7 %; Eosinophils # 0.1 K/mcL (0.0-0.6); Eosinophils % 1.1 %; Hematocrit 40.1 % (37.5-50.1); Immature Granulocytes % 0.4 % (0-4); Lymphocytes # 1.1 K/mcL (0.6-4.6); Lymphocytes % 19.1 %; Mean Corpuscular HGB Conc 32.4 g/dL (31.6-35.5); Mean Corpuscular Hemoglobin 31.8 pg (28.0-33.3); Mean Platelet Volume 10.2 fL (9.4-12.4); Monocytes # 0.5 K/mcL (0.0-1.3); Monocytes % 8.5 %; Neutrophils # 3.9 K/mcL (1.6-8.9); Platelet Count 244 K/mcL (140-400); Red Blood Count 4.09 M/mcL (4.19-5.50); Red Cell Distribution Width 13.3 % (11.5-14.5); Segmented Neutrophils % 70.2 %; White Blood Count 5.5 K/mcL (4.3-11.1)
[2020-05-30 15:22] LABS: INR 2.4; Prothrombin Time 27.4 Seconds (9.4-12.1)
[2020-05-30 15:23] LABS: Bilirubin,Urine Negative (Negative); Blood,Urine Negative (Negative); Clarity,Urine Clear (Clear); Color,Urine Yellow (Yellow); Glucose,Urine (UA) Normal (Normal); Hyaline Casts,Urine Few per lpf (None Seen); Ketones,Urine Negative (Negative); Leukocyte Esterase,Urine Negative (Negative); Mucus,Urine Few per lpf (None-Few); Nitrite,Urine Negative (Negative); PH,Urine 6.5 pH Units (5.0-8.0); Protein,Urine 50 mg/dL (Neg-Trace); RBC,Urine 0-3 per hpf (0-3); Specific Gravity,Urine 1.023 (1.010-1.025); Urobilinogen,Urine Normal (Normal); WBC,Urine 0-3 per hpf (0-3)
[2020-05-30 15:28] LABS: BUN/Creatinine Ratio 17 (6-26); Blood Urea Nitrogen 30 mg/dL (8-23); Carbon Dioxide 27 mEq/L (23-29); Chloride 104 mEq/L (98-107); Glucose 113 mg/dL (70-105); Osmolality,Calculated 289 (280-300); Potassium 5.3 mEq/L (3.5-5.1); Sodium 136 mEq/L (136-145); eGFR For African Americans 45 (> 60); eGFR For Non-African Americans 37 (> 60)
[2020-05-30 15:35] LABS: Troponin I < 0.03 ng/mL (< 0.04)
[2020-05-30] MEDS ORDERED: Ondansetron ODT 4 MG TAB.RAPDIS SL PRN (17:06)
[2020-05-30] MEDS ORDERED: Acetaminophen 325 MG TABLET PO PRN (17:06)
[2020-05-30 17:10] LABS: Adenovirus Not Detected (Not Detect); Bordetella Pertussis Not Detected (Not Detect); Chlamydophila pneumoniae Not Detected (Not Detect); Coronavirus 229E Not Detected (Not Detect); Coronavirus HKU1 Not Detected (Not Detect); Coronavirus NL63 Not Detected (Not Detect); Coronavirus OC43 Not Detected (Not Detect); Human Metapneumovirus Not Detected (Not Detect); Human Rhinovirus/Enterovirus Not Detected (Not Detect); Influenza A Subtype 2009 H1 Not Detected (Not Detect); Influenza B Not Detected (Not Detect); Mycoplasma pneumoniae Not Detected (Not Detect); Parainfluenza Virus 1 Not Detected (Not Detect); Parainfluenza Virus 2 Not Detected (Not Detect); Parainfluenza Virus 3 Not Detected (Not Detect); Parainfluenza Virus 4 Not Detected (Not Detect); Respiratory Syncytial Virus Not Detected (Not Detect); SARS-CoV-2 Not Detected (Not Detect)
[2020-05-30] MEDS ORDERED: 0.9 % Sodium Chloride 1,000 ML IVC SCH (17:15)
[2020-05-30 19:47] LABS: VBG HCO3 26 mEq/L (21-27); VBG PCO2 41 mmHg (41-51); VBG PO2 31 mmHg (25-50)
[2020-05-30] MEDS ORDERED: *HR* Warfarin 10 MG TABLET PO ONE (19:48)
[2020-05-31 03:53] LABS: Hemoglobin 12.1 g/dL (12.9-16.9); Mean Corpuscular HGB Conc 31.8 g/dL (31.6-35.5); Mean Corpuscular Hemoglobin 32.1 pg (28.0-33.3); Mean Corpuscular Volume 100.8 fL (83.0-100.0); Mean Platelet Volume 10.5 fL (9.4-12.4); Platelet Count 213 K/mcL (140-400); Red Blood Count 3.77 M/mcL (4.19-5.50); Red Cell Distribution Width 13.2 % (11.5-14.5); White Blood Count 4.6 K/mcL (4.3-11.1)
[2020-05-31 04:00] LABS: INR 2.7; Prothrombin Time 30.3 Seconds (9.4-12.1)
[2020-05-31 04:17] LABS: Calcium 8.5 mg/dL (8.6-10.3); Potassium 4.9 mEq/L (3.5-5.1)
[2020-05-31] MEDS: Carbidopa/Levodopa 25/100 TABLET PO SCH ×2 (08:35→15:27)
[2020-05-31] MEDS: PARoxetine 20 MG TABLET PO SCH (08:35)
[2020-05-31] MEDS: Gabapentin 300 MG CAPSULE PO SCH (08:36)
[2020-05-31] MEDS: hydrALAZINE 25 MG TABLET PO SCH ×3 (08:36→15:27)
[2020-05-31] MEDS: lisinopriL 10 MG TABLET PO SCH (08:36)
[2020-05-31] MEDS ORDERED: Primidone 50 MG TABLET PO SCH (09:00)
[2020-05-31] MEDS ORDERED: Topiramate 25 MG TABLET PO SCH (09:00)
[2020-05-31] MEDS ORDERED: *HR* Warfarin 10 MG TABLET PO SCH (18:00)
[2020-05-31] MEDS ORDERED: Warfarin 10 MG, Warfarin 2.5 MG PO ONE (18:00)
[2020-05-31] MEDS ORDERED: Warfarin perPT PO PRN (18:00)
[2020-05-31] MEDS ORDERED: *HR* Warfarin 10 MG TABLET PO ONE (18:00)
[2020-06-01 07:11] LABS: Hematocrit 38.7 % (37.5-50.1); Hemoglobin 12.7 g/dL (12.9-16.9); Mean Corpuscular HGB Conc 32.8 g/dL (31.6-35.5); Mean Corpuscular Hemoglobin 31.8 pg (28.0-33.3); Mean Corpuscular Volume 96.8 fL (83.0-100.0); Mean Platelet Volume 10.4 fL (9.4-12.4); Platelet Count 242 K/mcL (140-400); Red Cell Distribution Width 13.1 % (11.5-14.5); White Blood Count 4.5 K/mcL (4.3-11.1)
[2020-06-01 07:22] LABS: Calcium 9.2 mg/dL (8.6-10.3); Potassium 4.7 mEq/L (3.5-5.1)
[2020-06-01 07:23] LABS: INR 2.1; Prothrombin Time 23.3 Seconds (9.4-12.1)
[2020-06-01] MEDS: lisinopriL 10 MG TABLET PO SCH (07:57)
[2020-06-01] MEDS: Gabapentin 300 MG CAPSULE PO SCH (07:57)
[2020-06-01] MEDS: hydrALAZINE 25 MG TABLET PO SCH ×3 (07:57→16:07)
[2020-06-01] MEDS: PARoxetine 20 MG TABLET PO SCH (07:57)
[2020-06-01 11:53] LABS: Procalcitonin < 0.02 ng/mL (0.00-0.15)
[2020-06-01] MEDS ORDERED: *HR* LORazepam 2 MG/ML VIAL IM STA (14:31)
[2020-06-01] MEDS ORDERED: WARFARIN PO ONE (18:00)
[2020-06-02 05:09] LABS: INR 2.4; Prothrombin Time 26.8 Seconds (9.4-12.1)
[2020-06-02] MEDS: Gabapentin 300 MG CAPSULE PO SCH (09:57)
[2020-06-02] MEDS: lisinopriL 10 MG TABLET PO SCH (09:58)
[2020-06-02] MEDS: hydrALAZINE 25 MG TABLET PO SCH ×3 (09:58→18:04)
[2020-06-02] MEDS ORDERED: Carbidopa/Levodopa 25/100 TABLET PO ONE (11:08)
[2020-06-02] MEDS ORDERED: Carbidopa/Levodopa 25/100 TABLET PO SCH (15:00)
[2020-06-02] MEDS ORDERED: Isovue-370 500 ML BOTTLE IVP ONE (16:11)
[2020-06-02] MEDS ORDERED: MethylPREDNISolone 40 MG/ML VIAL IVP ONE (16:45)
[2020-06-02] MEDS ORDERED: 0.9 % Sodium Chloride 1,000 ML IVC SCH (17:45)
[2020-06-02] MEDS ORDERED: *HR* Warfarin 5 MG TABLET PO ONE (18:00)
[2020-06-02] MEDS: Carbidopa/Levodopa 25/100 TABLET PO SCH (18:15)
[2020-06-02] MEDS: QUEtiapine Fumarate 25 MG TABLET PO SCH (19:34)
[2020-06-03 05:16] LABS: INR 2.6; Prothrombin Time 29.2 Seconds (9.4-12.1)
[2020-06-03 05:25] LABS: Calcium 8.8 mg/dL (8.6-10.3); Magnesium 2.1 mg/dL (1.6-2.6); Potassium 4.7 mEq/L (3.5-5.1)
[2020-06-03] MEDS ORDERED: Isovue-370 500 ML BOTTLE IVP ONE (08:09)
[2020-06-03] MEDS: lisinopriL 10 MG TABLET PO SCH (09:17)
[2020-06-03] MEDS: Gabapentin 300 MG CAPSULE PO SCH (09:17)
[2020-06-03] MEDS: Carbidopa/Levodopa 25/100 TABLET PO SCH ×3 (09:18→19:58)
[2020-06-03] MEDS: hydrALAZINE 25 MG TABLET PO SCH ×3 (09:18→18:00)
[2020-06-03] MEDS ORDERED: Warfarin 10 MG, Warfarin 2.5 MG PO ONE (18:00)
[2020-06-03] MEDS: QUEtiapine Fumarate 25 MG TABLET PO SCH (19:58)
[2020-06-04 05:03] LABS: INR 2.8
[2020-06-04] MEDS: lisinopriL 10 MG TABLET PO SCH (07:38)
[2020-06-04] MEDS: Gabapentin 300 MG CAPSULE PO SCH (07:38)
[2020-06-04] MEDS: Carbidopa/Levodopa 25/100 TABLET PO SCH (07:38)
[2020-06-04] MEDS: hydrALAZINE 25 MG TABLET PO SCH ×2 (07:38→10:46)
[2020-06-04 10:43] VITALS: BP 102/64
[2020-06-04] MEDS ORDERED: Warfarin 10 MG, Warfarin 2.5 MG PO ONE (18:00)
== END 2020-06-04 11:48 | DRG 56 ==
LOC: EMEROOARM 14:04 → 2ANU 14:04 → SUATTDRO 17:19 → 2ANU 19:15
PROVIDERS: ADMIT Family Medicine; ATTEND Internal Medicine

== ENCOUNTER 2020-09-22 11:10 | Inpatient (IN) ==
[2020-09-22] MEDS ORDERED: Aspirin 81 MG TAB.CHEW PO ONE (11:21)
[2020-09-22] MEDS: Nitroglycerin 0.4 MG TAB.SUBL SL PRN ×2 (11:29→11:44)
[2020-09-22] MEDS ORDERED: Ipratropium/Albuterol Neb 3 ML IH ONE (11:33)
[2020-09-22] MEDS ORDERED: 0.9 % Sodium Chloride 1,000 ML ONE (11:35)
[2020-09-22] MEDS: 0.9 % Sodium Chloride 1,000 ML IVC SCH ×2 (11:42→17:30)
[2020-09-22 11:57] LABS: Basophils # 0.1 K/mcL (0.0-0.2); Basophils % 0.9 %; Eosinophils # 0.2 K/mcL (0.0-0.6); Eosinophils % 3.8 %; Hematocrit 37.1 % (37.5-50.1); Hemoglobin 12.2 g/dL (12.9-16.9); Immature Granulocytes % 0.4 % (0-4); Lymphocytes # 1.7 K/mcL (0.6-4.6); Lymphocytes % 31.3 %; Mean Corpuscular HGB Conc 32.9 g/dL (31.6-35.5); Mean Corpuscular Hemoglobin 31.9 pg (28.0-33.3); Mean Corpuscular Volume 97.1 fL (83.0-100.0); Mean Platelet Volume 10.2 fL (9.4-12.4); Monocytes # 0.7 K/mcL (0.0-1.3); Monocytes % 12.4 %; Neutrophils # 2.9 K/mcL (1.6-8.9); Platelet Count 246 K/mcL (140-400); Red Blood Count 3.82 M/mcL (4.19-5.50); Red Cell Distribution Width 13.5 % (11.5-14.5); Segmented Neutrophils % 51.2 %; White Blood Count 5.6 K/mcL (4.3-11.1)
[2020-09-22 12:09] LABS: Bilirubin,Urine Negative (Negative); Blood,Urine Negative (Negative); Clarity,Urine Clear (Clear); Color,Urine Light-Yellow (Yellow); Glucose,Urine (UA) Normal (Normal); Ketones,Urine Negative (Negative); Leukocyte Esterase,Urine Negative (Negative); Nitrite,Urine Negative (Negative); Protein,Urine Negative (Neg-Trace); Specific Gravity,Urine 1.008 (1.010-1.025); Urobilinogen,Urine Normal (Normal)
[2020-09-22 12:13] LABS: INR 2.7; Prothrombin Time 30.1 Seconds (9.4-12.1)
[2020-09-22 12:16] LABS: Activated Partial Thrombo Time 39.8 Seconds (26.0-36.0)
[2020-09-22] MEDS ORDERED: Azithromycin 500 MG in 0.9 % Sodium Chloride 250 ML IVPB ONE (12:21)
[2020-09-22] MEDS ORDERED: cefTRIAXone 1,000 MG in 0.9 % Sodium Chloride Mini Bag 100 ML IVPB ONE (12:21)
[2020-09-22] MEDS ORDERED: cefTRIAXone 1,000 MG in Water for inj. (sterile) 10 ML IVP ONE (13:22)
[2020-09-22 13:27] LABS: Alanine Aminotransferase 12 Units/L (7-52); Albumin 3.6 g/dL (3.5-5.7); Albumin/Globulin Ratio 1.5 (1.1-2.2); Alkaline Phosphatase 49 Units/L (34-104); Aspartate Amino Transferase 13 Units/L (13-39); BUN/Creatinine Ratio 19 (6-26); Bilirubin,Direct 0.1 mg/dL (0.0-0.2); Bilirubin,Indirect 0.2 mg/dL (0.0-1.0); Bilirubin,Total 0.3 mg/dL (0.3-1.0); Blood Urea Nitrogen 30 mg/dL (8-23); Calcium 8.2 mg/dL (8.6-10.3); Carbon Dioxide 23 mEq/L (23-29); Chloride 108 mEq/L (98-107); Globulin 2.4 g/dL (2.4-3.5); Glucose 110 mg/dL (70-105); Lipase 19 Units/L (11-82); Osmolality,Calculated 291 (280-300); Sodium 137 mEq/L (136-145); eGFR For African Americans 51 (> 60); eGFR For Non-African Americans 42 (> 60)
[2020-09-22 13:35] LABS: Troponin I < 0.03 ng/mL (< 0.04)
[2020-09-22] MEDS ORDERED: Isovue-370 500 ML BOTTLE IVP ONE (13:44)
[2020-09-22 14:31] LABS: Influenza A PCR Negative (Negative); Influenza B PCR Negative (Negative); Resp. Syncytial Virus PCR Negative (Negative)
[2020-09-22 14:32] LABS: SARS-CoV-2 by PCR (In House) Negative (Negative)
[2020-09-22] MEDS ORDERED: *HR* FentaNYL (PF) 100 MCG/2 ML VIAL IVP ONE (15:54)
[2020-09-22] MEDS ORDERED: Ondansetron 4 MG/2 ML VIAL IVP PRN (16:06)
[2020-09-22] MEDS ORDERED: Naloxone 0.4 MG/ML INJ IVP PRN (16:06)
[2020-09-22] MEDS ORDERED: Albuterol 2.5 MG/3 ML NEBULIZER IH PRN (16:12)
[2020-09-22] MEDS ORDERED: Perflutren Lipid Microsphere 1.3 ML in 0.9 % Sodium Chloride 8.7 ML IVP PRN (16:17)
[2020-09-22] MEDS ORDERED: Warfarin perPT PO PRN (18:00)
[2020-09-22] MEDS ORDERED: *HR* Warfarin 10 MG TABLET PO ONE (18:13)
[2020-09-22] MEDS: Budesonide/Formoterol 80/4.5 1 PUFF INH IH SCH (19:57)
[2020-09-22] MEDS: QUEtiapine Fumarate 25 MG TABLET PO SCH (21:02)
[2020-09-22] MEDS: Carbidopa/Levodopa 25/100 TABLET PO SCH (21:02)
[2020-09-23] MEDS: 0.9 % Sodium Chloride 1,000 ML IVC SCH (01:49)
[2020-09-23 03:46] LABS: Basophils % 0.8 %; Eosinophils # 0.2 K/mcL (0.0-0.6); Eosinophils % 4.6 %; Hematocrit 33.6 % (37.5-50.1); Hemoglobin 10.9 g/dL (12.9-16.9); Immature Granulocytes % 0.6 % (0-4); Lymphocytes # 1.4 K/mcL (0.6-4.6); Lymphocytes % 27.4 %; Mean Corpuscular HGB Conc 32.4 g/dL (31.6-35.5); Mean Corpuscular Hemoglobin 31.9 pg (28.0-33.3); Mean Corpuscular Volume 98.2 fL (83.0-100.0); Mean Platelet Volume 9.9 fL (9.4-12.4); Monocytes # 0.6 K/mcL (0.0-1.3); Neutrophils # 2.9 K/mcL (1.6-8.9); Platelet Count 215 K/mcL (140-400); Red Blood Count 3.42 M/mcL (4.19-5.50); Red Cell Distribution Width 13.5 % (11.5-14.5); Segmented Neutrophils % 55.6 %; White Blood Count 5.2 K/mcL (4.3-11.1)
[2020-09-23 03:55] LABS: Prothrombin Time 33.2 Seconds (9.4-12.1)
[2020-09-23 04:03] LABS: Calcium 8.2 mg/dL (8.6-10.3); Magnesium 2.2 mg/dL (1.6-2.6); Phosphorous 3.7 mg/dL (2.7-4.5); Potassium 4.8 mEq/L (3.5-5.1)
[2020-09-23] MEDS ORDERED: Regadenoson 0.4 MG/5 ML SYRINGE IVP ONE (06:42)
[2020-09-23] MEDS: Budesonide/Formoterol 80/4.5 1 PUFF INH IH SCH ×2 (09:58→19:47)
[2020-09-23] MEDS: cefTRIAXone 1,000 MG in Water for inj. (sterile) 10 ML IVP SCH (10:11)
[2020-09-23] MEDS: lisinopriL 10 MG TABLET PO SCH (10:12)
[2020-09-23] MEDS: Gabapentin 300 MG CAPSULE PO SCH (10:12)
[2020-09-23] MEDS: Aspirin 81 MG TAB.CHEW PO SCH (10:12)
[2020-09-23] MEDS: Carbidopa/Levodopa 25/100 TABLET PO SCH ×3 (10:12→21:12)
[2020-09-23] MEDS ORDERED: Furosemide 20 MG/2 ML VIAL IVP ONE (10:48)
[2020-09-23] MEDS: hydrALAZINE 25 MG TABLET PO SCH ×2 (11:40→18:11)
[2020-09-23] MEDS: Azithromycin 500 MG in 0.9 % Sodium Chloride 250 ML IVPB SCH (14:34)
[2020-09-23] MEDS ORDERED: Acetaminophen 325 MG TABLET PO PRN (16:12)
[2020-09-23] MEDS: Ipratropium/Albuterol Neb 3 ML IH PRN (17:10)
[2020-09-23] MEDS ORDERED: *HR* Warfarin 7.5 MG TABLET PO ONE (18:00)
[2020-09-23] MEDS: Primidone 50 MG TABLET PO SCH (21:12)
[2020-09-23] MEDS: QUEtiapine Fumarate 25 MG TABLET PO SCH (21:12)
[2020-09-24 02:49] LABS: Basophils % 0.8 %; Eosinophils # 0.3 K/mcL (0.0-0.6); Eosinophils % 6.2 %; Hematocrit 31.7 % (37.5-50.1); Hemoglobin 10.5 g/dL (12.9-16.9); Immature Granulocytes % 0.2 % (0-4); Lymphocytes # 1.6 K/mcL (0.6-4.6); Lymphocytes % 31.1 %; Mean Corpuscular HGB Conc 33.1 g/dL (31.6-35.5); Mean Corpuscular Hemoglobin 32.9 pg (28.0-33.3); Mean Corpuscular Volume 99.4 fL (83.0-100.0); Monocytes # 0.5 K/mcL (0.0-1.3); Monocytes % 10.8 %; Neutrophils # 2.6 K/mcL (1.6-8.9); Platelet Count 210 K/mcL (140-400); Red Blood Count 3.19 M/mcL (4.19-5.50); Red Cell Distribution Width 13.7 % (11.5-14.5); Segmented Neutrophils % 50.9 %
[2020-09-24 02:59] LABS: INR 2.9; Prothrombin Time 32.5 Seconds (9.4-12.1)
[2020-09-24 03:07] LABS: Calcium 8.2 mg/dL (8.6-10.3); Magnesium 2.1 mg/dL (1.6-2.6); Phosphorous 4.6 mg/dL (2.7-4.5); Potassium 4.3 mEq/L (3.5-5.1)
[2020-09-24] MEDS: Budesonide/Formoterol 80/4.5 1 PUFF INH IH SCH (07:31)
[2020-09-24] MEDS: Aspirin 81 MG TAB.CHEW PO SCH (07:48)
[2020-09-24] MEDS: Carbidopa/Levodopa 25/100 TABLET PO SCH ×3 (07:48→20:12)
[2020-09-24] MEDS: Gabapentin 300 MG CAPSULE PO SCH (07:48)
[2020-09-24] MEDS: lisinopriL 10 MG TABLET PO SCH (07:48)
[2020-09-24] MEDS: Topiramate 25 MG TABLET PO SCH (07:48)
[2020-09-24] MEDS: cefTRIAXone 1,000 MG in Water for inj. (sterile) 10 ML IVP SCH (07:49)
[2020-09-24] MEDS: hydrALAZINE 25 MG TABLET PO SCH ×3 (07:49→16:30)
[2020-09-24] MEDS: PARoxetine 30 MG TABLET PO SCH (07:49)
[2020-09-24] MEDS: Ipratropium/Albuterol Neb 3 ML IH PRN ×2 (11:41→15:46)
[2020-09-24] MEDS ORDERED: NON-FORMULARY MEDICATION 1 EACH EACH (Fluticasone/Umeclidin/Vilanter [Trelegy Ellipta 200- IH SCH (14:30)
[2020-09-24] MEDS: Azithromycin 500 MG in 0.9 % Sodium Chloride 250 ML IVPB SCH (14:34)
[2020-09-24 16:48] LABS: Adenovirus Not Detected (Not Detect); Bordetella Pertussis Not Detected (Not Detect); Chlamydophila pneumoniae Not Detected (Not Detect); Coronavirus 229E Not Detected (Not Detect); Coronavirus HKU1 Not Detected (Not Detect); Coronavirus NL63 Not Detected (Not Detect); Coronavirus OC43 Not Detected (Not Detect); Human Metapneumovirus Not Detected (Not Detect); Human Rhinovirus/Enterovirus Not Detected (Not Detect); Influenza A Subtype 2009 H1 Not Detected (Not Detect); Influenza B Not Detected (Not Detect); Mycoplasma pneumoniae Not Detected (Not Detect); Parainfluenza Virus 1 Not Detected (Not Detect); Parainfluenza Virus 2 Not Detected (Not Detect); Parainfluenza Virus 3 Not Detected (Not Detect); Parainfluenza Virus 4 Not Detected (Not Detect); Respiratory Syncytial Virus Not Detected (Not Detect); SARS-CoV-2 Not Detected (Not Detect)
[2020-09-24] MEDS ORDERED: *HR* Warfarin 7.5 MG TABLET PO ONE (18:00)
[2020-09-24] MEDS: QUEtiapine Fumarate 25 MG TABLET PO SCH (20:11)
[2020-09-24] MEDS: Primidone 50 MG TABLET PO SCH (20:12)
[2020-09-24] MEDS: Budesonide/Formoterol 160/4.5 1 PUFF INH IH SCH (20:32)
[2020-09-25 05:33] LABS: Basophils % 0.8 %; Eosinophils # 0.3 K/mcL (0.0-0.6); Eosinophils % 5.1 %; Hematocrit 31.9 % (37.5-50.1); Hemoglobin 10.2 g/dL (12.9-16.9); Immature Granulocytes % 0.4 % (0-4); Lymphocytes # 1.4 K/mcL (0.6-4.6); Lymphocytes % 27.7 %; Mean Corpuscular Hemoglobin 31.8 pg (28.0-33.3); Mean Corpuscular Volume 99.4 fL (83.0-100.0); Mean Platelet Volume 10.1 fL (9.4-12.4); Monocytes # 0.6 K/mcL (0.0-1.3); Monocytes % 11.9 %; Neutrophils # 2.6 K/mcL (1.6-8.9); Platelet Count 216 K/mcL (140-400); Red Blood Count 3.21 M/mcL (4.19-5.50); Segmented Neutrophils % 54.1 %; White Blood Count 4.9 K/mcL (4.3-11.1)
[2020-09-25 05:37] LABS: INR 3.3; Prothrombin Time 36.5 Seconds (9.4-12.1)
[2020-09-25 05:48] LABS: Calcium 8.3 mg/dL (8.6-10.3); Magnesium 2.3 mg/dL (1.6-2.6); Phosphorous 4.8 mg/dL (2.7-4.5); Potassium 4.5 mEq/L (3.5-5.1)
[2020-09-25] MEDS: Ipratropium/Albuterol Neb 3 ML IH PRN ×2 (07:11→11:06)
[2020-09-25] MEDS: Budesonide/Formoterol 160/4.5 1 PUFF INH IH SCH (07:12)
[2020-09-25] MEDS: Gabapentin 300 MG CAPSULE PO SCH (08:00)
[2020-09-25] MEDS: hydrALAZINE 25 MG TABLET PO SCH ×2 (08:00→12:07)
[2020-09-25] MEDS: PARoxetine 30 MG TABLET PO SCH (08:00)
[2020-09-25] MEDS: Carbidopa/Levodopa 25/100 TABLET PO SCH ×2 (08:00→14:31)
[2020-09-25] MEDS: Topiramate 25 MG TABLET PO SCH (08:00)
[2020-09-25] MEDS: cefTRIAXone 1,000 MG in Water for inj. (sterile) 10 ML IVP SCH (08:01)
[2020-09-25] MEDS: Aspirin 81 MG TAB.CHEW PO SCH (08:01)
[2020-09-25] MEDS ORDERED: Tiotropium 10 INH DOSE IH SCH (10:00)
[2020-09-25] MEDS: Azithromycin 500 MG in 0.9 % Sodium Chloride 250 ML IVPB SCH (14:31)
[2020-09-25 15:10] VITALS: BP 109/62; PULSE 84; TEMP 98; O2SAT 96
[2020-09-25] MEDS ORDERED: *HR* Warfarin 5 MG TABLET PO ONE (18:00)
== END 2020-09-25 16:53 | DRG 313 ==
LOC: EMEROOARM 11:10 → 3BNU 11:10 → SUATTDRO 09-24 18:29
PROVIDERS: ADMIT Internal Medicine; ATTEND Registered Nurse